=== PATIENT | male | born 1960 | race American Indian/Alaskan Native ===

== ENCOUNTER 2018-03-10 16:39 | Inpatient (IN) | payer OTHER ==
[2018-03-10] MEDS ORDERED: TYLENOL PR ONE ×2 (17:16→17:32)
[2018-03-10] MEDS ORDERED: NACL 0.9% 1000 ML 1,000 ML IV ONE ×3 (17:19→20:21)
--- NOTE | 2018-03-10 17:43 | Emergency Department Report ---
ED Altered Mental Status HPI - General Chief Complaint: Medical Clearance Stated Complaint: DEHYDRATION Time Seen by Provider: 03/10/18 17:15 Source: family, EMS, old records reviewed (no previous medical record for review ) Mode of arrival: Stretcher Limitations: No Limitations, Altered Mental Status - History of Present Illness Initial Comments: 57-year-old male with a past medical history schizophrenia, depression, and anxiety presents to the hospital with his family members for alteration in mental status. End of January patient was experiencing hallucinations and therefore received an IM Aristada injection as an outpatient on February 18. His hallucinations and threatening behavior worsened despite receiving a shot and therefore patient was taken to [place] on Feb 25 after medical clearance at [facility] (presented Feb 22). Family states they were informed by patient' s primary psychiatrist that patient should now only be taking Abilify since he did receive an Aristada shot. He was supposed to discontinue Zyprexa. Family states he continued to receive Zyprexa while under inpatient psychiatric care. They received reports that patient was combative and continued to hallucinated and therefore was receiving multiple medications for sedation. Patient was discharged back to the family care but presented in a catatonic state, wearing a diaper, unable to ambulate, unable to speak or care for himself on Mar 04. At his baseline patient has hallucinations due to psychosis but is typically alert and oriented 3 and able to perform daily living activities. Family recalled ambulance due to his state and he was taken back to [facility] for medical clearance. He was then transfered by back to [place] on Mar 05. Now pt has not ambulated, eaten or had any thing to drink in at least the past 4-5 days so he was brought to the ED for evaluation. Pt also fell out of a wheelchair during [place] stay. - Related Data Allergies Allergy/AdvReac Type Severity Reaction Status Date / Time No Known Allergies Allergy Unverified 03/10/18 17:07 ED Review of Systems ROS: Stated complaint: DEHYDRATION Other details as noted in HPI ED Past Medical Hx - Past Medical History Hx Psychiatric Treatment: Yes (schizophrenia, depression, anxiety) - Social History Smoking Status: Never Smoker Substance Use Type: None ED Physical Exam - General Limitations: No Limitations, Altered Mental Status - Other Other exam information: General: Altered, thin-appearing Head exam: Atraumatic, normocephalic Eyes exam: pupils equal reactive to light, extraocular movements intact ENT: Extremity dry oral mucous membranes Neck exam: Normal inspection, no meningismus Respiratory exam: Clear to auscultation bilateral, no wheezes, rales, crackles Cardiovascular: Normal rate and rhythm, normal heart sounds Abdomen: Soft, nondistended, and nontender, with normal bowel sounds, no rebound, or guarding Extremity: Grimace with passive movement of right hip. No deformity Back: Normal Inspection, full range of motion, no tenderness Neurologic: Altered, lethargic, incomprehensible sounds, does not follow commands, moves all extremities equally with sensation grossly intact Psychiatric: normal affect, normal mood Skin: Warm, dry, intact ED Course Vital Signs 03/10/18 03/10/18 03/10/18 16:42 16:45 16:53 Temperature Pulse Rate 95 H 94 H 92 H Respiratory 14 14 18 Rate Blood Pressure 110/71 110/71 Blood Pressure [Left] O2 Sat by Pulse 97 97 Oximetry 03/10/18 03/10/18 03/10/18 17:00 17:15 17:30 Temperature 100 F H Pulse Rate 95 H 91 H 88 Respiratory 15 14 14 Rate Blood Pressure 110/71 105/75 105/75 Blood Pressure [Left] O2 Sat by Pulse 99 97 Oximetry 03/10/18 03/10/18 18:22 19:15 Temperature 100.6 F H Pulse Rate 93 H Respiratory 18 14 Rate Blood Pressure Blood Pressure 113/77 [Left] O2 Sat by Pulse 97 99 Oximetry - Consultations Consultation #1: 03/10/18 20:49 case d/w Dr Pederson regarding right trochanter avulsion fracture and acetabular irregularity. 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 - Lab Data Result diagrams: 03/10/18 17:27 03/10/18 17:27 Lab Results 03/10/18 03/10/18 03/10/18 Range/Units 17:24 17:27 17:27 WBC 7.3 (4.5-11.0) K/mm3 RBC 5.19 H (3.65-5.03) M/mm3 Hgb 14.3 (11.8-15.2) gm/dl Hct 43.2 (35.5-45.6) % MCV 83 L (84-94) fl MCH 28 (28-32) pg MCHC 33 (32-34) % RDW 14.9 (13.2-15.2) % Plt Count 81 L (140-440) K/mm3 Lymph % (Auto) 7.4 L (13.4-35.0) % [place] % (Auto) 5.8 (0.0-7.3) % Eos % (Auto) 0.8 (0.0-4.3) % Baso % (Auto) 0.3 (0.0-1.8) % Lymph # 0.5 L (1.2-5.4) K/mm3 [place] # 0.4 (0.0-0.8) K/mm3 Eos # 0.1 (0.0-0.4) K/mm3 Baso # 0.0 (0.0-0.1) K/mm3 Seg Neutrophils % 85.7 H (40.0-70.0) % Seg Neutrophils # 6.2 (1.8-7.7) K/mm3 Sodium 141 (137-145) mmol/L Potassium 3.8 (3.6-5.0) mmol/L Chloride 99.9 (98-107) mmol/L Carbon Dioxide 28 (22-30) mmol/L Anion Gap 17 mmol/L BUN 13 (9-20) mg/dL Creatinine 0.8 (0.8-1.5) mg/dL Estimated GFR > 60 ml/min BUN/Creatinine Ratio 16 % Glucose 148 H (75-100) mg/dL POC Glucose (70-105) Calcium 9.1 (8.4-10.2) mg/dL Magnesium 2.20 (1.7-2.3) mg/dL Total Bilirubin 1.20 (0.1-1.2) mg/dL AST 50 H (5-40) units/L ALT 63 H (7-56) units/L Alkaline Phosphatase 67 (35-129) units/L Ammonia (25-60) umol/L Total Creatine Kinase (55-170) units/L CK-MB (CK-2) (0.0-4.0) ng/mL CK-MB (CK-2) Rel Index (0-4) Troponin T (0.00-0.029) ng/mL Total Protein 7.2 (6.3-8.2) g/dL Albumin 3.6 L (3.9-5) g/dL Albumin/Globulin Ratio 1.0 % TSH (0.270-4.200) mlU/mL Free T4 (0.76-1.46) ng/dL Urine Color (Yellow) Urine Turbidity (Clear) Urine pH (5.0-7.0) Ur Specific [place] (1.003-1.030) Urine Protein (Negative) mg/dL Urine Glucose (UA) (Negative) mg/dL Urine Ketones (Negative) mg/dL Urine Blood (Negative) Urine Nitrite (Negative) Urine Bilirubin (Negative) Urine Urobilinogen (<2.0) mg/dL Ur Leukocyte Esterase (Negative) Urine WBC (Auto) (0.0-6.0) /HPF Urine RBC (Auto) (0.0-6.0) /HPF U Epithel Cells (Auto) (0-13.0) /HPF Urine Bacteria (Auto) (Negative) /HPF Ur Transition Epith Cell /HPF Urine Mucus /HPF Salicylates (2.8-20.0) mg/dL Urine Opiates Screen Urine Methadone Screen Acetaminophen (10.0-30.0) ug/mL Ur Barbiturates Screen Ur Phencyclidine Scrn Ur Amphetamines Screen U Benzodiazepines Scrn Urine Cocaine Screen U Marijuana (THC) Screen Drugs of Abuse Note Plasma/Serum Alcohol (0-0.07) % 03/10/18 03/10/18 03/10/18 Range/Units 17:27 17:27 17:27 WBC (4.5-11.0) K/mm3 RBC (3.65-5.03) M/mm3 Hgb (11.8-15.2) gm/dl Hct (35.5-45.6) % MCV (84-94) fl MCH (28-32) pg MCHC (32-34) % RDW (13.2-15.2) % Plt Count (140-440) K/mm3 Lymph % (Auto) (13.4-35.0) % [place] % (Auto) (0.0-7.3) % Eos % (Auto) (0.0-4.3) % Baso % (Auto) (0.0-1.8) % Lymph # (1.2-5.4) K/mm3 [place] # (0.0-0.8) K/mm3 Eos # (0.0-0.4) K/mm3 Baso # (0.0-0.1) K/mm3 Seg Neutrophils % (40.0-70.0) % Seg Neutrophils # (1.8-7.7) K/mm3 Sodium (137-145) mmol/L Potassium (3.6-5.0) mmol/L Chloride (98-107) mmol/L Carbon Dioxide (22-30) mmol/L Anion Gap mmol/L BUN (9-20) mg/dL Creatinine (0.8-1.5) mg/dL Estimated GFR ml/min BUN/Creatinine Ratio % Glucose (75-100) mg/dL POC Glucose (70-105) Calcium (8.4-10.2) mg/dL Magnesium (1.7-2.3) mg/dL Total Bilirubin (0.1-1.2) mg/dL AST (5-40) units/L ALT (7-56) units/L Alkaline Phosphatase (35-129) units/L Ammonia (25-60) umol/L Total Creatine Kinase (55-170) units/L CK-MB (CK-2) (0.0-4.0) ng/mL CK-MB (CK-2) Rel Index (0-4) Troponin T (0.00-0.029) ng/mL Total Protein (6.3-8.2) g/dL Albumin (3.9-5) g/dL Albumin/Globulin Ratio % TSH (0.270-4.200) mlU/mL Free T4 (0.76-1.46) ng/dL Urine Color (Yellow) Urine Turbidity (Clear) Urine pH (5.0-7.0) Ur Specific [place] (1.003-1.030) Urine Protein (Negative) mg/dL Urine Glucose (UA) (Negative) mg/dL Urine Ketones (Negative) mg/dL Urine Blood (Negative) Urine Nitrite (Negative) Urine Bilirubin (Negative) Urine Urobilinogen (<2.0) mg/dL Ur Leukocyte Esterase (Negative) Urine WBC (Auto) (0.0-6.0) /HPF Urine RBC (Auto) (0.0-6.0) /HPF U Epithel Cells (Auto) (0-13.0) /HPF Urine Bacteria (Auto) (Negative) /HPF Ur Transition Epith Cell /HPF Urine Mucus /HPF Salicylates < 0.3 L (2.8-20.0) mg/dL Urine Opiates Screen Urine Methadone Screen Acetaminophen < 5.0 L (10.0-30.0) ug/mL Ur Barbiturates Screen Ur Phencyclidine Scrn Ur Amphetamines Screen U Benzodiazepines Scrn Urine Cocaine Screen U Marijuana (THC) Screen Drugs of Abuse Note Plasma/Serum Alcohol < 0.01 (0-0.07) % 03/10/18 03/10/18 03/10/18 Range/Units 17:27 17:27 17:27 WBC (4.5-11.0) K/mm3 RBC (3.65-5.03) M/mm3 Hgb (11.8-15.2) gm/dl Hct (35.5-45.6) % MCV (84-94) fl MCH (28-32) pg MCHC (32-34) % RDW (13.2-15.2) % Plt Count (140-440) K/mm3 Lymph % (Auto) (13.4-35.0) % [place] % (Auto) (0.0-7.3) % Eos % (Auto) (0.0-4.3) % Baso % (Auto) (0.0-1.8) % Lymph # (1.2-5.4) K/mm3 [place] # (0.0-0.8) K/mm3 Eos # (0.0-0.4) K/mm3 Baso # (0.0-0.1) K/mm3 Seg Neutrophils % (40.0-70.0) % Seg Neutrophils # (1.8-7.7) K/mm3 Sodium (137-145) mmol/L Potassium (3.6-5.0) mmol/L Chloride (98-107) mmol/L Carbon Dioxide (22-30) mmol/L Anion Gap mmol/L BUN (9-20) mg/dL Creatinine (0.8-1.5) mg/dL Estimated GFR ml/min BUN/Creatinine Ratio % Glucose (75-100) mg/dL POC Glucose (70-105) Calcium (8.4-10.2) mg/dL Magnesium (1.7-2.3) mg/dL Total Bilirubin (0.1-1.2) mg/dL AST (5-40) units/L ALT (7-56) units/L Alkaline Phosphatase (35-129) units/L Ammonia 17.0 L (25-60) umol/L Total Creatine Kinase 147 (55-170) units/L CK-MB (CK-2) (0.0-4.0) ng/mL CK-MB (CK-2) Rel Index (0-4) Troponin T (0.00-0.029) ng/mL Total Protein (6.3-8.2) g/dL Albumin (3.9-5) g/dL Albumin/Globulin Ratio % TSH 3.030 (0.270-4.200) mlU/mL Free T4 0.92 (0.76-1.46) ng/dL Urine Color (Yellow) Urine Turbidity (Clear) Urine pH (5.0-7.0) Ur Specific [place] (1.003-1.030) Urine Protein (Negative) mg/dL Urine Glucose (UA) (Negative) mg/dL Urine Ketones (Negative) mg/dL Urine Blood (Negative) Urine Nitrite (Negative) Urine Bilirubin (Negative) Urine Urobilinogen (<2.0) mg/dL Ur Leukocyte Esterase (Negative) Urine WBC (Auto) (0.0-6.0) /HPF Urine RBC (Auto) (0.0-6.0) /HPF U Epithel Cells (Auto) (0-13.0) /HPF Urine Bacteria (Auto) (Negative) /HPF Ur Transition Epith Cell /HPF Urine Mucus /HPF Salicylates (2.8-20.0) mg/dL Urine Opiates Screen Urine Methadone Screen Acetaminophen (10.0-30.0) ug/mL Ur Barbiturates Screen Ur Phencyclidine Scrn Ur Amphetamines Screen U Benzodiazepines Scrn Urine Cocaine Screen U Marijuana (THC) Screen Drugs of Abuse Note Plasma/Serum Alcohol (0-0.07) % 03/10/18 03/10/18 03/10/18 Range/Units 17:43 17:44 17:59 WBC (4.5-11.0) K/mm3 RBC (3.65-5.03) M/mm3 Hgb (11.8-15.2) gm/dl Hct (35.5-45.6) % MCV (84-94) fl MCH (28-32) pg MCHC (32-34) % RDW (13.2-15.2) % Plt Count (140-440) K/mm3 Lymph % (Auto) (13.4-35.0) % [place] % (Auto) (0.0-7.3) % Eos % (Auto) (0.0-4.3) % Baso % (Auto) (0.0-1.8) % Lymph # (1.2-5.4) K/mm3 [place] # (0.0-0.8) K/mm3 Eos # (0.0-0.4) K/mm3 Baso # (0.0-0.1) K/mm3 Seg Neutrophils % (40.0-70.0) % Seg Neutrophils # (1.8-7.7) K/mm3 Sodium (137-145) mmol/L Potassium (3.6-5.0) mmol/L Chloride (98-107) mmol/L Carbon Dioxide (22-30) mmol/L Anion Gap mmol/L BUN (9-20) mg/dL Creatinine (0.8-1.5) mg/dL Estimated GFR ml/min BUN/Creatinine Ratio % Glucose (75-100) mg/dL POC Glucose (70-105) Calcium (8.4-10.2) mg/dL Magnesium (1.7-2.3) mg/dL Total Bilirubin (0.1-1.2) mg/dL AST (5-40) units/L ALT (7-56) units/L Alkaline Phosphatase (35-129) units/L Ammonia (25-60) umol/L Total Creatine Kinase 147 (55-170) units/L CK-MB (CK-2) 1.6 (0.0-4.0) ng/mL CK-MB (CK-2) Rel Index 1.0 (0-4) Troponin T < 0.010 (0.00-0.029) ng/mL Total Protein (6.3-8.2) g/dL Albumin (3.9-5) g/dL Albumin/Globulin Ratio % TSH (0.270-4.200) mlU/mL Free T4 (0.76-1.46) ng/dL Urine Color [place] (Yellow) Urine Turbidity Cloudy (Clear) Urine pH 7.0 (5.0-7.0) Ur Specific [place] 1.021 (1.003-1.030) Urine Protein 30 mg/dl (Negative) mg/dL Urine Glucose (UA) Neg (Negative) mg/dL Urine Ketones Neg (Negative) mg/dL Urine Blood Neg (Negative) Urine Nitrite Neg (Negative) Urine Bilirubin Neg (Negative) Urine Urobilinogen 4.0 (<2.0) mg/dL Ur Leukocyte Esterase Lg (Negative) Urine WBC (Auto) 92.0 H (0.0-6.0) /HPF Urine RBC (Auto) 6.0 (0.0-6.0) /HPF U Epithel Cells (Auto) < 1.0 (0-13.0) /HPF Urine Bacteria (Auto) 3+ (Negative) /HPF Ur Transition Epith Cell 2 /HPF Urine Mucus 1+ /HPF Salicylates (2.8-20.0) mg/dL Urine Opiates Screen Urine Methadone Screen Acetaminophen (10.0-30.0) ug/mL Ur Barbiturates Screen Ur Phencyclidine Scrn Ur Amphetamines Screen U Benzodiazepines Scrn Urine Cocaine Screen U Marijuana (THC) Screen Drugs of Abuse Note Plasma/Serum Alcohol (0-0.07) % 03/10/18 03/10/18 Range/Units 17:59 18:07 WBC (4.5-11.0) K/mm3 RBC (3.65-5.03) M/mm3 Hgb (11.8-15.2) gm/dl Hct (35.5-45.6) % MCV (84-94) fl MCH (28-32) pg MCHC (32-34) % RDW (13.2-15.2) % Plt Count (140-440) K/mm3 Lymph % (Auto) (13.4-35.0) % [place] % (Auto) (0.0-7.3) % Eos % (Auto) (0.0-4.3) % Baso % (Auto) (0.0-1.8) % Lymph # (1.2-5.4) K/mm3 [place] # (0.0-0.8) K/mm3 Eos # (0.0-0.4) K/mm3 Baso # (0.0-0.1) K/mm3 Seg Neutrophils % (40.0-70.0) % Seg Neutrophils # (1.8-7.7) K/mm3 Sodium (137-145) mmol/L Potassium (3.6-5.0) mmol/L Chloride (98-107) mmol/L Carbon Dioxide (22-30) mmol/L Anion Gap mmol/L BUN (9-20) mg/dL Creatinine (0.8-1.5) mg/dL Estimated GFR ml/min BUN/Creatinine Ratio % Glucose (75-100) mg/dL POC Glucose 140 H (70-105) Calcium (8.4-10.2) mg/dL Magnesium (1.7-2.3) mg/dL Total Bilirubin (0.1-1.2) mg/dL AST (5-40) units/L ALT (7-56) units/L Alkaline Phosphatase (35-129) units/L Ammonia (25-60) umol/L Total Creatine Kinase (55-170) units/L CK-MB (CK-2) (0.0-4.0) ng/mL CK-MB (CK-2) Rel Index (0-4) Troponin T (0.00-0.029) ng/mL Total Protein (6.3-8.2) g/dL Albumin (3.9-5) g/dL Albumin/Globulin Ratio % TSH (0.270-4.200) mlU/mL Free T4 (0.76-1.46) ng/dL Urine Color (Yellow) Urine Turbidity (Clear) Urine pH (5.0-7.0) Ur Specific [place] (1.003-1.030) Urine Protein (Negative) mg/dL Urine Glucose (UA) (Negative) mg/dL Urine Ketones (Negative) mg/dL Urine Blood (Negative) Urine Nitrite (Negative) Urine Bilirubin (Negative) Urine Urobilinogen (<2.0) mg/dL Ur Leukocyte Esterase (Negative) Urine WBC (Auto) (0.0-6.0) /HPF Urine RBC (Auto) (0.0-6.0) /HPF U Epithel Cells (Auto) (0-13.0) /HPF Urine Bacteria (Auto) (Negative) /HPF Ur Transition Epith Cell /HPF Urine Mucus /HPF Salicylates (2.8-20.0) mg/dL Urine Opiates Screen Presumptive negative Urine Methadone Screen Presumptive negative Acetaminophen (10.0-30.0) ug/mL Ur Barbiturates Screen Presumptive negative Ur Phencyclidine Scrn Presumptive negative Ur Amphetamines Screen Presumptive negative U Benzodiazepines Scrn Presumptive negative Urine Cocaine Screen Presumptive negative U Marijuana (THC) Screen Presumptive negative Drugs of Abuse Note Disclamer Plasma/Serum Alcohol (0-0.07) % - EKG Data -: EKG Interpreted by Me EKG shows normal: sinus rhythm, axis (qrs 65), QRS complexes (qrsd 106), ST-T waves (no stemi/t inv) Rate: normal (65) When compared to previous EKG there are: previous EKG unavailable - Radiology Data Radiology results: report reviewed FINAL REPORT EXAM: CT HEAD/BRAIN WO CON HISTORY: AMS, schizophrenia TECHNIQUE: Standard unenhanced CT of the head at 5.0 millimeter axial increments. PRIORS: None. FINDINGS: The ventricular system is normal in size and configuration. There is no evidence for parenchymal volume loss. There is no evidence for mass lesion, mass effect, midline shift, acute intracranial hemorrhage, or acute ischemia/ infarction. No evidence for acute skull fracture is seen. No abnormality in the overlying scalp soft tissues is seen. Visualized paranasal sinuses are clear. IMPRESSION: Negative CT of the head. No acute intracranial process noted. FINAL REPORT EXAM: XR CHEST 1V AP HISTORY: ams, low grade fever TECHNIQUE: Frontal chest x-ray Comparison: None FINDINGS: Heart size is upper limits normal with mild left ventricular configuration. Lungs are clear and well expanded without focal infiltrate or consolidation. Tortuous descending aorta. Bones are osteopenic. Mild pulmonary vascular prominence without overt failure. IMPRESSION: Mild left ventricular configuration of the heart compatible with systemic hypertension. No discrete focal infiltrate. Mild pulmonary vascular prominence without failure. FINAL REPORT EXAM: XR HIP 2-3V RT HISTORY: right hip pain after fall TECHNIQUE: AP pelvis and lateral view right hip Comparison: None FINDINGS: There is global osteopenia. There is a lesser trochanter avulsion with approximately 6 millimeter displacement of 1.7 x 0.7 centimeter fracture fragment. Femoral head is normally located. There is mild degenerative change of the left hip joint with mild acetabular spurring. Lateral view of the right hip shows irregularity of the acetabulum which may be due to superimposition artifact. Posterior right acetabulum is incompletely assessed. There is SI joint lipping and possible superior ankylosis of the right SI joint. IMPRESSION: Right lesser trochanter avulsion fracture fragment. No femoral head or neck fracture. No dislocation. Irregularity of the posterior right acetabulum incompletely assessed. Recommend either additional hip x-rays or CT right hip. - Medical Decision Making ams ct head: possible over medication likely cause + uti, straight cath urine, culture pending, rocephin ordered no signs of sepsis or septic shock clinical dehydration with no po intake for several days, renal function, electrolytes normal. IVF NS 1 liter initiated pt will benefit from psych management inhouse. 1013 signed thrombocytopenia previous platelet count not available can be caused by Zyprexa Right lessor trochanter avulsion fracture Dr. Burton orthopedist consulted and will evaluate pt pt will be admitted to hospitalist service - Differential Diagnosis encephalopathy, CVA, electrolyte abnormality, dehydration, psychosis Critical Care Time: No Critical care attestation.: If time is entered above; I have spent that time in minutes in the direct care of this critically ill patient, excluding procedure time. ED Disposition Clinical Impression: Altered mental status, Schizophrenia, UTI (urinary tract infection), Thrombocytopenia, Dehydration, Poor fluid intake, Fracture of lesser trochanter of femur Disposition: 09 OP ADMIT IP TO THIS HOSP Is pt being admited?: Yes Condition: Stable Time of Disposition: 19:30 (Dr Lopez/hosp)
[2018-03-10 17:54] LABS: Basophils % (Auto) 0.3 % (0.0-1.8); Eosinophils # (Auto) 0.1 K/mm3 (0.0-0.4); Eosinophils % (Auto) 0.8 % (0.0-4.3); Hematocrit 43.2 % (35.5-45.6); Hemoglobin 14.3 gm/dl (11.8-15.2); Lymphocytes # (Auto) 0.5 K/mm3 (1.2-5.4); Lymphocytes % (Auto) 7.4 % (13.4-35.0); Mean Corpuscular HGB Conc 33 % (32-34); Mean Corpuscular Hemoglobin 28 pg (28-32); Mean Corpuscular Volume 83 fl (84-94); Monocytes # (Auto) 0.4 K/mm3 (0.0-0.8); Monocytes % (Auto) 5.8 % (0.0-7.3); Red Blood Count 5.19 M/mm3 (3.65-5.03); Red Cell Distribution Width 14.9 % (13.2-15.2)
[2018-03-10 18:02] LABS: Platelet Count 81 K/mm3 (140-440)
[2018-03-10 18:08] LABS: Creatine Kinase MB 1.6 ng/mL (0.0-4.0)
[2018-03-10 18:08] LABS: Alanine Aminotransferase 63 units/L (7-56); Albumin 3.6 g/dL (3.9-5); BUN/Creatinine Ratio 16; Blood Urea Nitrogen 13 mg/dL (9-20); Calcium 9.1 mg/dL (8.4-10.2); Hemolysis Index 1
[2018-03-10 18:21] LABS: Free T4 (Free Thyroxine) 0.92 ng/dL (0.76-1.46)
[2018-03-10 18:25] LABS: Amphetamine Screen,Urine PRESUMPTIVE NEGATIVE; Bacteria,Urine 3+ /HPF (Negative); Benzodiazepines Screen,Urine PRESUMPTIVE NEGATIVE; Bilirubin,Urine NEG (Negative); Blood,Urine NEG (Negative); Cannabinoid Screen,Urine PRESUMPTIVE NEGATIVE; Cocaine Screen,Urine PRESUMPTIVE NEGATIVE; Color,Urine Amber (Yellow); Methadone Screen,Urine PRESUMPTIVE NEGATIVE; Mucus,Urine 1+ /HPF; Opiate Screen,Urine PRESUMPTIVE NEGATIVE
--- NOTE | 2018-03-10 19:21 | Cat Scan Report ---
FINAL REPORT EXAM: CT HEAD/BRAIN WO CON HISTORY: AMS, schizophrenia TECHNIQUE: Standard unenhanced CT of the head at 5.0 millimeter axial increments. PRIORS: None. FINDINGS: The ventricular system is normal in size and configuration. There is no evidence for parenchymal volume loss. There is no evidence for mass lesion, mass effect, midline shift, acute intracranial hemorrhage, or acute ischemia/ infarction. No evidence for acute skull fracture is seen. No abnormality in the overlying scalp soft tissues is seen. Visualized paranasal sinuses are clear. IMPRESSION: Negative CT of the head. No acute intracranial process noted.
--- NOTE | 2018-03-10 19:21 | XRay Report ---
FINAL REPORT EXAM: XR CHEST 1V AP HISTORY: ams, low grade fever TECHNIQUE: Frontal chest x-ray Comparison: None FINDINGS: Heart size is upper limits normal with mild left ventricular configuration. Lungs are clear and well expanded without focal infiltrate or consolidation. Tortuous descending aorta. Bones are osteopenic. Mild pulmonary vascular prominence without overt failure. IMPRESSION: Mild left ventricular configuration of the heart compatible with systemic hypertension. No discrete focal infiltrate. Mild pulmonary vascular prominence without failure.
--- NOTE | 2018-03-10 19:32 | XRay Report ---
FINAL REPORT EXAM: XR HIP 2-3V RT HISTORY: right hip pain after fall TECHNIQUE: AP pelvis and lateral view right hip Comparison: None FINDINGS: There is global osteopenia. There is a lesser trochanter avulsion with approximately 6 millimeter displacement of 1.7 x 0.7 centimeter fracture fragment. Femoral head is normally located. There is mild degenerative change of the left hip joint with mild acetabular spurring. Lateral view of the right hip shows irregularity of the acetabulum which may be due to superimposition artifact. Posterior right acetabulum is incompletely assessed. There is SI joint lipping and possible superior ankylosis of the right SI joint. IMPRESSION: Right lesser trochanter avulsion fracture fragment. No femoral head or neck fracture. No dislocation. Irregularity of the posterior right acetabulum incompletely assessed. Recommend either additional hip x-rays or CT right hip.
[2018-03-10] MEDS ORDERED: ROCEPHIN/NS 1 GM/50 ML 1 GM/50 ML BAG IV ONE (19:36)
--- NOTE | 2018-03-10 20:22 | History and Physical Report ---
History of Present Illness Chief complaint: Catatonic State History of present illness: 57 YO Male [facility] Resident with Schizophrenia, Depression, Anxiety presents to ED foe evaluation. Pt is currently in a catatonic state and unable to provide detailed history. Pt family provides history. As per family, the patient received Aristada injection on February 18 with worsening symptoms. As a result the patient was admitted to [facility] and was treated with Zyprexa instead of Abilify. Pt subsequently discharged from [facility] back to family in a Catatonic state and unable to conduct activities of daily living. Pt was Alert and oriented x3 at his baseline prior to admission to [facility]. Pt readmitted to [facility] for catatonia. Pt has not ambulated for the past 4 days and subsequently discharged from inpatient psychiatry and sent to [facility] for evaluation for catatonic state. Pt seen and evaluated and found to have Catatonia. Pt also found to have evidence of UTI and treated with IV antibiotic therapy. Pt catatonic symptoms not related to UTI, but to use of psychotrophic medication. Past History Past Medical History: denies: other (Schizophrenia, Depression, Anxiety) Past Surgical History: No surgical history, Other (reviewed) Social history: single. denies: smoking, alcohol abuse, prescription drug abuse Family history: no significant family history (reviewed) Medications and Allergies Allergies Allergy/AdvReac Type Severity Reaction Status Date / Time No Known Allergies Allergy Unverified 03/10/18 17:07 Active Meds: Active Medications Sodium Chloride (Nacl 0.9% 1000 Ml) 1,000 mls @ 999 mls/hr IV BOLUS ONE Stop: 03/10/18 21:00 Last Admin: 03/10/18 20:00 Dose: 999 mls/hr Lorazepam (Ativan) 1 mg IM Q8HR ERIC Review of Systems ROS unobtainable: due to mental status Exam - Constitutional Vitals: Temp Pulse Resp BP Pulse Ox 100.6 F H 93 H 14 113/77 99 03/10/18 19:15 03/10/18 19:15 03/10/18 19:15 03/10/18 19:15 03/10/18 19:15 General appearance: Present: no acute distress - EENT Eyes: Present: PERRL ENT: hearing intact, clear oral mucosa - Neck Neck: Present: supple, normal ROM - Respiratory Respiratory effort: normal Respiratory: bilateral: CTA - Cardiovascular Heart Sounds: Present: S1 & S2. Absent: rub, click - Extremities Extremities: pulses symmetrical, No edema Peripheral Pulses: within normal limits - Abdominal General gastrointestinal: Present: soft, non-tender, non-distended, normal bowel sounds Male genitourinary: Present: normal - Integumentary Integumentary: Present: clear, dry - Psychiatric Psychiatric: no appropriate mood/affect, no intact judgment & insight - Neurologic Neurologic: CNII-XII intact Results - Labs CBC & Chem 7: 03/10/18 17:27 03/10/18 17:27 Labs: Abnormal lab results 03/10/18 03/10/18 03/10/18 Range/Units 17: 17: 17:27 RBC 5.19 H (3.65-5.03) M/mm3 MCV 83 L (84-94) fl Plt Count 81 L (140-440) K/mm3 Lymph % (Auto) 7.4 L (13.4-35.0) % Lymph # 0.5 L (1.2-5.4) K/mm3 Seg Neutrophils % 85.7 H (40.0-70.0) % Glucose 148 H (75-100) mg/dL POC Glucose (70-105) AST 50 H (5-40) units/L ALT 63 H (7-56) units/L Ammonia (25-60) umol/L Albumin 3.6 L (3.9-5) g/dL Urine WBC (Auto) (0.0-6.0) /HPF Salicylates < 0.3 L (2.8-20.0) mg/dL Acetaminophen (10.0-30.0) ug/mL 03/10/18 03/10/18 03/10/18 Range/Units 17:27 17:27 17:59 RBC (3.65-5.03) M/mm3 MCV (84-94) fl Plt Count (140-440) K/mm3 Lymph % (Auto) (13.4-35.0) % Lymph # (1.2-5.4) K/mm3 Seg Neutrophils % (40.0-70.0) % Glucose (75-100) mg/dL POC Glucose (70-105) AST (5-40) units/L ALT (7-56) units/L Ammonia 17.0 L (25-60) umol/L Albumin (3.9-5) g/dL Urine WBC (Auto) 92.0 H (0.0-6.0) /HPF Salicylates (2.8-20.0) mg/dL Acetaminophen < 5.0 L (10.0-30.0) ug/mL 03/10/18 Range/Units 18:07 RBC (3.65-5.03) M/mm3 MCV (84-94) fl Plt Count (140-440) K/mm3 Lymph % (Auto) (13.4-35.0) % Lymph # (1.2-5.4) K/mm3 Seg Neutrophils % (40.0-70.0) % Glucose (75-100) mg/dL POC Glucose 140 H (70-105) AST (5-40) units/L ALT (7-56) units/L Ammonia (25-60) umol/L Albumin (3.9-5) g/dL Urine WBC (Auto) (0.0-6.0) /HPF Salicylates (2.8-20.0) mg/dL Acetaminophen (10.0-30.0) ug/mL Assessment and Plan - Patient Problems (1) Catatonic state Current Visit: Yes Status: Acute Plan to address problem: Recommend Ativan TID, neuro checks, psychiatry evaluation. Pharmacy consulted and discussed side effects of previous medication regimen. (2) UTI (urinary tract infection) Current Visit: Yes Status: Acute Qualifiers: Encounter type: initial encounter Plan to address problem: Antibiotic therapy, (3) Fracture of lesser trochanter of femur Current Visit: Yes Status: Suspected Plan to address problem: Recommend repeat imaging, as per radiology report with repeat X ray, or CT to ensure that finding not due to artifact. Ortho consult to review x ray and determine if inpatient surgery recommended or outpatient f/u care.
[2018-03-10] MEDS: ATIVAN IM SCH (21:35)
[2018-03-11] MEDS: ATIVAN IM SCH ×3 (06:36→23:19)
[2018-03-11] MEDS: D5/0.45NS 1,000 ML IV SCH ×2 (12:00→23:09)
--- NOTE | 2018-03-11 16:19 | Consultation ---
History of Present Illness - [facility] Consult date: 03/11/18 Consult reason: other History of present illness: 57-year-old male with a past medical history schizophrenia, depression, and anxiety presents to the hospital with his family members for alteration in mental status. The patient reportedly fell from a wheelchair recently x-rays taken in the emergency room reveal a possible fracture involving the lesser trochanter on the right femur Past History Past Medical History: denies: other (Schizophrenia, Depression, Anxiety) Past Surgical History: No surgical history, Other (reviewed) Social history: single. denies: smoking, alcohol abuse, prescription drug abuse Family history: no significant family history (reviewed) Medications and Allergies Allergies Allergy/AdvReac Type Severity Reaction Status Date / Time No Known Allergies Allergy Unverified 03/10/18 17:07 Active Meds: Active Medications Dextrose/Sodium Chloride (D5/0.45ns) 1,000 mls @ 100 mls/hr IV DIRECT ERIC Lorazepam (Ativan) 1 mg IM Q8HR ERIC Last Admin: 03/11/18 06:36 Dose: Not Given Physical Examination - Physical exam Narrative exam: The patient is still in a catatonic state and unable to answer questions and participate in his physical examination Plain x-rays of the hip and pelvis were reviewed by me and show no obvious acute injury to the patient's pelvis or proximal femur that doesn't appear to be some old calcified fragment in the soft tissues
--- NOTE | 2018-03-11 16:29 | Progress Note ---
Assessment and Plan Assessment and plan: 57-year-old -[place] male came from mental health facility for altered mental status Catatonic schizophrenia - mental health consulted Metabolic encephalopathy - Supportive care UTI -Patient is on IV ceftriaxone Dehydration - Patient is on D5 half-normal saline, condition is not taking anything by mouth Suspected femoral fracture -Evaluated by orthopedics, reviewed his imaging and showed no fracture DVT prophylaxis Disposition - Continue inpatient care History Interval history: Patient was seen and evaluated this morning, patient did not talk to me, patient is in catatonic state. Hospitalist Physical - Physical exam Narrative exam: Not in cardiopulmonary distress. The patient appeared well nourished and normally developed. Vital signs as documented. Head exam is unremarkable. No scleral icterus . Neck is without jugular venous distension, thyromegaly, or carotid bruits. Lungs are clear to auscultation. Cardiac exam reveals regular rate and Rhythm. First and second heart sounds normal. No murmurs, rubs or gallops. Abdominal exam reveals normal bowel sounds, no masses, no organomegaly and no aortic enlargement. Extremities are nonedematous and both femoral and pedal pulses are normal. 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 Patient is very stiff. - Constitutional Vitals: Temp Pulse Resp BP Pulse Ox 98.5 F 91 H 18 113/67 96 03/11/18 11:51 03/11/18 11:51 03/11/18 11:51 03/11/18 11:51 03/11/18 11:51 General appearance: Present: no acute distress Results - Labs CBC & Chem 7: 03/10/18 17:27 03/10/18 17:27 Labs: Laboratory Last Values WBC 7.3 K/mm3 (4.5-11.0) 03/10/18 17:27 RBC 5.19 M/mm3 (3.65-5.03) H 03/10/18 17:27 Hgb 14.3 gm/dl (11.8-15.2) 03/10/18 17:27 Hct 43.2 % (35.5-45.6) 03/10/18 17:27 MCV 83 fl (84-94) L 03/10/18 17:27 MCH 28 pg (28-32) 03/10/18 17:27 MCHC 33 % (32-34) 03/10/18 17:27 RDW 14.9 % (13.2-15.2) 03/10/18 17:27 Plt Count 81 K/mm3 (140-440) L 03/10/18 17:27 Lymph % (Auto) 7.4 % (13.4-35.0) L 03/10/18 17:27 [place] % (Auto) 5.8 % (0.0-7.3) 03/10/18 17:27 Eos % (Auto) 0.8 % (0.0-4.3) 03/10/18 17:27 Baso % (Auto) 0.3 % (0.0-1.8) 03/10/18 17:27 Lymph # 0.5 K/mm3 (1.2-5.4) L 03/10/18 17:27 [place] # 0.4 K/mm3 (0.0-0.8) 03/10/18 17:27 Eos # 0.1 K/mm3 (0.0-0.4) 03/10/18 17:27 Baso # 0.0 K/mm3 (0.0-0.1) 03/10/18 17:27 Total Counted Cancelled 03/10/18 17:27 Seg Neutrophils % 85.7 % (40.0-70.0) H 03/10/18 17:27 Seg Neuts % (Manual) Cancelled 03/10/18 17:27 Band Neutrophils % Cancelled 03/10/18 17:27 Lymphocytes % (Manual) Cancelled 03/10/18 17:27 Reactive Lymphs % (Man) Cancelled 03/10/18 17:27 Monocytes % (Manual) Cancelled 03/10/18 17:27 Eosinophils % (Manual) Cancelled 03/10/18 17:27 Basophils % (Manual) Cancelled 03/10/18 17:27 Metamyelocytes % Cancelled 03/10/18 17:27 Myelocytes % Cancelled 03/10/18 17:27 Promyelocytes % Cancelled 03/10/18 17:27 Blast Cells % Cancelled 03/10/18 17:27 Nucleated RBC % Cancelled 03/10/18 17:27 Seg Neutrophils # 6.2 K/mm3 (1.8-7.7) 03/10/18 17:27 Seg Neutrophils # Man Cancelled 03/10/18 17:27 Band Neutrophils # Cancelled 03/10/18 17:27 Lymphocytes # (Manual) Cancelled 03/10/18 17:27 Abs React Lymphs (Man) Cancelled 03/10/18 17:27 Monocytes # (Manual) Cancelled 03/10/18 17:27 Eosinophils # (Manual) Cancelled 03/10/18 17:27 Basophils # (Manual) Cancelled 03/10/18 17:27 Metamyelocytes # Cancelled 03/10/18 17:27 Myelocytes # Cancelled 03/10/18 17:27 Promyelocytes # Cancelled 03/10/18 17:27 Blast Cells # Cancelled 03/10/18 17:27 WBC Morphology Cancelled 03/10/18 17:27 Hypersegmented Neuts Cancelled 03/10/18 17:27 Hyposegmented Neuts Cancelled 03/10/18 17:27 Hypogranular Neuts Cancelled 03/10/18 17:27 Hypersegmented Polys Cancelled 03/10/18 17:27 Smudge Cells Cancelled 03/10/18 17:27 Toxic Granulation Cancelled 03/10/18 17:27 Toxic Vacuolation Cancelled 03/10/18 17:27 Dohle Bodies Cancelled 03/10/18 17:27 Pelger-Huet Anomaly Cancelled 03/10/18 17:27 Alvin Rods Cancelled 03/10/18 17:27 Platelet Estimate Cancelled 03/10/18 17:27 Clumped Platelets Cancelled 03/10/18 17:27 Plt Clumps, EDTA Cancelled 03/10/18 17:27 Large Platelets Cancelled 03/10/18 17:27 Giant Platelets Cancelled 03/10/18 17:27 Platelet Satelliting Cancelled 03/10/18 17:27 Plt Morphology Comment Cancelled 03/10/18 17:27 RBC Morphology Cancelled 03/10/18 17:27 Dimorphic RBCs Cancelled 03/10/18 17:27 Polychromasia Cancelled 03/10/18 17:27 Hypochromasia Cancelled 03/10/18 17:27 Poikilocytosis Cancelled 03/10/18 17:27 Basophilic Stippling Cancelled 03/10/18 17:27 Anisocytosis Cancelled 03/10/18 17:27 Microcytosis Cancelled 03/10/18 17:27 Macrocytosis Cancelled 03/10/18 17:27 Spherocytes Cancelled 03/10/18 17:27 Pappenheimer Bodies Cancelled 03/10/18 17:27 Sickle Cells Cancelled 03/10/18 17:27 Target Cells Cancelled 03/10/18 17:27 Tear Drop Cells Cancelled 03/10/18 17:27 Ovalocytes Cancelled 03/10/18 17:27 Stomatocytes Cancelled 03/10/18 17:27 Helmet Cells Cancelled 03/10/18 17:27 Hernandez-Casey Bodies Cancelled 03/10/18 17:27 [place] Rings Cancelled 03/10/18 17:27 [place] Cells Cancelled 03/10/18 17:27 Bite Cells Cancelled 03/10/18 17:27 Crenated Cell Cancelled 03/10/18 17:27 Elliptocytes Cancelled 03/10/18 17:27 Acanthocytes (Spur) Cancelled 03/10/18 17:27 Rouleaux Cancelled 03/10/18 17:27 Hemoglobin C Crystals Cancelled 03/10/18 17:27 Schistocytes Cancelled 03/10/18 17:27 Malaria parasites Cancelled 03/10/18 17:27 Darrius Bodies Cancelled 03/10/18 17:27 Hem Pathologist Commnt Cancelled 03/10/18 17:27 Sodium 141 mmol/L (137-145) 03/10/18 17:27 Potassium 3.8 mmol/L (3.6-5.0) 03/10/18 17:27 Chloride 99.9 mmol/L (98-107) 03/10/18 17:27 Carbon Dioxide 28 mmol/L (22-30) 03/10/18 17:27 Anion Gap 17 mmol/L 03/10/18 17:27 BUN 13 mg/dL (9-20) 03/10/18 17:27 Creatinine 0.8 mg/dL (0.8-1.5) 03/10/18 17:27 Estimated GFR > 60 ml/min 03/10/18 17:27 BUN/Creatinine Ratio 16 % 03/10/18 17:27 Glucose 148 mg/dL (75-100) H 03/10/18 17:27 POC Glucose 140 (70-105) H 03/10/18 18:07 Calcium 9.1 mg/dL (8.4-10.2) 03/10/18 17:27 Magnesium 2.20 mg/dL (1.7-2.3) 03/10/18 17:24 Total Bilirubin 1.20 mg/dL (0.1-1.2) 03/10/18 17:27 AST 50 units/L (5-40) H 03/10/18 17:27 ALT 63 units/L (7-56) H 03/10/18 17:27 Alkaline Phosphatase 67 units/L (35-129) 03/10/18 17:27 Ammonia 17.0 umol/L (25-60) L 03/10/18 17:27 Total Creatine Kinase 148 units/L (55-170) 03/10/18 17:44 CK-MB (CK-2) 1.6 ng/mL (0.0-4.0) 03/10/18 17:44 CK-MB (CK-2) Rel Index 1.0 (0-4) 03/10/18 17:44 Troponin T < 0.010 ng/mL (0.00-0.029) 03/10/18 17:43 Total Protein 7.2 g/dL (6.3-8.2) 03/10/18 17:27 Albumin 3.6 g/dL (3.9-5) L 03/10/18 17:27 Albumin/Globulin Ratio 1.0 % 03/10/18 17:27 TSH 3.030 mlU/mL (0.270-4.200) 03/10/18 17:27 Free T4 0.92 ng/dL (0.76-1.46) 03/10/18 17:27 Urine Color Isela (Yellow) 03/10/18 17:59 Urine Turbidity Cloudy (Clear) 03/10/18 17:59 Urine pH 7.0 (5.0-7.0) 03/10/18 17:59 Ur Specific [place] 1.021 (1.003-1.030) 03/10/18 17:59 Urine Protein 30 mg/dl mg/dL (Negative) 03/10/18 17:59 Urine Glucose (UA) Neg mg/dL (Negative) 03/10/18 17:59 Urine Ketones Neg mg/dL (Negative) 03/10/18 17:59 Urine Blood Neg (Negative) 03/10/18 17:59 Urine Nitrite Neg (Negative) 03/10/18 17:59 Urine Bilirubin Neg (Negative) 03/10/18 17:59 Urine Urobilinogen 4.0 mg/dL (<2.0) 03/10/18 17:59 Ur Leukocyte Esterase Lg (Negative) 03/10/18 17:59 Urine WBC (Auto) 92.0 /HPF (0.0-6.0) H 03/10/18 17:59 Urine RBC (Auto) 6.0 /HPF (0.0-6.0) 03/10/18 17:59 U Epithel Cells (Auto) < 1.0 /HPF (0-13.0) 03/10/18 17:59 Urine Bacteria (Auto) 3+ /HPF (Negative) 03/10/18 17:59 Ur Transition Epith Cell 2 /HPF 03/10/18 17:59 Urine Mucus 1+ /HPF 03/10/18 17:59 Salicylates < 0.3 mg/dL (2.8-20.0) L 03/10/18 17:27 Urine Opiates Screen Presumptive negative 03/10/18 17:59 Urine Methadone Screen Presumptive negative 03/10/18 17:59 Acetaminophen < 5.0 ug/mL (10.0-30.0) L 03/10/18 17:27 Ur Barbiturates Screen Presumptive negative 03/10/18 17:59 Ur Phencyclidine Scrn Presumptive negative 03/10/18 17:59 Ur Amphetamines Screen Presumptive negative 03/10/18 17:59 U Benzodiazepines Scrn Presumptive negative 03/10/18 17:59 Urine Cocaine Screen Presumptive negative 03/10/18 17:59 U Marijuana (THC) Screen Presumptive negative 03/10/18 17:59 Drugs of Abuse Note Disclamer 03/10/18 17:59 Plasma/Serum Alcohol < 0.01 % (0-0.07) 03/10/18 17:27
[2018-03-11] MEDS ORDERED: VASELINE LIP THERAPY TP PRN (17:25)
[2018-03-11] MEDS: ROCEPHIN/NS 1 GM/50 ML 1 GM/50 ML BAG IV SCH (18:00)
[2018-03-11] MEDS: HEPARIN SUB-Q SCH (23:19)
[2018-03-12 06:25] LABS: BUN/Creatinine Ratio 13; Blood Urea Nitrogen 8 mg/dL (9-20); Calcium 8.4 mg/dL (8.4-10.2); Hemolysis Index 7
--- NOTE | 2018-03-12 07:52 | Progress Note ---
Assessment and Plan Assessment and plan: 57-year-old -[place] male came from mental health facility for altered mental status Catatonic schizophrenia - mental health consulted Metabolic encephalopathy - Supportive care UTI -Patient is on IV ceftriaxone Dehydration - Patient is on D5 half-normal saline, condition is not taking anything by mouth Suspected femoral fracture -Evaluated by orthopedics, reviewed his imaging and showed no fracture DVT prophylaxis Disposition - Continue inpatient care - Disposition per psychiatry History Interval history: Patient was seen and evaluated this morning, patient did not talk to me, patient is in catatonic state. Hospitalist Physical - Physical exam Narrative exam: Not in cardiopulmonary distress. The patient appeared well nourished and normally developed. Vital signs as documented. Head exam is unremarkable. No scleral icterus . Neck is without jugular venous distension, thyromegaly, or carotid bruits. Lungs are clear to auscultation. Cardiac exam reveals regular rate and Rhythm. First and second heart sounds normal. No murmurs, rubs or gallops. Abdominal exam reveals normal bowel sounds, no masses, no organomegaly and no aortic enlargement. Extremities are nonedematous and both femoral and pedal pulses are normal. 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 Patient is very stiff. - Constitutional Vitals: Temp Pulse Resp BP Pulse Ox 97.5 F L 89 20 107/68 98 03/12/18 04:21 03/12/18 04:21 03/12/18 04:21 03/12/18 04:21 03/12/18 04:21 General appearance: Present: no acute distress Results - Labs CBC & Chem 7: 03/10/18 17:27 03/12/18 05:17 Labs: Laboratory Last Values WBC 7.3 K/mm3 (4.5-11.0) 03/10/18 17:27 RBC 5.19 M/mm3 (3.65-5.03) H 03/10/18 17:27 Hgb 14.3 gm/dl (11.8-15.2) 03/10/18 17:27 Hct 43.2 % (35.5-45.6) 03/10/18 17:27 MCV 83 fl (84-94) L 03/10/18 17:27 MCH 28 pg (28-32) 03/10/18 17:27 MCHC 33 % (32-34) 03/10/18 17:27 RDW 14.9 % (13.2-15.2) 03/10/18 17:27 Plt Count 81 K/mm3 (140-440) L 03/10/18 17:27 Lymph % (Auto) 7.4 % (13.4-35.0) L 03/10/18 17:27 [place] % (Auto) 5.8 % (0.0-7.3) 03/10/18 17:27 Eos % (Auto) 0.8 % (0.0-4.3) 03/10/18 17:27 Baso % (Auto) 0.3 % (0.0-1.8) 03/10/18 17:27 Lymph # 0.5 K/mm3 (1.2-5.4) L 03/10/18 17:27 [place] # 0.4 K/mm3 (0.0-0.8) 03/10/18 17:27 Eos # 0.1 K/mm3 (0.0-0.4) 03/10/18 17:27 Baso # 0.0 K/mm3 (0.0-0.1) 03/10/18 17:27 Total Counted Cancelled 03/10/18 17:27 Seg Neutrophils % 85.7 % (40.0-70.0) H 03/10/18 17:27 Seg Neuts % (Manual) Cancelled 03/10/18 17:27 Band Neutrophils % Cancelled 03/10/18 17:27 Lymphocytes % (Manual) Cancelled 03/10/18 17:27 Reactive Lymphs % (Man) Cancelled 03/10/18 17:27 Monocytes % (Manual) Cancelled 03/10/18 17:27 Eosinophils % (Manual) Cancelled 03/10/18 17:27 Basophils % (Manual) Cancelled 03/10/18 17:27 Metamyelocytes % Cancelled 03/10/18 17:27 Myelocytes % Cancelled 03/10/18 17:27 Promyelocytes % Cancelled 03/10/18 17:27 Blast Cells % Cancelled 03/10/18 17:27 Nucleated RBC % Cancelled 03/10/18 17:27 Seg Neutrophils # 6.2 K/mm3 (1.8-7.7) 03/10/18 17:27 Seg Neutrophils # Man Cancelled 03/10/18 17:27 Band Neutrophils # Cancelled 03/10/18 17:27 Lymphocytes # (Manual) Cancelled 03/10/18 17:27 Abs React Lymphs (Man) Cancelled 03/10/18 17:27 Monocytes # (Manual) Cancelled 03/10/18 17:27 Eosinophils # (Manual) Cancelled 03/10/18 17:27 Basophils # (Manual) Cancelled 03/10/18 17:27 Metamyelocytes # Cancelled 03/10/18 17:27 Myelocytes # Cancelled 03/10/18 17:27 Promyelocytes # Cancelled 03/10/18 17:27 Blast Cells # Cancelled 03/10/18 17:27 WBC Morphology Cancelled 03/10/18 17:27 Hypersegmented Neuts Cancelled 03/10/18 17:27 Hyposegmented Neuts Cancelled 03/10/18 17:27 Hypogranular Neuts Cancelled 03/10/18 17:27 Hypersegmented Polys Cancelled 03/10/18 17:27 Smudge Cells Cancelled 03/10/18 17:27 Toxic Granulation Cancelled 03/10/18 17:27 Toxic Vacuolation Cancelled 03/10/18 17:27 Dohle Bodies Cancelled 03/10/18 17:27 Pelger-Huet Anomaly Cancelled 03/10/18 17:27 Alvin Rods Cancelled 03/10/18 17:27 Platelet Estimate Cancelled 03/10/18 17:27 Clumped Platelets Cancelled 03/10/18 17:27 Plt Clumps, EDTA Cancelled 03/10/18 17:27 Large Platelets Cancelled 03/10/18 17:27 Giant Platelets Cancelled 03/10/18 17:27 Platelet Satelliting Cancelled 03/10/18 17:27 Plt Morphology Comment Cancelled 03/10/18 17:27 RBC Morphology Cancelled 03/10/18 17:27 Dimorphic RBCs Cancelled 03/10/18 17:27 Polychromasia Cancelled 03/10/18 17:27 Hypochromasia Cancelled 03/10/18 17:27 Poikilocytosis Cancelled 03/10/18 17:27 Basophilic Stippling Cancelled 03/10/18 17:27 Anisocytosis Cancelled 03/10/18 17:27 Microcytosis Cancelled 03/10/18 17:27 Macrocytosis Cancelled 03/10/18 17:27 Spherocytes Cancelled 03/10/18 17:27 Pappenheimer Bodies Cancelled 03/10/18 17:27 Sickle Cells Cancelled 03/10/18 17:27 Target Cells Cancelled 03/10/18 17:27 Tear Drop Cells Cancelled 03/10/18 17:27 Ovalocytes Cancelled 03/10/18 17:27 Stomatocytes Cancelled 03/10/18 17:27 Helmet Cells Cancelled 03/10/18 17:27 Hernandez-Darwin Bodies Cancelled 03/10/18 17:27 [employer] Rings Cancelled 03/10/18 17:27 [place] Cells Cancelled 03/10/18 17:27 Bite Cells Cancelled 03/10/18 17:27 Crenated Cell Cancelled 03/10/18 17:27 Elliptocytes Cancelled 03/10/18 17:27 Acanthocytes (Spur) Cancelled 03/10/18 17:27 Rouleaux Cancelled 03/10/18 17:27 Hemoglobin C Crystals Cancelled 03/10/18 17:27 Schistocytes Cancelled 03/10/18 17:27 Malaria parasites Cancelled 03/10/18 17:27 Darrius Bodies Cancelled 03/10/18 17:27 Hem Pathologist Commnt Cancelled 03/10/18 17:27 Sodium 139 mmol/L (137-145) 03/12/18 05:17 Potassium 3.6 mmol/L (3.6-5.0) 03/12/18 05:17 Chloride 104.3 mmol/L (98-107) 03/12/18 05:17 Carbon Dioxide 21 mmol/L (22-30) L D 03/12/18 05:17 Anion Gap 17 mmol/L 03/12/18 05:17 BUN 8 mg/dL (9-20) L 03/12/18 05:17 Creatinine 0.6 mg/dL (0.8-1.5) L 03/12/18 05:17 Estimated GFR > 60 ml/min 03/12/18 05:17 BUN/Creatinine Ratio 13 % 03/12/18 05:17 Glucose 138 mg/dL (75-100) H 03/12/18 05:17 POC Glucose 140 (70-105) H 03/10/18 18:07 Calcium 8.4 mg/dL (8.4-10.2) 03/12/18 05:17 Magnesium 2.20 mg/dL (1.7-2.3) 03/10/18 17:24 Total Bilirubin 1.20 mg/dL (0.1-1.2) 03/10/18 17:27 AST 50 units/L (5-40) H 03/10/18 17:27 ALT 63 units/L (7-56) H 03/10/18 17:27 Alkaline Phosphatase 67 units/L (35-129) 03/10/18 17:27 Ammonia 17.0 umol/L (25-60) L 03/10/18 17:27 Total Creatine Kinase 148 units/L (55-170) 03/10/18 17:44 CK-MB (CK-2) 1.6 ng/mL (0.0-4.0) 03/10/18 17:44 CK-MB (CK-2) Rel Index 1.0 (0-4) 03/10/18 17:44 Troponin T < 0.010 ng/mL (0.00-0.029) 03/10/18 17:43 Total Protein 7.2 g/dL (6.3-8.2) 03/10/18 17:27 Albumin 3.6 g/dL (3.9-5) L 03/10/18 17:27 Albumin/Globulin Ratio 1.0 % 03/10/18 17:27 TSH 3.030 mlU/mL (0.270-4.200) 03/10/18 17:27 Free T4 0.92 ng/dL (0.76-1.46) 03/10/18 17:27 Urine Color [place]ela (Yellow) 03/10/18 17:59 Urine Turbidity Cloudy (Clear) 03/10/18 17:59 Urine pH 7.0 (5.0-7.0) 03/10/18 17:59 Ur Specific [place] 1.021 (1.003-1.030) 03/10/18 17:59 Urine Protein 30 mg/dl mg/dL (Negative) 03/10/18 17:59 Urine Glucose (UA) Neg mg/dL (Negative) 03/10/18 17:59 Urine Ketones Neg mg/dL (Negative) 03/10/18 17:59 Urine Blood Neg (Negative) 03/10/18 17:59 Urine Nitrite Neg (Negative) 03/10/18 17:59 Urine Bilirubin Neg (Negative) 03/10/18 17:59 Urine Urobilinogen 4.0 mg/dL (<2.0) 03/10/18 17:59 Ur Leukocyte Esterase Lg (Negative) 03/10/18 17:59 Urine WBC (Auto) 92.0 /HPF (0.0-6.0) H 03/10/18 17:59 Urine RBC (Auto) 6.0 /HPF (0.0-6.0) 03/10/18 17:59 U Epithel Cells (Auto) < 1.0 /HPF (0-13.0) 03/10/18 17:59 Urine Bacteria (Auto) 3+ /HPF (Negative) 03/10/18 17:59 Ur Transition Epith Cell 2 /HPF 03/10/18 17:59 Urine Mucus 1+ /HPF 03/10/18 17:59 Salicylates < 0.3 mg/dL (2.8-20.0) L 03/10/18 17:27 Urine Opiates Screen Presumptive negative 03/10/18 17:59 Urine Methadone Screen Presumptive negative 03/10/18 17:59 Acetaminophen < 5.0 ug/mL (10.0-30.0) L 03/10/18 17:27 Ur Barbiturates Screen Presumptive negative 03/10/18 17:59 Ur Phencyclidine Scrn Presumptive negative 03/10/18 17:59 Ur Amphetamines Screen Presumptive negative 03/10/18 17:59 U Benzodiazepines Scrn Presumptive negative 03/10/18 17:59 Urine Cocaine Screen Presumptive negative 03/10/18 17:59 U Marijuana (THC) Screen Presumptive negative 03/10/18 17:59 Drugs of Abuse Note Disclamer 03/10/18 17:59 Plasma/Serum Alcohol < 0.01 % (0-0.07) 03/10/18 17:27
[2018-03-12] MEDS: ROCEPHIN/NS 1 GM/50 ML 1 GM/50 ML BAG IV SCH (10:00)
[2018-03-12] MEDS: HEPARIN SUB-Q SCH ×2 (10:00→22:28)
[2018-03-12] MEDS: D5/0.45NS 1,000 ML IV SCH ×2 (13:19→22:30)
[2018-03-12] MEDS: ATIVAN IM SCH ×3 (13:21→22:27)
--- NOTE | 2018-03-12 14:25 | Consultation ---
History of Present Illness - Reason for Consult Consult date: 03/12/18 Reason for consult: Mental Sj Evaluation Requesting physician: PRICILLA SANCHEZ - Chief Complaint Chief complaint: "The patient is nonverbal" - History of Present Psychiatric Illness 57-year-old AA male presenting to the ER for AMS from [place]. The psychiatry team was consulted to see patient for catatonic like state. Today the patient is nonverbal during the assessment. He does not respond to commands , but grimace to the sternum rub. Per the record, the patient was given an Aristada IM injection at [facility]. As this time the date of this injection is unknown. During the exam, the patient jerked for 1 to 2 seconds (unsure if this was voluntary or involuntary). Also, the patient presents with mild clonus bilaterally (feet/ankles). CN1 - unable to assess CN2 - unable to assess CN3,4,6 - eye movement intact CN5 - unable to assess CN7 - the patient grimaces CN8 - he responds to some commands when asked CN9,10 - unable to assess CN11 - unable to assess CN12 - unable to assess Motor - generalized resistance in all extremities Reflexes - mild hyperreflexia upper extremities Sensory - unable to assess, lack cooperation from the patient Medications and Allergies Allergies Allergy/AdvReac Type Severity Reaction Status Date / Time No Known Allergies Allergy Unverified 03/10/18 17:07 Active Meds: Active Medications Heparin Sodium (Porcine) (Heparin) 5,000 unit SUB-Q Q12HR ERIC Last Admin: 03/12/18 10:00 Dose: 5,000 unit Hydrophilic Ointment (Vaseline Lip Therapy) 1 applic TP DIRECT PRN PRN Reason: Dry Lips Last Admin: 03/12/18 13:21 Dose: 1 applic Dextrose/Sodium Chloride (D5/0.45ns) 1,000 mls @ 100 mls/hr IV DIRECT ERIC Last Admin: 03/12/18 13:19 Dose: 100 mls/hr Ceftriaxone Sodium (Rocephin/Ns 1 Gm/50 Ml) 1 gm in 50 mls @ 100 mls/hr IV Q24HR ERIC; Protocol Last Admin: 03/12/18 10:00 Dose: 100 mls/hr Lorazepam (Ativan) 1 mg IM Q8HR ERIC Last Admin: 03/12/18 13:22 Dose: 1 mg Past psychiatric history - Past Medical History Past Medical History: other (Unable to obtain) Past Surgical History: Other (Unable to obtain) - past Psychiatric treatment and history psychiatric treatment history: Per the record, the patient was transferred from [place]. Unable to obtain an fam psy hx. - Social History Social history: other (Resides with family per the record) Mental Status Exam - Vital signs Last Vital Signs Temp 98.6 F 03/12/18 11:21 Pulse 89 03/12/18 11:21 Resp 14 03/12/18 11:21 BP 108/69 03/12/18 11:21 Pulse Ox 96 03/12/18 11:21 - Exam Narrative exam: Unable to complete the MSE because of the patient's condition. Results Result Diagrams: 03/10/18 17:27 03/12/18 05:17 Abnormal lab results 03/12/18 Range/Units 05:17 Carbon Dioxide 21 L D (22-30) mmol/L BUN 8 L (9-20) mg/dL Creatinine 0.6 L (0.8-1.5) mg/dL Glucose 138 H (75-100) mg/dL All other labs normal. Assessment and Plan Assessment and plan: Impression: R/O Catatonia. Today the patient is nonverbal during the assessment. Plt 81. WBC Urine 92. The patient's VS are stable. Recommendation/Plan: Continue 1013 and gather collateral information to help determine proper treatment and dispo. Continue Ativan 1 mg IM Q8hrs for catatonia. Recommend neuro consult, GI Prophylaxis, and continue hydration. Monitor patient's V/S and airway. Will follow up with patient daily to R/O NMS and Serotonin Syndrome.
--- NOTE | 2018-03-13 05:00 | Consultation ---
NEUROLOGICAL CONSULTATION REASON FOR CONSULTATION: Altered mental status. HISTORY OF PRESENT ILLNESS: Obtained from the records. No family member. No other important source. This is history from the Emergency Room physician, Dr. Beth Jiménez. The source of the Emergency Room physician is from the EMS and old records and also from the family. The patient apparently was brought in with the family members because of altered mental status. The patient started to have hallucinations at the end of 01/2018. He received an Aristada injection as an outpatient. Then, he developed hallucination and aggressive behavior. He did not improve despite the medication. Therefore, he was taken to [place] sometime in 02/25/2018. He apparently also went to [place] ____. The family said that they were told by the primary psychiatrist that the patient should now only be taking Abilify since he received Aristada shots. He was supposed to continue the Zyprexa. He continued the Zyprexa while he was inpatient. He was reported to be combative and hallucinating. He had received multiple sedations. Then, he was discharged to the family, but at that time, he was described to be in a catatonic state. He could not control his urine; therefore, he was wearing a diaper. He cannot walk, cannot talk or care for himself on 03/04/2018, I was not sure whether this is the start. Then, they describe the baseline, the patient has hallucinations due to psychosis, but mostly alert and oriented x 3 and able to perform daily living activities. He was apparently transferred back to [place] in March 05. Then, he has not ambulated, eaten or done anything in at least 4-5 days, so he was brought here to the Emergency Room. He apparently had a fall at the [facility] during his stay in the facility. In summary, this patient, therefore, has some vague psychiatric symptoms, which has gotten progressively worse with development of catatonia lately also with some loss of higher cortical function. PAST MEDICAL HISTORY: Just psychiatric history anxiety, depression, schizophrenia. PAST SURGICAL HISTORY: Unknown. HABITS: Apparently, the patient does not smoke. He lives at home, but has had admissions to [facility]. No substance abuse. PHYSICAL EXAMINATION: GENERAL: Revealed the patient who is chronically ill looking. He is restrained. He has mittens in both hands. VITAL SIGNS: He is afebrile, pulse rate was about 90, respirations 18, blood pressure 110/70. HEAD, EYES, EARS, NOSE, MOUTH, AND THROAT: Showed him to have a retarded look. He would not talk even with a lot of encouraging. He would just open his eyes to pain. No vocal production. No intracranial or intraorbital bruit. NECK: Rigid in all directions, increased tone. HEART: Regular in rhythm, somewhat tachycardic. LUNGS: Sounds clear. ABDOMEN: Voluntary muscular guarding. EXTREMITIES: Thin. NEUROLOGIC: The patient is not talking. ____ described to be mute. He just grimaced to painful stimulation. Cranial nerve limited, but with grimacing, he has symmetrical facial contraction. He would not protrude the tongue. Pupils, he would not keep his eyes open. Motor examination, he does not move much to command. He does some slight movement spontaneously. His tone is increased in the upper and especially in the lower extremities. This is also observed in his neck. Reflexes difficult to obtain because of his tone. He has no Babinski. He has positive cortical release sign. ASSESSMENT: Neurologically, this patient appeared to have some higher cortical dysfunction. I wonder whether he already had a previous cerebral injury of some sort. He did have hallucination sometime in January that precipitated the injection of Aristada and then after he had deteriorated. I do not know exactly his baseline prior to January, but I would not be surprised if he already had problem. I wonder whether this patient had already some mental retardation. The catatonia that was described I believe is more of hypertonicity, but I would not reject the diagnosis of a drug effect. RECOMMENDATION: I believe we should do at least just plain MRI of the brain and also an EEG. Will leave this to the primary care physician. We will proceed per physician and discuss with him. Sixty minutes involving the history and physical examination and gathering of information, more than 50% in the coordination of care. JOB# [id number] MARY/SANDI
[2018-03-13] MEDS: ATIVAN IM SCH ×3 (06:26→21:28)
[2018-03-13] MEDS: D5/0.45NS 1,000 ML IV SCH ×2 (07:53→19:33)
--- NOTE | 2018-03-13 08:46 | Progress Note ---
Assessment and Plan Assessment and plan: Catatonia - mental health following. Continue Ativan 1 mg every 8 hours. Metabolic encephalopathy - Supportive care UTI -Continue IV antibiotics and await sensitivities. Urine culture reveals gram- negative carolina. Follow-up blood cultures. Dehydration - Patient is on D5 half-normal saline, condition is not taking anything by mouth Suspected femoral fracture -Evaluated by orthopedics, reviewed his imaging and showed no fracture DVT prophylaxis History Interval history: No new issues overnight. Hospitalist Physical - Constitutional Vitals: Temp Pulse Resp BP Pulse Ox 97.9 F 77 18 115/75 98 03/13/18 05:22 03/12/18 17:44 03/13/18 05:22 03/13/18 05:22 03/12/18 17:44 General appearance: Present: no acute distress, other (catatonic) - EENT Eyes: Present: PERRL, EOM intact ENT: hearing intact, clear oral mucosa, dentition normal - Neck Neck: Present: supple, normal ROM - Respiratory Respiratory effort: normal Respiratory: bilateral: CTA - Cardiovascular Rhythm: regular Heart Sounds: Present: S1 & S2. Absent: gallop, rub - Extremities Extremities: no ischemia, No edema, Full ROM - Abdominal General gastrointestinal: soft, non-tender, non-distended, normal bowel sounds - Integumentary Integumentary: Present: clear, warm, dry - Neurologic Neurologic: CNII-XII intact, moves all extremities Results - Labs CBC & Chem 7: 03/10/18 17:27 03/12/18 05:17 Labs: Laboratory Last Values WBC 7.3 K/mm3 (4.5-11.0) 03/10/18 17:27 RBC 5.19 M/mm3 (3.65-5.03) H 03/10/18 17:27 Hgb 14.3 gm/dl (11.8-15.2) 03/10/18 17:27 Hct 43.2 % (35.5-45.6) 03/10/18 17:27 MCV 83 fl (84-94) L 03/10/18 17:27 MCH 28 pg (28-32) 03/10/18 17:27 MCHC 33 % (32-34) 03/10/18 17:27 RDW 14.9 % (13.2-15.2) 03/10/18 17:27 Plt Count 81 K/mm3 (140-440) L 03/10/18 17:27 Lymph % (Auto) 7.4 % (13.4-35.0) L 03/10/18 17:27 Price % (Auto) 5.8 % (0.0-7.3) 03/10/18 17:27 Eos % (Auto) 0.8 % (0.0-4.3) 03/10/18 17:27 Baso % (Auto) 0.3 % (0.0-1.8) 03/10/18 17:27 Lymph # 0.5 K/mm3 (1.2-5.4) L 03/10/18 17:27 Price # 0.4 K/mm3 (0.0-0.8) 03/10/18 17:27 Eos # 0.1 K/mm3 (0.0-0.4) 03/10/18 17:27 Baso # 0.0 K/mm3 (0.0-0.1) 03/10/18 17:27 Total Counted Cancelled 03/10/18 17:27 Seg Neutrophils % 85.7 % (40.0-70.0) H 03/10/18 17:27 Seg Neuts % (Manual) Cancelled 03/10/18 17:27 Band Neutrophils % Cancelled 03/10/18 17:27 Lymphocytes % (Manual) Cancelled 03/10/18 17:27 Reactive Lymphs % (Man) Cancelled 03/10/18 17:27 Monocytes % (Manual) Cancelled 03/10/18 17:27 Eosinophils % (Manual) Cancelled 03/10/18 17:27 Basophils % (Manual) Cancelled 03/10/18 17:27 Metamyelocytes % Cancelled 03/10/18 17:27 Myelocytes % Cancelled 03/10/18 17:27 Promyelocytes % Cancelled 03/10/18 17:27 Blast Cells % Cancelled 03/10/18 17:27 Nucleated RBC % Cancelled 03/10/18 17:27 Seg Neutrophils # 6.2 K/mm3 (1.8-7.7) 03/10/18 17:27 Seg Neutrophils # Man Cancelled 03/10/18 17:27 Band Neutrophils # Cancelled 03/10/18 17:27 Lymphocytes # (Manual) Cancelled 03/10/18 17:27 Abs React Lymphs (Man) Cancelled 03/10/18 17:27 Monocytes # (Manual) Cancelled 03/10/18 17:27 Eosinophils # (Manual) Cancelled 03/10/18 17:27 Basophils # (Manual) Cancelled 03/10/18 17:27 Metamyelocytes # Cancelled 03/10/18 17:27 Myelocytes # Cancelled 03/10/18 17:27 Promyelocytes # Cancelled 03/10/18 17:27 Blast Cells # Cancelled 03/10/18 17:27 WBC Morphology Cancelled 03/10/18 17:27 Hypersegmented Neuts Cancelled 03/10/18 17:27 Hyposegmented Neuts Cancelled 03/10/18 17:27 Hypogranular Neuts Cancelled 03/10/18 17:27 Hypersegmented Polys Cancelled 03/10/18 17:27 Smudge Cells Cancelled 03/10/18 17:27 Toxic Granulation Cancelled 03/10/18 17:27 Toxic Vacuolation Cancelled 03/10/18 17:27 Dohle Bodies Cancelled 03/10/18 17:27 Pelger-Huet Anomaly Cancelled 03/10/18 17:27 Alvin Rods Cancelled 03/10/18 17:27 Platelet Estimate Cancelled 03/10/18 17:27 Clumped Platelets Cancelled 03/10/18 17:27 Plt Clumps, EDTA Cancelled 03/10/18 17:27 Large Platelets Cancelled 03/10/18 17:27 Giant Platelets Cancelled 03/10/18 17:27 Platelet Satelliting Cancelled 03/10/18 17:27 Plt Morphology Comment Cancelled 03/10/18 17:27 RBC Morphology Cancelled 03/10/18 17:27 Dimorphic RBCs Cancelled 03/10/18 17:27 Polychromasia Cancelled 03/10/18 17:27 Hypochromasia Cancelled 03/10/18 17:27 Poikilocytosis Cancelled 03/10/18 17:27 Basophilic Stippling Cancelled 03/10/18 17:27 Anisocytosis Cancelled 03/10/18 17:27 Microcytosis Cancelled 03/10/18 17:27 Macrocytosis Cancelled 03/10/18 17:27 Spherocytes Cancelled 03/10/18 17:27 Pappenheimer Bodies Cancelled 03/10/18 17:27 Sickle Cells Cancelled 03/10/18 17:27 Target Cells Cancelled 03/10/18 17:27 Tear Drop Cells Cancelled 03/10/18 17:27 Ovalocytes Cancelled 03/10/18 17:27 Stomatocytes Cancelled 03/10/18 17:27 Helmet Cells Cancelled 03/10/18 17:27 Hernandez-Holly Bodies Cancelled 03/10/18 17:27 Momence Rings Cancelled 03/10/18 17:27 Winslow Cells Cancelled 03/10/18 17:27 Bite Cells Cancelled 03/10/18 17:27 Crenated Cell Cancelled 03/10/18 17:27 Elliptocytes Cancelled 03/10/18 17:27 Acanthocytes (Spur) Cancelled 03/10/18 17:27 Rouleaux Cancelled 03/10/18 17:27 Hemoglobin C Crystals Cancelled 03/10/18 17:27 Schistocytes Cancelled 03/10/18 17:27 Malaria parasites Cancelled 03/10/18 17:27 Darrius Bodies Cancelled 03/10/18 17:27 Hem Pathologist Commnt Cancelled 03/10/18 17:27 Sodium 139 mmol/L (137-145) 03/12/18 05:17 Potassium 3.6 mmol/L (3.6-5.0) 03/12/18 05:17 Chloride 104.3 mmol/L (98-107) 03/12/18 05:17 Carbon Dioxide 21 mmol/L (22-30) L D 03/12/18 05:17 Anion Gap 17 mmol/L 03/12/18 05:17 BUN 8 mg/dL (9-20) L 03/12/18 05:17 Creatinine 0.6 mg/dL (0.8-1.5) L 03/12/18 05:17 Estimated GFR > 60 ml/min 03/12/18 05:17 BUN/Creatinine Ratio 13 % 03/12/18 05:17 Glucose 138 mg/dL (75-100) H 03/12/18 05:17 POC Glucose 140 (70-105) H 03/10/18 18:07 Calcium 8.4 mg/dL (8.4-10.2) 03/12/18 05:17 Magnesium 2.20 mg/dL (1.7-2.3) 03/10/18 17:24 Total Bilirubin 1.20 mg/dL (0.1-1.2) 03/10/18 17:27 AST 50 units/L (5-40) H 03/10/18 17:27 ALT 63 units/L (7-56) H 03/10/18 17:27 Alkaline Phosphatase 67 units/L (35-129) 03/10/18 17:27 Ammonia 17.0 umol/L (25-60) L 03/10/18 17:27 Total Creatine Kinase 148 units/L (55-170) 03/10/18 17:44 CK-MB (CK-2) 1.6 ng/mL (0.0-4.0) 03/10/18 17:44 CK-MB (CK-2) Rel Index 1.0 (0-4) 03/10/18 17:44 Troponin T < 0.010 ng/mL (0.00-0.029) 03/10/18 17:43 Total Protein 7.2 g/dL (6.3-8.2) 03/10/18 17:27 Albumin 3.6 g/dL (3.9-5) L 03/10/18 17:27 Albumin/Globulin Ratio 1.0 % 03/10/18 17:27 TSH 3.030 mlU/mL (0.270-4.200) 03/10/18 17:27 Free T4 0.92 ng/dL (0.76-1.46) 03/10/18 17:27 Urine Color Isela (Yellow) 03/10/18 17:59 Urine Turbidity Cloudy (Clear) 03/10/18 17:59 Urine pH 7.0 (5.0-7.0) 03/10/18 17:59 Ur Specific Mccoll 1.021 (1.003-1.030) 03/10/18 17:59 Urine Protein 30 mg/dl mg/dL (Negative) 03/10/18 17:59 Urine Glucose (UA) Neg mg/dL (Negative) 03/10/18 17:59 Urine Ketones Neg mg/dL (Negative) 03/10/18 17:59 Urine Blood Neg (Negative) 03/10/18 17:59 Urine Nitrite Neg (Negative) 03/10/18 17:59 Urine Bilirubin Neg (Negative) 03/10/18 17:59 Urine Urobilinogen 4.0 mg/dL (<2.0) 03/10/18 17:59 Ur Leukocyte Esterase Lg (Negative) 03/10/18 17:59 Urine WBC (Auto) 92.0 /HPF (0.0-6.0) H 03/10/18 17:59 Urine RBC (Auto) 6.0 /HPF (0.0-6.0) 03/10/18 17:59 U Epithel Cells (Auto) < 1.0 /HPF (0-13.0) 03/10/18 17:59 Urine Bacteria (Auto) 3+ /HPF (Negative) 03/10/18 17:59 Ur Transition Epith Cell 2 /HPF 03/10/18 17:59 Urine Mucus 1+ /HPF 03/10/18 17:59 Salicylates < 0.3 mg/dL (2.8-20.0) L 03/10/18 17:27 Urine Opiates Screen Presumptive negative 03/10/18 17:59 Urine Methadone Screen Presumptive negative 03/10/18 17:59 Acetaminophen < 5.0 ug/mL (10.0-30.0) L 03/10/18 17:27 Ur Barbiturates Screen Presumptive negative 03/10/18 17:59 Ur Phencyclidine Scrn Presumptive negative 03/10/18 17:59 Ur Amphetamines Screen Presumptive negative 03/10/18 17:59 U Benzodiazepines Scrn Presumptive negative 03/10/18 17:59 Urine Cocaine Screen Presumptive negative 03/10/18 17:59 U Marijuana (THC) Screen Presumptive negative 03/10/18 17:59 Drugs of Abuse Note Disclamer 03/10/18 17:59 Plasma/Serum Alcohol < 0.01 % (0-0.07) 03/10/18 17:27
[2018-03-13] MEDS: ROCEPHIN/NS 1 GM/50 ML 1 GM/50 ML BAG IV SCH (09:53)
[2018-03-13] MEDS: HEPARIN SUB-Q SCH ×2 (09:53→21:29)
--- NOTE | 2018-03-13 16:00 | Progress Note ---
Subjective - Reason for Consult Consult date: 03/13/18 Reason for consult: Psychiatric Follow-up Evaluation - Chief Complaint Chief complaint: "The patient is nonverbal" Patient is a 57-year-old male who presents to the ER for AMS from [facility]. The psychiatry team was consulted to see patient for catatonic like state. Today the patient is nonverbal during the assessment. He does not respond to commands, but grimace to the sternum rub. Per staff patient has been asleep all day. Although patient is arousable, he continues to be nonverbal. No agitation/irritation noted. Mental Status Exam - Vital signs Last Vital Signs Temp 97.9 F 03/13/18 05:22 Pulse 77 03/12/18 17:44 Resp 18 03/13/18 05:22 BP 115/75 03/13/18 05:22 Pulse Ox 98 03/12/18 17:44 - Exam Narrative exam: Unable to complete the MSE because of the patient's condition. Assessment and Plan Impression: R/O Catatonia. Today the patient is nonverbal during the assessment. The patient's VS are stable. Recommendation/Plan: 1. Continue 1013 and gather collateral information to help determine proper treatment and dispo. Continue Ativan 1 mg IM Q8hrs for catatonia. 2. Recommend neuro consult, GI Prophylaxis, and continue hydration. Monitor patient's V/S and airway. Will follow up with patient daily to R/O NMS and Serotonin Syndrome. 3. Will continue to monitor mood, orientation, catatonia, sleep, appetite, sleep , compliance, and side effects.
--- NOTE | 2018-03-13 18:03 | Magnetic Resonance Report ---
FINAL REPORT EXAM: MR BRAIN WO CON HISTORY: AMS TECHNIQUE: T1 and T2 weighted sagittal, axial, coronal and diffusion-weighted images of the brain were obtained. Comparison: Head CT dated March 10, 2018 FINDINGS: Visualization detail on some the sequences is significantly limited by motion artifact. There are a few small scattered T2 signal abnormalities in the subcortical white matter of the frontal lobes that are nonspecific in appearance but may represent chronic post ischemic or postinflammatory change and are not unexpected at this patient's age. There is no diffusion abnormality to suggest the presence of acute infarct. There is no evidence of intracranial hemorrhage nor intracranial mass. The ventricles are normal size. Expected flow void is demonstrated within the major intracranial vessels. The extracranial structures are notable for mild to moderate right ethmoid sinus mucosal thickening. The craniocervical junction is unremarkable in appearance. IMPRESSION: 1. Study somewhat degraded by motion artifact but remains of diagnostic quality. 2. MRI brain within normal limits for the patient's age.
--- NOTE | 2018-03-14 01:05 | Physician Progress Note ---
NEUROLOGY PROGRESS REPORT SUBJECTIVE: The patient is being evaluated because of altered mental status. He appears to have a chronic problem with this, but from the history, it was given that he started to have hallucination at the end of 01/2018. The psychiatrist has been following him. He has always been described to be in a catatonic state. We still do not know the status of his brain at this time, especially so since we do not have any adequate history. OBJECTIVE: GENERAL: The patient is not talking. He is just quiet. VITAL SIGNS: Have been obtained. HEART AND LUNGS: Good. NEUROLOGIC: He appeared to be more mute. He grimaced to pain. His motor examination, he resists movement and has hypertonicity. I believe this is more of his problem rather than catatonia. ASSESSMENT: Disturbance of higher cortical function, etiology not very clear, but it is suspicious that he has had a previous cerebral injury. I am not sure whether he has retardation. He has a finding of hypertonicity. Rule out also drug effect. RECOMMENDATION: An MRI has been done and we will review this. We will also do an EEG. Prognosis overall looks poor. JOB# [id number] MRAY/SANDI
[2018-03-14] MEDS: ATIVAN IM SCH ×3 (05:16→22:13)
[2018-03-14] MEDS: D5/0.45NS 1,000 ML IV SCH ×2 (05:16→17:15)
[2018-03-14 06:09] LABS: Basophils % (Auto) 0.5 % (0.0-1.8); Eosinophils # (Auto) 0.1 K/mm3 (0.0-0.4); Eosinophils % (Auto) 2.3 % (0.0-4.3); Hematocrit 35.1 % (35.5-45.6); Hemoglobin 11.8 gm/dl (11.8-15.2); Lymphocytes # (Auto) 0.8 K/mm3 (1.2-5.4); Lymphocytes % (Auto) 15.5 % (13.4-35.0); Mean Corpuscular HGB Conc 34 % (32-34); Mean Corpuscular Hemoglobin 27 pg (28-32); Mean Corpuscular Volume 81 fl (84-94); Monocytes # (Auto) 0.5 K/mm3 (0.0-0.8); Monocytes % (Auto) 9.4 % (0.0-7.3); Platelet Count 121 K/mm3 (140-440); Red Blood Count 4.34 M/mm3 (3.65-5.03); Red Cell Distribution Width 14.2 % (13.2-15.2)
[2018-03-14 06:45] LABS: BUN/Creatinine Ratio 5; Blood Urea Nitrogen 3 mg/dL (9-20); Calcium 8.3 mg/dL (8.4-10.2); Hemolysis Index 2
[2018-03-14] MEDS: ROCEPHIN/NS 1 GM/50 ML 1 GM/50 ML BAG IV SCH (10:03)
[2018-03-14] MEDS: HEPARIN SUB-Q SCH ×2 (10:03→22:14)
--- NOTE | 2018-03-14 12:41 | Progress Note ---
Assessment and Plan Assessment and plan: Catatonia - mental health following. Continue Ativan 1 mg every 8 hours. Metabolic encephalopathy - Supportive care UTI -Continue IV antibiotics and await sensitivities. Urine culture reveals gram- negative [place]. Follow-up blood cultures. Dehydration - Patient is on D5 half-normal saline, condition is not taking anything by mouth Suspected femoral fracture -Evaluated by orthopedics, reviewed his imaging and showed no fracture DVT prophylaxis History Interval history: No new issues overnight. Hospitalist Physical - Constitutional Vitals: Temp Pulse Resp BP Pulse Ox 97.4 F L 84 18 116/74 97 03/14/18 04:18 03/14/18 04:18 03/14/18 04:18 03/14/18 04:18 03/14/18 04:18 General appearance: Present: no acute distress, other (catatonic) - EENT Eyes: Present: PERRL, EOM intact ENT: hearing intact, clear oral mucosa, dentition normal - Neck Neck: Present: supple, normal ROM - Respiratory Respiratory effort: normal Respiratory: bilateral: CTA - Cardiovascular Rhythm: regular Heart Sounds: Present: S1 & S2. Absent: gallop, rub - Extremities Extremities: no ischemia, No edema, Full ROM - Abdominal General gastrointestinal: soft, non-tender, non-distended, normal bowel sounds - Integumentary Integumentary: Present: clear, warm, dry - Neurologic Neurologic: other (unresponsive, catatonic) Results - Labs CBC & Chem 7: 03/14/18 05:19 03/14/18 05:19 Labs: Laboratory Last Values WBC 5.0 K/mm3 (4.5-11.0) 03/14/18 05:19 RBC 4.34 M/mm3 (3.65-5.03) 03/14/18 05:19 Hgb 11.8 gm/dl (11.8-15.2) 03/14/18 05:19 Hct 35.1 % (35.5-45.6) L 03/14/18 05:19 MCV 81 fl (84-94) L 03/14/18 05:19 MCH 27 pg (28-32) L 03/14/18 05:19 MCHC 34 % (32-34) 03/14/18 05:19 RDW 14.2 % (13.2-15.2) 03/14/18 05:19 Plt Count 121 K/mm3 (140-440) L 03/14/18 05:19 Lymph % (Auto) 15.5 % (13.4-35.0) 03/14/18 05:19 [place] % (Auto) 9.4 % (0.0-7.3) H 03/14/18 05:19 Eos % (Auto) 2.3 % (0.0-4.3) 03/14/18 05:19 Baso % (Auto) 0.5 % (0.0-1.8) 03/14/18 05:19 Lymph # 0.8 K/mm3 (1.2-5.4) L 03/14/18 05:19 [place] # 0.5 K/mm3 (0.0-0.8) 03/14/18 05:19 Eos # 0.1 K/mm3 (0.0-0.4) 03/14/18 05:19 Baso # 0.0 K/mm3 (0.0-0.1) 03/14/18 05:19 Total Counted Cancelled 03/10/18 17:27 Seg Neutrophils % 72.3 % (40.0-70.0) H 03/14/18 05:19 Seg Neuts % (Manual) Cancelled 03/10/18 17:27 Band Neutrophils % Cancelled 03/10/18 17:27 Lymphocytes % (Manual) Cancelled 03/10/18 17:27 Reactive Lymphs % (Man) Cancelled 03/10/18 17:27 Monocytes % (Manual) Cancelled 03/10/18 17:27 Eosinophils % (Manual) Cancelled 03/10/18 17:27 Basophils % (Manual) Cancelled 03/10/18 17:27 Metamyelocytes % Cancelled 03/10/18 17:27 Myelocytes % Cancelled 03/10/18 17:27 Promyelocytes % Cancelled 03/10/18 17:27 Blast Cells % Cancelled 03/10/18 17:27 Nucleated RBC % Cancelled 03/10/18 17:27 Seg Neutrophils # 3.6 K/mm3 (1.8-7.7) 03/14/18 05:19 Seg Neutrophils # Man Cancelled 03/10/18 17:27 Band Neutrophils # Cancelled 03/10/18 17:27 Lymphocytes # (Manual) Cancelled 03/10/18 17:27 Abs React Lymphs (Man) Cancelled 03/10/18 17:27 Monocytes # (Manual) Cancelled 03/10/18 17:27 Eosinophils # (Manual) Cancelled 03/10/18 17:27 Basophils # (Manual) Cancelled 03/10/18 17:27 Metamyelocytes # Cancelled 03/10/18 17:27 Myelocytes # Cancelled 03/10/18 17:27 Promyelocytes # Cancelled 03/10/18 17:27 Blast Cells # Cancelled 03/10/18 17:27 WBC Morphology Cancelled 03/10/18 17:27 Hypersegmented Neuts Cancelled 03/10/18 17:27 Hyposegmented Neuts Cancelled 03/10/18 17:27 Hypogranular Neuts Cancelled 03/10/18 17:27 Hypersegmented Polys Cancelled 03/10/18 17:27 Smudge Cells Cancelled 03/10/18 17:27 Toxic Granulation Cancelled 03/10/18 17:27 Toxic Vacuolation Cancelled 03/10/18 17:27 Dohle Bodies Cancelled 03/10/18 17:27 Pelger-Huet Anomaly Cancelled 03/10/18 17:27 Alvin Rods Cancelled 03/10/18 17:27 Platelet Estimate Cancelled 03/10/18 17:27 Clumped Platelets Cancelled 03/10/18 17:27 Plt Clumps, EDTA Cancelled 03/10/18 17:27 Large Platelets Cancelled 03/10/18 17:27 Giant Platelets Cancelled 03/10/18 17:27 Platelet Satelliting Cancelled 03/10/18 17:27 Plt Morphology Comment Cancelled 03/10/18 17:27 RBC Morphology Cancelled 03/10/18 17:27 Dimorphic RBCs Cancelled 03/10/18 17:27 Polychromasia Cancelled 03/10/18 17:27 Hypochromasia Cancelled 03/10/18 17:27 Poikilocytosis Cancelled 03/10/18 17:27 Basophilic Stippling Cancelled 03/10/18 17:27 Anisocytosis Cancelled 03/10/18 17:27 Microcytosis Cancelled 03/10/18 17:27 Macrocytosis Cancelled 03/10/18 17:27 Spherocytes Cancelled 03/10/18 17:27 Pappenheimer Bodies Cancelled 03/10/18 17:27 Sickle Cells Cancelled 03/10/18 17:27 Target Cells Cancelled 03/10/18 17:27 Tear Drop Cells Cancelled 03/10/18 17:27 Ovalocytes Cancelled 03/10/18 17:27 Stomatocytes Cancelled 03/10/18 17:27 Helmet Cells Cancelled 03/10/18 17:27 Hernandez-[place] Bodies Cancelled 03/10/18 17:27 [place] Rings Cancelled 03/10/18 17:27 [place] Cells Cancelled 03/10/18 17:27 Bite Cells Cancelled 03/10/18 17:27 Crenated Cell Cancelled 03/10/18 17:27 Elliptocytes Cancelled 03/10/18 17:27 Acanthocytes (Spur) Cancelled 03/10/18 17:27 Rouleaux Cancelled 03/10/18 17:27 Hemoglobin C Crystals Cancelled 03/10/18 17:27 Schistocytes Cancelled 03/10/18 17:27 Malaria parasites Cancelled 03/10/18 17:27 Darrius Bodies Cancelled 03/10/18 17:27 Hem Pathologist Commnt Cancelled 03/10/18 17:27 Sodium 135 mmol/L (137-145) L 03/14/18 05:19 Potassium 3.4 mmol/L (3.6-5.0) L 03/14/18 05:19 Chloride 100.6 mmol/L (98-107) 03/14/18 05:19 Carbon Dioxide 22 mmol/L (22-30) 03/14/18 05:19 Anion Gap 16 mmol/L 03/14/18 05:19 BUN 3 mg/dL (9-20) L 03/14/18 05:19 Creatinine 0.6 mg/dL (0.8-1.5) L 03/14/18 05:19 Estimated GFR > 60 ml/min 03/14/18 05:19 BUN/Creatinine Ratio 5 % 03/14/18 05:19 Glucose 113 mg/dL (75-100) H 03/14/18 05:19 POC Glucose 140 (70-105) H 03/10/18 18:07 Calcium 8.3 mg/dL (8.4-10.2) L 03/14/18 05:19 Magnesium 2.20 mg/dL (1.7-2.3) 03/10/18 17:24 Total Bilirubin 1.20 mg/dL (0.1-1.2) 03/10/18 17:27 AST 50 units/L (5-40) H 03/10/18 17:27 ALT 63 units/L (7-56) H 03/10/18 17:27 Alkaline Phosphatase 67 units/L (35-129) 03/10/18 17:27 Ammonia 17.0 umol/L (25-60) L 03/10/18 17:27 Total Creatine Kinase 148 units/L (55-170) 03/10/18 17:44 CK-MB (CK-2) 1.6 ng/mL (0.0-4.0) 03/10/18 17:44 CK-MB (CK-2) Rel Index 1.0 (0-4) 03/10/18 17:44 Troponin T < 0.010 ng/mL (0.00-0.029) 03/10/18 17:43 Total Protein 7.2 g/dL (6.3-8.2) 03/10/18 17:27 Albumin 3.6 g/dL (3.9-5) L 03/10/18 17:27 Albumin/Globulin Ratio 1.0 % 03/10/18 17:27 TSH 3.030 mlU/mL (0.270-4.200) 03/10/18 17:27 Free T4 0.92 ng/dL (0.76-1.46) 03/10/18 17:27 Urine Color Isela (Yellow) 03/10/18 17:59 Urine Turbidity Cloudy (Clear) 03/10/18 17:59 Urine pH 7.0 (5.0-7.0) 03/10/18 17:59 Ur Specific [place] 1.021 (1.003-1.030) 03/10/18 17:59 Urine Protein 30 mg/dl mg/dL (Negative) 03/10/18 17:59 Urine Glucose (UA) Neg mg/dL (Negative) 03/10/18 17:59 Urine Ketones Neg mg/dL (Negative) 03/10/18 17:59 Urine Blood Neg (Negative) 03/10/18 17:59 Urine Nitrite Neg (Negative) 03/10/18 17:59 Urine Bilirubin Neg (Negative) 03/10/18 17:59 Urine Urobilinogen 4.0 mg/dL (<2.0) 03/10/18 17:59 Ur Leukocyte Esterase Lg (Negative) 03/10/18 17:59 Urine WBC (Auto) 92.0 /HPF (0.0-6.0) H 03/10/18 17:59 Urine RBC (Auto) 6.0 /HPF (0.0-6.0) 03/10/18 17:59 U Epithel Cells (Auto) < 1.0 /HPF (0-13.0) 03/10/18 17:59 Urine Bacteria (Auto) 3+ /HPF (Negative) 03/10/18 17:59 Ur Transition Epith Cell 2 /HPF 03/10/18 17:59 Urine Mucus 1+ /HPF 03/10/18 17:59 Salicylates < 0.3 mg/dL (2.8-20.0) L 03/10/18 17:27 Urine Opiates Screen Presumptive negative 03/10/18 17:59 Urine Methadone Screen Presumptive negative 03/10/18 17:59 Acetaminophen < 5.0 ug/mL (10.0-30.0) L 03/10/18 17:27 Ur Barbiturates Screen Presumptive negative 03/10/18 17:59 Ur Phencyclidine Scrn Presumptive negative 03/10/18 17:59 Ur Amphetamines Screen Presumptive negative 03/10/18 17:59 U Benzodiazepines Scrn Presumptive negative 03/10/18 17:59 Urine Cocaine Screen Presumptive negative 03/10/18 17:59 U Marijuana (THC) Screen Presumptive negative 03/10/18 17:59 Drugs of Abuse Note Disclamer 03/10/18 17:59 Plasma/Serum Alcohol < 0.01 % (0-0.07) 03/10/18 17:27
--- NOTE | 2018-03-14 14:51 | Progress Note ---
Subjective - Reason for Consult Consult date: 03/14/18 Reason for consult: Psychiatry Follow-up - Chief Complaint Chief complaint: "The patient is nonverbal" Patient is a 57-year-old male who presents to the ER for AMS from [place]. The psychiatry team was consulted to see patient for catatonic like state. Today the patient is still nonverbal during the assessment. The patient attempted to open his eyes per the sternum rub. Per collateral information from Marlena his ex girlfriend at [phone], she stated that the patient had a "mental health break" two yrs ago. She denies a fam psy hx for this patient. Per the staff, the patient isn't eating. No agitation/irritation noted. Mental Status Exam - Vital signs Last Vital Signs Temp 97.4 F L 03/14/18 04:18 Pulse 84 03/14/18 04:18 Resp 18 03/14/18 04:18 BP 116/74 03/14/18 04:18 Pulse Ox 97 03/14/18 04:18 - Exam Narrative exam: Unable to complete the MSE because of the patient's condition. Assessment and Plan Impression: R/O Catatonia. Today the patient is still nonverbal during the assessment. Plt 81. WBC Urine 92. The patient's VS are stable. The patient is pending a EEG. Recommendation/Plan: Continue 1013. Continue Ativan 1 mg IM Q8hrs for catatonia. Recommend GI Prophylaxis and continue hydration. Monitor patient's V/ S and airway. Will follow up with patient daily to R/O NMS and Serotonin Syndrome.
--- NOTE | 2018-03-15 01:26 | Physician Progress Note ---
NEUROLOGY PROGRESS NOTE SUBJECTIVE: The patient is being seen because of altered mental status. Its appeared to be acute, but from the appearance of the patient and examination, the patient appeared to have a chronic problem. I do not feel that he has catatonic problem, this is mostly a static brain disease. OBJECTIVE EXAMINATION: VITAL SIGNS: Stable. EXTREMITIES: The patient has increased tone in both upper extremities. GENERAL: The patient is awake, but not cooperative. RADIOGRAPHIC STUDIES: MRI of the brain without contrast is otherwise unremarkable. ASSESSMENT: The patient has disturbance of higher cortical function. Etiology is not clear. I suspect a previous cortical injury, possible ____. PLAN: MRI has been done, this was reviewed. We are awaiting for EEG. Prognosis overall is very poor. JOB# [id number] MARY/SANDI
[2018-03-15] MEDS: D5/0.45NS 1,000 ML IV SCH ×2 (01:53→22:02)
[2018-03-15] MEDS: ATIVAN IM SCH ×3 (06:25→21:56)
[2018-03-15] MEDS: ROCEPHIN/NS 1 GM/50 ML 1 GM/50 ML BAG IV SCH (10:14)
[2018-03-15] MEDS: HEPARIN SUB-Q SCH ×2 (10:15→21:57)
--- NOTE | 2018-03-15 12:37 | Progress Note ---
Assessment and Plan Assessment and plan: Catatonia - mental health following. Continue 1013. Continue Ativan 1 mg IM Q8hrs for catatonia. Metabolic encephalopathy - Supportive care UTI -Continue IV antibiotics and await sensitivities. Urine culture reveals gram- negative [place]. Follow-up blood cultures. Dehydration - Patient is on D5 half-normal saline, condition is not taking anything by mouth Suspected femoral fracture -Evaluated by orthopedics, reviewed his imaging and showed no fracture DVT prophylaxis History Interval history: No new issues overnight. Hospitalist Physical - Constitutional Vitals: Temp Pulse Resp BP Pulse Ox 97.6 F 86 16 114/70 97 03/15/18 06:01 03/15/18 06:01 03/15/18 06:01 03/15/18 06:01 03/15/18 06:01 General appearance: Present: no acute distress, other (catatonic) - EENT Eyes: Present: PERRL, EOM intact ENT: hearing intact, clear oral mucosa, dentition normal - Neck Neck: Present: supple, normal ROM - Respiratory Respiratory effort: normal Respiratory: bilateral: CTA - Cardiovascular Rhythm: regular Heart Sounds: Present: S1 & S2. Absent: gallop, rub - Extremities Extremities: no ischemia, No edema, Full ROM - Abdominal General gastrointestinal: soft, non-tender, non-distended, normal bowel sounds - Integumentary Integumentary: Present: clear, warm, dry - Neurologic Neurologic: CNII-XII intact, moves all extremities Results - Labs CBC & Chem 7: 03/14/18 05:19 03/14/18 05:19 Labs: Laboratory Last Values WBC 5.0 K/mm3 (4.5-11.0) 03/14/18 05:19 RBC 4.34 M/mm3 (3.65-5.03) 03/14/18 05:19 Hgb 11.8 gm/dl (11.8-15.2) 03/14/18 05:19 Hct 35.1 % (35.5-45.6) L 03/14/18 05:19 MCV 81 fl (84-94) L 03/14/18 05:19 MCH 27 pg (28-32) L 03/14/18 05:19 MCHC 34 % (32-34) 03/14/18 05:19 RDW 14.2 % (13.2-15.2) 03/14/18 05:19 Plt Count 121 K/mm3 (140-440) L 03/14/18 05:19 Lymph % (Auto) 15.5 % (13.4-35.0) 03/14/18 05:19 [place] % (Auto) 9.4 % (0.0-7.3) H 03/14/18 05:19 Eos % (Auto) 2.3 % (0.0-4.3) 03/14/18 05:19 Baso % (Auto) 0.5 % (0.0-1.8) 03/14/18 05:19 Lymph # 0.8 K/mm3 (1.2-5.4) L 03/14/18 05:19 [place] # 0.5 K/mm3 (0.0-0.8) 03/14/18 05:19 Eos # 0.1 K/mm3 (0.0-0.4) 03/14/18 05:19 Baso # 0.0 K/mm3 (0.0-0.1) 03/14/18 05:19 Total Counted Cancelled 03/10/18 17:27 Seg Neutrophils % 72.3 % (40.0-70.0) H 03/14/18 05:19 Seg Neuts % (Manual) Cancelled 03/10/18 17:27 Band Neutrophils % Cancelled 03/10/18 17:27 Lymphocytes % (Manual) Cancelled 03/10/18 17:27 Reactive Lymphs % (Man) Cancelled 03/10/18 17:27 Monocytes % (Manual) Cancelled 03/10/18 17:27 Eosinophils % (Manual) Cancelled 03/10/18 17:27 Basophils % (Manual) Cancelled 03/10/18 17:27 Metamyelocytes % Cancelled 03/10/18 17:27 Myelocytes % Cancelled 03/10/18 17:27 Promyelocytes % Cancelled 03/10/18 17:27 Blast Cells % Cancelled 03/10/18 17:27 Nucleated RBC % Cancelled 03/10/18 17:27 Seg Neutrophils # 3.6 K/mm3 (1.8-7.7) 03/14/18 05:19 Seg Neutrophils # Man Cancelled 03/10/18 17:27 Band Neutrophils # Cancelled 03/10/18 17:27 Lymphocytes # (Manual) Cancelled 03/10/18 17:27 Abs React Lymphs (Man) Cancelled 03/10/18 17:27 Monocytes # (Manual) Cancelled 03/10/18 17:27 Eosinophils # (Manual) Cancelled 03/10/18 17:27 Basophils # (Manual) Cancelled 03/10/18 17:27 Metamyelocytes # Cancelled 03/10/18 17:27 Myelocytes # Cancelled 03/10/18 17:27 Promyelocytes # Cancelled 03/10/18 17:27 Blast Cells # Cancelled 03/10/18 17:27 WBC Morphology Cancelled 03/10/18 17:27 Hypersegmented Neuts Cancelled 03/10/18 17:27 Hyposegmented Neuts Cancelled 03/10/18 17:27 Hypogranular Neuts Cancelled 03/10/18 17:27 Hypersegmented Polys Cancelled 03/10/18 17:27 Smudge Cells Cancelled 03/10/18 17:27 Toxic Granulation Cancelled 03/10/18 17:27 Toxic Vacuolation Cancelled 03/10/18 17:27 Dohle Bodies Cancelled 03/10/18 17:27 Pelger-Huet Anomaly Cancelled 03/10/18 17:27 Alvin Rods Cancelled 03/10/18 17:27 Platelet Estimate Cancelled 03/10/18 17:27 Clumped Platelets Cancelled 03/10/18 17:27 Plt Clumps, EDTA Cancelled 03/10/18 17:27 Large Platelets Cancelled 03/10/18 17:27 Giant Platelets Cancelled 03/10/18 17:27 Platelet Satelliting Cancelled 03/10/18 17:27 Plt Morphology Comment Cancelled 03/10/18 17:27 RBC Morphology Cancelled 03/10/18 17:27 Dimorphic RBCs Cancelled 03/10/18 17:27 Polychromasia Cancelled 03/10/18 17:27 Hypochromasia Cancelled 03/10/18 17:27 Poikilocytosis Cancelled 03/10/18 17:27 Basophilic Stippling Cancelled 03/10/18 17:27 Anisocytosis Cancelled 03/10/18 17:27 Microcytosis Cancelled 03/10/18 17:27 Macrocytosis Cancelled 03/10/18 17:27 Spherocytes Cancelled 03/10/18 17:27 Pappenheimer Bodies Cancelled 03/10/18 17:27 Sickle Cells Cancelled 03/10/18 17:27 Target Cells Cancelled 03/10/18 17:27 Tear Drop Cells Cancelled 03/10/18 17:27 Ovalocytes Cancelled 03/10/18 17:27 Stomatocytes Cancelled 03/10/18 17:27 Helmet Cells Cancelled 03/10/18 17:27 [place] Bodies Cancelled 03/10/18 17:27 [place] Rings Cancelled 03/10/18 17:27 [place] Cells Cancelled 03/10/18 17:27 Bite Cells Cancelled 03/10/18 17:27 Crenated Cell Cancelled 03/10/18 17:27 Elliptocytes Cancelled 03/10/18 17:27 Acanthocytes (Spur) Cancelled 03/10/18 17:27 Rouleaux Cancelled 03/10/18 17:27 Hemoglobin C Crystals Cancelled 03/10/18 17:27 Schistocytes Cancelled 03/10/18 17:27 Malaria parasites Cancelled 03/10/18 17:27 Darrius Bodies Cancelled 03/10/18 17:27 Hem Pathologist Commnt Cancelled 03/10/18 17:27 Sodium 135 mmol/L (137-145) L 03/14/18 05:19 Potassium 3.4 mmol/L (3.6-5.0) L 03/14/18 05:19 Chloride 100.6 mmol/L (98-107) 03/14/18 05:19 Carbon Dioxide 22 mmol/L (22-30) 03/14/18 05:19 Anion Gap 16 mmol/L 03/14/18 05:19 BUN 3 mg/dL (9-20) L 03/14/18 05:19 Creatinine 0.6 mg/dL (0.8-1.5) L 03/14/18 05:19 Estimated GFR > 60 ml/min 03/14/18 05:19 BUN/Creatinine Ratio 5 % 03/14/18 05:19 Glucose 113 mg/dL (75-100) H 03/14/18 05:19 POC Glucose 140 (70-105) H 03/10/18 18:07 Calcium 8.3 mg/dL (8.4-10.2) L 03/14/18 05:19 Magnesium 2.20 mg/dL (1.7-2.3) 03/10/18 17:24 Total Bilirubin 1.20 mg/dL (0.1-1.2) 03/10/18 17:27 AST 50 units/L (5-40) H 03/10/18 17:27 ALT 63 units/L (7-56) H 03/10/18 17:27 Alkaline Phosphatase 67 units/L (35-129) 03/10/18 17:27 Ammonia 17.0 umol/L (25-60) L 03/10/18 17:27 Total Creatine Kinase 148 units/L (55-170) 03/10/18 17:44 CK-MB (CK-2) 1.6 ng/mL (0.0-4.0) 03/10/18 17:44 CK-MB (CK-2) Rel Index 1.0 (0-4) 03/10/18 17:44 Troponin T < 0.010 ng/mL (0.00-0.029) 03/10/18 17:43 Total Protein 7.2 g/dL (6.3-8.2) 03/10/18 17:27 Albumin 3.6 g/dL (3.9-5) L 03/10/18 17:27 Albumin/Globulin Ratio 1.0 % 03/10/18 17:27 TSH 3.030 mlU/mL (0.270-4.200) 03/10/18 17:27 Free T4 0.92 ng/dL (0.76-1.46) 03/10/18 17:27 Urine Color Isela (Yellow) 03/10/18 17:59 Urine Turbidity Cloudy (Clear) 03/10/18 17:59 Urine pH 7.0 (5.0-7.0) 03/10/18 17:59 Ur Specific [place] 1.021 (1.003-1.030) 03/10/18 17:59 Urine Protein 30 mg/dl mg/dL (Negative) 03/10/18 17:59 Urine Glucose (UA) Neg mg/dL (Negative) 03/10/18 17:59 Urine Ketones Neg mg/dL (Negative) 03/10/18 17:59 Urine Blood Neg (Negative) 03/10/18 17:59 Urine Nitrite Neg (Negative) 03/10/18 17:59 Urine Bilirubin Neg (Negative) 03/10/18 17:59 Urine Urobilinogen 4.0 mg/dL (<2.0) 03/10/18 17:59 Ur Leukocyte Esterase Lg (Negative) 03/10/18 17:59 Urine WBC (Auto) 92.0 /HPF (0.0-6.0) H 03/10/18 17:59 Urine RBC (Auto) 6.0 /HPF (0.0-6.0) 03/10/18 17:59 U Epithel Cells (Auto) < 1.0 /HPF (0-13.0) 03/10/18 17:59 Urine Bacteria (Auto) 3+ /HPF (Negative) 03/10/18 17:59 Ur Transition Epith Cell 2 /HPF 03/10/18 17:59 Urine Mucus 1+ /HPF 03/10/18 17:59 Salicylates < 0.3 mg/dL (2.8-20.0) L 03/10/18 17:27 Urine Opiates Screen Presumptive negative 03/10/18 17:59 Urine Methadone Screen Presumptive negative 03/10/18 17:59 Acetaminophen < 5.0 ug/mL (10.0-30.0) L 03/10/18 17:27 Ur Barbiturates Screen Presumptive negative 03/10/18 17:59 Ur Phencyclidine Scrn Presumptive negative 03/10/18 17:59 Ur Amphetamines Screen Presumptive negative 03/10/18 17:59 U Benzodiazepines Scrn Presumptive negative 03/10/18 17:59 Urine Cocaine Screen Presumptive negative 03/10/18 17:59 U Marijuana (THC) Screen Presumptive negative 03/10/18 17:59 Drugs of Abuse Note Disclamer 03/10/18 17:59 Plasma/Serum Alcohol < 0.01 % (0-0.07) 03/10/18 17:27
--- NOTE | 2018-03-15 16:15 | Progress Note ---
Subjective - Reason for Consult Consult date: 03/15/18 Reason for consult: Psychiatry Follow-up - Chief Complaint Chief complaint: "The patient is nonverbal" Patient is a 57-year-old male who presents to the ER for AMS from [place]. The psychiatry team was consulted to see patient for catatonic like state. Today the patient is still nonverbal during the assessment. He did open his eye skilled nursing when his name was called. Per the staff, the patient still isn't eating. No agitation/irritation noted. Mental Status Exam - Vital signs Last Vital Signs Temp 97.6 F 03/15/18 06:01 Pulse 86 03/15/18 06:01 Resp 16 03/15/18 06:01 BP 114/70 03/15/18 06:01 Pulse Ox 97 03/15/18 06:01 - Exam Narrative exam: Unable to complete the MSE because of the patient's condition. Assessment and Plan Impression: R/O Catatonia. Today the patient is still nonverbal during the assessment. Plt 81. WBC Urine 92. The patient's VS are stable. The patient is pending a EEG. Recommendation/Plan: Continue 1013. Continue Ativan 1 mg IM Q8hrs for catatonia. Recommend GI Prophylaxis and continue hydration. Monitor patient's V/ S and airway. Will follow up with patient daily to R/O NMS and Serotonin Syndrome.
--- NOTE | 2018-03-15 22:29 | Physician Progress Note ---
SUBJECTIVE: The patient is just basically the same. He appeared to be awake, eyes open, but no meaningful response. He has had workup already and his MRI did not show anything significant. There were just chronic changes. No acute infarct, no tumor. His EEG read by me showed a moderately diffuse slowing without any seizure. OBJECTIVE EXAMINATION: VITAL SIGNS: Stable. NEUROLOGIC: Mental status is poor. He looks awake, but he is nonverbal. He appeared to be in vegetative state. EXTREMITIES: Increased tone in the extremities. ASSESSMENT: Cortical degenerative changes. Possibility of a previous cortical injury, could be mental retardation. RADIOGRAPHIC STUDIES: His EEG showed cortical disturbance with moderately and diffusely severe encephalopathy. PLAN: Continue current management. In brief, this patient will end up in a chronic care. Prognosis overall looks very poor. I will be following this patient. Since my locums time is over, please contact the next neurologist if there is any problem. JOB# [id number] MARY/SANDI
[2018-03-16 06:20] LABS: Basophils % (Auto) 0.4 % (0.0-1.8); Eosinophils # (Auto) 0.1 K/mm3 (0.0-0.4); Eosinophils % (Auto) 2.2 % (0.0-4.3); Hematocrit 35.1 % (35.5-45.6); Hemoglobin 12.4 gm/dl (11.8-15.2); Lymphocytes # (Auto) 0.9 K/mm3 (1.2-5.4); Lymphocytes % (Auto) 15.1 % (13.4-35.0); Mean Corpuscular HGB Conc 35 % (32-34); Mean Corpuscular Hemoglobin 28 pg (28-32); Mean Corpuscular Volume 80 fl (84-94); Monocytes # (Auto) 0.5 K/mm3 (0.0-0.8); Monocytes % (Auto) 8.1 % (0.0-7.3); Platelet Count 197 K/mm3 (140-440); Red Cell Distribution Width 14.5 % (13.2-15.2)
[2018-03-16 06:40] LABS: BUN/Creatinine Ratio 3; Blood Urea Nitrogen 2 mg/dL (9-20); Hemolysis Index 5
[2018-03-16] MEDS: D5/0.45NS 1,000 ML IV SCH ×2 (06:42→14:40)
[2018-03-16] MEDS: ATIVAN IM SCH ×3 (06:42→21:30)
[2018-03-16] MEDS: ROCEPHIN/NS 1 GM/50 ML 1 GM/50 ML BAG IV SCH (10:37)
[2018-03-16] MEDS: HEPARIN SUB-Q SCH ×2 (10:38→21:32)
--- NOTE | 2018-03-16 14:53 | Progress Note ---
Assessment and Plan Assessment and plan: Catatonia - mental health following. Continue 1013. Continue Ativan 1 mg IM Q8hrs for catatonia. Metabolic encephalopathy - Supportive care. EEG reveals diffuse moderate encephalopathy. MRI negative UTI -Continue IV antibiotics and await sensitivities. Urine culture reveals Citrobacter. Follow-up blood cultures. Dehydration - Patient is on D5 half-normal saline, condition is not taking anything by mouth. Place Dobhoff for TF Suspected femoral fracture -Evaluated by orthopedics, reviewed his imaging and showed no fracture DVT prophylaxis History Interval history: No new issues overnight. Hospitalist Physical - Constitutional Vitals: Temp Pulse Resp BP Pulse Ox 98.5 F 93 H 18 119/79 94 03/16/18 11:48 03/16/18 11:48 03/16/18 11:48 03/16/18 11:48 03/16/18 11:48 General appearance: Present: no acute distress, other (catatonic) - EENT Eyes: Present: PERRL, EOM intact ENT: hearing intact, clear oral mucosa, dentition normal - Neck Neck: Present: supple, normal ROM - Respiratory Respiratory effort: normal Respiratory: bilateral: CTA - Cardiovascular Rhythm: regular Heart Sounds: Present: S1 & S2. Absent: gallop, rub - Extremities Extremities: no ischemia, No edema, Full ROM - Abdominal General gastrointestinal: soft, non-tender, non-distended, normal bowel sounds - Integumentary Integumentary: Present: clear, warm, dry - Neurologic Neurologic: CNII-XII intact, moves all extremities Results - Labs CBC & Chem 7: 03/16/18 05:43 03/16/18 05:43 Labs: Laboratory Last Values WBC 5.9 K/mm3 (4.5-11.0) 03/16/18 05:43 RBC 4.40 M/mm3 (3.65-5.03) 03/16/18 05:43 Hgb 12.4 gm/dl (11.8-15.2) 03/16/18 05:43 Hct 35.1 % (35.5-45.6) L 03/16/18 05:43 MCV 80 fl (84-94) L 03/16/18 05:43 MCH 28 pg (28-32) 03/16/18 05:43 MCHC 35 % (32-34) H 03/16/18 05:43 RDW 14.5 % (13.2-15.2) 03/16/18 05:43 Plt Count 197 K/mm3 (140-440) 03/16/18 05:43 Lymph % (Auto) 15.1 % (13.4-35.0) 03/16/18 05:43 [place] % (Auto) 8.1 % (0.0-7.3) H 03/16/18 05:43 Eos % (Auto) 2.2 % (0.0-4.3) 03/16/18 05:43 Baso % (Auto) 0.4 % (0.0-1.8) 03/16/18 05:43 Lymph # 0.9 K/mm3 (1.2-5.4) L 03/16/18 05:43 [place] # 0.5 K/mm3 (0.0-0.8) 03/16/18 05:43 Eos # 0.1 K/mm3 (0.0-0.4) 03/16/18 05:43 Baso # 0.0 K/mm3 (0.0-0.1) 03/16/18 05:43 Total Counted Cancelled 03/10/18 17:27 Seg Neutrophils % 74.2 % (40.0-70.0) H 03/16/18 05:43 Seg Neuts % (Manual) Cancelled 03/10/18 17:27 Band Neutrophils % Cancelled 03/10/18 17:27 Lymphocytes % (Manual) Cancelled 03/10/18 17:27 Reactive Lymphs % (Man) Cancelled 03/10/18 17:27 Monocytes % (Manual) Cancelled 03/10/18 17:27 Eosinophils % (Manual) Cancelled 03/10/18 17:27 Basophils % (Manual) Cancelled 03/10/18 17:27 Metamyelocytes % Cancelled 03/10/18 17:27 Myelocytes % Cancelled 03/10/18 17:27 Promyelocytes % Cancelled 03/10/18 17:27 Blast Cells % Cancelled 03/10/18 17:27 Nucleated RBC % Cancelled 03/10/18 17:27 Seg Neutrophils # 4.4 K/mm3 (1.8-7.7) 03/16/18 05:43 Seg Neutrophils # Man Cancelled 03/10/18 17:27 Band Neutrophils # Cancelled 03/10/18 17:27 Lymphocytes # (Manual) Cancelled 03/10/18 17:27 Abs React Lymphs (Man) Cancelled 03/10/18 17:27 Monocytes # (Manual) Cancelled 03/10/18 17:27 Eosinophils # (Manual) Cancelled 03/10/18 17:27 Basophils # (Manual) Cancelled 03/10/18 17:27 Metamyelocytes # Cancelled 03/10/18 17:27 Myelocytes # Cancelled 03/10/18 17:27 Promyelocytes # Cancelled 03/10/18 17:27 Blast Cells # Cancelled 03/10/18 17:27 WBC Morphology Cancelled 03/10/18 17:27 Hypersegmented Neuts Cancelled 03/10/18 17:27 Hyposegmented Neuts Cancelled 03/10/18 17:27 Hypogranular Neuts Cancelled 03/10/18 17:27 Hypersegmented Polys Cancelled 03/10/18 17:27 Smudge Cells Cancelled 03/10/18 17:27 Toxic Granulation Cancelled 03/10/18 17:27 Toxic Vacuolation Cancelled 03/10/18 17:27 Dohle Bodies Cancelled 03/10/18 17:27 Pelger-Huet Anomaly Cancelled 03/10/18 17:27 Alvin Rods Cancelled 03/10/18 17:27 Platelet Estimate Cancelled 03/10/18 17:27 Clumped Platelets Cancelled 03/10/18 17:27 Plt Clumps, EDTA Cancelled 03/10/18 17:27 Large Platelets Cancelled 03/10/18 17:27 Giant Platelets Cancelled 03/10/18 17:27 Platelet Satelliting Cancelled 03/10/18 17:27 Plt Morphology Comment Cancelled 03/10/18 17:27 RBC Morphology Cancelled 03/10/18 17:27 Dimorphic RBCs Cancelled 03/10/18 17:27 Polychromasia Cancelled 03/10/18 17:27 Hypochromasia Cancelled 03/10/18 17:27 Poikilocytosis Cancelled 03/10/18 17:27 Basophilic Stippling Cancelled 03/10/18 17:27 Anisocytosis Cancelled 03/10/18 17:27 Microcytosis Cancelled 03/10/18 17:27 Macrocytosis Cancelled 03/10/18 17:27 Spherocytes Cancelled 03/10/18 17:27 Pappenheimer Bodies Cancelled 03/10/18 17:27 Sickle Cells Cancelled 03/10/18 17:27 Target Cells Cancelled 03/10/18 17:27 Tear Drop Cells Cancelled 03/10/18 17:27 Ovalocytes Cancelled 03/10/18 17:27 Stomatocytes Cancelled 03/10/18 17:27 Helmet Cells Cancelled 03/10/18 17:27 Hernandez-[place] Bodies Cancelled 03/10/18 17:27 [place] Rings Cancelled 03/10/18 17:27 Alcon Cells Cancelled 03/10/18 17:27 Bite Cells Cancelled 03/10/18 17:27 Crenated Cell Cancelled 03/10/18 17:27 Elliptocytes Cancelled 03/10/18 17:27 Acanthocytes (Spur) Cancelled 03/10/18 17:27 Rouleaux Cancelled 03/10/18 17:27 Hemoglobin C Crystals Cancelled 03/10/18 17:27 Schistocytes Cancelled 03/10/18 17:27 Malaria parasites Cancelled 03/10/18 17:27 Darrius Bodies Cancelled 03/10/18 17:27 Hem Pathologist Commnt Cancelled 03/10/18 17:27 Sodium 135 mmol/L (137-145) L 03/16/18 05:43 Potassium 3.7 mmol/L (3.6-5.0) 03/16/18 05:43 Chloride 99.9 mmol/L (98-107) 03/16/18 05:43 Carbon Dioxide 24 mmol/L (22-30) 03/16/18 05:43 Anion Gap 15 mmol/L 03/16/18 05:43 BUN 2 mg/dL (9-20) L 03/16/18 05:43 Creatinine 0.6 mg/dL (0.8-1.5) L 03/16/18 05:43 Estimated GFR > 60 ml/min 03/16/18 05:43 BUN/Creatinine Ratio 3 % 03/16/18 05:43 Glucose 105 mg/dL (75-100) H 03/16/18 05:43 POC Glucose 140 (70-105) H 03/10/18 18:07 Calcium 9.0 mg/dL (8.4-10.2) 03/16/18 05:43 Magnesium 2.20 mg/dL (1.7-2.3) 03/10/18 17:24 Total Bilirubin 1.20 mg/dL (0.1-1.2) 03/10/18 17:27 AST 50 units/L (5-40) H 03/10/18 17:27 ALT 63 units/L (7-56) H 03/10/18 17:27 Alkaline Phosphatase 67 units/L (35-129) 03/10/18 17:27 Ammonia 17.0 umol/L (25-60) L 03/10/18 17:27 Total Creatine Kinase 148 units/L (55-170) 03/10/18 17:44 CK-MB (CK-2) 1.6 ng/mL (0.0-4.0) 03/10/18 17:44 CK-MB (CK-2) Rel Index 1.0 (0-4) 03/10/18 17:44 Troponin T < 0.010 ng/mL (0.00-0.029) 03/10/18 17:43 Total Protein 7.2 g/dL (6.3-8.2) 03/10/18 17:27 Albumin 3.6 g/dL (3.9-5) L 03/10/18 17:27 Albumin/Globulin Ratio 1.0 % 03/10/18 17:27 TSH 3.030 mlU/mL (0.270-4.200) 03/10/18 17:27 Free T4 0.92 ng/dL (0.76-1.46) 03/10/18 17:27 Urine Color Isela (Yellow) 03/10/18 17:59 Urine Turbidity Cloudy (Clear) 03/10/18 17:59 Urine pH 7.0 (5.0-7.0) 03/10/18 17:59 Ur Specific [place] 1.021 (1.003-1.030) 03/10/18 17:59 Urine Protein 30 mg/dl mg/dL (Negative) 03/10/18 17:59 Urine Glucose (UA) Neg mg/dL (Negative) 03/10/18 17:59 Urine Ketones Neg mg/dL (Negative) 03/10/18 17:59 Urine Blood Neg (Negative) 03/10/18 17:59 Urine Nitrite Neg (Negative) 03/10/18 17:59 Urine Bilirubin Neg (Negative) 03/10/18 17:59 Urine Urobilinogen 4.0 mg/dL (<2.0) 03/10/18 17:59 Ur Leukocyte Esterase Lg (Negative) 03/10/18 17:59 Urine WBC (Auto) 92.0 /HPF (0.0-6.0) H 03/10/18 17:59 Urine RBC (Auto) 6.0 /HPF (0.0-6.0) 03/10/18 17:59 U Epithel Cells (Auto) < 1.0 /HPF (0-13.0) 03/10/18 17:59 Urine Bacteria (Auto) 3+ /HPF (Negative) 03/10/18 17:59 Ur Transition Epith Cell 2 /HPF 03/10/18 17:59 Urine Mucus 1+ /HPF 03/10/18 17:59 Salicylates < 0.3 mg/dL (2.8-20.0) L 03/10/18 17:27 Urine Opiates Screen Presumptive negative 03/10/18 17:59 Urine Methadone Screen Presumptive negative 03/10/18 17:59 Acetaminophen < 5.0 ug/mL (10.0-30.0) L 03/10/18 17:27 Ur Barbiturates Screen Presumptive negative 03/10/18 17:59 Ur Phencyclidine Scrn Presumptive negative 03/10/18 17:59 Ur Amphetamines Screen Presumptive negative 03/10/18 17:59 U Benzodiazepines Scrn Presumptive negative 03/10/18 17:59 Urine Cocaine Screen Presumptive negative 03/10/18 17:59 U Marijuana (THC) Screen Presumptive negative 03/10/18 17:59 Drugs of Abuse Note Disclamer 03/10/18 17:59 Plasma/Serum Alcohol < 0.01 % (0-0.07) 03/10/18 17:27
--- NOTE | 2018-03-16 16:23 | Progress Note ---
Subjective - Reason for Consult Consult date: 03/16/18 Reason for consult: Psychiatric Follow-up Evaluation - Chief Complaint Chief complaint: "The patient is nonverbal" Patient is a 57-year-old male who presents to the ER for AMS from [place]. The psychiatry team was consulted to see patient for catatonic like state. Today the patient is nonverbal during the assessment. He does not respond to commands, but grimace to the sternum rub. Per staff patient has been asleep all day. Patient is known to provider. Although patient is arousable, he continues to be nonverbal. No agitation/irritation noted. Per RN, Ativan has not been given due to the fact that patient is unresponsive. Patient condition is unchanged. Mental Status Exam - Vital signs Last Vital Signs Temp 98.5 F 03/16/18 11:48 Pulse 93 H 03/16/18 11:48 Resp 18 03/16/18 11:48 BP 119/79 03/16/18 11:48 Pulse Ox 94 03/16/18 11:48 - Exam Narrative exam: Unable to complete the MSE because of the patient's condition. Assessment and Plan Impression: R/O Catatonia. Today the patient is still nonverbal during the assessment. Being that the provider knows patient hx, it appears that patient may be having a possible adverse reaction from the long acting injectable, Aristada. Per family patient begin to decompensate or have a change in mental status after receiving the injection. Immediately after receiving the injection patient other anti-psychotics ( Zyprexa) were discontinued. Recommendation/Plan: 1. Continue 1013 and reassess in 24 hours. 2. Will taper/decrease Ativan 1 mg IM BID for catatonia. Recommend GI Prophylaxis and continue hydration. Monitor patient's V/S and airway. Will follow up with patient daily to R/O NMS and Serotonin Syndrome. 3. Once Ativan is tapered off, psychiatry will sign off. 4. Will continue to monitor mood, catatonia, sleep, appetite, compliance, and side effects.
[2018-03-17] MEDS ORDERED: SODIUM BICARBONATE FEEDTUBE PRN (07:53)
[2018-03-17] MEDS ORDERED: SIMPLE SYRUP FEEDTUBE PRN ×2 (07:53)
[2018-03-17] MEDS ORDERED: PANCREAZE DR 10,500 UNIT FEEDTUBE PRN (07:53)
--- NOTE | 2018-03-17 09:24 | XRay Report ---
FINAL REPORT EXAM: XRAY ABDOMEN 1 VIEW HISTORY: dobbhoff placement TECHNIQUE: Single view of the abdomen. PRIORS: None currently available. FINDINGS: Enteric tube tip is within proximal stomach. Mild gas is distension of the large and small bowel loops. There is no pneumoperitoneum. There is no air fluid level. There is no obstructive pattern. Mild stool is present. There are no suspicious calcifications overlying the renal shadows. IMPRESSION: Nonspecific nonobstructive bowel gas pattern.
--- NOTE | 2018-03-17 13:21 | Progress Note ---
Assessment and Plan Assessment and plan: Catatonia - mental health following. Continue 1013. Continue Ativan 1 mg IM Q8hrs for catatonia. Metabolic encephalopathy - Supportive care. EEG reveals diffuse moderate encephalopathy. MRI negative UTI -Urine culture reveals Citrobacter that is essentially pansensitive. Follow-up blood cultures. Dehydration/prot millicent malnutrition secondary to #1 - Patient is on D5 half-normal saline, condition is not taking anything by mouth. Place Dobhoff for TF. Suspected femoral fracture -Evaluated by orthopedics, reviewed his imaging and showed no fracture DVT prophylaxis History Interval history: No new issues overnight. Hospitalist Physical - Constitutional Vitals: Temp Pulse Resp BP Pulse Ox 97.6 F 86 18 116/70 97 03/17/18 00:28 03/17/18 00:28 03/17/18 00:28 03/17/18 00:28 03/17/18 00:28 General appearance: Present: no acute distress, other (catatonic) - EENT Eyes: Present: PERRL, EOM intact ENT: hearing intact, clear oral mucosa, dentition normal - Neck Neck: Present: supple, normal ROM - Respiratory Respiratory effort: normal Respiratory: bilateral: CTA - Cardiovascular Rhythm: regular Heart Sounds: Present: S1 & S2. Absent: gallop, rub - Extremities Extremities: no ischemia, No edema, Full ROM - Abdominal General gastrointestinal: soft, non-tender, non-distended, normal bowel sounds - Integumentary Integumentary: Present: clear, warm, dry - Neurologic Neurologic: CNII-XII intact, moves all extremities Results - Labs CBC & Chem 7: 03/16/18 05:43 03/16/18 05:43 Labs: Laboratory Last Values WBC 5.9 K/mm3 (4.5-11.0) 03/16/18 05:43 RBC 4.40 M/mm3 (3.65-5.03) 03/16/18 05:43 Hgb 12.4 gm/dl (11.8-15.2) 03/16/18 05:43 Hct 35.1 % (35.5-45.6) L 03/16/18 05:43 MCV 80 fl (84-94) L 03/16/18 05:43 MCH 28 pg (28-32) 03/16/18 05:43 MCHC 35 % (32-34) H 03/16/18 05:43 RDW 14.5 % (13.2-15.2) 03/16/18 05:43 Plt Count 197 K/mm3 (140-440) 03/16/18 05:43 Lymph % (Auto) 15.1 % (13.4-35.0) 03/16/18 05:43 [place] % (Auto) 8.1 % (0.0-7.3) H 03/16/18 05:43 Eos % (Auto) 2.2 % (0.0-4.3) 03/16/18 05:43 Baso % (Auto) 0.4 % (0.0-1.8) 03/16/18 05:43 Lymph # 0.9 K/mm3 (1.2-5.4) L 03/16/18 05:43 [place] # 0.5 K/mm3 (0.0-0.8) 03/16/18 05:43 Eos # 0.1 K/mm3 (0.0-0.4) 03/16/18 05:43 Baso # 0.0 K/mm3 (0.0-0.1) 03/16/18 05:43 Total Counted Cancelled 03/10/18 17:27 Seg Neutrophils % 74.2 % (40.0-70.0) H 03/16/18 05:43 Seg Neuts % (Manual) Cancelled 03/10/18 17:27 Band Neutrophils % Cancelled 03/10/18 17:27 Lymphocytes % (Manual) Cancelled 03/10/18 17:27 Reactive Lymphs % (Man) Cancelled 03/10/18 17:27 Monocytes % (Manual) Cancelled 03/10/18 17:27 Eosinophils % (Manual) Cancelled 03/10/18 17:27 Basophils % (Manual) Cancelled 03/10/18 17:27 Metamyelocytes % Cancelled 03/10/18 17:27 Myelocytes % Cancelled 03/10/18 17:27 Promyelocytes % Cancelled 03/10/18 17:27 Blast Cells % Cancelled 03/10/18 17:27 Nucleated RBC % Cancelled 03/10/18 17:27 Seg Neutrophils # 4.4 K/mm3 (1.8-7.7) 03/16/18 05:43 Seg Neutrophils # Man Cancelled 03/10/18 17:27 Band Neutrophils # Cancelled 03/10/18 17:27 Lymphocytes # (Manual) Cancelled 03/10/18 17:27 Abs React Lymphs (Man) Cancelled 03/10/18 17:27 Monocytes # (Manual) Cancelled 03/10/18 17:27 Eosinophils # (Manual) Cancelled 03/10/18 17:27 Basophils # (Manual) Cancelled 03/10/18 17:27 Metamyelocytes # Cancelled 03/10/18 17:27 Myelocytes # Cancelled 03/10/18 17:27 Promyelocytes # Cancelled 03/10/18 17:27 Blast Cells # Cancelled 03/10/18 17:27 WBC Morphology Cancelled 03/10/18 17:27 Hypersegmented Neuts Cancelled 03/10/18 17:27 Hyposegmented Neuts Cancelled 03/10/18 17:27 Hypogranular Neuts Cancelled 03/10/18 17:27 Hypersegmented Polys Cancelled 03/10/18 17:27 Smudge Cells Cancelled 03/10/18 17:27 Toxic Granulation Cancelled 03/10/18 17:27 Toxic Vacuolation Cancelled 03/10/18 17:27 Dohle Bodies Cancelled 03/10/18 17:27 Pelger-Huet Anomaly Cancelled 03/10/18 17:27 Alvin Rods Cancelled 03/10/18 17:27 Platelet Estimate Cancelled 03/10/18 17:27 Clumped Platelets Cancelled 03/10/18 17:27 Plt Clumps, EDTA Cancelled 03/10/18 17:27 Large Platelets Cancelled 03/10/18 17:27 Giant Platelets Cancelled 03/10/18 17:27 Platelet Satelliting Cancelled 03/10/18 17:27 Plt Morphology Comment Cancelled 03/10/18 17:27 RBC Morphology Cancelled 03/10/18 17:27 Dimorphic RBCs Cancelled 03/10/18 17:27 Polychromasia Cancelled 03/10/18 17:27 Hypochromasia Cancelled 03/10/18 17:27 Poikilocytosis Cancelled 03/10/18 17:27 Basophilic Stippling Cancelled 03/10/18 17:27 Anisocytosis Cancelled 03/10/18 17:27 Microcytosis Cancelled 03/10/18 17:27 Macrocytosis Cancelled 03/10/18 17:27 Spherocytes Cancelled 03/10/18 17:27 Pappenheimer Bodies Cancelled 03/10/18 17:27 Sickle Cells Cancelled 03/10/18 17:27 Target Cells Cancelled 03/10/18 17:27 Tear Drop Cells Cancelled 03/10/18 17:27 Ovalocytes Cancelled 03/10/18 17:27 Stomatocytes Cancelled 03/10/18 17:27 Helmet Cells Cancelled 03/10/18 17:27 Hernandez-[place] Bodies Cancelled 03/10/18 17:27 [place] Rings Cancelled 03/10/18 17:27 Alcon Cells Cancelled 03/10/18 17:27 Bite Cells Cancelled 03/10/18 17:27 Crenated Cell Cancelled 03/10/18 17:27 Elliptocytes Cancelled 03/10/18 17:27 Acanthocytes (Spur) Cancelled 03/10/18 17:27 Rouleaux Cancelled 03/10/18 17:27 Hemoglobin C Crystals Cancelled 03/10/18 17:27 Schistocytes Cancelled 03/10/18 17:27 Malaria parasites Cancelled 03/10/18 17:27 Darrius Bodies Cancelled 03/10/18 17:27 Hem Pathologist Commnt Cancelled 03/10/18 17:27 Sodium 135 mmol/L (137-145) L 03/16/18 05:43 Potassium 3.7 mmol/L (3.6-5.0) 03/16/18 05:43 Chloride 99.9 mmol/L (98-107) 03/16/18 05:43 Carbon Dioxide 24 mmol/L (22-30) 03/16/18 05:43 Anion Gap 15 mmol/L 03/16/18 05:43 BUN 2 mg/dL (9-20) L 03/16/18 05:43 Creatinine 0.6 mg/dL (0.8-1.5) L 03/16/18 05:43 Estimated GFR > 60 ml/min 03/16/18 05:43 BUN/Creatinine Ratio 3 % 03/16/18 05:43 Glucose 105 mg/dL (75-100) H 03/16/18 05:43 POC Glucose 140 (70-105) H 03/10/18 18:07 Calcium 9.0 mg/dL (8.4-10.2) 03/16/18 05:43 Magnesium 2.20 mg/dL (1.7-2.3) 03/10/18 17:24 Total Bilirubin 1.20 mg/dL (0.1-1.2) 03/10/18 17:27 AST 50 units/L (5-40) H 03/10/18 17:27 ALT 63 units/L (7-56) H 03/10/18 17:27 Alkaline Phosphatase 67 units/L (35-129) 03/10/18 17:27 Ammonia 42.0 umol/L (25-60) 03/16/18 15:17 Total Creatine Kinase 148 units/L (55-170) 03/10/18 17:44 CK-MB (CK-2) 1.6 ng/mL (0.0-4.0) 03/10/18 17:44 CK-MB (CK-2) Rel Index 1.0 (0-4) 03/10/18 17:44 Troponin T < 0.010 ng/mL (0.00-0.029) 03/10/18 17:43 Total Protein 7.2 g/dL (6.3-8.2) 03/10/18 17:27 Albumin 3.6 g/dL (3.9-5) L 03/10/18 17:27 Albumin/Globulin Ratio 1.0 % 03/10/18 17:27 Vitamin B12 870.0 pg/mL (211-911) 03/16/18 15:13 Folate 6.55 ng/mL (7.3-26.0) L 03/16/18 15:15 TSH 2.910 mlU/mL (0.270-4.200) 03/16/18 15:16 Free T4 0.92 ng/dL (0.76-1.46) 03/10/18 17:27 Urine Color Isela (Yellow) 03/10/18 17:59 Urine Turbidity Cloudy (Clear) 03/10/18 17:59 Urine pH 7.0 (5.0-7.0) 03/10/18 17:59 Ur Specific [place] 1.021 (1.003-1.030) 03/10/18 17:59 Urine Protein 30 mg/dl mg/dL (Negative) 03/10/18 17:59 Urine Glucose (UA) Neg mg/dL (Negative) 03/10/18 17:59 Urine Ketones Neg mg/dL (Negative) 03/10/18 17:59 Urine Blood Neg (Negative) 03/10/18 17:59 Urine Nitrite Neg (Negative) 03/10/18 17:59 Urine Bilirubin Neg (Negative) 03/10/18 17:59 Urine Urobilinogen 4.0 mg/dL (<2.0) 03/10/18 17:59 Ur Leukocyte Esterase Lg (Negative) 03/10/18 17:59 Urine WBC (Auto) 92.0 /HPF (0.0-6.0) H 03/10/18 17:59 Urine RBC (Auto) 6.0 /HPF (0.0-6.0) 03/10/18 17:59 U Epithel Cells (Auto) < 1.0 /HPF (0-13.0) 03/10/18 17:59 Urine Bacteria (Auto) 3+ /HPF (Negative) 03/10/18 17:59 Ur Transition Epith Cell 2 /HPF 03/10/18 17:59 Urine Mucus 1+ /HPF 03/10/18 17:59 Salicylates < 0.3 mg/dL (2.8-20.0) L 03/10/18 17:27 Urine Opiates Screen Presumptive negative 03/10/18 17:59 Urine Methadone Screen Presumptive negative 03/10/18 17:59 Acetaminophen < 5.0 ug/mL (10.0-30.0) L 03/10/18 17:27 Ur Barbiturates Screen Presumptive negative 03/10/18 17:59 Ur Phencyclidine Scrn Presumptive negative 03/10/18 17:59 Ur Amphetamines Screen Presumptive negative 03/10/18 17:59 U Benzodiazepines Scrn Presumptive negative 03/10/18 17:59 Urine Cocaine Screen Presumptive negative 03/10/18 17:59 U Marijuana (THC) Screen Presumptive negative 03/10/18 17:59 Drugs of Abuse Note Disclamer 03/10/18 17:59 Plasma/Serum Alcohol < 0.01 % (0-0.07) 03/10/18 17:27
[2018-03-17] MEDS: D5/0.45NS 1,000 ML IV SCH (14:49)
[2018-03-17] MEDS: ROCEPHIN/NS 1 GM/50 ML 1 GM/50 ML BAG IV SCH (14:50)
[2018-03-17] MEDS: ATIVAN IM SCH (14:50)
[2018-03-17] MEDS: HEPARIN SUB-Q SCH (14:51)
--- NOTE | 2018-03-17 19:05 | XRay Report ---
FINAL REPORT EXAM: XR ABDOMEN 1V AP HISTORY: Nasogastric tube placement TECHNIQUE: Frontal portable view of the lower chest, abdomen and pelvis Comparison: X-ray abdomen performed earlier today at 13:15 FINDINGS: The esophagogastric tube has been advanced with the tip and side port now positioned more distally in the region of the stomach. There continues to be mildly distended air-filled loops of bowel in the abdomen and pelvis. There is no evidence of pneumoperitoneum nor organomegaly. The lung bases and bony structures are unremarkable. IMPRESSION: 1. Tip of the esophagogastric tube projected to be in satisfactory position after advancement.
--- NOTE | 2018-03-17 19:40 | Progress Note ---
Subjective - Reason for Consult Consult date: 03/17/18 Reason for consult: follow up - Chief Complaint Chief complaint: "The patient is nonverbal" Patient is a 57-year-old male who presents to the ER for AMS from [place]. The psychiatry team was consulted to see patient for catatonic like state. Today the patient is nonverbal during the assessment. Today the patient is still nonverbal during the assessment. His nurse stated Mr. Bronson was interacting with family/smiling this afternoon. She also reported he pulled out his dobhoff. The record indicates he received ativan 1mg IM around 2pm today. Mental Status Exam - Vital signs Last Vital Signs Temp 97.7 F 03/17/18 17:23 Pulse 84 03/17/18 17:23 Resp 20 03/17/18 17:23 BP 108/75 03/17/18 17:23 Pulse Ox 98 03/17/18 17:23 - Exam Narrative exam: Unable to complete the MSE because of the patient's condition. Assessment and Plan Impression: R/O Catatonia. Today the patient is still nonverbal during the assessment. His nurse stated Mr. Bronson was interacting with family/smiling this afternoon. She also reported he pulled out his dobhoff. The record indicates he received ativan 1mg IM around 2pm today. There was concern about a possible reaction to Aristada. If this was his first injection, an oral antipsychotic at the same dosing would have been indicated for the first 21 days. Some patients require adjustments in dosing during the 21 day period. Review of the record indicates he showed signs of decompensation/ psychotic symptoms shortly after these changes. He received multiple antipsychotic injections while he was hospitalized at the [facility] facility. He is at risk for adverse effects, such as NMS. It is unclear if his presentation is catatonic. Recommendation/Plan: Continue 1013 and reassess in 24 hours. Recommend GI Prophylaxis and continue hydration. Monitor patient's V/S and airway. Will follow up with patient daily to R/O NMS and Serotonin Syndrome. A higher dose/ativan challenge may be needed.
[2018-03-18] MEDS: ATIVAN IM SCH ×2 (00:13→10:24)
[2018-03-18] MEDS: HEPARIN SUB-Q SCH ×3 (00:14→21:44)
[2018-03-18] MEDS: ROCEPHIN/NS 1 GM/50 ML 1 GM/50 ML BAG IV SCH (11:08)
--- NOTE | 2018-03-18 11:32 | Progress Note ---
Assessment and Plan Assessment and plan: Catatonia - mental health following. Continue 1013. Continue Ativan 1 mg IM Q8hrs for catatonia. Metabolic encephalopathy - Supportive care. EEG reveals diffuse moderate encephalopathy. MRI negative. UTI -Urine culture reveals Citrobacter that is essentially pansensitive. Blood cultures are negative Dehydration/prot millicent malnutrition secondary to #1 - Given current condition, pt is not taking anything by mouth. Cont. Dobhoff TF. Suspected femoral fracture -Evaluated by orthopedics, reviewed his imaging and showed no fracture DVT prophylaxis History Interval history: No new issues overnight. Hospitalist Physical - Constitutional Vitals: Temp Pulse Resp BP Pulse Ox 99.0 F 89 20 104/53 100 03/18/18 06:52 03/17/18 23:15 03/18/18 06:52 03/18/18 06:52 03/17/18 23:15 General appearance: Present: no acute distress, other (catatonic) - EENT Eyes: Present: PERRL, EOM intact ENT: hearing intact, clear oral mucosa, dentition normal - Neck Neck: Present: supple, normal ROM - Respiratory Respiratory effort: normal Respiratory: bilateral: CTA - Cardiovascular Rhythm: regular Heart Sounds: Present: S1 & S2. Absent: gallop, rub - Extremities Extremities: no ischemia, No edema, Full ROM - Abdominal General gastrointestinal: soft, non-tender, non-distended, normal bowel sounds - Integumentary Integumentary: Present: clear, warm, dry - Neurologic Neurologic: CNII-XII intact, moves all extremities Results - Labs CBC & Chem 7: 03/16/18 05:43 03/16/18 05:43 Labs: Laboratory Last Values WBC 5.9 K/mm3 (4.5-11.0) 03/16/18 05:43 RBC 4.40 M/mm3 (3.65-5.03) 03/16/18 05:43 Hgb 12.4 gm/dl (11.8-15.2) 03/16/18 05:43 Hct 35.1 % (35.5-45.6) L 03/16/18 05:43 MCV 80 fl (84-94) L 03/16/18 05:43 MCH 28 pg (28-32) 03/16/18 05:43 MCHC 35 % (32-34) H 03/16/18 05:43 RDW 14.5 % (13.2-15.2) 03/16/18 05:43 Plt Count 197 K/mm3 (140-440) 03/16/18 05:43 Lymph % (Auto) 15.1 % (13.4-35.0) 03/16/18 05:43 [place] % (Auto) 8.1 % (0.0-7.3) H 03/16/18 05:43 Eos % (Auto) 2.2 % (0.0-4.3) 03/16/18 05:43 Baso % (Auto) 0.4 % (0.0-1.8) 03/16/18 05:43 Lymph # 0.9 K/mm3 (1.2-5.4) L 03/16/18 05:43 [place] # 0.5 K/mm3 (0.0-0.8) 03/16/18 05:43 Eos # 0.1 K/mm3 (0.0-0.4) 03/16/18 05:43 Baso # 0.0 K/mm3 (0.0-0.1) 03/16/18 05:43 Total Counted Cancelled 03/10/18 17:27 Seg Neutrophils % 74.2 % (40.0-70.0) H 03/16/18 05:43 Seg Neuts % (Manual) Cancelled 03/10/18 17:27 Band Neutrophils % Cancelled 03/10/18 17:27 Lymphocytes % (Manual) Cancelled 03/10/18 17:27 Reactive Lymphs % (Man) Cancelled 03/10/18 17:27 Monocytes % (Manual) Cancelled 03/10/18 17:27 Eosinophils % (Manual) Cancelled 03/10/18 17:27 Basophils % (Manual) Cancelled 03/10/18 17:27 Metamyelocytes % Cancelled 03/10/18 17:27 Myelocytes % Cancelled 03/10/18 17:27 Promyelocytes % Cancelled 03/10/18 17:27 Blast Cells % Cancelled 03/10/18 17:27 Nucleated RBC % Cancelled 03/10/18 17:27 Seg Neutrophils # 4.4 K/mm3 (1.8-7.7) 03/16/18 05:43 Seg Neutrophils # Man Cancelled 03/10/18 17:27 Band Neutrophils # Cancelled 03/10/18 17:27 Lymphocytes # (Manual) Cancelled 03/10/18 17:27 Abs React Lymphs (Man) Cancelled 03/10/18 17:27 Monocytes # (Manual) Cancelled 03/10/18 17:27 Eosinophils # (Manual) Cancelled 03/10/18 17:27 Basophils # (Manual) Cancelled 03/10/18 17:27 Metamyelocytes # Cancelled 03/10/18 17:27 Myelocytes # Cancelled 03/10/18 17:27 Promyelocytes # Cancelled 03/10/18 17:27 Blast Cells # Cancelled 03/10/18 17:27 WBC Morphology Cancelled 03/10/18 17:27 Hypersegmented Neuts Cancelled 03/10/18 17:27 Hyposegmented Neuts Cancelled 03/10/18 17:27 Hypogranular Neuts Cancelled 03/10/18 17:27 Hypersegmented Polys Cancelled 03/10/18 17:27 Smudge Cells Cancelled 03/10/18 17:27 Toxic Granulation Cancelled 03/10/18 17:27 Toxic Vacuolation Cancelled 03/10/18 17:27 Dohle Bodies Cancelled 03/10/18 17:27 Pelger-Huet Anomaly Cancelled 03/10/18 17:27 Alvin Rods Cancelled 03/10/18 17:27 Platelet Estimate Cancelled 03/10/18 17:27 Clumped Platelets Cancelled 03/10/18 17:27 Plt Clumps, EDTA Cancelled 03/10/18 17:27 Large Platelets Cancelled 03/10/18 17:27 Giant Platelets Cancelled 03/10/18 17:27 Platelet Satelliting Cancelled 03/10/18 17:27 Plt Morphology Comment Cancelled 03/10/18 17:27 RBC Morphology Cancelled 03/10/18 17:27 Dimorphic RBCs Cancelled 03/10/18 17:27 Polychromasia Cancelled 03/10/18 17:27 Hypochromasia Cancelled 03/10/18 17:27 Poikilocytosis Cancelled 03/10/18 17:27 Basophilic Stippling Cancelled 03/10/18 17:27 Anisocytosis Cancelled 03/10/18 17:27 Microcytosis Cancelled 03/10/18 17:27 Macrocytosis Cancelled 03/10/18 17:27 Spherocytes Cancelled 03/10/18 17:27 Pappenheimer Bodies Cancelled 03/10/18 17:27 Sickle Cells Cancelled 03/10/18 17:27 Target Cells Cancelled 03/10/18 17:27 Tear Drop Cells Cancelled 03/10/18 17:27 Ovalocytes Cancelled 03/10/18 17:27 Stomatocytes Cancelled 03/10/18 17:27 Helmet Cells Cancelled 03/10/18 17:27 Hernandez-[place] Bodies Cancelled 03/10/18 17:27 Pope Rings Cancelled 03/10/18 17:27 [place] Cells Cancelled 03/10/18 17:27 Bite Cells Cancelled 03/10/18 17:27 Crenated Cell Cancelled 03/10/18 17:27 Elliptocytes Cancelled 03/10/18 17:27 Acanthocytes (Spur) Cancelled 03/10/18 17:27 Rouleaux Cancelled 03/10/18 17:27 Hemoglobin C Crystals Cancelled 03/10/18 17:27 Schistocytes Cancelled 03/10/18 17:27 Malaria parasites Cancelled 03/10/18 17:27 Darrius Bodies Cancelled 03/10/18 17:27 Hem Pathologist Commnt Cancelled 03/10/18 17:27 Sodium 135 mmol/L (137-145) L 03/16/18 05:43 Potassium 3.7 mmol/L (3.6-5.0) 03/16/18 05:43 Chloride 99.9 mmol/L (98-107) 03/16/18 05:43 Carbon Dioxide 24 mmol/L (22-30) 03/16/18 05:43 Anion Gap 15 mmol/L 03/16/18 05:43 BUN 2 mg/dL (9-20) L 03/16/18 05:43 Creatinine 0.6 mg/dL (0.8-1.5) L 03/16/18 05:43 Estimated GFR > 60 ml/min 03/16/18 05:43 BUN/Creatinine Ratio 3 % 03/16/18 05:43 Glucose 105 mg/dL (75-100) H 03/16/18 05:43 POC Glucose 140 (70-105) H 03/10/18 18:07 Calcium 9.0 mg/dL (8.4-10.2) 03/16/18 05:43 Magnesium 2.20 mg/dL (1.7-2.3) 03/10/18 17:24 Total Bilirubin 1.20 mg/dL (0.1-1.2) 03/10/18 17:27 AST 50 units/L (5-40) H 03/10/18 17:27 ALT 63 units/L (7-56) H 03/10/18 17:27 Alkaline Phosphatase 67 units/L (35-129) 03/10/18 17:27 Ammonia 42.0 umol/L (25-60) 03/16/18 15:17 Total Creatine Kinase 148 units/L (55-170) 03/10/18 17:44 CK-MB (CK-2) 1.6 ng/mL (0.0-4.0) 03/10/18 17:44 CK-MB (CK-2) Rel Index 1.0 (0-4) 03/10/18 17:44 Troponin T < 0.010 ng/mL (0.00-0.029) 03/10/18 17:43 Total Protein 7.2 g/dL (6.3-8.2) 03/10/18 17:27 Albumin 3.6 g/dL (3.9-5) L 03/10/18 17:27 Albumin/Globulin Ratio 1.0 % 03/10/18 17:27 Vitamin B12 870.0 pg/mL (211-911) 03/16/18 15:13 Folate 6.55 ng/mL (7.3-26.0) L 03/16/18 15:15 TSH 2.910 mlU/mL (0.270-4.200) 03/16/18 15:16 Free T4 0.92 ng/dL (0.76-1.46) 03/10/18 17:27 Urine Color [place]ela (Yellow) 03/10/18 17:59 Urine Turbidity Cloudy (Clear) 03/10/18 17:59 Urine pH 7.0 (5.0-7.0) 03/10/18 17:59 Ur Specific [place] 1.021 (1.003-1.030) 03/10/18 17:59 Urine Protein 30 mg/dl mg/dL (Negative) 03/10/18 17:59 Urine Glucose (UA) Neg mg/dL (Negative) 03/10/18 17:59 Urine Ketones Neg mg/dL (Negative) 03/10/18 17:59 Urine Blood Neg (Negative) 03/10/18 17:59 Urine Nitrite Neg (Negative) 03/10/18 17:59 Urine Bilirubin Neg (Negative) 03/10/18 17:59 Urine Urobilinogen 4.0 mg/dL (<2.0) 03/10/18 17:59 Ur Leukocyte Esterase Lg (Negative) 03/10/18 17:59 Urine WBC (Auto) 92.0 /HPF (0.0-6.0) H 03/10/18 17:59 Urine RBC (Auto) 6.0 /HPF (0.0-6.0) 03/10/18 17:59 U Epithel Cells (Auto) < 1.0 /HPF (0-13.0) 03/10/18 17:59 Urine Bacteria (Auto) 3+ /HPF (Negative) 03/10/18 17:59 Ur Transition Epith Cell 2 /HPF 03/10/18 17:59 Urine Mucus 1+ /HPF 03/10/18 17:59 Salicylates < 0.3 mg/dL (2.8-20.0) L 03/10/18 17:27 Urine Opiates Screen Presumptive negative 03/10/18 17:59 Urine Methadone Screen Presumptive negative 03/10/18 17:59 Acetaminophen < 5.0 ug/mL (10.0-30.0) L 03/10/18 17:27 Ur Barbiturates Screen Presumptive negative 03/10/18 17:59 Ur Phencyclidine Scrn Presumptive negative 03/10/18 17:59 Ur Amphetamines Screen Presumptive negative 03/10/18 17:59 U Benzodiazepines Scrn Presumptive negative 03/10/18 17:59 Urine Cocaine Screen Presumptive negative 03/10/18 17:59 U Marijuana (THC) Screen Presumptive negative 03/10/18 17:59 Drugs of Abuse Note Disclamer 03/10/18 17:59 Plasma/Serum Alcohol < 0.01 % (0-0.07) 03/10/18 17:27
--- NOTE | 2018-03-18 15:14 | Progress Note ---
Subjective - Reason for Consult Consult date: 03/18/18 Reason for consult: Psychiatry Follow-up - Chief Complaint Chief complaint: "The patient is still nonverbal" Patient is a 57-year-old male who presents to the ER for AMS from [place]. The psychiatry team was consulted to see patient for catatonic like state. There's no change to the patient's presentation. The patient is now on tube feeding nutritional intake. Per the staff, no agitation by the patient at this time. Mental Status Exam - Vital signs Last Vital Signs Temp 97.0 F L 03/18/18 13:05 Pulse 92 H 03/18/18 13:05 Resp 20 03/18/18 13:05 BP 109/78 03/18/18 13:05 Pulse Ox 98 03/18/18 13:05 - Exam Narrative exam: Unable to complete the MSE because of the patient's condition. Assessment and Plan Impression: Catatonia has been ruled out. Today the patient is still nonverbal during the assessment. The patient had a possible adverse reaction from the long acting injectable, Aristada. There's no reversible agent for Aristada at this time. The patient is on tube feeding. Recommendation/Plan: The patient's 1013 will not be extended. Will start Ativan taper on the patient (Ativan 1 mg IM daily starting 03/20/2018). Psychiatry will continue to see patient until the Ativan taper is complete. Informed Case Mgmt, the patient may need placement.
[2018-03-19] MEDS: ATIVAN IM SCH ×3 (00:03→10:12)
[2018-03-19] MEDS: D5/0.45NS 1,000 ML IV SCH ×2 (00:04→10:04)
[2018-03-19] MEDS: ROCEPHIN/NS 1 GM/50 ML 1 GM/50 ML BAG IV SCH (10:02)
[2018-03-19] MEDS: HEPARIN SUB-Q SCH ×2 (10:13→22:13)
--- NOTE | 2018-03-19 14:20 | Progress Note ---
Subjective - Reason for Consult Consult date: 03/19/18 Reason for consult: Psychiatry Follow-up - Chief Complaint Chief complaint: "The patient is still nonverbal" Patient is a 57-year-old male who presents to the ER for AMS from [place]. The psychiatry team was consulted to see patient for catatonic like state. There's no change to the patient's presentation. Spoke with the patient's sister Catalina Roman [phone]. It was explained to her that the patient is possibly having an adverse reaction to the Aristada injection he received 18 February 2018. She was informed that we are (The Psychiatry Team) tapering the patient off Ativan because catatonia has been ruled out and will sign off once that is completed. Also, she was informed that Aristada is a long acting antipsychotic. She verbalized understanding. Mental Status Exam - Vital signs Last Vital Signs Temp 98.0 F 03/19/18 05:32 Pulse 84 03/19/18 05:32 Resp 18 03/19/18 10:00 BP 123/78 03/19/18 05:32 Pulse Ox 95 03/19/18 05:32 - Exam Narrative exam: Unable to complete the MSE because of the patient's condition. Assessment and Plan Impression: Catatonia has been ruled out. Today the patient is still nonverbal during the assessment. V/S stable. Recommendation/Plan: Continue Ativan 1 mg IM daily (taper). Will complete the Ativan taper NLT Feb. Psychiatry will continue to see patient until the Ativan taper is completed. Informed Case Mgmt, the patient may need placement.
--- NOTE | 2018-03-19 15:11 | Progress Note ---
Assessment and Plan Assessment and plan: Catatonia - mental health following. 1013 rescinded. Pt responsive to painful stimuli but still nonverbal and not following commands. Continue Ativan 1 mg IM Q8hrs for catatonia. Metabolic encephalopathy - Supportive care. EEG reveals diffuse moderate encephalopathy. MRI negative. UTI -Urine culture reveals Citrobacter that is essentially pansensitive. Blood cultures are negative Dehydration/prot millicent malnutrition secondary to #1 - Given current condition, pt is not taking anything by mouth. Cont. Dobhoff TF. Suspected femoral fracture but Evaluated by orthopedics, reviewed his imaging and showed no fracture DVT prophylaxis History Interval history: No new issues overnight. Hospitalist Physical - Constitutional Vitals: Temp Pulse Resp BP Pulse Ox 98.0 F 84 18 123/78 95 03/19/18 05:32 03/19/18 05:32 03/19/18 10:00 03/19/18 05:32 03/19/18 05:32 General appearance: Present: no acute distress, other (catatonic) - EENT Eyes: Present: PERRL, EOM intact ENT: hearing intact, clear oral mucosa, dentition normal - Neck Neck: Present: supple, normal ROM - Respiratory Respiratory effort: normal Respiratory: bilateral: CTA - Cardiovascular Rhythm: regular Heart Sounds: Present: S1 & S2. Absent: gallop, rub - Extremities Extremities: no ischemia, No edema, Full ROM - Abdominal General gastrointestinal: soft, non-tender, non-distended, normal bowel sounds - Integumentary Integumentary: Present: clear, warm, dry - Neurologic Neurologic: CNII-XII intact, moves all extremities Results - Labs CBC & Chem 7: 03/16/18 05:43 03/16/18 05:43 Labs: Laboratory Last Values WBC 5.9 K/mm3 (4.5-11.0) 03/16/18 05:43 RBC 4.40 M/mm3 (3.65-5.03) 03/16/18 05:43 Hgb 12.4 gm/dl (11.8-15.2) 03/16/18 05:43 Hct 35.1 % (35.5-45.6) L 03/16/18 05:43 MCV 80 fl (84-94) L 03/16/18 05:43 MCH 28 pg (28-32) 03/16/18 05:43 MCHC 35 % (32-34) H 03/16/18 05:43 RDW 14.5 % (13.2-15.2) 03/16/18 05:43 Plt Count 197 K/mm3 (140-440) 03/16/18 05:43 Lymph % (Auto) 15.1 % (13.4-35.0) 03/16/18 05:43 [place] % (Auto) 8.1 % (0.0-7.3) H 03/16/18 05:43 Eos % (Auto) 2.2 % (0.0-4.3) 03/16/18 05:43 Baso % (Auto) 0.4 % (0.0-1.8) 03/16/18 05:43 Lymph # 0.9 K/mm3 (1.2-5.4) L 03/16/18 05:43 [place] # 0.5 K/mm3 (0.0-0.8) 03/16/18 05:43 Eos # 0.1 K/mm3 (0.0-0.4) 03/16/18 05:43 Baso # 0.0 K/mm3 (0.0-0.1) 03/16/18 05:43 Total Counted Cancelled 03/10/18 17:27 Seg Neutrophils % 74.2 % (40.0-70.0) H 03/16/18 05:43 Seg Neuts % (Manual) Cancelled 03/10/18 17:27 Band Neutrophils % Cancelled 03/10/18 17:27 Lymphocytes % (Manual) Cancelled 03/10/18 17:27 Reactive Lymphs % (Man) Cancelled 03/10/18 17:27 Monocytes % (Manual) Cancelled 03/10/18 17:27 Eosinophils % (Manual) Cancelled 03/10/18 17:27 Basophils % (Manual) Cancelled 03/10/18 17:27 Metamyelocytes % Cancelled 03/10/18 17:27 Myelocytes % Cancelled 03/10/18 17:27 Promyelocytes % Cancelled 03/10/18 17:27 Blast Cells % Cancelled 03/10/18 17:27 Nucleated RBC % Cancelled 03/10/18 17:27 Seg Neutrophils # 4.4 K/mm3 (1.8-7.7) 03/16/18 05:43 Seg Neutrophils # Man Cancelled 03/10/18 17:27 Band Neutrophils # Cancelled 03/10/18 17:27 Lymphocytes # (Manual) Cancelled 03/10/18 17:27 Abs React Lymphs (Man) Cancelled 03/10/18 17:27 Monocytes # (Manual) Cancelled 03/10/18 17:27 Eosinophils # (Manual) Cancelled 03/10/18 17:27 Basophils # (Manual) Cancelled 03/10/18 17:27 Metamyelocytes # Cancelled 03/10/18 17:27 Myelocytes # Cancelled 03/10/18 17:27 Promyelocytes # Cancelled 03/10/18 17:27 Blast Cells # Cancelled 03/10/18 17:27 WBC Morphology Cancelled 03/10/18 17:27 Hypersegmented Neuts Cancelled 03/10/18 17:27 Hyposegmented Neuts Cancelled 03/10/18 17:27 Hypogranular Neuts Cancelled 03/10/18 17:27 Hypersegmented Polys Cancelled 03/10/18 17:27 Smudge Cells Cancelled 03/10/18 17:27 Toxic Granulation Cancelled 03/10/18 17:27 Toxic Vacuolation Cancelled 03/10/18 17:27 Dohle Bodies Cancelled 03/10/18 17:27 Pelger-Huet Anomaly Cancelled 03/10/18 17:27 Alvin Rods Cancelled 03/10/18 17:27 Platelet Estimate Cancelled 03/10/18 17:27 Clumped Platelets Cancelled 03/10/18 17:27 Plt Clumps, EDTA Cancelled 03/10/18 17:27 Large Platelets Cancelled 03/10/18 17:27 Giant Platelets Cancelled 03/10/18 17:27 Platelet Satelliting Cancelled 03/10/18 17:27 Plt Morphology Comment Cancelled 03/10/18 17:27 RBC Morphology Cancelled 03/10/18 17:27 Dimorphic RBCs Cancelled 03/10/18 17:27 Polychromasia Cancelled 03/10/18 17:27 Hypochromasia Cancelled 03/10/18 17:27 Poikilocytosis Cancelled 03/10/18 17:27 Basophilic Stippling Cancelled 03/10/18 17:27 Anisocytosis Cancelled 03/10/18 17:27 Microcytosis Cancelled 03/10/18 17:27 Macrocytosis Cancelled 03/10/18 17:27 Spherocytes Cancelled 03/10/18 17:27 Pappenheimer Bodies Cancelled 03/10/18 17:27 Sickle Cells Cancelled 03/10/18 17:27 Target Cells Cancelled 03/10/18 17:27 Tear Drop Cells Cancelled 03/10/18 17:27 Ovalocytes Cancelled 03/10/18 17:27 Stomatocytes Cancelled 03/10/18 17:27 Helmet Cells Cancelled 03/10/18 17:27 Hernandez-[place] Bodies Cancelled 03/10/18 17:27 Accident Rings Cancelled 03/10/18 17:27 [place] Cells Cancelled 03/10/18 17:27 Bite Cells Cancelled 03/10/18 17:27 Crenated Cell Cancelled 03/10/18 17:27 Elliptocytes Cancelled 03/10/18 17:27 Acanthocytes (Spur) Cancelled 03/10/18 17:27 Rouleaux Cancelled 03/10/18 17:27 Hemoglobin C Crystals Cancelled 03/10/18 17:27 Schistocytes Cancelled 03/10/18 17:27 Malaria parasites Cancelled 03/10/18 17:27 Adrrius Bodies Cancelled 03/10/18 17:27 Hem Pathologist Commnt Cancelled 03/10/18 17:27 Sodium 135 mmol/L (137-145) L 03/16/18 05:43 Potassium 3.7 mmol/L (3.6-5.0) 03/16/18 05:43 Chloride 99.9 mmol/L (98-107) 03/16/18 05:43 Carbon Dioxide 24 mmol/L (22-30) 03/16/18 05:43 Anion Gap 15 mmol/L 03/16/18 05:43 BUN 2 mg/dL (9-20) L 03/16/18 05:43 Creatinine 0.6 mg/dL (0.8-1.5) L 03/16/18 05:43 Estimated GFR > 60 ml/min 03/16/18 05:43 BUN/Creatinine Ratio 3 % 03/16/18 05:43 Glucose 105 mg/dL (75-100) H 03/16/18 05:43 POC Glucose 140 (70-105) H 03/10/18 18:07 Calcium 9.0 mg/dL (8.4-10.2) 03/16/18 05:43 Magnesium 2.20 mg/dL (1.7-2.3) 03/10/18 17:24 Total Bilirubin 1.20 mg/dL (0.1-1.2) 03/10/18 17:27 AST 50 units/L (5-40) H 03/10/18 17:27 ALT 63 units/L (7-56) H 03/10/18 17:27 Alkaline Phosphatase 67 units/L (35-129) 03/10/18 17:27 Ammonia 42.0 umol/L (25-60) 03/16/18 15:17 Total Creatine Kinase 148 units/L (55-170) 03/10/18 17:44 CK-MB (CK-2) 1.6 ng/mL (0.0-4.0) 03/10/18 17:44 CK-MB (CK-2) Rel Index 1.0 (0-4) 03/10/18 17:44 Troponin T < 0.010 ng/mL (0.00-0.029) 03/10/18 17:43 Total Protein 7.2 g/dL (6.3-8.2) 03/10/18 17:27 Albumin 3.6 g/dL (3.9-5) L 03/10/18 17:27 Albumin/Globulin Ratio 1.0 % 03/10/18 17:27 Vitamin B12 870.0 pg/mL (211-911) 03/16/18 15:13 Folate 6.55 ng/mL (7.3-26.0) L 03/16/18 15:15 TSH 2.910 mlU/mL (0.270-4.200) 03/16/18 15:16 Free T4 0.92 ng/dL (0.76-1.46) 03/10/18 17:27 Urine Color [place] (Yellow) 03/10/18 17:59 Urine Turbidity Cloudy (Clear) 03/10/18 17:59 Urine pH 7.0 (5.0-7.0) 03/10/18 17:59 Ur Specific [place] 1.021 (1.003-1.030) 03/10/18 17:59 Urine Protein 30 mg/dl mg/dL (Negative) 03/10/18 17:59 Urine Glucose (UA) Neg mg/dL (Negative) 03/10/18 17:59 Urine Ketones Neg mg/dL (Negative) 03/10/18 17:59 Urine Blood Neg (Negative) 03/10/18 17:59 Urine Nitrite Neg (Negative) 03/10/18 17:59 Urine Bilirubin Neg (Negative) 03/10/18 17:59 Urine Urobilinogen 4.0 mg/dL (<2.0) 03/10/18 17:59 Ur Leukocyte Esterase Lg (Negative) 03/10/18 17:59 Urine WBC (Auto) 92.0 /HPF (0.0-6.0) H 03/10/18 17:59 Urine RBC (Auto) 6.0 /HPF (0.0-6.0) 03/10/18 17:59 U Epithel Cells (Auto) < 1.0 /HPF (0-13.0) 03/10/18 17:59 Urine Bacteria (Auto) 3+ /HPF (Negative) 03/10/18 17:59 Ur Transition Epith Cell 2 /HPF 03/10/18 17:59 Urine Mucus 1+ /HPF 03/10/18 17:59 Salicylates < 0.3 mg/dL (2.8-20.0) L 03/10/18 17:27 Urine Opiates Screen Presumptive negative 03/10/18 17:59 Urine Methadone Screen Presumptive negative 03/10/18 17:59 Acetaminophen < 5.0 ug/mL (10.0-30.0) L 03/10/18 17:27 Ur Barbiturates Screen Presumptive negative 03/10/18 17:59 Ur Phencyclidine Scrn Presumptive negative 03/10/18 17:59 Ur Amphetamines Screen Presumptive negative 03/10/18 17:59 U Benzodiazepines Scrn Presumptive negative 03/10/18 17:59 Urine Cocaine Screen Presumptive negative 03/10/18 17:59 U Marijuana (THC) Screen Presumptive negative 03/10/18 17:59 Drugs of Abuse Note Disclamer 03/10/18 17:59 Plasma/Serum Alcohol < 0.01 % (0-0.07) 03/10/18 17:27
[2018-03-20] MEDS: D5/0.45NS 1,000 ML IV SCH (01:53)
--- NOTE | 2018-03-20 08:01 | Progress Note ---
Assessment and Plan Assessment and plan: 57-year-old -[place] male came from mental health facility for altered mental status Catatonia, Psychiatry stated it is r/o - mental health consulted, on Ativan 1 mg IM daily Metabolic encephalopathy - Supportive care - EEG showed moderate diffuse encephalopathy UTI - Patient is recultured. Citrobacter which is pansensitive - Patient was treated with IV antibiotics Failure to eat - Continue Dobbhoff tube feeding Suspected femoral fracture -Evaluated by orthopedics, reviewed his imaging and showed no fracture DVT prophylaxis Disposition -Patient will be off benzo and need placement History Interval history: Patient was seen and evaluated this morning, patient is nonverbal, sleepy. Hospitalist Physical - Physical exam Narrative exam: Not in cardiopulmonary distress. The patient appeared well nourished and normally developed. Vital signs as documented. Head exam is unremarkable. No scleral icterus . Neck is without jugular venous distension, thyromegaly, or carotid bruits. Lungs are clear to auscultation. Cardiac exam reveals regular rate and Rhythm. First and second heart sounds normal. No murmurs, rubs or gallops. Abdominal exam reveals normal bowel sounds, no masses, no organomegaly and no aortic enlargement. Extremities are nonedematous and both femoral and pedal pulses are normal. 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 Patient is very stiff. - Constitutional Vitals: Temp Pulse Resp BP Pulse Ox 98.0 F 85 16 96/62 96 03/19/18 23:10 03/19/18 23:10 03/19/18 23:10 03/19/18 23:10 03/19/18 23:10 General appearance: Present: no acute distress, other (catatonic) Results - Labs CBC & Chem 7: 03/16/18 05:43 03/16/18 05:43 Labs: Laboratory Last Values WBC 5.9 K/mm3 (4.5-11.0) 03/16/18 05:43 RBC 4.40 M/mm3 (3.65-5.03) 03/16/18 05:43 Hgb 12.4 gm/dl (11.8-15.2) 03/16/18 05:43 Hct 35.1 % (35.5-45.6) L 03/16/18 05:43 MCV 80 fl (84-94) L 03/16/18 05:43 MCH 28 pg (28-32) 03/16/18 05:43 MCHC 35 % (32-34) H 03/16/18 05:43 RDW 14.5 % (13.2-15.2) 03/16/18 05:43 Plt Count 197 K/mm3 (140-440) 03/16/18 05:43 Lymph % (Auto) 15.1 % (13.4-35.0) 03/16/18 05:43 [place] % (Auto) 8.1 % (0.0-7.3) H 03/16/18 05:43 Eos % (Auto) 2.2 % (0.0-4.3) 03/16/18 05:43 Baso % (Auto) 0.4 % (0.0-1.8) 03/16/18 05:43 Lymph # 0.9 K/mm3 (1.2-5.4) L 03/16/18 05:43 [place] # 0.5 K/mm3 (0.0-0.8) 03/16/18 05:43 Eos # 0.1 K/mm3 (0.0-0.4) 03/16/18 05:43 Baso # 0.0 K/mm3 (0.0-0.1) 03/16/18 05:43 Total Counted Cancelled 03/10/18 17:27 Seg Neutrophils % 74.2 % (40.0-70.0) H 03/16/18 05:43 Seg Neuts % (Manual) Cancelled 03/10/18 17:27 Band Neutrophils % Cancelled 03/10/18 17:27 Lymphocytes % (Manual) Cancelled 03/10/18 17:27 Reactive Lymphs % (Man) Cancelled 03/10/18 17:27 Monocytes % (Manual) Cancelled 03/10/18 17:27 Eosinophils % (Manual) Cancelled 03/10/18 17:27 Basophils % (Manual) Cancelled 03/10/18 17:27 Metamyelocytes % Cancelled 03/10/18 17:27 Myelocytes % Cancelled 03/10/18 17:27 Promyelocytes % Cancelled 03/10/18 17:27 Blast Cells % Cancelled 03/10/18 17:27 Nucleated RBC % Cancelled 03/10/18 17:27 Seg Neutrophils # 4.4 K/mm3 (1.8-7.7) 03/16/18 05:43 Seg Neutrophils # Man Cancelled 03/10/18 17:27 Band Neutrophils # Cancelled 03/10/18 17:27 Lymphocytes # (Manual) Cancelled 03/10/18 17:27 Abs React Lymphs (Man) Cancelled 03/10/18 17:27 Monocytes # (Manual) Cancelled 03/10/18 17:27 Eosinophils # (Manual) Cancelled 03/10/18 17:27 Basophils # (Manual) Cancelled 03/10/18 17:27 Metamyelocytes # Cancelled 03/10/18 17:27 Myelocytes # Cancelled 03/10/18 17:27 Promyelocytes # Cancelled 03/10/18 17:27 Blast Cells # Cancelled 03/10/18 17:27 WBC Morphology Cancelled 03/10/18 17:27 Hypersegmented Neuts Cancelled 03/10/18 17:27 Hyposegmented Neuts Cancelled 03/10/18 17:27 Hypogranular Neuts Cancelled 03/10/18 17:27 Hypersegmented Polys Cancelled 03/10/18 17:27 Smudge Cells Cancelled 03/10/18 17:27 Toxic Granulation Cancelled 03/10/18 17:27 Toxic Vacuolation Cancelled 03/10/18 17:27 Dohle Bodies Cancelled 03/10/18 17:27 Pelger-Huet Anomaly Cancelled 03/10/18 17:27 Alvin Rods Cancelled 03/10/18 17:27 Platelet Estimate Cancelled 03/10/18 17:27 Clumped Platelets Cancelled 03/10/18 17:27 Plt Clumps, EDTA Cancelled 03/10/18 17:27 Large Platelets Cancelled 03/10/18 17:27 Giant Platelets Cancelled 03/10/18 17:27 Platelet Satelliting Cancelled 03/10/18 17:27 Plt Morphology Comment Cancelled 03/10/18 17:27 RBC Morphology Cancelled 03/10/18 17:27 Dimorphic RBCs Cancelled 03/10/18 17:27 Polychromasia Cancelled 03/10/18 17:27 Hypochromasia Cancelled 03/10/18 17:27 Poikilocytosis Cancelled 03/10/18 17:27 Basophilic Stippling Cancelled 03/10/18 17:27 Anisocytosis Cancelled 03/10/18 17:27 Microcytosis Cancelled 03/10/18 17:27 Macrocytosis Cancelled 03/10/18 17:27 Spherocytes Cancelled 03/10/18 17:27 Pappenheimer Bodies Cancelled 03/10/18 17:27 Sickle Cells Cancelled 03/10/18 17:27 Target Cells Cancelled 03/10/18 17:27 Tear Drop Cells Cancelled 03/10/18 17:27 Ovalocytes Cancelled 03/10/18 17:27 Stomatocytes Cancelled 03/10/18 17:27 Helmet Cells Cancelled 03/10/18 17:27 Hernandez-[place]wey Bodies Cancelled 03/10/18 17:27 [place] Rings Cancelled 03/10/18 17:27 Atkins Cells Cancelled 03/10/18 17:27 Bite Cells Cancelled 03/10/18 17:27 Crenated Cell Cancelled 03/10/18 17:27 Elliptocytes Cancelled 03/10/18 17:27 Acanthocytes (Spur) Cancelled 03/10/18 17:27 Rouleaux Cancelled 03/10/18 17:27 Hemoglobin C Crystals Cancelled 03/10/18 17:27 Schistocytes Cancelled 03/10/18 17:27 Malaria parasites Cancelled 03/10/18 17:27 Darrius Bodies Cancelled 03/10/18 17:27 Hem Pathologist Commnt Cancelled 03/10/18 17:27 Sodium 135 mmol/L (137-145) L 03/16/18 05:43 Potassium 3.7 mmol/L (3.6-5.0) 03/16/18 05:43 Chloride 99.9 mmol/L (98-107) 03/16/18 05:43 Carbon Dioxide 24 mmol/L (22-30) 03/16/18 05:43 Anion Gap 15 mmol/L 03/16/18 05:43 BUN 2 mg/dL (9-20) L 03/16/18 05:43 Creatinine 0.6 mg/dL (0.8-1.5) L 03/16/18 05:43 Estimated GFR > 60 ml/min 03/16/18 05:43 BUN/Creatinine Ratio 3 % 03/16/18 05:43 Glucose 105 mg/dL (75-100) H 03/16/18 05:43 POC Glucose 140 (70-105) H 03/10/18 18:07 Calcium 9.0 mg/dL (8.4-10.2) 03/16/18 05:43 Magnesium 2.20 mg/dL (1.7-2.3) 03/10/18 17:24 Total Bilirubin 1.20 mg/dL (0.1-1.2) 03/10/18 17:27 AST 50 units/L (5-40) H 03/10/18 17:27 ALT 63 units/L (7-56) H 03/10/18 17:27 Alkaline Phosphatase 67 units/L (35-129) 03/10/18 17:27 Ammonia 42.0 umol/L (25-60) 03/16/18 15:17 Total Creatine Kinase 148 units/L (55-170) 03/10/18 17:44 CK-MB (CK-2) 1.6 ng/mL (0.0-4.0) 03/10/18 17:44 CK-MB (CK-2) Rel Index 1.0 (0-4) 03/10/18 17:44 Troponin T < 0.010 ng/mL (0.00-0.029) 03/10/18 17:43 Total Protein 7.2 g/dL (6.3-8.2) 03/10/18 17:27 Albumin 3.6 g/dL (3.9-5) L 03/10/18 17:27 Albumin/Globulin Ratio 1.0 % 03/10/18 17:27 Vitamin B12 870.0 pg/mL (211-911) 03/16/18 15:13 Folate 6.55 ng/mL (7.3-26.0) L 03/16/18 15:15 TSH 2.910 mlU/mL (0.270-4.200) 03/16/18 15:16 Free T4 0.92 ng/dL (0.76-1.46) 03/10/18 17:27 Urine Color [place] (Yellow) 03/10/18 17:59 Urine Turbidity Cloudy (Clear) 03/10/18 17:59 Urine pH 7.0 (5.0-7.0) 03/10/18 17:59 Ur Specific [place] 1.021 (1.003-1.030) 03/10/18 17:59 Urine Protein 30 mg/dl mg/dL (Negative) 03/10/18 17:59 Urine Glucose (UA) Neg mg/dL (Negative) 03/10/18 17:59 Urine Ketones Neg mg/dL (Negative) 03/10/18 17:59 Urine Blood Neg (Negative) 03/10/18 17:59 Urine Nitrite Neg (Negative) 03/10/18 17:59 Urine Bilirubin Neg (Negative) 03/10/18 17:59 Urine Urobilinogen 4.0 mg/dL (<2.0) 03/10/18 17:59 Ur Leukocyte Esterase Lg (Negative) 03/10/18 17:59 Urine WBC (Auto) 92.0 /HPF (0.0-6.0) H 03/10/18 17:59 Urine RBC (Auto) 6.0 /HPF (0.0-6.0) 03/10/18 17:59 U Epithel Cells (Auto) < 1.0 /HPF (0-13.0) 03/10/18 17:59 Urine Bacteria (Auto) 3+ /HPF (Negative) 03/10/18 17:59 Ur Transition Epith Cell 2 /HPF 03/10/18 17:59 Urine Mucus 1+ /HPF 03/10/18 17:59 Salicylates < 0.3 mg/dL (2.8-20.0) L 03/10/18 17:27 Urine Opiates Screen Presumptive negative 03/10/18 17:59 Urine Methadone Screen Presumptive negative 03/10/18 17:59 Acetaminophen < 5.0 ug/mL (10.0-30.0) L 03/10/18 17:27 Ur Barbiturates Screen Presumptive negative 03/10/18 17:59 Ur Phencyclidine Scrn Presumptive negative 03/10/18 17:59 Ur Amphetamines Screen Presumptive negative 03/10/18 17:59 U Benzodiazepines Scrn Presumptive negative 03/10/18 17:59 Urine Cocaine Screen Presumptive negative 03/10/18 17:59 U Marijuana (THC) Screen Presumptive negative 03/10/18 17:59 Drugs of Abuse Note Disclamer 03/10/18 17:59 Plasma/Serum Alcohol < 0.01 % (0-0.07) 03/10/18 17:27
--- NOTE | 2018-03-20 09:04 | XRay Report ---
AP ABDOMEN: HISTORY: Dobbhoff tube placement.. The distal tip of the feeding tube terminates in the fundus of the stomach. There is moderate stool throughout the colon and rectum. The abdominal gas pattern is unremarkable. No masses or organomegaly is identified and there is no gross evidence of free air or fluid. No significant soft tissue calcifications are noted. IMPRESSION: Fecal retention. The feeding tube terminates in the fundus of the stomach.
--- NOTE | 2018-03-20 14:02 | Progress Note ---
Subjective - Reason for Consult Consult date: 03/20/18 Reason for consult: Psychiatric Follow-up Evaluation - Chief Complaint Chief complaint: The patient is still nonverbal Patient is a 57-year-old male who presents to the ER for AMS from [place]. The psychiatry team was consulted to see patient for catatonic like state. There's no change to the patient's presentation. Patient is nonverbal. He appears more alert/responsive today compared to previous days. Per staff patient has been without any behavioral disturbances. No agitation/ irritation noted. Mental Status Exam - Vital signs Last Vital Signs Temp 98.9 F 03/20/18 12:01 Pulse 85 03/20/18 12:01 Resp 20 03/20/18 12:01 BP 123/78 03/20/18 12:01 Pulse Ox 100 03/20/18 12:01 - Exam Narrative exam: Unable to complete MSE due to patient's medical condition. Assessment and Plan Impression: Catatonia has been ruled out. Today the patient is still nonverbal during the assessment. V/S stable. Recommendation/Plan: 1. Decrease Ativan 0.5 mg IM daily (taper). Will complete the Ativan taper NLT Feb. 2. Psychiatry will continue to see patient until the Ativan taper is completed. Informed Case Mgmt, the patient may need placement.
[2018-03-20] MEDS: ATIVAN IM SCH (14:40)
[2018-03-20] MEDS: HEPARIN SUB-Q SCH ×2 (14:41→22:25)
--- NOTE | 2018-03-20 15:06 | XRay Report ---
AP ABDOMEN: HISTORY: Verify feeding tube placement. The feeding tube is coiled in the cardia of the stomach with its tip beneath the left hemidiaphragm. The abdominal gas pattern is unremarkable. No masses or organomegaly is identified and there is no gross evidence of free air or fluid. No significant soft tissue calcifications are noted. IMPRESSION: Unremarkable abdomen. Feeding tube as described.
--- NOTE | 2018-03-20 18:26 | XRay Report ---
FINAL REPORT EXAM: XR ABDOMEN 1V AP HISTORY: verify feeding tube placement TECHNIQUE: KUB(s) view of abdomen. PRIORS: 17 March 2018. FINDINGS: Enteric tube projected immediately cephalad to EG junction and should be advanced somewhat. Nonspecific bowel gas pattern. No apparent pneumoperitoneum. Osseous structures grossly unremarkable. IMPRESSION: 1. Enteric tube position as reported. 2. Nonspecific bowel gas pattern, which may represent adynamic ileus. Followup may be warranted.
--- NOTE | 2018-03-20 18:30 | XRay Report ---
FINAL REPORT EXAM: XR ABDOMEN 1V AP HISTORY: verify feeding tube placement. TECHNIQUE: KUB(s) view of abdomen. PRIORS: Earlier on same date. FINDINGS: Enteric tube extends below the diaphragm, with tip coiled and projected over left upper quadrant. Nonspecific bowel gas pattern. No apparent pneumoperitoneum. Osseous structures grossly unremarkable. IMPRESSION: 1. Enteric tube position as reported. 2. Nonspecific bowel gas pattern, which may represent adynamic ileus. Followup may be warranted.
[2018-03-20] MEDS ORDERED: ATIVAN IM SCH (20:41)
[2018-03-21] MEDS: D5/0.45NS 1,000 ML IV SCH (00:31)
--- NOTE | 2018-03-21 07:37 | Progress Note ---
Assessment and Plan Assessment and plan: 57-year-old -[place] male came from mental health facility for altered mental status Catatonia, Psychiatry stated it is r/o - mental health consulted, on Ativan 0.5 mg IM daily - Will finish ativan today Metabolic encephalopathy - Supportive care - EEG showed moderate diffuse encephalopathy UTI - Patient is recultured. Citrobacter which is pansensitive - Patient was treated with IV antibiotics Failure to eat - Continue Dobbhoff tube feeding Suspected femoral fracture -Evaluated by orthopedics, reviewed his imaging and showed no fracture DVT prophylaxis Disposition -Patient will be off benzo and need placement History Interval history: Patient was seen and evaluated this morning, patient is nonverbal, sleepy. Per nursing staff patient was agitated yesterday and pull out the IV line and required to put the restraints. Hospitalist Physical - Physical exam Narrative exam: Not in cardiopulmonary distress. The patient appeared well nourished and normally developed. Vital signs as documented. Head exam is unremarkable. No scleral icterus . Neck is without jugular venous distension, thyromegaly, or carotid bruits. Lungs are clear to auscultation. Cardiac exam reveals regular rate and Rhythm. First and second heart sounds normal. No murmurs, rubs or gallops. Abdominal exam reveals normal bowel sounds, no masses, no organomegaly and no aortic enlargement. Extremities are nonedematous and both femoral and pedal pulses are normal. 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 Patient is very stiff. - Constitutional Vitals: Temp Pulse Resp BP Pulse Ox 98.4 F 98 H 18 132/89 95 03/21/18 05:41 03/21/18 05:41 03/21/18 05:41 03/21/18 05:41 03/21/18 05:41 General appearance: Present: no acute distress, other (catatonic) Results - Labs CBC & Chem 7: 03/16/18 05:43 03/16/18 05:43 Labs: Laboratory Last Values WBC 5.9 K/mm3 (4.5-11.0) 03/16/18 05:43 RBC 4.40 M/mm3 (3.65-5.03) 03/16/18 05:43 Hgb 12.4 gm/dl (11.8-15.2) 03/16/18 05:43 Hct 35.1 % (35.5-45.6) L 03/16/18 05:43 MCV 80 fl (84-94) L 03/16/18 05:43 MCH 28 pg (28-32) 03/16/18 05:43 MCHC 35 % (32-34) H 03/16/18 05:43 RDW 14.5 % (13.2-15.2) 03/16/18 05:43 Plt Count 197 K/mm3 (140-440) 03/16/18 05:43 Lymph % (Auto) 15.1 % (13.4-35.0) 03/16/18 05:43 [place] % (Auto) 8.1 % (0.0-7.3) H 03/16/18 05:43 Eos % (Auto) 2.2 % (0.0-4.3) 03/16/18 05:43 Baso % (Auto) 0.4 % (0.0-1.8) 03/16/18 05:43 Lymph # 0.9 K/mm3 (1.2-5.4) L 03/16/18 05:43 [place] # 0.5 K/mm3 (0.0-0.8) 03/16/18 05:43 Eos # 0.1 K/mm3 (0.0-0.4) 03/16/18 05:43 Baso # 0.0 K/mm3 (0.0-0.1) 03/16/18 05:43 Total Counted Cancelled 03/10/18 17:27 Seg Neutrophils % 74.2 % (40.0-70.0) H 03/16/18 05:43 Seg Neuts % (Manual) Cancelled 03/10/18 17:27 Band Neutrophils % Cancelled 03/10/18 17:27 Lymphocytes % (Manual) Cancelled 03/10/18 17:27 Reactive Lymphs % (Man) Cancelled 03/10/18 17:27 Monocytes % (Manual) Cancelled 03/10/18 17:27 Eosinophils % (Manual) Cancelled 03/10/18 17:27 Basophils % (Manual) Cancelled 03/10/18 17:27 Metamyelocytes % Cancelled 03/10/18 17:27 Myelocytes % Cancelled 03/10/18 17:27 Promyelocytes % Cancelled 03/10/18 17:27 Blast Cells % Cancelled 03/10/18 17:27 Nucleated RBC % Cancelled 03/10/18 17:27 Seg Neutrophils # 4.4 K/mm3 (1.8-7.7) 03/16/18 05:43 Seg Neutrophils # Man Cancelled 03/10/18 17:27 Band Neutrophils # Cancelled 03/10/18 17:27 Lymphocytes # (Manual) Cancelled 03/10/18 17:27 Abs React Lymphs (Man) Cancelled 03/10/18 17:27 Monocytes # (Manual) Cancelled 03/10/18 17:27 Eosinophils # (Manual) Cancelled 03/10/18 17:27 Basophils # (Manual) Cancelled 03/10/18 17:27 Metamyelocytes # Cancelled 03/10/18 17:27 Myelocytes # Cancelled 03/10/18 17:27 Promyelocytes # Cancelled 03/10/18 17:27 Blast Cells # Cancelled 03/10/18 17:27 WBC Morphology Cancelled 03/10/18 17:27 Hypersegmented Neuts Cancelled 03/10/18 17:27 Hyposegmented Neuts Cancelled 03/10/18 17:27 Hypogranular Neuts Cancelled 03/10/18 17:27 Hypersegmented Polys Cancelled 03/10/18 17:27 Smudge Cells Cancelled 03/10/18 17:27 Toxic Granulation Cancelled 03/10/18 17:27 Toxic Vacuolation Cancelled 03/10/18 17:27 Dohle Bodies Cancelled 03/10/18 17:27 Pelger-Huet Anomaly Cancelled 03/10/18 17:27 Alvin Rods Cancelled 03/10/18 17:27 Platelet Estimate Cancelled 03/10/18 17:27 Clumped Platelets Cancelled 03/10/18 17:27 Plt Clumps, EDTA Cancelled 03/10/18 17:27 Large Platelets Cancelled 03/10/18 17:27 Giant Platelets Cancelled 03/10/18 17:27 Platelet Satelliting Cancelled 03/10/18 17:27 Plt Morphology Comment Cancelled 03/10/18 17:27 RBC Morphology Cancelled 03/10/18 17:27 Dimorphic RBCs Cancelled 03/10/18 17:27 Polychromasia Cancelled 03/10/18 17:27 Hypochromasia Cancelled 03/10/18 17:27 Poikilocytosis Cancelled 03/10/18 17:27 Basophilic Stippling Cancelled 03/10/18 17:27 Anisocytosis Cancelled 03/10/18 17:27 Microcytosis Cancelled 03/10/18 17:27 Macrocytosis Cancelled 03/10/18 17:27 Spherocytes Cancelled 03/10/18 17:27 Pappenheimer Bodies Cancelled 03/10/18 17:27 Sickle Cells Cancelled 03/10/18 17:27 Target Cells Cancelled 03/10/18 17:27 Tear Drop Cells Cancelled 03/10/18 17:27 Ovalocytes Cancelled 03/10/18 17:27 Stomatocytes Cancelled 03/10/18 17:27 Helmet Cells Cancelled 03/10/18 17:27 Hernandez-Bromley Bodies Cancelled 03/10/18 17:27 [place] Rings Cancelled 03/10/18 17:27 [place] Cells Cancelled 03/10/18 17:27 Bite Cells Cancelled 03/10/18 17:27 Crenated Cell Cancelled 03/10/18 17:27 Elliptocytes Cancelled 03/10/18 17:27 Acanthocytes (Spur) Cancelled 03/10/18 17:27 Rouleaux Cancelled 03/10/18 17:27 Hemoglobin C Crystals Cancelled 03/10/18 17:27 Schistocytes Cancelled 03/10/18 17:27 Malaria parasites Cancelled 03/10/18 17:27 Darrius Bodies Cancelled 03/10/18 17:27 Hem Pathologist Commnt Cancelled 03/10/18 17:27 Sodium 135 mmol/L (137-145) L 03/16/18 05:43 Potassium 3.7 mmol/L (3.6-5.0) 03/16/18 05:43 Chloride 99.9 mmol/L (98-107) 03/16/18 05:43 Carbon Dioxide 24 mmol/L (22-30) 03/16/18 05:43 Anion Gap 15 mmol/L 03/16/18 05:43 BUN 2 mg/dL (9-20) L 03/16/18 05:43 Creatinine 0.6 mg/dL (0.8-1.5) L 03/16/18 05:43 Estimated GFR > 60 ml/min 03/16/18 05:43 BUN/Creatinine Ratio 3 % 03/16/18 05:43 Glucose 105 mg/dL (75-100) H 03/16/18 05:43 POC Glucose 106 (70-105) H 03/20/18 11:06 Calcium 9.0 mg/dL (8.4-10.2) 03/16/18 05:43 Magnesium 2.20 mg/dL (1.7-2.3) 03/10/18 17:24 Total Bilirubin 1.20 mg/dL (0.1-1.2) 03/10/18 17:27 AST 50 units/L (5-40) H 03/10/18 17:27 ALT 63 units/L (7-56) H 03/10/18 17:27 Alkaline Phosphatase 67 units/L (35-129) 03/10/18 17:27 Ammonia 42.0 umol/L (25-60) 03/16/18 15:17 Total Creatine Kinase 148 units/L (55-170) 03/10/18 17:44 CK-MB (CK-2) 1.6 ng/mL (0.0-4.0) 03/10/18 17:44 CK-MB (CK-2) Rel Index 1.0 (0-4) 03/10/18 17:44 Troponin T < 0.010 ng/mL (0.00-0.029) 03/10/18 17:43 Total Protein 7.2 g/dL (6.3-8.2) 03/10/18 17:27 Albumin 3.6 g/dL (3.9-5) L 03/10/18 17:27 Albumin/Globulin Ratio 1.0 % 03/10/18 17:27 Vitamin B12 870.0 pg/mL (211-911) 03/16/18 15:13 Folate 6.55 ng/mL (7.3-26.0) L 03/16/18 15:15 TSH 2.910 mlU/mL (0.270-4.200) 03/16/18 15:16 Free T4 0.92 ng/dL (0.76-1.46) 03/10/18 17:27 Urine Color [place] (Yellow) 03/10/18 17:59 Urine Turbidity Cloudy (Clear) 03/10/18 17:59 Urine pH 7.0 (5.0-7.0) 03/10/18 17:59 Ur Specific [place] 1.021 (1.003-1.030) 03/10/18 17:59 Urine Protein 30 mg/dl mg/dL (Negative) 03/10/18 17:59 Urine Glucose (UA) Neg mg/dL (Negative) 03/10/18 17:59 Urine Ketones Neg mg/dL (Negative) 03/10/18 17:59 Urine Blood Neg (Negative) 03/10/18 17:59 Urine Nitrite Neg (Negative) 03/10/18 17:59 Urine Bilirubin Neg (Negative) 03/10/18 17:59 Urine Urobilinogen 4.0 mg/dL (<2.0) 03/10/18 17:59 Ur Leukocyte Esterase Lg (Negative) 03/10/18 17:59 Urine WBC (Auto) 92.0 /HPF (0.0-6.0) H 03/10/18 17:59 Urine RBC (Auto) 6.0 /HPF (0.0-6.0) 03/10/18 17:59 U Epithel Cells (Auto) < 1.0 /HPF (0-13.0) 03/10/18 17:59 Urine Bacteria (Auto) 3+ /HPF (Negative) 03/10/18 17:59 Ur Transition Epith Cell 2 /HPF 03/10/18 17:59 Urine Mucus 1+ /HPF 03/10/18 17:59 Salicylates < 0.3 mg/dL (2.8-20.0) L 03/10/18 17:27 Urine Opiates Screen Presumptive negative 03/10/18 17:59 Urine Methadone Screen Presumptive negative 03/10/18 17:59 Acetaminophen < 5.0 ug/mL (10.0-30.0) L 03/10/18 17:27 Ur Barbiturates Screen Presumptive negative 03/10/18 17:59 Ur Phencyclidine Scrn Presumptive negative 03/10/18 17:59 Ur Amphetamines Screen Presumptive negative 03/10/18 17:59 U Benzodiazepines Scrn Presumptive negative 03/10/18 17:59 Urine Cocaine Screen Presumptive negative 03/10/18 17:59 U Marijuana (THC) Screen Presumptive negative 03/10/18 17:59 Drugs of Abuse Note Disclamer 03/10/18 17:59 Plasma/Serum Alcohol < 0.01 % (0-0.07) 03/10/18 17:27
--- NOTE | 2018-03-21 07:49 | XRay Report ---
AP ABDOMEN: HISTORY: Feeding tube placement. The feeding tube is essentially unchanged in position since yesterday's exam at 1735 hrs terminating in the cardia of the stomach. There is moderate stool throughout the colon and rectum. The abdominal gas pattern is unremarkable. No masses or organomegaly is identified and there is no gross evidence of free air or fluid. No significant soft tissue calcifications are noted. IMPRESSION: Fecal retention. Feeding tube as described.
--- NOTE | 2018-03-21 10:25 | Progress Note ---
Subjective - Reason for Consult Consult date: 03/21/18 Reason for consult: Psychiatry Follow-up - Chief Complaint Chief complaint: "The patient is still nonverbal" Patient is a 57-year-old male who presents to the ER for AMS from [place]. The psychiatry team was consulted to see patient for catatonic like state. Today the patient is still nonverbal, but responds to his name when called. Also, he opened his eyes. This is a different presentation than previous days. No agitation/irritation noted. Mental Status Exam - Vital signs Last Vital Signs Temp 98.4 F 03/21/18 05:41 Pulse 98 H 03/21/18 05:41 Resp 18 03/21/18 05:41 BP 132/89 03/21/18 05:41 Pulse Ox 95 03/21/18 05:41 - Exam Narrative exam: Unable to complete the MSE because of the patient's condition. Assessment and Plan Impression: Catatonia has been ruled out. Today the patient is still nonverbal, but responds to his name when called. V/S stable. Recommendation/Plan: Ativan taper completed. Psychiatry sign off. Case Mgmt involvement, the patient may need placement.
[2018-03-21] MEDS: HEPARIN SUB-Q SCH (10:45)
[2018-03-22] MEDS: HEPARIN SUB-Q SCH ×3 (00:34→22:00)
--- NOTE | 2018-03-22 05:27 | XRay Report ---
FINAL REPORT EXAM: XR ABDOMEN 1V AP HISTORY: verify placement of NG tube TECHNIQUE: A portable upright view of the upper abdomen was obtained for evaluation of NG tube placement. Comparison is made to the study of 03/20/2018. FINDINGS: The tip of the NG tube is coiled in the fundus of the stomach. It is unchanged in position since previous study. The bowel gas pattern is unremarkable. The lung bases are clear. IMPRESSION: Stable position of the tip of the NG tube coiled in the fundus of the stomach.
--- NOTE | 2018-03-22 08:45 | Progress Note ---
Assessment and Plan Assessment and plan: 57-year-old -[place]og[place] male came from mental health facility for altered mental status Catatonia, Psychiatry stated it is r/o - mental health consulted - patient is off Ativan Metabolic encephalopathy - Supportive care - EEG showed moderate diffuse encephalopathy - Showed some improvement UTI - Patient is recultured. Citrobacter which is pansensitive - Patient was treated with IV antibiotics Failure to eat - Continue Dobbhoff tube feeding - We will do swallow evaluation Sunday Suspected femoral fracture -Evaluated by orthopedics, reviewed his imaging and showed no fracture DVT prophylaxis Disposition -patient is off benzo - Patient need placement, swallow evaluation, if not tolerated may need PEG tube History Interval history: Patient was seen and evaluated this morning, patient open his eyes and respond when i called his name. Patient is on resistance because he is trying to take also OG tube. Hospitalist Physical - Physical exam Narrative exam: Not in cardiopulmonary distress. The patient appeared well nourished and normally developed. Vital signs as documented. Head exam is unremarkable. No scleral icterus . Neck is without jugular venous distension, thyromegaly, or carotid bruits. Lungs are clear to auscultation. Cardiac exam reveals regular rate and Rhythm. First and second heart sounds normal. No murmurs, rubs or gallops. Abdominal exam reveals normal bowel sounds, no masses, no organomegaly and no aortic enlargement. Extremities are nonedematous and both femoral and pedal pulses are normal. 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 Patient is very stiff. - Constitutional Vitals: Temp Pulse Resp BP Pulse Ox 97.8 F 84 18 114/76 98 03/22/18 06:02 03/21/18 23:26 03/22/18 06:02 03/22/18 06:02 03/22/18 06:00 General appearance: Present: no acute distress, other (catatonic) Results - Labs CBC & Chem 7: 03/16/18 05:43 03/16/18 05:43 Labs: Laboratory Last Values WBC 5.9 K/mm3 (4.5-11.0) 03/16/18 05:43 RBC 4.40 M/mm3 (3.65-5.03) 03/16/18 05:43 Hgb 12.4 gm/dl (11.8-15.2) 03/16/18 05:43 Hct 35.1 % (35.5-45.6) L 03/16/18 05:43 MCV 80 fl (84-94) L 03/16/18 05:43 MCH 28 pg (28-32) 03/16/18 05:43 MCHC 35 % (32-34) H 03/16/18 05:43 RDW 14.5 % (13.2-15.2) 03/16/18 05:43 Plt Count 197 K/mm3 (140-440) 03/16/18 05:43 Lymph % (Auto) 15.1 % (13.4-35.0) 03/16/18 05:43 [place] % (Auto) 8.1 % (0.0-7.3) H 03/16/18 05:43 Eos % (Auto) 2.2 % (0.0-4.3) 03/16/18 05:43 Baso % (Auto) 0.4 % (0.0-1.8) 03/16/18 05:43 Lymph # 0.9 K/mm3 (1.2-5.4) L 03/16/18 05:43 [place] # 0.5 K/mm3 (0.0-0.8) 03/16/18 05:43 Eos # 0.1 K/mm3 (0.0-0.4) 03/16/18 05:43 Baso # 0.0 K/mm3 (0.0-0.1) 03/16/18 05:43 Total Counted Cancelled 03/10/18 17:27 Seg Neutrophils % 74.2 % (40.0-70.0) H 03/16/18 05:43 Seg Neuts % (Manual) Cancelled 03/10/18 17:27 Band Neutrophils % Cancelled 03/10/18 17:27 Lymphocytes % (Manual) Cancelled 03/10/18 17:27 Reactive Lymphs % (Man) Cancelled 03/10/18 17:27 Monocytes % (Manual) Cancelled 03/10/18 17:27 Eosinophils % (Manual) Cancelled 03/10/18 17:27 Basophils % (Manual) Cancelled 03/10/18 17:27 Metamyelocytes % Cancelled 03/10/18 17:27 Myelocytes % Cancelled 03/10/18 17:27 Promyelocytes % Cancelled 03/10/18 17:27 Blast Cells % Cancelled 03/10/18 17:27 Nucleated RBC % Cancelled 03/10/18 17:27 Seg Neutrophils # 4.4 K/mm3 (1.8-7.7) 03/16/18 05:43 Seg Neutrophils # Man Cancelled 03/10/18 17:27 Band Neutrophils # Cancelled 03/10/18 17:27 Lymphocytes # (Manual) Cancelled 03/10/18 17:27 Abs React Lymphs (Man) Cancelled 03/10/18 17:27 Monocytes # (Manual) Cancelled 03/10/18 17:27 Eosinophils # (Manual) Cancelled 03/10/18 17:27 Basophils # (Manual) Cancelled 03/10/18 17:27 Metamyelocytes # Cancelled 03/10/18 17:27 Myelocytes # Cancelled 03/10/18 17:27 Promyelocytes # Cancelled 03/10/18 17:27 Blast Cells # Cancelled 03/10/18 17:27 WBC Morphology Cancelled 03/10/18 17:27 Hypersegmented Neuts Cancelled 03/10/18 17:27 Hyposegmented Neuts Cancelled 03/10/18 17:27 Hypogranular Neuts Cancelled 03/10/18 17:27 Hypersegmented Polys Cancelled 03/10/18 17:27 Smudge Cells Cancelled 03/10/18 17:27 Toxic Granulation Cancelled 03/10/18 17:27 Toxic Vacuolation Cancelled 03/10/18 17:27 Dohle Bodies Cancelled 03/10/18 17:27 Pelger-Huet Anomaly Cancelled 03/10/18 17:27 Alvin Rods Cancelled 03/10/18 17:27 Platelet Estimate Cancelled 03/10/18 17:27 Clumped Platelets Cancelled 03/10/18 17:27 Plt Clumps, EDTA Cancelled 03/10/18 17:27 Large Platelets Cancelled 03/10/18 17:27 Giant Platelets Cancelled 03/10/18 17:27 Platelet Satelliting Cancelled 03/10/18 17:27 Plt Morphology Comment Cancelled 03/10/18 17:27 RBC Morphology Cancelled 03/10/18 17:27 Dimorphic RBCs Cancelled 03/10/18 17:27 Polychromasia Cancelled 03/10/18 17:27 Hypochromasia Cancelled 03/10/18 17:27 Poikilocytosis Cancelled 03/10/18 17:27 Basophilic Stippling Cancelled 03/10/18 17:27 Anisocytosis Cancelled 03/10/18 17:27 Microcytosis Cancelled 03/10/18 17:27 Macrocytosis Cancelled 03/10/18 17:27 Spherocytes Cancelled 03/10/18 17:27 Pappenheimer Bodies Cancelled 03/10/18 17:27 Sickle Cells Cancelled 03/10/18 17:27 Target Cells Cancelled 03/10/18 17:27 Tear Drop Cells Cancelled 03/10/18 17:27 Ovalocytes Cancelled 03/10/18 17:27 Stomatocytes Cancelled 03/10/18 17:27 Helmet Cells Cancelled 03/10/18 17:27 [place] Bodies Cancelled 03/10/18 17:27 [place] Rings Cancelled 03/10/18 17:27 [place] Cells Cancelled 03/10/18 17:27 Bite Cells Cancelled 03/10/18 17:27 Crenated Cell Cancelled 03/10/18 17:27 Elliptocytes Cancelled 03/10/18 17:27 Acanthocytes (Spur) Cancelled 03/10/18 17:27 Rouleaux Cancelled 03/10/18 17:27 Hemoglobin C Crystals Cancelled 03/10/18 17:27 Schistocytes Cancelled 03/10/18 17:27 Malaria parasites Cancelled 03/10/18 17:27 Darrius Bodies Cancelled 03/10/18 17:27 Hem Pathologist Commnt Cancelled 03/10/18 17:27 Sodium 135 mmol/L (137-145) L 03/16/18 05:43 Potassium 3.7 mmol/L (3.6-5.0) 03/16/18 05:43 Chloride 99.9 mmol/L (98-107) 03/16/18 05:43 Carbon Dioxide 24 mmol/L (22-30) 03/16/18 05:43 Anion Gap 15 mmol/L 03/16/18 05:43 BUN 2 mg/dL (9-20) L 03/16/18 05:43 Creatinine 0.6 mg/dL (0.8-1.5) L 03/16/18 05:43 Estimated GFR > 60 ml/min 03/16/18 05:43 BUN/Creatinine Ratio 3 % 03/16/18 05:43 Glucose 105 mg/dL (75-100) H 03/16/18 05:43 POC Glucose 106 (70-105) H 03/20/18 11:06 Calcium 9.0 mg/dL (8.4-10.2) 03/16/18 05:43 Magnesium 2.20 mg/dL (1.7-2.3) 03/10/18 17:24 Total Bilirubin 1.20 mg/dL (0.1-1.2) 03/10/18 17:27 AST 50 units/L (5-40) H 03/10/18 17:27 ALT 63 units/L (7-56) H 03/10/18 17:27 Alkaline Phosphatase 67 units/L (35-129) 03/10/18 17:27 Ammonia 42.0 umol/L (25-60) 03/16/18 15:17 Total Creatine Kinase 148 units/L (55-170) 03/10/18 17:44 CK-MB (CK-2) 1.6 ng/mL (0.0-4.0) 03/10/18 17:44 CK-MB (CK-2) Rel Index 1.0 (0-4) 03/10/18 17:44 Troponin T < 0.010 ng/mL (0.00-0.029) 03/10/18 17:43 Total Protein 7.2 g/dL (6.3-8.2) 03/10/18 17:27 Albumin 3.6 g/dL (3.9-5) L 03/10/18 17:27 Albumin/Globulin Ratio 1.0 % 03/10/18 17:27 Vitamin B12 870.0 pg/mL (211-911) 03/16/18 15:13 Folate 6.55 ng/mL (7.3-26.0) L 03/16/18 15:15 TSH 2.910 mlU/mL (0.270-4.200) 03/16/18 15:16 Free T4 0.92 ng/dL (0.76-1.46) 03/10/18 17:27 Urine Color [place] (Yellow) 03/10/18 17:59 Urine Turbidity Cloudy (Clear) 03/10/18 17:59 Urine pH 7.0 (5.0-7.0) 03/10/18 17:59 Ur Specific [place] 1.021 (1.003-1.030) 03/10/18 17:59 Urine Protein 30 mg/dl mg/dL (Negative) 03/10/18 17:59 Urine Glucose (UA) Neg mg/dL (Negative) 03/10/18 17:59 Urine Ketones Neg mg/dL (Negative) 03/10/18 17:59 Urine Blood Neg (Negative) 03/10/18 17:59 Urine Nitrite Neg (Negative) 03/10/18 17:59 Urine Bilirubin Neg (Negative) 03/10/18 17:59 Urine Urobilinogen 4.0 mg/dL (<2.0) 03/10/18 17:59 Ur Leukocyte Esterase Lg (Negative) 03/10/18 17:59 Urine WBC (Auto) 92.0 /HPF (0.0-6.0) H 03/10/18 17:59 Urine RBC (Auto) 6.0 /HPF (0.0-6.0) 03/10/18 17:59 U Epithel Cells (Auto) < 1.0 /HPF (0-13.0) 03/10/18 17:59 Urine Bacteria (Auto) 3+ /HPF (Negative) 03/10/18 17:59 Ur Transition Epith Cell 2 /HPF 03/10/18 17:59 Urine Mucus 1+ /HPF 03/10/18 17:59 Salicylates < 0.3 mg/dL (2.8-20.0) L 03/10/18 17:27 Urine Opiates Screen Presumptive negative 03/10/18 17:59 Urine Methadone Screen Presumptive negative 03/10/18 17:59 Acetaminophen < 5.0 ug/mL (10.0-30.0) L 03/10/18 17:27 Ur Barbiturates Screen Presumptive negative 03/10/18 17:59 Ur Phencyclidine Scrn Presumptive negative 03/10/18 17:59 Ur Amphetamines Screen Presumptive negative 03/10/18 17:59 U Benzodiazepines Scrn Presumptive negative 03/10/18 17:59 Urine Cocaine Screen Presumptive negative 03/10/18 17:59 U Marijuana (THC) Screen Presumptive negative 03/10/18 17:59 Drugs of Abuse Note Disclamer 03/10/18 17:59 Plasma/Serum Alcohol < 0.01 % (0-0.07) 03/10/18 17:27
--- NOTE | 2018-03-22 08:49 | XRay Report ---
Single view abdomen: Compared to 03/22/18 cope dated 5:15 AM. Findings: Moderate amount of air in small and large bowel. No bowels distention. Tip of Dobbhoff feeding tube in the fundus of the stomach pointing at the GE junction. The tube should be withdrawn approximately 7 cm. Impression: Findings as detailed above.
--- NOTE | 2018-03-22 10:51 | XRay Report ---
Single view abdomen: History: Dobbhoff placement. Findings: Tip of Dobbhoff feeding tube is in the fundus of the way from the GE junction. Impression: Tip of Dobbhoff feeding tube in fundus of the stomach.
--- NOTE | 2018-03-23 11:30 | XRay Report ---
FINAL REPORT EXAM: XR FEMUR 1V LT HISTORY: not able to move the left foot TECHNIQUE: Left femur, AP PRIORS: None. FINDINGS: The femur is intact. No fracture seen. There is no dislocation at the hip. There is soft tissue calcification lateral to the mid to distal femoral shaft of uncertain etiology. There also a calcification projecting above the patella. Small exostosis noted at the proximal fibula. IMPRESSION: No femur fracture or focal femur lesion. Soft tissue calcifications lateral to mid to distal femoral shaft. Nonspecific calcification above the patella. Small proximal fibular exostosis.
[2018-03-23] MEDS: HEPARIN SUB-Q SCH ×2 (11:37→22:05)
--- NOTE | 2018-03-23 11:41 | XRay Report ---
FINAL REPORT EXAM: XR PELVIS 1-2V HISTORY: not able to move TECHNIQUE: AP pelvis PRIORS: 03/10/2018 FINDINGS: The pelvis is intact. There is no fracture or focal osseous lesion. Hip joint spaces are maintained. There is a bony protrude rinse from the left anterior superior iliac spine region which may represent an osteochondroma. Note that a small exostosis was also seen involving the proximal fibula. There also one involving the right posterior femur from 03/10/2018. IMPRESSION: No acute abnormality seen. Bony protruberance involving anterior superior iliac spine region may represent an osteochondroma. A note that there also exostoses involving the left proximal fibula and posterior right femur seen. 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
--- NOTE | 2018-03-23 12:45 | Progress Note ---
Assessment and Plan Assessment and plan: 57-year-old -[place]itan[place] male came from mental health facility for altered mental status Catatonia, Psychiatry stated it is r/o - mental health consulted - patient is off Ativan Metabolic encephalopathy - Supportive care - EEG showed moderate diffuse encephalopathy - Showed some improvement - CT normal finding UTI - Patient is recultured. Citrobacter which is pansensitive - Patient was treated with IV antibiotics Failure to eat - Continue Dobbhoff tube feeding - We will do swallow evaluation Sunday Suspected femoral fracture -Evaluated by orthopedics, reviewed his imaging and showed no fracture DVT prophylaxis Disposition -patient is off benzo - Patient need placement, swallow evaluation, if not tolerated may need PEG tube Have discussed the management plan in detail with his families and declined to get PEG tube History Interval history: Patient was seen and evaluated this morning, patient open his eyes and respond when i called his name. Family members were in the room, and his daughter in law was asking to have x-ray of the leg which i didn't recommend. I have told her about his evaluation by Dr Burton and even gave her a copy which says the patient didn't have fracture but she keep says Dr Carlson told me he has fracture. I agreed to repeat the xray of the hip and the femur. She was upset. explained in detail the management plan including psych and neurology recommendation. Hospitalist Physical - Physical exam Narrative exam: Not in cardiopulmonary distress. On NG tube feeding. The patient appeared well nourished and normally developed. Vital signs as documented. Head exam is unremarkable. No scleral icterus . Neck is without jugular venous distension, thyromegaly, or carotid bruits. Lungs are clear to auscultation. Cardiac exam reveals regular rate and Rhythm. First and second heart sounds normal. No murmurs, rubs or gallops. Abdominal exam reveals normal bowel sounds, no masses, no organomegaly and no aortic enlargement. Extremities are nonedematous and both femoral and pedal pulses are normal. Left leg is still stiff. 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 - Constitutional Vitals: Temp Pulse Resp BP Pulse Ox 95.0 F L 81 18 120/67 98 03/23/18 05:44 03/23/18 05:44 03/23/18 05:44 03/23/18 05:44 03/23/18 05:44 General appearance: Present: no acute distress, other (catatonic) Results - Labs CBC & Chem 7: 03/16/18 05:43 03/16/18 05:43 Labs: Laboratory Last Values WBC 5.9 K/mm3 (4.5-11.0) 03/16/18 05:43 RBC 4.40 M/mm3 (3.65-5.03) 03/16/18 05:43 Hgb 12.4 gm/dl (11.8-15.2) 03/16/18 05:43 Hct 35.1 % (35.5-45.6) L 03/16/18 05:43 MCV 80 fl (84-94) L 03/16/18 05:43 MCH 28 pg (28-32) 03/16/18 05:43 MCHC 35 % (32-34) H 03/16/18 05:43 RDW 14.5 % (13.2-15.2) 03/16/18 05:43 Plt Count 197 K/mm3 (140-440) 03/16/18 05:43 Lymph % (Auto) 15.1 % (13.4-35.0) 03/16/18 05:43 [place] % (Auto) 8.1 % (0.0-7.3) H 03/16/18 05:43 Eos % (Auto) 2.2 % (0.0-4.3) 03/16/18 05:43 Baso % (Auto) 0.4 % (0.0-1.8) 03/16/18 05:43 Lymph # 0.9 K/mm3 (1.2-5.4) L 03/16/18 05:43 [place] # 0.5 K/mm3 (0.0-0.8) 03/16/18 05:43 Eos # 0.1 K/mm3 (0.0-0.4) 03/16/18 05:43 Baso # 0.0 K/mm3 (0.0-0.1) 03/16/18 05:43 Total Counted Cancelled 03/10/18 17:27 Seg Neutrophils % 74.2 % (40.0-70.0) H 03/16/18 05:43 Seg Neuts % (Manual) Cancelled 03/10/18 17:27 Band Neutrophils % Cancelled 03/10/18 17:27 Lymphocytes % (Manual) Cancelled 03/10/18 17:27 Reactive Lymphs % (Man) Cancelled 03/10/18 17:27 Monocytes % (Manual) Cancelled 03/10/18 17:27 Eosinophils % (Manual) Cancelled 03/10/18 17:27 Basophils % (Manual) Cancelled 03/10/18 17:27 Metamyelocytes % Cancelled 03/10/18 17:27 Myelocytes % Cancelled 03/10/18 17:27 Promyelocytes % Cancelled 03/10/18 17:27 Blast Cells % Cancelled 03/10/18 17:27 Nucleated RBC % Cancelled 03/10/18 17:27 Seg Neutrophils # 4.4 K/mm3 (1.8-7.7) 03/16/18 05:43 Seg Neutrophils # Man Cancelled 03/10/18 17:27 Band Neutrophils # Cancelled 03/10/18 17:27 Lymphocytes # (Manual) Cancelled 03/10/18 17:27 Abs React Lymphs (Man) Cancelled 03/10/18 17:27 Monocytes # (Manual) Cancelled 03/10/18 17:27 Eosinophils # (Manual) Cancelled 03/10/18 17:27 Basophils # (Manual) Cancelled 03/10/18 17:27 Metamyelocytes # Cancelled 03/10/18 17:27 Myelocytes # Cancelled 03/10/18 17:27 Promyelocytes # Cancelled 03/10/18 17:27 Blast Cells # Cancelled 03/10/18 17:27 WBC Morphology Cancelled 03/10/18 17:27 Hypersegmented Neuts Cancelled 03/10/18 17:27 Hyposegmented Neuts Cancelled 03/10/18 17:27 Hypogranular Neuts Cancelled 03/10/18 17:27 Hypersegmented Polys Cancelled 03/10/18 17:27 Smudge Cells Cancelled 03/10/18 17:27 Toxic Granulation Cancelled 03/10/18 17:27 Toxic Vacuolation Cancelled 03/10/18 17:27 Dohle Bodies Cancelled 03/10/18 17:27 Pelger-Huet Anomaly Cancelled 03/10/18 17:27 Alvin Rods Cancelled 03/10/18 17:27 Platelet Estimate Cancelled 03/10/18 17:27 Clumped Platelets Cancelled 03/10/18 17:27 Plt Clumps, EDTA Cancelled 03/10/18 17:27 Large Platelets Cancelled 03/10/18 17:27 Giant Platelets Cancelled 03/10/18 17:27 Platelet Satelliting Cancelled 03/10/18 17:27 Plt Morphology Comment Cancelled 03/10/18 17:27 RBC Morphology Cancelled 03/10/18 17:27 Dimorphic RBCs Cancelled 03/10/18 17:27 Polychromasia Cancelled 03/10/18 17:27 Hypochromasia Cancelled 03/10/18 17:27 Poikilocytosis Cancelled 03/10/18 17:27 Basophilic Stippling Cancelled 03/10/18 17:27 Anisocytosis Cancelled 03/10/18 17:27 Microcytosis Cancelled 03/10/18 17:27 Macrocytosis Cancelled 03/10/18 17:27 Spherocytes Cancelled 03/10/18 17:27 Pappenheimer Bodies Cancelled 03/10/18 17:27 Sickle Cells Cancelled 03/10/18 17:27 Target Cells Cancelled 03/10/18 17:27 Tear Drop Cells Cancelled 03/10/18 17:27 Ovalocytes Cancelled 03/10/18 17:27 Stomatocytes Cancelled 03/10/18 17:27 Helmet Cells Cancelled 03/10/18 17:27 [place] Bodies Cancelled 03/10/18 17:27 [place] Rings Cancelled 03/10/18 17:27 [place] Cells Cancelled 03/10/18 17:27 Bite Cells Cancelled 03/10/18 17:27 Crenated Cell Cancelled 03/10/18 17:27 Elliptocytes Cancelled 03/10/18 17:27 Acanthocytes (Spur) Cancelled 03/10/18 17:27 Rouleaux Cancelled 03/10/18 17:27 Hemoglobin C Crystals Cancelled 03/10/18 17:27 Schistocytes Cancelled 03/10/18 17:27 Malaria parasites Cancelled 03/10/18 17:27 Darrius Bodies Cancelled 03/10/18 17:27 Hem Pathologist Commnt Cancelled 03/10/18 17:27 Sodium 135 mmol/L (137-145) L 03/16/18 05:43 Potassium 3.7 mmol/L (3.6-5.0) 03/16/18 05:43 Chloride 99.9 mmol/L (98-107) 03/16/18 05:43 Carbon Dioxide 24 mmol/L (22-30) 03/16/18 05:43 Anion Gap 15 mmol/L 03/16/18 05:43 BUN 2 mg/dL (9-20) L 03/16/18 05:43 Creatinine 0.6 mg/dL (0.8-1.5) L 03/16/18 05:43 Estimated GFR > 60 ml/min 03/16/18 05:43 BUN/Creatinine Ratio 3 % 03/16/18 05:43 Glucose 105 mg/dL (75-100) H 03/16/18 05:43 POC Glucose 106 (70-105) H 03/20/18 11:06 Calcium 9.0 mg/dL (8.4-10.2) 03/16/18 05:43 Magnesium 2.20 mg/dL (1.7-2.3) 03/10/18 17:24 Total Bilirubin 1.20 mg/dL (0.1-1.2) 03/10/18 17:27 AST 50 units/L (5-40) H 03/10/18 17:27 ALT 63 units/L (7-56) H 03/10/18 17:27 Alkaline Phosphatase 67 units/L (35-129) 03/10/18 17:27 Ammonia 42.0 umol/L (25-60) 03/16/18 15:17 Total Creatine Kinase 148 units/L (55-170) 03/10/18 17:44 CK-MB (CK-2) 1.6 ng/mL (0.0-4.0) 03/10/18 17:44 CK-MB (CK-2) Rel Index 1.0 (0-4) 03/10/18 17:44 Troponin T < 0.010 ng/mL (0.00-0.029) 03/10/18 17:43 Total Protein 7.2 g/dL (6.3-8.2) 03/10/18 17:27 Albumin 3.6 g/dL (3.9-5) L 03/10/18 17:27 Albumin/Globulin Ratio 1.0 % 03/10/18 17:27 Vitamin B12 870.0 pg/mL (211-911) 03/16/18 15:13 Folate 6.55 ng/mL (7.3-26.0) L 03/16/18 15:15 TSH 2.910 mlU/mL (0.270-4.200) 03/16/18 15:16 Free T4 0.92 ng/dL (0.76-1.46) 03/10/18 17:27 Urine Color [place] (Yellow) 03/10/18 17:59 Urine Turbidity Cloudy (Clear) 03/10/18 17:59 Urine pH 7.0 (5.0-7.0) 03/10/18 17:59 Ur Specific [place] 1.021 (1.003-1.030) 03/10/18 17:59 Urine Protein 30 mg/dl mg/dL (Negative) 03/10/18 17:59 Urine Glucose (UA) Neg mg/dL (Negative) 03/10/18 17:59 Urine Ketones Neg mg/dL (Negative) 03/10/18 17:59 Urine Blood Neg (Negative) 03/10/18 17:59 Urine Nitrite Neg (Negative) 03/10/18 17:59 Urine Bilirubin Neg (Negative) 03/10/18 17:59 Urine Urobilinogen 4.0 mg/dL (<2.0) 03/10/18 17:59 Ur Leukocyte Esterase Lg (Negative) 03/10/18 17:59 Urine WBC (Auto) 92.0 /HPF (0.0-6.0) H 03/10/18 17:59 Urine RBC (Auto) 6.0 /HPF (0.0-6.0) 03/10/18 17:59 U Epithel Cells (Auto) < 1.0 /HPF (0-13.0) 03/10/18 17:59 Urine Bacteria (Auto) 3+ /HPF (Negative) 03/10/18 17:59 Ur Transition Epith Cell 2 /HPF 03/10/18 17:59 Urine Mucus 1+ /HPF 03/10/18 17:59 Salicylates < 0.3 mg/dL (2.8-20.0) L 03/10/18 17:27 Urine Opiates Screen Presumptive negative 03/10/18 17:59 Urine Methadone Screen Presumptive negative 03/10/18 17:59 Acetaminophen < 5.0 ug/mL (10.0-30.0) L 03/10/18 17:27 Ur Barbiturates Screen Presumptive negative 03/10/18 17:59 Ur Phencyclidine Scrn Presumptive negative 03/10/18 17:59 Ur Amphetamines Screen Presumptive negative 03/10/18 17:59 U Benzodiazepines Scrn Presumptive negative 03/10/18 17:59 Urine Cocaine Screen Presumptive negative 03/10/18 17:59 U Marijuana (THC) Screen Presumptive negative 03/10/18 17:59 Drugs of Abuse Note Disclamer 03/10/18 17:59 Plasma/Serum Alcohol < 0.01 % (0-0.07) 03/10/18 17:27
[2018-03-23] MEDS ORDERED: ATIVAN IV ONE (17:00)
--- NOTE | 2018-03-23 19:14 | XRay Report ---
FINAL REPORT EXAM: XR ABDOMEN 1V AP HISTORY: dobhoff tube placement COMPARISON: March 22, 2018. FINDINGS: AP view of the abdomen obtained. Distal tip of feeding tube projects over the proximal stomach and is partially coiled on itself. Moderate stool in the colon. Gas is scattered within nondilated bowel. IMPRESSION: Distal tip of feeding tube projects over the proximal stomach is partially coiled on itself. Distal tip is approximately 13 centimeters from the proximal duodenum.
[2018-03-23] MEDS: D5/0.45NS 1,000 ML IV SCH (22:05)
--- NOTE | 2018-03-23 23:34 | XRay Report ---
FINAL REPORT EXAM: XR ABDOMEN 1V AP HISTORY: verification of NG tube placement COMPARISON: None available. FINDINGS: AP view of the abdomen obtained. Stable positioning of feeding tube. Distal tip is coiled within the proximal stomach with the distal tip projecting course the superior margin of the stomach. Stable mild nonspecific gas-filled prominence of large and small bowel loops. IMPRESSION: Stable positioning of feeding tube. Distal tip is coiled on itself and projects over the proximal stomach.
[2018-03-24] MEDS: D5/0.45NS 1,000 ML IV SCH ×2 (08:10→21:19)
[2018-03-24] MEDS: HEPARIN SUB-Q SCH ×2 (09:49→21:21)
--- NOTE | 2018-03-24 12:41 | Progress Note ---
Assessment and Plan Assessment and plan: 57-year-old -[place] male came from mental health facility for altered mental status Catatonia, Psychiatry stated it is r/o - mental health consulted, and signed off - patient is off Ativan Metabolic encephalopathy - Supportive care - EEG showed moderate diffuse encephalopathy - Showed some improvement - CT normal finding, MRI showed encephalopathy UTI - Treated with IV antibiotics and resolved Failure to eat - Continue Dobbhoff tube feeding - We will do swallow evaluation Sunday Suspected femoral fracture -Evaluated by orthopedics, reviewed his imaging and showed no fracture -Per families request x-ray of the hip and femur was done and showed no fracture DVT prophylaxis Disposition - patient is off benzo - Patient need placement, swallow evaluation, if not tolerated may need PEG tube Have discussed the management plan in detail with his families and declined to get PEG tube. Discharge Planning issues; families declined PEG tube, uninsured, Families expectation (they want him to stand up and walk again), I doubt he may able to do that , though it showed some improvement. History Interval history: Patient was seen and evaluated this morning, patient open his eyes and respond when I called his name. Per families request x-ray of the hip and left femur was done negative for fracture. Hospitalist Physical - Physical exam Narrative exam: Not in cardiopulmonary distress. On NG tube feeding. The patient appeared well nourished and normally developed. Vital signs as documented. Head exam is unremarkable. No scleral icterus . Neck is without jugular venous distension, thyromegaly, or carotid bruits. Lungs are clear to auscultation. Cardiac exam reveals regular rate and Rhythm. First and second heart sounds normal. No murmurs, rubs or gallops. Abdominal exam reveals normal bowel sounds, no masses, no organomegaly and no aortic enlargement. Extremities are nonedematous and both femoral and pedal pulses are normal. Left leg and arm is still stiff. 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 - Constitutional Vitals: Temp Pulse Resp BP Pulse Ox 98.4 F 92 H 18 125/83 98 03/24/18 05:21 03/24/18 05:21 03/24/18 05:21 03/24/18 05:21 03/24/18 05:21 General appearance: Present: no acute distress, other (catatonic) Results - Labs CBC & Chem 7: 03/16/18 05:43 03/16/18 05:43 Labs: Laboratory Last Values WBC 5.9 K/mm3 (4.5-11.0) 03/16/18 05:43 RBC 4.40 M/mm3 (3.65-5.03) 03/16/18 05:43 Hgb 12.4 gm/dl (11.8-15.2) 03/16/18 05:43 Hct 35.1 % (35.5-45.6) L 03/16/18 05:43 MCV 80 fl (84-94) L 03/16/18 05:43 MCH 28 pg (28-32) 03/16/18 05:43 MCHC 35 % (32-34) H 03/16/18 05:43 RDW 14.5 % (13.2-15.2) 03/16/18 05:43 Plt Count 197 K/mm3 (140-440) 03/16/18 05:43 Lymph % (Auto) 15.1 % (13.4-35.0) 03/16/18 05:43 Holmes % (Auto) 8.1 % (0.0-7.3) H 03/16/18 05:43 Eos % (Auto) 2.2 % (0.0-4.3) 03/16/18 05:43 Baso % (Auto) 0.4 % (0.0-1.8) 03/16/18 05:43 Lymph # 0.9 K/mm3 (1.2-5.4) L 03/16/18 05:43 Holmes # 0.5 K/mm3 (0.0-0.8) 03/16/18 05:43 Eos # 0.1 K/mm3 (0.0-0.4) 03/16/18 05:43 Baso # 0.0 K/mm3 (0.0-0.1) 03/16/18 05:43 Total Counted Cancelled 03/10/18 17:27 Seg Neutrophils % 74.2 % (40.0-70.0) H 03/16/18 05:43 Seg Neuts % (Manual) Cancelled 03/10/18 17:27 Band Neutrophils % Cancelled 03/10/18 17:27 Lymphocytes % (Manual) Cancelled 03/10/18 17:27 Reactive Lymphs % (Man) Cancelled 03/10/18 17:27 Monocytes % (Manual) Cancelled 03/10/18 17:27 Eosinophils % (Manual) Cancelled 03/10/18 17:27 Basophils % (Manual) Cancelled 03/10/18 17:27 Metamyelocytes % Cancelled 03/10/18 17:27 Myelocytes % Cancelled 03/10/18 17:27 Promyelocytes % Cancelled 03/10/18 17:27 Blast Cells % Cancelled 03/10/18 17:27 Nucleated RBC % Cancelled 03/10/18 17:27 Seg Neutrophils # 4.4 K/mm3 (1.8-7.7) 03/16/18 05:43 Seg Neutrophils # Man Cancelled 03/10/18 17:27 Band Neutrophils # Cancelled 03/10/18 17:27 Lymphocytes # (Manual) Cancelled 03/10/18 17:27 Abs React Lymphs (Man) Cancelled 03/10/18 17:27 Monocytes # (Manual) Cancelled 03/10/18 17:27 Eosinophils # (Manual) Cancelled 03/10/18 17:27 Basophils # (Manual) Cancelled 03/10/18 17:27 Metamyelocytes # Cancelled 03/10/18 17:27 Myelocytes # Cancelled 03/10/18 17:27 Promyelocytes # Cancelled 03/10/18 17:27 Blast Cells # Cancelled 03/10/18 17:27 WBC Morphology Cancelled 03/10/18 17:27 Hypersegmented Neuts Cancelled 03/10/18 17:27 Hyposegmented Neuts Cancelled 03/10/18 17:27 Hypogranular Neuts Cancelled 03/10/18 17:27 Hypersegmented Polys Cancelled 03/10/18 17:27 Smudge Cells Cancelled 03/10/18 17:27 Toxic Granulation Cancelled 03/10/18 17:27 Toxic Vacuolation Cancelled 03/10/18 17:27 Dohle Bodies Cancelled 03/10/18 17:27 Pelger-Huet Anomaly Cancelled 03/10/18 17:27 Alvin Rods Cancelled 03/10/18 17:27 Platelet Estimate Cancelled 03/10/18 17:27 Clumped Platelets Cancelled 03/10/18 17:27 Plt Clumps, EDTA Cancelled 03/10/18 17:27 Large Platelets Cancelled 03/10/18 17:27 Giant Platelets Cancelled 03/10/18 17:27 Platelet Satelliting Cancelled 03/10/18 17:27 Plt Morphology Comment Cancelled 03/10/18 17:27 RBC Morphology Cancelled 03/10/18 17:27 Dimorphic RBCs Cancelled 03/10/18 17:27 Polychromasia Cancelled 03/10/18 17:27 Hypochromasia Cancelled 03/10/18 17:27 Poikilocytosis Cancelled 03/10/18 17:27 Basophilic Stippling Cancelled 03/10/18 17:27 Anisocytosis Cancelled 03/10/18 17:27 Microcytosis Cancelled 03/10/18 17:27 Macrocytosis Cancelled 03/10/18 17:27 Spherocytes Cancelled 03/10/18 17:27 Pappenheimer Bodies Cancelled 03/10/18 17:27 Sickle Cells Cancelled 03/10/18 17:27 Target Cells Cancelled 03/10/18 17:27 Tear Drop Cells Cancelled 03/10/18 17:27 Ovalocytes Cancelled 03/10/18 17:27 Stomatocytes Cancelled 03/10/18 17:27 Helmet Cells Cancelled 03/10/18 17:27 Hernandez-Rev[place] Bodies Cancelled 03/10/18 17:27 [place] Rings Cancelled 03/10/18 17:27 [place] Cells Cancelled 03/10/18 17:27 Bite Cells Cancelled 03/10/18 17:27 Crenated Cell Cancelled 03/10/18 17:27 Elliptocytes Cancelled 03/10/18 17:27 Acanthocytes (Spur) Cancelled 03/10/18 17:27 Rouleaux Cancelled 03/10/18 17:27 Hemoglobin C Crystals Cancelled 03/10/18 17:27 Schistocytes Cancelled 03/10/18 17:27 Malaria parasites Cancelled 03/10/18 17:27 Darrius Bodies Cancelled 03/10/18 17:27 Hem Pathologist Commnt Cancelled 03/10/18 17:27 Sodium 135 mmol/L (137-145) L 03/16/18 05:43 Potassium 3.7 mmol/L (3.6-5.0) 03/16/18 05:43 Chloride 99.9 mmol/L (98-107) 03/16/18 05:43 Carbon Dioxide 24 mmol/L (22-30) 03/16/18 05:43 Anion Gap 15 mmol/L 03/16/18 05:43 BUN 2 mg/dL (9-20) L 03/16/18 05:43 Creatinine 0.6 mg/dL (0.8-1.5) L 03/16/18 05:43 Estimated GFR > 60 ml/min 03/16/18 05:43 BUN/Creatinine Ratio 3 % 03/16/18 05:43 Glucose 105 mg/dL (75-100) H 03/16/18 05:43 POC Glucose 106 (70-105) H 03/20/18 11:06 Calcium 9.0 mg/dL (8.4-10.2) 03/16/18 05:43 Magnesium 2.20 mg/dL (1.7-2.3) 03/10/18 17:24 Total Bilirubin 1.20 mg/dL (0.1-1.2) 03/10/18 17:27 AST 50 units/L (5-40) H 03/10/18 17:27 ALT 63 units/L (7-56) H 03/10/18 17:27 Alkaline Phosphatase 67 units/L (35-129) 03/10/18 17:27 Ammonia 42.0 umol/L (25-60) 03/16/18 15:17 Total Creatine Kinase 148 units/L (55-170) 03/10/18 17:44 CK-MB (CK-2) 1.6 ng/mL (0.0-4.0) 03/10/18 17:44 CK-MB (CK-2) Rel Index 1.0 (0-4) 03/10/18 17:44 Troponin T < 0.010 ng/mL (0.00-0.029) 03/10/18 17:43 Total Protein 7.2 g/dL (6.3-8.2) 03/10/18 17:27 Albumin 3.6 g/dL (3.9-5) L 03/10/18 17:27 Albumin/Globulin Ratio 1.0 % 03/10/18 17:27 Vitamin B12 870.0 pg/mL (211-911) 03/16/18 15:13 Folate 6.55 ng/mL (7.3-26.0) L 03/16/18 15:15 TSH 2.910 mlU/mL (0.270-4.200) 03/16/18 15:16 Free T4 0.92 ng/dL (0.76-1.46) 03/10/18 17:27 Urine Color Isela (Yellow) 03/10/18 17:59 Urine Turbidity Cloudy (Clear) 03/10/18 17:59 Urine pH 7.0 (5.0-7.0) 03/10/18 17:59 Ur Specific [place] 1.021 (1.003-1.030) 03/10/18 17:59 Urine Protein 30 mg/dl mg/dL (Negative) 03/10/18 17:59 Urine Glucose (UA) Neg mg/dL (Negative) 03/10/18 17:59 Urine Ketones Neg mg/dL (Negative) 03/10/18 17:59 Urine Blood Neg (Negative) 03/10/18 17:59 Urine Nitrite Neg (Negative) 03/10/18 17:59 Urine Bilirubin Neg (Negative) 03/10/18 17:59 Urine Urobilinogen 4.0 mg/dL (<2.0) 03/10/18 17:59 Ur Leukocyte Esterase Lg (Negative) 03/10/18 17:59 Urine WBC (Auto) 92.0 /HPF (0.0-6.0) H 03/10/18 17:59 Urine RBC (Auto) 6.0 /HPF (0.0-6.0) 03/10/18 17:59 U Epithel Cells (Auto) < 1.0 /HPF (0-13.0) 03/10/18 17:59 Urine Bacteria (Auto) 3+ /HPF (Negative) 03/10/18 17:59 Ur Transition Epith Cell 2 /HPF 03/10/18 17:59 Urine Mucus 1+ /HPF 03/10/18 17:59 Salicylates < 0.3 mg/dL (2.8-20.0) L 03/10/18 17:27 Urine Opiates Screen Presumptive negative 03/10/18 17:59 Urine Methadone Screen Presumptive negative 03/10/18 17:59 Acetaminophen < 5.0 ug/mL (10.0-30.0) L 03/10/18 17:27 Ur Barbiturates Screen Presumptive negative 03/10/18 17:59 Ur Phencyclidine Scrn Presumptive negative 03/10/18 17:59 Ur Amphetamines Screen Presumptive negative 03/10/18 17:59 U Benzodiazepines Scrn Presumptive negative 03/10/18 17:59 Urine Cocaine Screen Presumptive negative 03/10/18 17:59 U Marijuana (THC) Screen Presumptive negative 03/10/18 17:59 Drugs of Abuse Note Disclamer 03/10/18 17:59 Plasma/Serum Alcohol < 0.01 % (0-0.07) 03/10/18 17:27
--- NOTE | 2018-03-24 18:56 | XRay Report ---
FINAL REPORT EXAM: XR ABDOMEN 1V AP HISTORY: for dobhoff tube placement TECHNIQUE: KUB(s) view of abdomen. PRIORS: 23 March 2018. FINDINGS: Enteric tube extends below the diaphragm, with tip projected over right epigastric region. Bowel gas pattern grossly unremarkable. No apparent pneumoperitoneum. Osseous structures grossly unremarkable. IMPRESSION: 1. Enteric tube position as reported. 2. Nonobstructive bowel gas pattern.
--- NOTE | 2018-03-25 01:59 | XRay Report ---
FINAL REPORT PROCEDURE: XR ABDOMEN 1V AP TECHNIQUE: Abdominal radiograph, single supine AP view. HISTORY: Dobhoff confirmation . COMPARISON: No prior studies are available for comparison. FINDINGS: Bowel gas pattern:Nonobstructive. Masses or calcifications:None. Bony structures:No significant abnormality. Other:The feeding tube ends in the distal stomach. IMPRESSION: The feeding tube ends in the distal stomach
[2018-03-25] MEDS: D5/0.45NS 1,000 ML IV SCH ×2 (07:33→18:15)
--- NOTE | 2018-03-25 08:30 | Progress Note ---
Assessment and Plan Assessment and plan: 57-year-old -[place] male came from mental health facility for altered mental status Catatonia, Psychiatry stated it is r/o - mental health consulted, and signed off - patient is off Ativan Metabolic encephalopathy - Supportive care - EEG showed moderate diffuse encephalopathy - Showed some improvement - CT normal finding, MRI showed encephalopathy UTI - Treated with IV antibiotics and resolved Failure to eat - Continue Dobbhoff tube feeding - We will do swallow evaluation Sunday Suspected femoral fracture -Evaluated by orthopedics, reviewed his imaging and showed no fracture -Per families request x-ray of the hip and femur was done and showed no fracture DVT prophylaxis Disposition - patient is off benzo - Patient need placement, swallow evaluation, if not tolerated may need PEG tube Have discussed the management plan in detail with his families and declined to get PEG tube. Discharge Planning issues; families declined PEG tube, uninsured, Families expectation (they want him to stand up and walk again), I doubt he may able to do that , though it showed some improvement. History Interval history: Patient was seen and evaluated this morning, patient open his eyes and respond when I called his name. Per families request x-ray of the hip and left femur was done negative for fracture. Hospitalist Physical - Physical exam Narrative exam: Not in cardiopulmonary distress. On NG tube feeding. The patient appeared well nourished and normally developed. Vital signs as documented. Head exam is unremarkable. No scleral icterus . Neck is without jugular venous distension, thyromegaly, or carotid bruits. Lungs are clear to auscultation. Cardiac exam reveals regular rate and Rhythm. First and second heart sounds normal. No murmurs, rubs or gallops. Abdominal exam reveals normal bowel sounds, no masses, no organomegaly and no aortic enlargement. Extremities are nonedematous and both femoral and pedal pulses are normal. Left leg and arm is still stiff. 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 - Constitutional Vitals: Temp Pulse Resp BP Pulse Ox 98.0 F 82 16 123/81 99 03/25/18 04:46 03/25/18 04:46 03/25/18 04:46 03/25/18 04:46 03/25/18 04:46 General appearance: Present: no acute distress, other (catatonic) Results - Labs CBC & Chem 7: 03/16/18 05:43 03/16/18 05:43 Labs: Laboratory Last Values WBC 5.9 K/mm3 (4.5-11.0) 03/16/18 05:43 RBC 4.40 M/mm3 (3.65-5.03) 03/16/18 05:43 Hgb 12.4 gm/dl (11.8-15.2) 03/16/18 05:43 Hct 35.1 % (35.5-45.6) L 03/16/18 05:43 MCV 80 fl (84-94) L 03/16/18 05:43 MCH 28 pg (28-32) 03/16/18 05:43 MCHC 35 % (32-34) H 03/16/18 05:43 RDW 14.5 % (13.2-15.2) 03/16/18 05:43 Plt Count 197 K/mm3 (140-440) 03/16/18 05:43 Lymph % (Auto) 15.1 % (13.4-35.0) 03/16/18 05:43 Weber % (Auto) 8.1 % (0.0-7.3) H 03/16/18 05:43 Eos % (Auto) 2.2 % (0.0-4.3) 03/16/18 05:43 Baso % (Auto) 0.4 % (0.0-1.8) 03/16/18 05:43 Lymph # 0.9 K/mm3 (1.2-5.4) L 03/16/18 05:43 Weber # 0.5 K/mm3 (0.0-0.8) 03/16/18 05:43 Eos # 0.1 K/mm3 (0.0-0.4) 03/16/18 05:43 Baso # 0.0 K/mm3 (0.0-0.1) 03/16/18 05:43 Total Counted Cancelled 03/10/18 17:27 Seg Neutrophils % 74.2 % (40.0-70.0) H 03/16/18 05:43 Seg Neuts % (Manual) Cancelled 03/10/18 17:27 Band Neutrophils % Cancelled 03/10/18 17:27 Lymphocytes % (Manual) Cancelled 03/10/18 17:27 Reactive Lymphs % (Man) Cancelled 03/10/18 17:27 Monocytes % (Manual) Cancelled 03/10/18 17:27 Eosinophils % (Manual) Cancelled 03/10/18 17:27 Basophils % (Manual) Cancelled 03/10/18 17:27 Metamyelocytes % Cancelled 03/10/18 17:27 Myelocytes % Cancelled 03/10/18 17:27 Promyelocytes % Cancelled 03/10/18 17:27 Blast Cells % Cancelled 03/10/18 17:27 Nucleated RBC % Cancelled 03/10/18 17:27 Seg Neutrophils # 4.4 K/mm3 (1.8-7.7) 03/16/18 05:43 Seg Neutrophils # Man Cancelled 03/10/18 17:27 Band Neutrophils # Cancelled 03/10/18 17:27 Lymphocytes # (Manual) Cancelled 03/10/18 17:27 Abs React Lymphs (Man) Cancelled 03/10/18 17:27 Monocytes # (Manual) Cancelled 03/10/18 17:27 Eosinophils # (Manual) Cancelled 03/10/18 17:27 Basophils # (Manual) Cancelled 03/10/18 17:27 Metamyelocytes # Cancelled 03/10/18 17:27 Myelocytes # Cancelled 03/10/18 17:27 Promyelocytes # Cancelled 03/10/18 17:27 Blast Cells # Cancelled 03/10/18 17:27 WBC Morphology Cancelled 03/10/18 17:27 Hypersegmented Neuts Cancelled 03/10/18 17:27 Hyposegmented Neuts Cancelled 03/10/18 17:27 Hypogranular Neuts Cancelled 03/10/18 17:27 Hypersegmented Polys Cancelled 03/10/18 17:27 Smudge Cells Cancelled 03/10/18 17:27 Toxic Granulation Cancelled 03/10/18 17:27 Toxic Vacuolation Cancelled 03/10/18 17:27 Dohle Bodies Cancelled 03/10/18 17:27 Pelger-Huet Anomaly Cancelled 03/10/18 17:27 Alvin Rods Cancelled 03/10/18 17:27 Platelet Estimate Cancelled 03/10/18 17:27 Clumped Platelets Cancelled 03/10/18 17:27 Plt Clumps, EDTA Cancelled 03/10/18 17:27 Large Platelets Cancelled 03/10/18 17:27 Giant Platelets Cancelled 03/10/18 17:27 Platelet Satelliting Cancelled 03/10/18 17:27 Plt Morphology Comment Cancelled 03/10/18 17:27 RBC Morphology Cancelled 03/10/18 17:27 Dimorphic RBCs Cancelled 03/10/18 17:27 Polychromasia Cancelled 03/10/18 17:27 Hypochromasia Cancelled 03/10/18 17:27 Poikilocytosis Cancelled 03/10/18 17:27 Basophilic Stippling Cancelled 03/10/18 17:27 Anisocytosis Cancelled 03/10/18 17:27 Microcytosis Cancelled 03/10/18 17:27 Macrocytosis Cancelled 03/10/18 17:27 Spherocytes Cancelled 03/10/18 17:27 Pappenheimer Bodies Cancelled 03/10/18 17:27 Sickle Cells Cancelled 03/10/18 17:27 Target Cells Cancelled 03/10/18 17:27 Tear Drop Cells Cancelled 03/10/18 17:27 Ovalocytes Cancelled 03/10/18 17:27 Stomatocytes Cancelled 03/10/18 17:27 Helmet Cells Cancelled 03/10/18 17:27 Hernandez-Kelly Bodies Cancelled 03/10/18 17:27 [place] Rings Cancelled 03/10/18 17:27 [place] Cells Cancelled 03/10/18 17:27 Bite Cells Cancelled 03/10/18 17:27 Crenated Cell Cancelled 03/10/18 17:27 Elliptocytes Cancelled 03/10/18 17:27 Acanthocytes (Spur) Cancelled 03/10/18 17:27 Rouleaux Cancelled 03/10/18 17:27 Hemoglobin C Crystals Cancelled 03/10/18 17:27 Schistocytes Cancelled 03/10/18 17:27 Malaria parasites Cancelled 03/10/18 17:27 Darrius Bodies Cancelled 03/10/18 17:27 Hem Pathologist Commnt Cancelled 03/10/18 17:27 Sodium 135 mmol/L (137-145) L 03/16/18 05:43 Potassium 3.7 mmol/L (3.6-5.0) 03/16/18 05:43 Chloride 99.9 mmol/L (98-107) 03/16/18 05:43 Carbon Dioxide 24 mmol/L (22-30) 03/16/18 05:43 Anion Gap 15 mmol/L 03/16/18 05:43 BUN 2 mg/dL (9-20) L 03/16/18 05:43 Creatinine 0.6 mg/dL (0.8-1.5) L 03/16/18 05:43 Estimated GFR > 60 ml/min 03/16/18 05:43 BUN/Creatinine Ratio 3 % 03/16/18 05:43 Glucose 105 mg/dL (75-100) H 03/16/18 05:43 POC Glucose 117 (70-105) H 03/25/18 06:02 Calcium 9.0 mg/dL (8.4-10.2) 03/16/18 05:43 Magnesium 2.20 mg/dL (1.7-2.3) 03/10/18 17:24 Total Bilirubin 1.20 mg/dL (0.1-1.2) 03/10/18 17:27 AST 50 units/L (5-40) H 03/10/18 17:27 ALT 63 units/L (7-56) H 03/10/18 17:27 Alkaline Phosphatase 67 units/L (35-129) 03/10/18 17:27 Ammonia 42.0 umol/L (25-60) 03/16/18 15:17 Total Creatine Kinase 148 units/L (55-170) 03/10/18 17:44 CK-MB (CK-2) 1.6 ng/mL (0.0-4.0) 03/10/18 17:44 CK-MB (CK-2) Rel Index 1.0 (0-4) 03/10/18 17:44 Troponin T < 0.010 ng/mL (0.00-0.029) 03/10/18 17:43 Total Protein 7.2 g/dL (6.3-8.2) 03/10/18 17:27 Albumin 3.6 g/dL (3.9-5) L 03/10/18 17:27 Albumin/Globulin Ratio 1.0 % 03/10/18 17:27 Vitamin B12 870.0 pg/mL (211-911) 03/16/18 15:13 Folate 6.55 ng/mL (7.3-26.0) L 03/16/18 15:15 TSH 2.910 mlU/mL (0.270-4.200) 03/16/18 15:16 Free T4 0.92 ng/dL (0.76-1.46) 03/10/18 17:27 Urine Color Isela (Yellow) 03/10/18 17:59 Urine Turbidity Cloudy (Clear) 03/10/18 17:59 Urine pH 7.0 (5.0-7.0) 03/10/18 17:59 Ur Specific [place] 1.021 (1.003-1.030) 03/10/18 17:59 Urine Protein 30 mg/dl mg/dL (Negative) 03/10/18 17:59 Urine Glucose (UA) Neg mg/dL (Negative) 03/10/18 17:59 Urine Ketones Neg mg/dL (Negative) 03/10/18 17:59 Urine Blood Neg (Negative) 03/10/18 17:59 Urine Nitrite Neg (Negative) 03/10/18 17:59 Urine Bilirubin Neg (Negative) 03/10/18 17:59 Urine Urobilinogen 4.0 mg/dL (<2.0) 03/10/18 17:59 Ur Leukocyte Esterase Lg (Negative) 03/10/18 17:59 Urine WBC (Auto) 92.0 /HPF (0.0-6.0) H 03/10/18 17:59 Urine RBC (Auto) 6.0 /HPF (0.0-6.0) 03/10/18 17:59 U Epithel Cells (Auto) < 1.0 /HPF (0-13.0) 03/10/18 17:59 Urine Bacteria (Auto) 3+ /HPF (Negative) 03/10/18 17:59 Ur Transition Epith Cell 2 /HPF 03/10/18 17:59 Urine Mucus 1+ /HPF 03/10/18 17:59 Salicylates < 0.3 mg/dL (2.8-20.0) L 03/10/18 17:27 Urine Opiates Screen Presumptive negative 03/10/18 17:59 Urine Methadone Screen Presumptive negative 03/10/18 17:59 Acetaminophen < 5.0 ug/mL (10.0-30.0) L 03/10/18 17:27 Ur Barbiturates Screen Presumptive negative 03/10/18 17:59 Ur Phencyclidine Scrn Presumptive negative 03/10/18 17:59 Ur Amphetamines Screen Presumptive negative 03/10/18 17:59 U Benzodiazepines Scrn Presumptive negative 03/10/18 17:59 Urine Cocaine Screen Presumptive negative 03/10/18 17:59 U Marijuana (THC) Screen Presumptive negative 03/10/18 17:59 Drugs of Abuse Note Disclamer 03/10/18 17:59 Plasma/Serum Alcohol < 0.01 % (0-0.07) 03/10/18 17:27
[2018-03-25] MEDS: HEPARIN SUB-Q SCH ×2 (10:58→21:29)
--- NOTE | 2018-03-25 13:11 | Progress Note ---
Assessment and Plan Assessment and plan: 57-year-old -[place] male came from mental health facility for altered mental status Catatonia, Psychiatry r/o catatonia, said the side effect of his pysch medications - mental health consulted, and signed off Metabolic encephalopathy - Supportive care - EEG showed moderate diffuse encephalopathy - Showed some improvement - CT normal finding, MRI showed encephalopathy UTI - Treated with IV antibiotics and resolved Failure to eat - Continue Dobbhoff tube feeding - We will do swallow evaluation Sunday Suspected femoral fracture -Evaluated by orthopedics, reviewed his imaging and showed no fracture -Per families request x-ray of the hip and femur was done and showed no fracture Nutrition - patient is on dubhoff - Patient showed improvement in his mentation - Patient needs repeat swallow evaluation tomorrow DVT prophylaxis Disposition - Patient need placement, repeat swallow evaluation Have discussed the management plan in detail with his families and declined to get PEG tube. Discharge Planning issues: families declined PEG tube, uninsured. History Interval history: Patient was seen and evaluated this morning, patient said he is feeling better. starts to communicate. Asked for pain patient said no. Hospitalist Physical - Physical exam Narrative exam: Not in cardiopulmonary distress. On NG tube feeding. The patient appeared well nourished and normally developed. Vital signs as documented. Head exam is unremarkable. No scleral icterus . Neck is without jugular venous distension, thyromegaly, or carotid bruits. Lungs are clear to auscultation. Cardiac exam reveals regular rate and Rhythm. First and second heart sounds normal. No murmurs, rubs or gallops. Abdominal exam reveals normal bowel sounds, no masses, no organomegaly and no aortic enlargement. Extremities are left leg is slightly stiff, getting progressively better. [employer]: Patient say lino when i called him fadi. - Constitutional Vitals: Temp Pulse Resp BP Pulse Ox 98.1 F 82 19 113/75 99 03/25/18 11:27 03/25/18 04:46 03/25/18 11:27 03/25/18 11:27 03/25/18 04:46 General appearance: Present: no acute distress, other (catatonic) Results - Labs CBC & Chem 7: 03/16/18 05:43 03/16/18 05:43 Labs: Laboratory Last Values WBC 5.9 K/mm3 (4.5-11.0) 03/16/18 05:43 RBC 4.40 M/mm3 (3.65-5.03) 03/16/18 05:43 Hgb 12.4 gm/dl (11.8-15.2) 03/16/18 05:43 Hct 35.1 % (35.5-45.6) L 03/16/18 05:43 MCV 80 fl (84-94) L 03/16/18 05:43 MCH 28 pg (28-32) 03/16/18 05:43 MCHC 35 % (32-34) H 03/16/18 05:43 RDW 14.5 % (13.2-15.2) 03/16/18 05:43 Plt Count 197 K/mm3 (140-440) 03/16/18 05:43 Lymph % (Auto) 15.1 % (13.4-35.0) 03/16/18 05:43 [place] % (Auto) 8.1 % (0.0-7.3) H 03/16/18 05:43 Eos % (Auto) 2.2 % (0.0-4.3) 03/16/18 05:43 Baso % (Auto) 0.4 % (0.0-1.8) 03/16/18 05:43 Lymph # 0.9 K/mm3 (1.2-5.4) L 03/16/18 05:43 [place] # 0.5 K/mm3 (0.0-0.8) 03/16/18 05:43 Eos # 0.1 K/mm3 (0.0-0.4) 03/16/18 05:43 Baso # 0.0 K/mm3 (0.0-0.1) 03/16/18 05:43 Total Counted Cancelled 03/10/18 17:27 Seg Neutrophils % 74.2 % (40.0-70.0) H 03/16/18 05:43 Seg Neuts % (Manual) Cancelled 03/10/18 17:27 Band Neutrophils % Cancelled 03/10/18 17:27 Lymphocytes % (Manual) Cancelled 03/10/18 17:27 Reactive Lymphs % (Man) Cancelled 03/10/18 17:27 Monocytes % (Manual) Cancelled 03/10/18 17:27 Eosinophils % (Manual) Cancelled 03/10/18 17:27 Basophils % (Manual) Cancelled 03/10/18 17:27 Metamyelocytes % Cancelled 03/10/18 17:27 Myelocytes % Cancelled 03/10/18 17:27 Promyelocytes % Cancelled 03/10/18 17:27 Blast Cells % Cancelled 03/10/18 17:27 Nucleated RBC % Cancelled 03/10/18 17:27 Seg Neutrophils # 4.4 K/mm3 (1.8-7.7) 03/16/18 05:43 Seg Neutrophils # Man Cancelled 03/10/18 17:27 Band Neutrophils # Cancelled 03/10/18 17:27 Lymphocytes # (Manual) Cancelled 03/10/18 17:27 Abs React Lymphs (Man) Cancelled 03/10/18 17:27 Monocytes # (Manual) Cancelled 03/10/18 17:27 Eosinophils # (Manual) Cancelled 03/10/18 17:27 Basophils # (Manual) Cancelled 03/10/18 17:27 Metamyelocytes # Cancelled 03/10/18 17:27 Myelocytes # Cancelled 03/10/18 17:27 Promyelocytes # Cancelled 03/10/18 17:27 Blast Cells # Cancelled 03/10/18 17:27 WBC Morphology Cancelled 03/10/18 17:27 Hypersegmented Neuts Cancelled 03/10/18 17:27 Hyposegmented Neuts Cancelled 03/10/18 17:27 Hypogranular Neuts Cancelled 03/10/18 17:27 Hypersegmented Polys Cancelled 03/10/18 17:27 Smudge Cells Cancelled 03/10/18 17:27 Toxic Granulation Cancelled 03/10/18 17:27 Toxic Vacuolation Cancelled 03/10/18 17:27 Dohle Bodies Cancelled 03/10/18 17:27 Pelger-Huet Anomaly Cancelled 03/10/18 17:27 Alvin Rods Cancelled 03/10/18 17:27 Platelet Estimate Cancelled 03/10/18 17:27 Clumped Platelets Cancelled 03/10/18 17:27 Plt Clumps, EDTA Cancelled 03/10/18 17:27 Large Platelets Cancelled 03/10/18 17:27 Giant Platelets Cancelled 03/10/18 17:27 Platelet Satelliting Cancelled 03/10/18 17:27 Plt Morphology Comment Cancelled 03/10/18 17:27 RBC Morphology Cancelled 03/10/18 17:27 Dimorphic RBCs Cancelled 03/10/18 17:27 Polychromasia Cancelled 03/10/18 17:27 Hypochromasia Cancelled 03/10/18 17:27 Poikilocytosis Cancelled 03/10/18 17:27 Basophilic Stippling Cancelled 03/10/18 17:27 Anisocytosis Cancelled 03/10/18 17:27 Microcytosis Cancelled 03/10/18 17:27 Macrocytosis Cancelled 03/10/18 17:27 Spherocytes Cancelled 03/10/18 17:27 Pappenheimer Bodies Cancelled 03/10/18 17:27 Sickle Cells Cancelled 03/10/18 17:27 Target Cells Cancelled 03/10/18 17:27 Tear Drop Cells Cancelled 03/10/18 17:27 Ovalocytes Cancelled 03/10/18 17:27 Stomatocytes Cancelled 03/10/18 17:27 Helmet Cells Cancelled 03/10/18 17:27 Hernandez-[employer] Bodies Cancelled 03/10/18 17:27 [place] Rings Cancelled 03/10/18 17:27 [place] Cells Cancelled 03/10/18 17:27 Bite Cells Cancelled 03/10/18 17:27 Crenated Cell Cancelled 03/10/18 17:27 Elliptocytes Cancelled 03/10/18 17:27 Acanthocytes (Spur) Cancelled 03/10/18 17:27 Rouleaux Cancelled 03/10/18 17:27 Hemoglobin C Crystals Cancelled 03/10/18 17:27 Schistocytes Cancelled 03/10/18 17:27 Malaria parasites Cancelled 03/10/18 17:27 Darrius Bodies Cancelled 03/10/18 17:27 Hem Pathologist Commnt Cancelled 03/10/18 17:27 Sodium 135 mmol/L (137-145) L 03/16/18 05:43 Potassium 3.7 mmol/L (3.6-5.0) 03/16/18 05:43 Chloride 99.9 mmol/L (98-107) 03/16/18 05:43 Carbon Dioxide 24 mmol/L (22-30) 03/16/18 05:43 Anion Gap 15 mmol/L 03/16/18 05:43 BUN 2 mg/dL (9-20) L 03/16/18 05:43 Creatinine 0.6 mg/dL (0.8-1.5) L 03/16/18 05:43 Estimated GFR > 60 ml/min 03/16/18 05:43 BUN/Creatinine Ratio 3 % 03/16/18 05:43 Glucose 105 mg/dL (75-100) H 03/16/18 05:43 POC Glucose 102 (70-105) 03/25/18 11:26 Calcium 9.0 mg/dL (8.4-10.2) 03/16/18 05:43 Magnesium 2.20 mg/dL (1.7-2.3) 03/10/18 17:24 Total Bilirubin 1.20 mg/dL (0.1-1.2) 03/10/18 17:27 AST 50 units/L (5-40) H 03/10/18 17:27 ALT 63 units/L (7-56) H 03/10/18 17:27 Alkaline Phosphatase 67 units/L (35-129) 03/10/18 17:27 Ammonia 42.0 umol/L (25-60) 03/16/18 15:17 Total Creatine Kinase 148 units/L (55-170) 03/10/18 17:44 CK-MB (CK-2) 1.6 ng/mL (0.0-4.0) 03/10/18 17:44 CK-MB (CK-2) Rel Index 1.0 (0-4) 03/10/18 17:44 Troponin T < 0.010 ng/mL (0.00-0.029) 03/10/18 17:43 Total Protein 7.2 g/dL (6.3-8.2) 03/10/18 17:27 Albumin 3.6 g/dL (3.9-5) L 03/10/18 17:27 Albumin/Globulin Ratio 1.0 % 03/10/18 17:27 Vitamin B12 870.0 pg/mL (211-911) 03/16/18 15:13 Folate 6.55 ng/mL (7.3-26.0) L 03/16/18 15:15 TSH 2.910 mlU/mL (0.270-4.200) 03/16/18 15:16 Free T4 0.92 ng/dL (0.76-1.46) 03/10/18 17:27 Urine Color [place] (Yellow) 03/10/18 17:59 Urine Turbidity Cloudy (Clear) 03/10/18 17:59 Urine pH 7.0 (5.0-7.0) 03/10/18 17:59 Ur Specific [place] 1.021 (1.003-1.030) 03/10/18 17:59 Urine Protein 30 mg/dl mg/dL (Negative) 03/10/18 17:59 Urine Glucose (UA) Neg mg/dL (Negative) 03/10/18 17:59 Urine Ketones Neg mg/dL (Negative) 03/10/18 17:59 Urine Blood Neg (Negative) 03/10/18 17:59 Urine Nitrite Neg (Negative) 03/10/18 17:59 Urine Bilirubin Neg (Negative) 03/10/18 17:59 Urine Urobilinogen 4.0 mg/dL (<2.0) 03/10/18 17:59 Ur Leukocyte Esterase Lg (Negative) 03/10/18 17:59 Urine WBC (Auto) 92.0 /HPF (0.0-6.0) H 03/10/18 17:59 Urine RBC (Auto) 6.0 /HPF (0.0-6.0) 03/10/18 17:59 U Epithel Cells (Auto) < 1.0 /HPF (0-13.0) 03/10/18 17:59 Urine Bacteria (Auto) 3+ /HPF (Negative) 03/10/18 17:59 Ur Transition Epith Cell 2 /HPF 03/10/18 17:59 Urine Mucus 1+ /HPF 03/10/18 17:59 Salicylates < 0.3 mg/dL (2.8-20.0) L 03/10/18 17:27 Urine Opiates Screen Presumptive negative 03/10/18 17:59 Urine Methadone Screen Presumptive negative 03/10/18 17:59 Acetaminophen < 5.0 ug/mL (10.0-30.0) L 03/10/18 17:27 Ur Barbiturates Screen Presumptive negative 03/10/18 17:59 Ur Phencyclidine Scrn Presumptive negative 03/10/18 17:59 Ur Amphetamines Screen Presumptive negative 03/10/18 17:59 U Benzodiazepines Scrn Presumptive negative 03/10/18 17:59 Urine Cocaine Screen Presumptive negative 03/10/18 17:59 U Marijuana (THC) Screen Presumptive negative 03/10/18 17:59 Drugs of Abuse Note Disclamer 03/10/18 17:59 Plasma/Serum Alcohol < 0.01 % (0-0.07) 03/10/18 17:27
--- NOTE | 2018-03-25 19:16 | Vascular Lab Report ---
LEFT UPPER EXTREMITY VENOUS DUPLEX: REASON FOR EXAM: Pain and swelling of the left upper extremity COMMENTS ON THE LEFT: All arm veins visualized are freely compressible without evidence of internal echogenicity. The subclavian and internal jugular veins are free of thrombus. Flow is spontaneous and phasic throughout. COMMENTS ON THE RIGHT: A limited study of the jugular and subclavian veins shows no evidence of thrombus. IMPRESSION: No evidence of acute or chronic deep venous thrombosis in the left upper extremity.
--- NOTE | 2018-03-26 10:51 | Progress Note ---
Assessment and Plan Assessment and plan: Catatonia - mental health consulted, and signed off Metabolic encephalopathy - Supportive care - EEG showed moderate diffuse encephalopathy - Showed some improvement - CT normal finding, MRI showed encephalopathy UTI - Treated with IV antibiotics and resolved Failure to eat - Continue Dobbhoff tube feeding Speech reassessed swallowing function to determine the patient's candidacy for po intake. Patient was resistant to take the po; however he took a minimal amount and demonstrated adequate laryngeal elevation. No evidence of aspiration was noted. Nevertheless, in lieu of the patient's ability to swallow pureed, patient should maintain an alternative method of nutrition as he will not sustain enough to maintain adequate nutritional support. Suspected femoral fracture -Evaluated by orthopedics, reviewed his imaging and showed no fracture -Per families request x-ray of the hip and femur was done and showed no fracture Nutrition - patient is on dubhoff - Patient showed improvement in his mentation - Speak Therapy recommends placement. We will attempt to discuss with family. Consult GI for further evaluation. DVT prophylaxis Disposition - Patient need placement, Dr. Christine discussed the management plan in detail with his families and declined to get PEG tube. Discharge Planning issues: families declined PEG tube, uninsured. History Interval history: 57-year-old -[place] male came from mental health facility for altered mental status Catatonia, Psychiatry r/o catatonia, said the side effect of his pysch medications No new issues overnight. Hospitalist Physical - Constitutional Vitals: Temp Pulse Resp BP Pulse Ox 98.9 F 85 18 105/79 99 03/26/18 04:48 03/26/18 04:48 03/26/18 04:48 03/26/18 04:48 03/26/18 04:48 General appearance: Present: no acute distress, other (catatonic) - EENT Eyes: Present: PERRL, EOM intact ENT: hearing intact, clear oral mucosa, dentition normal - Neck Neck: Present: supple, normal ROM - Respiratory Respiratory effort: normal Respiratory: bilateral: CTA - Cardiovascular Rhythm: regular Heart Sounds: Present: S1 & S2. Absent: gallop, rub - Extremities Extremities: no ischemia, No edema, Full ROM - Abdominal General gastrointestinal: soft, non-tender, non-distended, normal bowel sounds - Integumentary Integumentary: Present: clear, warm, dry - Neurologic Neurologic: CNII-XII intact, moves all extremities Results - Labs CBC & Chem 7: 03/16/18 05:43 03/16/18 05:43 Labs: Laboratory Last Values WBC 5.9 K/mm3 (4.5-11.0) 03/16/18 05:43 RBC 4.40 M/mm3 (3.65-5.03) 03/16/18 05:43 Hgb 12.4 gm/dl (11.8-15.2) 03/16/18 05:43 Hct 35.1 % (35.5-45.6) L 03/16/18 05:43 MCV 80 fl (84-94) L 03/16/18 05:43 MCH 28 pg (28-32) 03/16/18 05:43 MCHC 35 % (32-34) H 03/16/18 05:43 RDW 14.5 % (13.2-15.2) 03/16/18 05:43 Plt Count 197 K/mm3 (140-440) 03/16/18 05:43 Lymph % (Auto) 15.1 % (13.4-35.0) 03/16/18 05:43 [place] % (Auto) 8.1 % (0.0-7.3) H 03/16/18 05:43 Eos % (Auto) 2.2 % (0.0-4.3) 03/16/18 05:43 Baso % (Auto) 0.4 % (0.0-1.8) 03/16/18 05:43 Lymph # 0.9 K/mm3 (1.2-5.4) L 03/16/18 05:43 [place] # 0.5 K/mm3 (0.0-0.8) 03/16/18 05:43 Eos # 0.1 K/mm3 (0.0-0.4) 03/16/18 05:43 Baso # 0.0 K/mm3 (0.0-0.1) 03/16/18 05:43 Total Counted Cancelled 03/10/18 17:27 Seg Neutrophils % 74.2 % (40.0-70.0) H 03/16/18 05:43 Seg Neuts % (Manual) Cancelled 03/10/18 17:27 Band Neutrophils % Cancelled 03/10/18 17:27 Lymphocytes % (Manual) Cancelled 03/10/18 17:27 Reactive Lymphs % (Man) Cancelled 03/10/18 17:27 Monocytes % (Manual) Cancelled 03/10/18 17:27 Eosinophils % (Manual) Cancelled 03/10/18 17:27 Basophils % (Manual) Cancelled 03/10/18 17:27 Metamyelocytes % Cancelled 03/10/18 17:27 Myelocytes % Cancelled 03/10/18 17:27 Promyelocytes % Cancelled 03/10/18 17:27 Blast Cells % Cancelled 03/10/18 17:27 Nucleated RBC % Cancelled 03/10/18 17:27 Seg Neutrophils # 4.4 K/mm3 (1.8-7.7) 03/16/18 05:43 Seg Neutrophils # Man Cancelled 03/10/18 17:27 Band Neutrophils # Cancelled 03/10/18 17:27 Lymphocytes # (Manual) Cancelled 03/10/18 17:27 Abs React Lymphs (Man) Cancelled 03/10/18 17:27 Monocytes # (Manual) Cancelled 03/10/18 17:27 Eosinophils # (Manual) Cancelled 03/10/18 17:27 Basophils # (Manual) Cancelled 03/10/18 17:27 Metamyelocytes # Cancelled 03/10/18 17:27 Myelocytes # Cancelled 03/10/18 17:27 Promyelocytes # Cancelled 03/10/18 17:27 Blast Cells # Cancelled 03/10/18 17:27 WBC Morphology Cancelled 03/10/18 17:27 Hypersegmented Neuts Cancelled 03/10/18 17:27 Hyposegmented Neuts Cancelled 03/10/18 17:27 Hypogranular Neuts Cancelled 03/10/18 17:27 Hypersegmented Polys Cancelled 03/10/18 17:27 Smudge Cells Cancelled 03/10/18 17:27 Toxic Granulation Cancelled 03/10/18 17:27 Toxic Vacuolation Cancelled 03/10/18 17:27 Dohle Bodies Cancelled 03/10/18 17:27 Pelger-Huet Anomaly Cancelled 03/10/18 17:27 Alvin Rods Cancelled 03/10/18 17:27 Platelet Estimate Cancelled 03/10/18 17:27 Clumped Platelets Cancelled 03/10/18 17:27 Plt Clumps, EDTA Cancelled 03/10/18 17:27 Large Platelets Cancelled 03/10/18 17:27 Giant Platelets Cancelled 03/10/18 17:27 Platelet Satelliting Cancelled 03/10/18 17:27 Plt Morphology Comment Cancelled 03/10/18 17:27 RBC Morphology Cancelled 03/10/18 17:27 Dimorphic RBCs Cancelled 03/10/18 17:27 Polychromasia Cancelled 03/10/18 17:27 Hypochromasia Cancelled 03/10/18 17:27 Poikilocytosis Cancelled 03/10/18 17:27 Basophilic Stippling Cancelled 03/10/18 17:27 Anisocytosis Cancelled 03/10/18 17:27 Microcytosis Cancelled 03/10/18 17:27 Macrocytosis Cancelled 03/10/18 17:27 Spherocytes Cancelled 03/10/18 17:27 Pappenheimer Bodies Cancelled 03/10/18 17:27 Sickle Cells Cancelled 03/10/18 17:27 Target Cells Cancelled 03/10/18 17:27 Tear Drop Cells Cancelled 03/10/18 17:27 Ovalocytes Cancelled 03/10/18 17:27 Stomatocytes Cancelled 03/10/18 17:27 Helmet Cells Cancelled 03/10/18 17:27 Hernandez[place] Bodies Cancelled 03/10/18 17:27 [place] Rings Cancelled 03/10/18 17:27 [place] Cells Cancelled 03/10/18 17:27 Bite Cells Cancelled 03/10/18 17:27 Crenated Cell Cancelled 03/10/18 17:27 Elliptocytes Cancelled 03/10/18 17:27 Acanthocytes (Spur) Cancelled 03/10/18 17:27 Rouleaux Cancelled 03/10/18 17:27 Hemoglobin C Crystals Cancelled 03/10/18 17:27 Schistocytes Cancelled 03/10/18 17:27 Malaria parasites Cancelled 03/10/18 17:27 Darrius Bodies Cancelled 03/10/18 17:27 Hem Pathologist Commnt Cancelled 03/10/18 17:27 Sodium 135 mmol/L (137-145) L 03/16/18 05:43 Potassium 3.7 mmol/L (3.6-5.0) 03/16/18 05:43 Chloride 99.9 mmol/L (98-107) 03/16/18 05:43 Carbon Dioxide 24 mmol/L (22-30) 03/16/18 05:43 Anion Gap 15 mmol/L 03/16/18 05:43 BUN 2 mg/dL (9-20) L 03/16/18 05:43 Creatinine 0.6 mg/dL (0.8-1.5) L 03/16/18 05:43 Estimated GFR > 60 ml/min 03/16/18 05:43 BUN/Creatinine Ratio 3 % 03/16/18 05:43 Glucose 105 mg/dL (75-100) H 03/16/18 05:43 POC Glucose 102 (70-105) 03/25/18 11:26 Calcium 9.0 mg/dL (8.4-10.2) 03/16/18 05:43 Magnesium 2.20 mg/dL (1.7-2.3) 03/10/18 17:24 Total Bilirubin 1.20 mg/dL (0.1-1.2) 03/10/18 17:27 AST 50 units/L (5-40) H 03/10/18 17:27 ALT 63 units/L (7-56) H 03/10/18 17:27 Alkaline Phosphatase 67 units/L (35-129) 03/10/18 17:27 Ammonia 42.0 umol/L (25-60) 03/16/18 15:17 Total Creatine Kinase 148 units/L (55-170) 03/10/18 17:44 CK-MB (CK-2) 1.6 ng/mL (0.0-4.0) 03/10/18 17:44 CK-MB (CK-2) Rel Index 1.0 (0-4) 03/10/18 17:44 Troponin T < 0.010 ng/mL (0.00-0.029) 03/10/18 17:43 Total Protein 7.2 g/dL (6.3-8.2) 03/10/18 17:27 Albumin 3.6 g/dL (3.9-5) L 03/10/18 17:27 Albumin/Globulin Ratio 1.0 % 03/10/18 17:27 Vitamin B12 870.0 pg/mL (211-911) 03/16/18 15:13 Folate 6.55 ng/mL (7.3-26.0) L 03/16/18 15:15 TSH 2.910 mlU/mL (0.270-4.200) 03/16/18 15:16 Free T4 0.92 ng/dL (0.76-1.46) 03/10/18 17:27 Urine Color [place] (Yellow) 03/10/18 17:59 Urine Turbidity Cloudy (Clear) 03/10/18 17:59 Urine pH 7.0 (5.0-7.0) 03/10/18 17:59 Ur Specific [place] 1.021 (1.003-1.030) 03/10/18 17:59 Urine Protein 30 mg/dl mg/dL (Negative) 03/10/18 17:59 Urine Glucose (UA) Neg mg/dL (Negative) 03/10/18 17:59 Urine Ketones Neg mg/dL (Negative) 03/10/18 17:59 Urine Blood Neg (Negative) 03/10/18 17:59 Urine Nitrite Neg (Negative) 03/10/18 17:59 Urine Bilirubin Neg (Negative) 03/10/18 17:59 Urine Urobilinogen 4.0 mg/dL (<2.0) 03/10/18 17:59 Ur Leukocyte Esterase Lg (Negative) 03/10/18 17:59 Urine WBC (Auto) 92.0 /HPF (0.0-6.0) H 03/10/18 17:59 Urine RBC (Auto) 6.0 /HPF (0.0-6.0) 03/10/18 17:59 U Epithel Cells (Auto) < 1.0 /HPF (0-13.0) 03/10/18 17:59 Urine Bacteria (Auto) 3+ /HPF (Negative) 03/10/18 17:59 Ur Transition Epith Cell 2 /HPF 03/10/18 17:59 Urine Mucus 1+ /HPF 03/10/18 17:59 Salicylates < 0.3 mg/dL (2.8-20.0) L 03/10/18 17:27 Urine Opiates Screen Presumptive negative 03/10/18 17:59 Urine Methadone Screen Presumptive negative 03/10/18 17:59 Acetaminophen < 5.0 ug/mL (10.0-30.0) L 03/10/18 17:27 Ur Barbiturates Screen Presumptive negative 03/10/18 17:59 Ur Phencyclidine Scrn Presumptive negative 03/10/18 17:59 Ur Amphetamines Screen Presumptive negative 03/10/18 17:59 U Benzodiazepines Scrn Presumptive negative 03/10/18 17:59 Urine Cocaine Screen Presumptive negative 03/10/18 17:59 U Marijuana (THC) Screen Presumptive negative 03/10/18 17:59 Drugs of Abuse Note Disclamer 03/10/18 17:59 Plasma/Serum Alcohol < 0.01 % (0-0.07) 03/10/18 17:27
[2018-03-26] MEDS: HEPARIN SUB-Q SCH ×2 (11:22→21:56)
[2018-03-26] MEDS: D5/0.45NS 1,000 ML IV SCH ×2 (21:53→21:54)
[2018-03-27] MEDS: D5/0.45NS 1,000 ML IV SCH ×2 (10:20→21:29)
[2018-03-27] MEDS: HEPARIN SUB-Q SCH ×2 (10:20→21:29)
--- NOTE | 2018-03-27 10:54 | Progress Note ---
Assessment and Plan Assessment and plan: Catatonia - mental health consulted, and signed off Metabolic encephalopathy - Supportive care - EEG showed moderate diffuse encephalopathy - Showed some improvement - CT normal finding, MRI showed encephalopathy UTI - Treated with IV antibiotics and resolved Failure to eat - Continue Dobbhoff tube feeding Speech reassessed swallowing function to determine the patient's candidacy for po intake. Patient was resistant to take the po; however he took a minimal amount and demonstrated adequate laryngeal elevation. No evidence of aspiration was noted. Nevertheless, in lieu of the patient's ability to swallow pureed, patient should maintain an alternative method of nutrition as he will not sustain enough to maintain adequate nutritional support. Suspected femoral fracture -Evaluated by orthopedics, reviewed his imaging and showed no fracture -Per families request x-ray of the hip and femur was done and showed no fracture Nutrition - patient is on dobhoff - Patient showing improvement in his mentation - Speech Therapy recommends placement. We will attempt to discuss with family. Consult GI for further evaluation. DVT prophylaxis Disposition - Patient needs placement, Dr. Christine discussed the management plan in detail with his families and declined to get PEG tube. Discharge Planning issues: families declined PEG tube, uninsured. History Interval history: 57-year-old -[place] male came from mental health facility for altered mental status Catatonia, Psychiatry r/o catatonia, said the side effect of his pysch medications No new issues overnight. Hospitalist Physical - Constitutional Vitals: Temp Pulse Resp BP Pulse Ox 98.6 F 76 16 132/86 98 03/27/18 06:14 03/27/18 06:14 03/27/18 06:14 03/27/18 06:14 03/27/18 06:14 General appearance: Present: no acute distress, other (catatonic) - EENT Eyes: Present: PERRL, EOM intact ENT: hearing intact, clear oral mucosa, dentition normal - Neck Neck: Present: supple, normal ROM - Respiratory Respiratory effort: normal Respiratory: bilateral: CTA - Cardiovascular Rhythm: regular Heart Sounds: Present: S1 & S2. Absent: gallop, rub - Extremities Extremities: no ischemia, No edema, Full ROM - Abdominal General gastrointestinal: soft, non-tender, non-distended, normal bowel sounds - Integumentary Integumentary: Present: clear, warm, dry - Neurologic Neurologic: CNII-XII intact, moves all extremities Results - Labs CBC & Chem 7: 03/16/18 05:43 03/16/18 05:43 Labs: Laboratory Last Values WBC 5.9 K/mm3 (4.5-11.0) 03/16/18 05:43 RBC 4.40 M/mm3 (3.65-5.03) 03/16/18 05:43 Hgb 12.4 gm/dl (11.8-15.2) 03/16/18 05:43 Hct 35.1 % (35.5-45.6) L 03/16/18 05:43 MCV 80 fl (84-94) L 03/16/18 05:43 MCH 28 pg (28-32) 03/16/18 05:43 MCHC 35 % (32-34) H 03/16/18 05:43 RDW 14.5 % (13.2-15.2) 03/16/18 05:43 Plt Count 197 K/mm3 (140-440) 03/16/18 05:43 Lymph % (Auto) 15.1 % (13.4-35.0) 03/16/18 05:43 [place] % (Auto) 8.1 % (0.0-7.3) H 03/16/18 05:43 Eos % (Auto) 2.2 % (0.0-4.3) 03/16/18 05:43 Baso % (Auto) 0.4 % (0.0-1.8) 03/16/18 05:43 Lymph # 0.9 K/mm3 (1.2-5.4) L 03/16/18 05:43 [place] # 0.5 K/mm3 (0.0-0.8) 03/16/18 05:43 Eos # 0.1 K/mm3 (0.0-0.4) 03/16/18 05:43 Baso # 0.0 K/mm3 (0.0-0.1) 03/16/18 05:43 Total Counted Cancelled 03/10/18 17:27 Seg Neutrophils % 74.2 % (40.0-70.0) H 03/16/18 05:43 Seg Neuts % (Manual) Cancelled 03/10/18 17:27 Band Neutrophils % Cancelled 03/10/18 17:27 Lymphocytes % (Manual) Cancelled 03/10/18 17:27 Reactive Lymphs % (Man) Cancelled 03/10/18 17:27 Monocytes % (Manual) Cancelled 03/10/18 17:27 Eosinophils % (Manual) Cancelled 03/10/18 17:27 Basophils % (Manual) Cancelled 03/10/18 17:27 Metamyelocytes % Cancelled 03/10/18 17:27 Myelocytes % Cancelled 03/10/18 17:27 Promyelocytes % Cancelled 03/10/18 17:27 Blast Cells % Cancelled 03/10/18 17:27 Nucleated RBC % Cancelled 03/10/18 17:27 Seg Neutrophils # 4.4 K/mm3 (1.8-7.7) 03/16/18 05:43 Seg Neutrophils # Man Cancelled 03/10/18 17:27 Band Neutrophils # Cancelled 03/10/18 17:27 Lymphocytes # (Manual) Cancelled 03/10/18 17:27 Abs React Lymphs (Man) Cancelled 03/10/18 17:27 Monocytes # (Manual) Cancelled 03/10/18 17:27 Eosinophils # (Manual) Cancelled 03/10/18 17:27 Basophils # (Manual) Cancelled 03/10/18 17:27 Metamyelocytes # Cancelled 03/10/18 17:27 Myelocytes # Cancelled 03/10/18 17:27 Promyelocytes # Cancelled 03/10/18 17:27 Blast Cells # Cancelled 03/10/18 17:27 WBC Morphology Cancelled 03/10/18 17:27 Hypersegmented Neuts Cancelled 03/10/18 17:27 Hyposegmented Neuts Cancelled 03/10/18 17:27 Hypogranular Neuts Cancelled 03/10/18 17:27 Hypersegmented Polys Cancelled 03/10/18 17:27 Smudge Cells Cancelled 03/10/18 17:27 Toxic Granulation Cancelled 03/10/18 17:27 Toxic Vacuolation Cancelled 03/10/18 17:27 Dohle Bodies Cancelled 03/10/18 17:27 Pelger-Huet Anomaly Cancelled 03/10/18 17:27 Alvin Rods Cancelled 03/10/18 17:27 Platelet Estimate Cancelled 03/10/18 17:27 Clumped Platelets Cancelled 03/10/18 17:27 Plt Clumps, EDTA Cancelled 03/10/18 17:27 Large Platelets Cancelled 03/10/18 17:27 Giant Platelets Cancelled 03/10/18 17:27 Platelet Satelliting Cancelled 03/10/18 17:27 Plt Morphology Comment Cancelled 03/10/18 17:27 RBC Morphology Cancelled 03/10/18 17:27 Dimorphic RBCs Cancelled 03/10/18 17:27 Polychromasia Cancelled 03/10/18 17:27 Hypochromasia Cancelled 03/10/18 17:27 Poikilocytosis Cancelled 03/10/18 17:27 Basophilic Stippling Cancelled 03/10/18 17:27 Anisocytosis Cancelled 03/10/18 17:27 Microcytosis Cancelled 03/10/18 17:27 Macrocytosis Cancelled 03/10/18 17:27 Spherocytes Cancelled 03/10/18 17:27 Pappenheimer Bodies Cancelled 03/10/18 17:27 Sickle Cells Cancelled 03/10/18 17:27 Target Cells Cancelled 03/10/18 17:27 Tear Drop Cells Cancelled 03/10/18 17:27 Ovalocytes Cancelled 03/10/18 17:27 Stomatocytes Cancelled 03/10/18 17:27 Helmet Cells Cancelled 03/10/18 17:27 Hernandez-Cassoday Bodies Cancelled 03/10/18 17:27 [place] Rings Cancelled 03/10/18 17:27 [place] Cells Cancelled 03/10/18 17:27 Bite Cells Cancelled 03/10/18 17:27 Crenated Cell Cancelled 03/10/18 17:27 Elliptocytes Cancelled 03/10/18 17:27 Acanthocytes (Spur) Cancelled 03/10/18 17:27 Rouleaux Cancelled 03/10/18 17:27 Hemoglobin C Crystals Cancelled 03/10/18 17:27 Schistocytes Cancelled 03/10/18 17:27 Malaria parasites Cancelled 03/10/18 17:27 Darrius Bodies Cancelled 03/10/18 17:27 Hem Pathologist Commnt Cancelled 03/10/18 17:27 Sodium 135 mmol/L (137-145) L 03/16/18 05:43 Potassium 3.7 mmol/L (3.6-5.0) 03/16/18 05:43 Chloride 99.9 mmol/L (98-107) 03/16/18 05:43 Carbon Dioxide 24 mmol/L (22-30) 03/16/18 05:43 Anion Gap 15 mmol/L 03/16/18 05:43 BUN 2 mg/dL (9-20) L 03/16/18 05:43 Creatinine 0.6 mg/dL (0.8-1.5) L 03/16/18 05:43 Estimated GFR > 60 ml/min 03/16/18 05:43 BUN/Creatinine Ratio 3 % 03/16/18 05:43 Glucose 105 mg/dL (75-100) H 03/16/18 05:43 POC Glucose 115 (70-105) H 03/26/18 23:08 Calcium 9.0 mg/dL (8.4-10.2) 03/16/18 05:43 Magnesium 2.20 mg/dL (1.7-2.3) 03/10/18 17:24 Total Bilirubin 1.20 mg/dL (0.1-1.2) 03/10/18 17:27 AST 50 units/L (5-40) H 03/10/18 17:27 ALT 63 units/L (7-56) H 03/10/18 17:27 Alkaline Phosphatase 67 units/L (35-129) 03/10/18 17:27 Ammonia 42.0 umol/L (25-60) 03/16/18 15:17 Total Creatine Kinase 148 units/L (55-170) 03/10/18 17:44 CK-MB (CK-2) 1.6 ng/mL (0.0-4.0) 03/10/18 17:44 CK-MB (CK-2) Rel Index 1.0 (0-4) 03/10/18 17:44 Troponin T < 0.010 ng/mL (0.00-0.029) 03/10/18 17:43 Total Protein 7.2 g/dL (6.3-8.2) 03/10/18 17:27 Albumin 3.6 g/dL (3.9-5) L 03/10/18 17:27 Albumin/Globulin Ratio 1.0 % 03/10/18 17:27 Vitamin B12 870.0 pg/mL (211-911) 03/16/18 15:13 Folate 6.55 ng/mL (7.3-26.0) L 03/16/18 15:15 TSH 2.910 mlU/mL (0.270-4.200) 03/16/18 15:16 Free T4 0.92 ng/dL (0.76-1.46) 03/10/18 17:27 Urine Color [place] (Yellow) 03/10/18 17:59 Urine Turbidity Cloudy (Clear) 03/10/18 17:59 Urine pH 7.0 (5.0-7.0) 03/10/18 17:59 Ur Specific [place] 1.021 (1.003-1.030) 03/10/18 17:59 Urine Protein 30 mg/dl mg/dL (Negative) 03/10/18 17:59 Urine Glucose (UA) Neg mg/dL (Negative) 03/10/18 17:59 Urine Ketones Neg mg/dL (Negative) 03/10/18 17:59 Urine Blood Neg (Negative) 03/10/18 17:59 Urine Nitrite Neg (Negative) 03/10/18 17:59 Urine Bilirubin Neg (Negative) 03/10/18 17:59 Urine Urobilinogen 4.0 mg/dL (<2.0) 03/10/18 17:59 Ur Leukocyte Esterase Lg (Negative) 03/10/18 17:59 Urine WBC (Auto) 92.0 /HPF (0.0-6.0) H 03/10/18 17:59 Urine RBC (Auto) 6.0 /HPF (0.0-6.0) 03/10/18 17:59 U Epithel Cells (Auto) < 1.0 /HPF (0-13.0) 03/10/18 17:59 Urine Bacteria (Auto) 3+ /HPF (Negative) 03/10/18 17:59 Ur Transition Epith Cell 2 /HPF 03/10/18 17:59 Urine Mucus 1+ /HPF 03/10/18 17:59 Salicylates < 0.3 mg/dL (2.8-20.0) L 03/10/18 17:27 Urine Opiates Screen Presumptive negative 03/10/18 17:59 Urine Methadone Screen Presumptive negative 03/10/18 17:59 Acetaminophen < 5.0 ug/mL (10.0-30.0) L 03/10/18 17:27 Ur Barbiturates Screen Presumptive negative 03/10/18 17:59 Ur Phencyclidine Scrn Presumptive negative 03/10/18 17:59 Ur Amphetamines Screen Presumptive negative 03/10/18 17:59 U Benzodiazepines Scrn Presumptive negative 03/10/18 17:59 Urine Cocaine Screen Presumptive negative 03/10/18 17:59 U Marijuana (THC) Screen Presumptive negative 03/10/18 17:59 Drugs of Abuse Note Disclamer 03/10/18 17:59 Plasma/Serum Alcohol < 0.01 % (0-0.07) 03/10/18 17:27
[2018-03-28] MEDS: D5/0.45NS 1,000 ML IV SCH ×2 (07:35→19:59)
--- NOTE | 2018-03-28 09:45 | Progress Note ---
Assessment and Plan Assessment and plan: Catatonia - mental health consulted, and signed off Metabolic encephalopathy - Supportive care - EEG showed moderate diffuse encephalopathy - Showed some improvement - CT normal finding, MRI showed encephalopathy UTI - Treated with IV antibiotics and resolved Failure to eat - Continue Dobbhoff tube feeding Speech reassessed swallowing function to determine the patient's candidacy for po intake. Patient was recently resistant to take the po; however he took a minimal amount and demonstrated adequate laryngeal elevation. No evidence of aspiration was noted. Nevertheless, in lieu of the patient's ability to swallow pureed, it was previously thought that he should maintain an alternative method of nutrition as he will not sustain enough to maintain adequate nutritional support. Unfortunately, patient put out Dobbhoff tube yesterday. Also, nurse reports that he was taking by mouth fairly well afterwards. Therefore, we will leave Dobbhoff tube out for now and have nutrition reassess. Suspected femoral fracture -Evaluated by orthopedics, reviewed his imaging and showed no fracture -Per families request x-ray of the hip and femur was done and showed no fracture Nutrition - patient is on dobhoff - Patient showing improvement in his mentation - Speech Therapy recommends placement. We will attempt to discuss with family. Consult GI for further evaluation. DVT prophylaxis Disposition - Patient needs placement, Dr. Merchant discussed the management plan in detail with his families and declined to get PEG tube. Discharge Planning issues: families declined PEG tube, uninsured. History Interval history: 57-year-old -I[place] male came from mental health facility for altered mental status Catatonia, Psychiatry r/o catatonia, said the side effect of his pysch medications. Patient pulled out Dobbhoff tube yesterday No new issues overnight. Hospitalist Physical - Constitutional Vitals: Temp Pulse Resp BP Pulse Ox 98.3 F 75 18 102/64 97 03/28/18 05:58 03/28/18 05:58 03/28/18 05:58 03/28/18 05:58 03/28/18 05:58 General appearance: Present: no acute distress, other (catatonic) - EENT Eyes: Present: PERRL, EOM intact ENT: hearing intact, clear oral mucosa, dentition normal - Neck Neck: Present: supple, normal ROM - Respiratory Respiratory effort: normal Respiratory: bilateral: CTA - Cardiovascular Rhythm: regular Heart Sounds: Present: S1 & S2. Absent: gallop, rub - Extremities Extremities: no ischemia, No edema, Full ROM - Abdominal General gastrointestinal: soft, non-tender, non-distended, normal bowel sounds - Integumentary Integumentary: Present: clear, warm, dry - Neurologic Neurologic: CNII-XII intact, moves all extremities Results - Labs CBC & Chem 7: 03/16/18 05:43 03/16/18 05:43 Labs: Laboratory Last Values WBC 5.9 K/mm3 (4.5-11.0) 03/16/18 05:43 RBC 4.40 M/mm3 (3.65-5.03) 03/16/18 05:43 Hgb 12.4 gm/dl (11.8-15.2) 03/16/18 05:43 Hct 35.1 % (35.5-45.6) L 03/16/18 05:43 MCV 80 fl (84-94) L 03/16/18 05:43 MCH 28 pg (28-32) 03/16/18 05:43 MCHC 35 % (32-34) H 03/16/18 05:43 RDW 14.5 % (13.2-15.2) 03/16/18 05:43 Plt Count 197 K/mm3 (140-440) 03/16/18 05:43 Lymph % (Auto) 15.1 % (13.4-35.0) 03/16/18 05:43 [place] % (Auto) 8.1 % (0.0-7.3) H 03/16/18 05:43 Eos % (Auto) 2.2 % (0.0-4.3) 03/16/18 05:43 Baso % (Auto) 0.4 % (0.0-1.8) 03/16/18 05:43 Lymph # 0.9 K/mm3 (1.2-5.4) L 03/16/18 05:43 [place] # 0.5 K/mm3 (0.0-0.8) 03/16/18 05:43 Eos # 0.1 K/mm3 (0.0-0.4) 03/16/18 05:43 Baso # 0.0 K/mm3 (0.0-0.1) 03/16/18 05:43 Total Counted Cancelled 03/10/18 17:27 Seg Neutrophils % 74.2 % (40.0-70.0) H 03/16/18 05:43 Seg Neuts % (Manual) Cancelled 03/10/18 17:27 Band Neutrophils % Cancelled 03/10/18 17:27 Lymphocytes % (Manual) Cancelled 03/10/18 17:27 Reactive Lymphs % (Man) Cancelled 03/10/18 17:27 Monocytes % (Manual) Cancelled 03/10/18 17:27 Eosinophils % (Manual) Cancelled 03/10/18 17:27 Basophils % (Manual) Cancelled 03/10/18 17:27 Metamyelocytes % Cancelled 03/10/18 17:27 Myelocytes % Cancelled 03/10/18 17:27 Promyelocytes % Cancelled 03/10/18 17:27 Blast Cells % Cancelled 03/10/18 17:27 Nucleated RBC % Cancelled 03/10/18 17:27 Seg Neutrophils # 4.4 K/mm3 (1.8-7.7) 03/16/18 05:43 Seg Neutrophils # Man Cancelled 03/10/18 17:27 Band Neutrophils # Cancelled 03/10/18 17:27 Lymphocytes # (Manual) Cancelled 03/10/18 17:27 Abs React Lymphs (Man) Cancelled 03/10/18 17:27 Monocytes # (Manual) Cancelled 03/10/18 17:27 Eosinophils # (Manual) Cancelled 03/10/18 17:27 Basophils # (Manual) Cancelled 03/10/18 17:27 Metamyelocytes # Cancelled 03/10/18 17:27 Myelocytes # Cancelled 03/10/18 17:27 Promyelocytes # Cancelled 03/10/18 17:27 Blast Cells # Cancelled 03/10/18 17:27 WBC Morphology Cancelled 03/10/18 17:27 Hypersegmented Neuts Cancelled 03/10/18 17:27 Hyposegmented Neuts Cancelled 03/10/18 17:27 Hypogranular Neuts Cancelled 03/10/18 17:27 Hypersegmented Polys Cancelled 03/10/18 17:27 Smudge Cells Cancelled 03/10/18 17:27 Toxic Granulation Cancelled 03/10/18 17:27 Toxic Vacuolation Cancelled 03/10/18 17:27 Dohle Bodies Cancelled 03/10/18 17:27 Pelger-Huet Anomaly Cancelled 03/10/18 17:27 Alvin Rods Cancelled 03/10/18 17:27 Platelet Estimate Cancelled 03/10/18 17:27 Clumped Platelets Cancelled 03/10/18 17:27 Plt Clumps, EDTA Cancelled 03/10/18 17:27 Large Platelets Cancelled 03/10/18 17:27 Giant Platelets Cancelled 03/10/18 17:27 Platelet Satelliting Cancelled 03/10/18 17:27 Plt Morphology Comment Cancelled 03/10/18 17:27 RBC Morphology Cancelled 03/10/18 17:27 Dimorphic RBCs Cancelled 03/10/18 17:27 Polychromasia Cancelled 03/10/18 17:27 Hypochromasia Cancelled 03/10/18 17:27 Poikilocytosis Cancelled 03/10/18 17:27 Basophilic Stippling Cancelled 03/10/18 17:27 Anisocytosis Cancelled 03/10/18 17:27 Microcytosis Cancelled 03/10/18 17:27 Macrocytosis Cancelled 03/10/18 17:27 Spherocytes Cancelled 03/10/18 17:27 Pappenheimer Bodies Cancelled 03/10/18 17:27 Sickle Cells Cancelled 03/10/18 17:27 Target Cells Cancelled 03/10/18 17:27 Tear Drop Cells Cancelled 03/10/18 17:27 Ovalocytes Cancelled 03/10/18 17:27 Stomatocytes Cancelled 03/10/18 17:27 Helmet Cells Cancelled 03/10/18 17:27 Hernandez-[place] Bodies Cancelled 03/10/18 17:27 [place] Rings Cancelled 03/10/18 17:27 [place] Cells Cancelled 03/10/18 17:27 Bite Cells Cancelled 03/10/18 17:27 Crenated Cell Cancelled 03/10/18 17:27 Elliptocytes Cancelled 03/10/18 17:27 Acanthocytes (Spur) Cancelled 03/10/18 17:27 Rouleaux Cancelled 03/10/18 17:27 Hemoglobin C Crystals Cancelled 03/10/18 17:27 Schistocytes Cancelled 03/10/18 17:27 Malaria parasites Cancelled 03/10/18 17:27 Darrius Bodies Cancelled 03/10/18 17:27 Hem Pathologist Commnt Cancelled 03/10/18 17:27 Sodium 135 mmol/L (137-145) L 03/16/18 05:43 Potassium 3.7 mmol/L (3.6-5.0) 03/16/18 05:43 Chloride 99.9 mmol/L (98-107) 03/16/18 05:43 Carbon Dioxide 24 mmol/L (22-30) 03/16/18 05:43 Anion Gap 15 mmol/L 03/16/18 05:43 BUN 2 mg/dL (9-20) L 03/16/18 05:43 Creatinine 0.6 mg/dL (0.8-1.5) L 03/16/18 05:43 Estimated GFR > 60 ml/min 03/16/18 05:43 BUN/Creatinine Ratio 3 % 03/16/18 05:43 Glucose 105 mg/dL (75-100) H 03/16/18 05:43 POC Glucose 115 (70-105) H 03/26/18 23:08 Calcium 9.0 mg/dL (8.4-10.2) 03/16/18 05:43 Magnesium 2.20 mg/dL (1.7-2.3) 03/10/18 17:24 Total Bilirubin 1.20 mg/dL (0.1-1.2) 03/10/18 17:27 AST 50 units/L (5-40) H 03/10/18 17:27 ALT 63 units/L (7-56) H 03/10/18 17:27 Alkaline Phosphatase 67 units/L (35-129) 03/10/18 17:27 Ammonia 42.0 umol/L (25-60) 03/16/18 15:17 Total Creatine Kinase 148 units/L (55-170) 03/10/18 17:44 CK-MB (CK-2) 1.6 ng/mL (0.0-4.0) 03/10/18 17:44 CK-MB (CK-2) Rel Index 1.0 (0-4) 03/10/18 17:44 Troponin T < 0.010 ng/mL (0.00-0.029) 03/10/18 17:43 Total Protein 7.2 g/dL (6.3-8.2) 03/10/18 17:27 Albumin 3.6 g/dL (3.9-5) L 03/10/18 17:27 Albumin/Globulin Ratio 1.0 % 03/10/18 17:27 Vitamin B12 870.0 pg/mL (211-911) 03/16/18 15:13 Folate 6.55 ng/mL (7.3-26.0) L 03/16/18 15:15 TSH 2.910 mlU/mL (0.270-4.200) 03/16/18 15:16 Free T4 0.92 ng/dL (0.76-1.46) 03/10/18 17:27 Urine Color [place] (Yellow) 03/10/18 17:59 Urine Turbidity Cloudy (Clear) 03/10/18 17:59 Urine pH 7.0 (5.0-7.0) 03/10/18 17:59 Ur Specific [place] 1.021 (1.003-1.030) 03/10/18 17:59 Urine Protein 30 mg/dl mg/dL (Negative) 03/10/18 17:59 Urine Glucose (UA) Neg mg/dL (Negative) 03/10/18 17:59 Urine Ketones Neg mg/dL (Negative) 03/10/18 17:59 Urine Blood Neg (Negative) 03/10/18 17:59 Urine Nitrite Neg (Negative) 03/10/18 17:59 Urine Bilirubin Neg (Negative) 03/10/18 17:59 Urine Urobilinogen 4.0 mg/dL (<2.0) 03/10/18 17:59 Ur Leukocyte Esterase Lg (Negative) 03/10/18 17:59 Urine WBC (Auto) 92.0 /HPF (0.0-6.0) H 03/10/18 17:59 Urine RBC (Auto) 6.0 /HPF (0.0-6.0) 03/10/18 17:59 U Epithel Cells (Auto) < 1.0 /HPF (0-13.0) 03/10/18 17:59 Urine Bacteria (Auto) 3+ /HPF (Negative) 03/10/18 17:59 Ur Transition Epith Cell 2 /HPF 03/10/18 17:59 Urine Mucus 1+ /HPF 03/10/18 17:59 Salicylates < 0.3 mg/dL (2.8-20.0) L 03/10/18 17:27 Urine Opiates Screen Presumptive negative 03/10/18 17:59 Urine Methadone Screen Presumptive negative 03/10/18 17:59 Acetaminophen < 5.0 ug/mL (10.0-30.0) L 03/10/18 17:27 Ur Barbiturates Screen Presumptive negative 03/10/18 17:59 Ur Phencyclidine Scrn Presumptive negative 03/10/18 17:59 Ur Amphetamines Screen Presumptive negative 03/10/18 17:59 U Benzodiazepines Scrn Presumptive negative 03/10/18 17:59 Urine Cocaine Screen Presumptive negative 03/10/18 17:59 U Marijuana (THC) Screen Presumptive negative 03/10/18 17:59 Drugs of Abuse Note Disclamer 03/10/18 17:59 Plasma/Serum Alcohol < 0.01 % (0-0.07) 03/10/18 17:27
[2018-03-28] MEDS: HEPARIN SUB-Q SCH ×2 (10:17→21:54)
[2018-03-28] MEDS ORDERED: NACL 0.9% 500 ML ONE (19:44)
--- NOTE | 2018-03-29 10:51 | Progress Note ---
Assessment and Plan Assessment and plan: Catatonia - Improved. Mental health consulted, and signed off Metabolic encephalopathy - Supportive care - EEG showed moderate diffuse encephalopathy - Showed some improvement - CT normal finding, MRI showed encephalopathy UTI - Treated with IV antibiotics and resolved Protein calorie malnutrition - We will need to resume Dobbhoff tube feeding Speech reassessed swallowing and No evidence of aspiration was noted. Patient will need an alternative method of nutrition as he will not sustain enough to maintain adequate nutritional support. Suspected femoral fracture -Evaluated by orthopedics, reviewed his imaging and showed no fracture -Per families request x-ray of the hip and femur was done and showed no fracture DVT prophylaxis Disposition - Patient needs placement, Dr. Merchant discussed the management plan in detail with his families and declined to get PEG tube. Discharge Planning issues: families declined PEG tube, uninsured. History Interval history: 57-year-old -[place] male came from mental health facility for altered mental status Catatonia, Psychiatry r/o catatonia, said the side effect of his pysch medications. Patient pulled out Dobbhoff tube yesterday No new issues overnight. Hospitalist Physical - Constitutional Vitals: Temp Pulse Resp BP Pulse Ox 97.8 F 86 20 115/76 99 03/29/18 06:26 03/29/18 06:26 03/29/18 06:26 03/29/18 06:26 03/29/18 06:26 General appearance: Present: no acute distress, other (catatonic) - EENT Eyes: Present: PERRL, EOM intact ENT: hearing intact, clear oral mucosa, dentition normal - Neck Neck: Present: supple, normal ROM - Respiratory Respiratory effort: normal Respiratory: bilateral: CTA - Cardiovascular Rhythm: regular Heart Sounds: Present: S1 & S2. Absent: gallop, rub - Extremities Extremities: no ischemia, No edema, Full ROM - Abdominal General gastrointestinal: soft, non-tender, non-distended, normal bowel sounds - Integumentary Integumentary: Present: clear, warm, dry - Neurologic Neurologic: CNII-XII intact, moves all extremities Results - Labs CBC & Chem 7: 03/16/18 05:43 03/16/18 05:43 Labs: Laboratory Last Values WBC 5.9 K/mm3 (4.5-11.0) 03/16/18 05:43 RBC 4.40 M/mm3 (3.65-5.03) 03/16/18 05:43 Hgb 12.4 gm/dl (11.8-15.2) 03/16/18 05:43 Hct 35.1 % (35.5-45.6) L 03/16/18 05:43 MCV 80 fl (84-94) L 03/16/18 05:43 MCH 28 pg (28-32) 03/16/18 05:43 MCHC 35 % (32-34) H 03/16/18 05:43 RDW 14.5 % (13.2-15.2) 03/16/18 05:43 Plt Count 197 K/mm3 (140-440) 03/16/18 05:43 Lymph % (Auto) 15.1 % (13.4-35.0) 03/16/18 05:43 [place] % (Auto) 8.1 % (0.0-7.3) H 03/16/18 05:43 Eos % (Auto) 2.2 % (0.0-4.3) 03/16/18 05:43 Baso % (Auto) 0.4 % (0.0-1.8) 03/16/18 05:43 Lymph # 0.9 K/mm3 (1.2-5.4) L 03/16/18 05:43 [place] # 0.5 K/mm3 (0.0-0.8) 03/16/18 05:43 Eos # 0.1 K/mm3 (0.0-0.4) 03/16/18 05:43 Baso # 0.0 K/mm3 (0.0-0.1) 03/16/18 05:43 Total Counted Cancelled 03/10/18 17:27 Seg Neutrophils % 74.2 % (40.0-70.0) H 03/16/18 05:43 Seg Neuts % (Manual) Cancelled 03/10/18 17:27 Band Neutrophils % Cancelled 03/10/18 17:27 Lymphocytes % (Manual) Cancelled 03/10/18 17:27 Reactive Lymphs % (Man) Cancelled 03/10/18 17:27 Monocytes % (Manual) Cancelled 03/10/18 17:27 Eosinophils % (Manual) Cancelled 03/10/18 17:27 Basophils % (Manual) Cancelled 03/10/18 17:27 Metamyelocytes % Cancelled 03/10/18 17:27 Myelocytes % Cancelled 03/10/18 17:27 Promyelocytes % Cancelled 03/10/18 17:27 Blast Cells % Cancelled 03/10/18 17:27 Nucleated RBC % Cancelled 03/10/18 17:27 Seg Neutrophils # 4.4 K/mm3 (1.8-7.7) 03/16/18 05:43 Seg Neutrophils # Man Cancelled 03/10/18 17:27 Band Neutrophils # Cancelled 03/10/18 17:27 Lymphocytes # (Manual) Cancelled 03/10/18 17:27 Abs React Lymphs (Man) Cancelled 03/10/18 17:27 Monocytes # (Manual) Cancelled 03/10/18 17:27 Eosinophils # (Manual) Cancelled 03/10/18 17:27 Basophils # (Manual) Cancelled 03/10/18 17:27 Metamyelocytes # Cancelled 03/10/18 17:27 Myelocytes # Cancelled 03/10/18 17:27 Promyelocytes # Cancelled 03/10/18 17:27 Blast Cells # Cancelled 03/10/18 17:27 WBC Morphology Cancelled 03/10/18 17:27 Hypersegmented Neuts Cancelled 03/10/18 17:27 Hyposegmented Neuts Cancelled 03/10/18 17:27 Hypogranular Neuts Cancelled 03/10/18 17:27 Hypersegmented Polys Cancelled 03/10/18 17:27 Smudge Cells Cancelled 03/10/18 17:27 Toxic Granulation Cancelled 03/10/18 17:27 Toxic Vacuolation Cancelled 03/10/18 17:27 Dohle Bodies Cancelled 03/10/18 17:27 Pelger-Huet Anomaly Cancelled 03/10/18 17:27 Alvin Rods Cancelled 03/10/18 17:27 Platelet Estimate Cancelled 03/10/18 17:27 Clumped Platelets Cancelled 03/10/18 17:27 Plt Clumps, EDTA Cancelled 03/10/18 17:27 Large Platelets Cancelled 03/10/18 17:27 Giant Platelets Cancelled 03/10/18 17:27 Platelet Satelliting Cancelled 03/10/18 17:27 Plt Morphology Comment Cancelled 03/10/18 17:27 RBC Morphology Cancelled 03/10/18 17:27 Dimorphic RBCs Cancelled 03/10/18 17:27 Polychromasia Cancelled 03/10/18 17:27 Hypochromasia Cancelled 03/10/18 17:27 Poikilocytosis Cancelled 03/10/18 17:27 Basophilic Stippling Cancelled 03/10/18 17:27 Anisocytosis Cancelled 03/10/18 17:27 Microcytosis Cancelled 03/10/18 17:27 Macrocytosis Cancelled 03/10/18 17:27 Spherocytes Cancelled 03/10/18 17:27 Pappenheimer Bodies Cancelled 03/10/18 17:27 Sickle Cells Cancelled 03/10/18 17:27 Target Cells Cancelled 03/10/18 17:27 Tear Drop Cells Cancelled 03/10/18 17:27 Ovalocytes Cancelled 03/10/18 17:27 Stomatocytes Cancelled 03/10/18 17:27 Helmet Cells Cancelled 03/10/18 17:27 [place] Bodies Cancelled 03/10/18 17:27 [place] Rings Cancelled 03/10/18 17:27 [place] Cells Cancelled 03/10/18 17:27 Bite Cells Cancelled 03/10/18 17:27 Crenated Cell Cancelled 03/10/18 17:27 Elliptocytes Cancelled 03/10/18 17:27 Acanthocytes (Spur) Cancelled 03/10/18 17:27 Rouleaux Cancelled 03/10/18 17:27 Hemoglobin C Crystals Cancelled 03/10/18 17:27 Schistocytes Cancelled 03/10/18 17:27 Malaria parasites Cancelled 03/10/18 17:27 Darrius Bodies Cancelled 03/10/18 17:27 Hem Pathologist Commnt Cancelled 03/10/18 17:27 Sodium 135 mmol/L (137-145) L 03/16/18 05:43 Potassium 3.7 mmol/L (3.6-5.0) 03/16/18 05:43 Chloride 99.9 mmol/L (98-107) 03/16/18 05:43 Carbon Dioxide 24 mmol/L (22-30) 03/16/18 05:43 Anion Gap 15 mmol/L 03/16/18 05:43 BUN 2 mg/dL (9-20) L 03/16/18 05:43 Creatinine 0.6 mg/dL (0.8-1.5) L 03/16/18 05:43 Estimated GFR > 60 ml/min 03/16/18 05:43 BUN/Creatinine Ratio 3 % 03/16/18 05:43 Glucose 105 mg/dL (75-100) H 03/16/18 05:43 POC Glucose 115 (70-105) H 03/26/18 23:08 Calcium 9.0 mg/dL (8.4-10.2) 03/16/18 05:43 Magnesium 2.20 mg/dL (1.7-2.3) 03/10/18 17:24 Total Bilirubin 1.20 mg/dL (0.1-1.2) 03/10/18 17:27 AST 50 units/L (5-40) H 03/10/18 17:27 ALT 63 units/L (7-56) H 03/10/18 17:27 Alkaline Phosphatase 67 units/L (35-129) 03/10/18 17:27 Ammonia 42.0 umol/L (25-60) 03/16/18 15:17 Total Creatine Kinase 148 units/L (55-170) 03/10/18 17:44 CK-MB (CK-2) 1.6 ng/mL (0.0-4.0) 03/10/18 17:44 CK-MB (CK-2) Rel Index 1.0 (0-4) 03/10/18 17:44 Troponin T < 0.010 ng/mL (0.00-0.029) 03/10/18 17:43 Total Protein 7.2 g/dL (6.3-8.2) 03/10/18 17:27 Albumin 3.6 g/dL (3.9-5) L 03/10/18 17:27 Albumin/Globulin Ratio 1.0 % 03/10/18 17:27 Vitamin B12 870.0 pg/mL (211-911) 03/16/18 15:13 Folate 6.55 ng/mL (7.3-26.0) L 03/16/18 15:15 TSH 2.910 mlU/mL (0.270-4.200) 08/25/18 15:16 Free T4 0.92 ng/dL (0.76-1.46) 03/10/18 17:27 Urine Color [place] (Yellow) 03/10/18 17:59 Urine Turbidity Cloudy (Clear) 03/10/18 17:59 Urine pH 7.0 (5.0-7.0) 03/10/18 17:59 Ur Specific [place] 1.021 (1.003-1.030) 03/10/18 17:59 Urine Protein 30 mg/dl mg/dL (Negative) 03/10/18 17:59 Urine Glucose (UA) Neg mg/dL (Negative) 03/10/18 17:59 Urine Ketones Neg mg/dL (Negative) 03/10/18 17:59 Urine Blood Neg (Negative) 03/10/18 17:59 Urine Nitrite Neg (Negative) 03/10/18 17:59 Urine Bilirubin Neg (Negative) 03/10/18 17:59 Urine Urobilinogen 4.0 mg/dL (<2.0) 03/10/18 17:59 Ur Leukocyte Esterase Lg (Negative) 03/10/18 17:59 Urine WBC (Auto) 92.0 /HPF (0.0-6.0) H 03/10/18 17:59 Urine RBC (Auto) 6.0 /HPF (0.0-6.0) 03/10/18 17:59 U Epithel Cells (Auto) < 1.0 /HPF (0-13.0) 03/10/18 17:59 Urine Bacteria (Auto) 3+ /HPF (Negative) 03/10/18 17:59 Ur Transition Epith Cell 2 /HPF 03/10/18 17:59 Urine Mucus 1+ /HPF 03/10/18 17:59 Salicylates < 0.3 mg/dL (2.8-20.0) L 03/10/18 17:27 Urine Opiates Screen Presumptive negative 03/10/18 17:59 Urine Methadone Screen Presumptive negative 03/10/18 17:59 Acetaminophen < 5.0 ug/mL (10.0-30.0) L 03/10/18 17:27 Ur Barbiturates Screen Presumptive negative 03/10/18 17:59 Ur Phencyclidine Scrn Presumptive negative 03/10/18 17:59 Ur Amphetamines Screen Presumptive negative 03/10/18 17:59 U Benzodiazepines Scrn Presumptive negative 03/10/18 17:59 Urine Cocaine Screen Presumptive negative 03/10/18 17:59 U Marijuana (THC) Screen Presumptive negative 03/10/18 17:59 Drugs of Abuse Note Disclamer 03/10/18 17:59 Plasma/Serum Alcohol < 0.01 % (0-0.07) 03/10/18 17:27
[2018-03-29] MEDS: HEPARIN SUB-Q SCH ×2 (14:36→21:51)
[2018-03-29] MEDS ORDERED: SODIUM BICARBONATE FEEDTUBE PRN (17:00)
[2018-03-29] MEDS ORDERED: PANCREAZE DR 10,500 UNIT FEEDTUBE PRN (17:00)
[2018-03-29] MEDS ORDERED: SIMPLE SYRUP FEEDTUBE PRN ×2 (17:00)
--- NOTE | 2018-03-29 18:48 | XRay Report ---
FINAL REPORT EXAM: XR ABDOMEN 1V AP HISTORY: check dubhoff placement TECHNIQUE: Supine abdomen for tube placement PRIORS: Comparison is dated March 25, 2018 FINDINGS: There is Dobhoff tube present. The distal tip now overlies the fundus of the stomach suggest advancement. Air is seen in scattered nondistended small bowel loops. There is a moderate amount of stool and gas within the colon. No signs for free air. IMPRESSION: Dobhoff tube with tip at the fundus of the stomach. Suggest advancement Nonobstructive nonspecific bowel gas pattern
--- NOTE | 2018-03-29 23:27 | XRay Report ---
FINAL REPORT EXAM: XR ABDOMEN 1V AP HISTORY: VERIFY PLACEMENT TO START TUBE FEEDING TECHNIQUE: AP limited for tube placement PRIORS: None. FINDINGS: There is feeding tube present. The distal end is looped within the fundus of the stomach tip approximately mid body of the stomach. There is moderate amount of stool throughout colon. No dilated small bowel loops are identified. No signs free air. IMPRESSION: Tip of the feeding tube at the fundus/proximal body of the stomach. Consider advancement
[2018-03-30] MEDS: D5/0.45NS 1,000 ML IV SCH ×3 (01:08→22:38)
--- NOTE | 2018-03-30 09:38 | XRay Report ---
FINAL REPORT EXAM: XR ABDOMEN 1V AP HISTORY: VERIFY PLACEMENT TO START TUBE FEEDING. TECHNIQUE: Single view of the abdomen. PRIORS: Abdomen x-ray March 29, 2018. FINDINGS: Bowel gas appearance is nonspecific and non-distended. There is no pneumoperitoneum. There is no air fluid level. There is no obstructive pattern. Mild stool is present. There are no suspicious calcifications overlying the renal shadows. Enteric tube is redundant within the stomach. Tip is near the fundus. IMPRESSION: Nonspecific nonobstructive bowel gas pattern. Enteric tube tip is near the fundus of the stomach. Repositioning recommended.
[2018-03-30] MEDS: HEPARIN SUB-Q SCH ×2 (11:01→22:40)
[2018-03-31] MEDS: D5/0.45NS 1,000 ML IV SCH ×2 (09:43→19:27)
[2018-03-31] MEDS: HEPARIN SUB-Q SCH ×2 (09:44→22:52)
[2018-03-31] MEDS: ATIVAN IV PRN (14:43)
--- NOTE | 2018-03-31 16:16 | Progress Note ---
Assessment and Plan - Patient Problems (1) Metabolic encephalopathy Current Visit: Yes Status: Acute Plan to address problem: Resolving. She is much more alert and talkative. (2) Catatonic state Current Visit: Yes Status: Acute Plan to address problem: Was likely secondary to schizophrenia it is improving. Patient would neck bent to the right but has questions appropriately. Hospital course unremarkable today. Currently awaiting placement. (3) Dehydration Current Visit: Yes Status: Acute Plan to address problem: Resolving. (4) Fracture of lesser trochanter of femur Current Visit: Yes Status: Acute Plan to address problem: At present awaiting placement. (5) Schizophrenia Current Visit: Yes Status: Acute (6) UTI (urinary tract infection) Current Visit: Yes Status: Acute Qualifiers: Encounter type: initial encounter Plan to address problem: Resolved with antibiotics. (7) Malnutrition Current Visit: Yes Status: Acute Plan to address problem: Patient now appears to be eating better no Dobbhoff tube required. May not need PEG placement after all. Subjective Date of service: 03/31/18 Principal diagnosis: encephalopathy Interval history: Patient increased conversation today. Improving catatonia. Patient with neck bit to the right but answers questions appropriately. Awaiting placement. Objective - Constitutional Vitals: Vital Signs - 12hr 03/31/18 03/31/18 05:51 12:07 Temperature 97.8 F 98.1 F Pulse Rate 78 Respiratory 18 16 Rate Blood Pressure 115/70 102/68 O2 Sat by Pulse 98 Oximetry General appearance: Present: no acute distress, well-nourished, other - EENT Eyes: PERRL, EOM intact ENT: hearing intact, clear oral mucosa, other (patient holds his neck to the right unknown reason. Pain.) Ears: bilateral: normal - Neck Neck: supple, normal ROM - Respiratory Respiratory effort: normal Respiratory: bilateral: CTA - Breasts Breasts: normal - Cardiovascular Rhythm: regular Heart Sounds: Present: S1 & S2. Absent: gallop, rub Extremities: pulses intact, No edema, normal color, Full ROM - Gastrointestinal General gastrointestinal: Present: soft, non-tender, non-distended, normal bowel sounds - Genitourinary Male genitourinary: normal - Integumentary Integumentary: clear, warm, dry - Musculoskeletal Musculoskeletal: 1, strength equal bilaterally - Neurologic Neurologic: moves all extremities - Psychiatric Psychiatric: memory intact, appropriate mood/affect, intact judgment & insight - Labs CBC & Chem 7: 03/16/18 05:43 03/16/18 05:43
[2018-04-01] MEDS: D5/0.45NS 1,000 ML IV SCH ×2 (04:39→16:28)
[2018-04-01] MEDS: HEPARIN SUB-Q SCH ×2 (09:52→22:30)
--- NOTE | 2018-04-01 12:51 | Progress Note ---
Assessment and Plan - Patient Problems (1) Metabolic encephalopathy Current Visit: Yes Status: Acute Plan to address problem: Resolving. She is much more alert and talkative. (2) Catatonic state Current Visit: Yes Status: Acute Plan to address problem: Was likely secondary to schizophrenia it is improving. Patient would neck bent to the right but has questions appropriately. Hospital course unremarkable today. Currently awaiting placement. No longer in a catatonic state. (3) Dehydration Current Visit: Yes Status: Acute Plan to address problem: Resolving. (4) Fracture of lesser trochanter of femur Current Visit: Yes Status: Acute Plan to address problem: At present awaiting placement. (5) Schizophrenia Current Visit: Yes Status: Acute (6) UTI (urinary tract infection) Current Visit: Yes Status: Acute Qualifiers: Encounter type: initial encounter Plan to address problem: Resolved with antibiotics. (7) Malnutrition Current Visit: Yes Status: Acute Plan to address problem: Patient now appears to be eating better no Dobbhoff tube required. May not need PEG placement after all. History Interval history: Patient increased conversation today. Awaiting placement. Hospitalist Physical - Constitutional Vitals: Temp Pulse Resp BP Pulse Ox 98.7 F 76 20 102/65 97 04/01/18 11:59 04/01/18 11:59 04/01/18 11:59 04/01/18 11:59 04/01/18 11:59 General appearance: Present: no acute distress, well-nourished, other - EENT Eyes: Present: PERRL, EOM intact ENT: hearing intact, clear oral mucosa, dentition normal - Neck Neck: Present: supple, normal ROM. Absent: enlarged thyroid, masses or JVD, cervical LAD - Cardiovascular Heart Sounds: Present: S1 & S2, gallop. Absent: systolic murmur, diastolic murmur - Extremities Extremities: no ischemia, pulses intact, pulses symmetrical, No edema, normal temperature, normal color Peripheral Pulses: within normal limits - Abdominal General gastrointestinal: soft, non-tender, non-distended - Integumentary Integumentary: Present: clear, warm, dry. Absent: rash - Neurologic Neurologic: CNII-XII intact, moves all extremities, other (poor cognition.) Results - Labs CBC & Chem 7: 03/16/18 05:43 03/16/18 05:43 Labs: Laboratory Last Values WBC 5.9 K/mm3 (4.5-11.0) 03/16/18 05:43 RBC 4.40 M/mm3 (3.65-5.03) 03/16/18 05:43 Hgb 12.4 gm/dl (11.8-15.2) 03/16/18 05:43 Hct 35.1 % (35.5-45.6) L 03/16/18 05:43 MCV 80 fl (84-94) L 03/16/18 05:43 MCH 28 pg (28-32) 03/16/18 05:43 MCHC 35 % (32-34) H 03/16/18 05:43 RDW 14.5 % (13.2-15.2) 03/16/18 05:43 Plt Count 197 K/mm3 (140-440) 03/16/18 05:43 Lymph % (Auto) 15.1 % (13.4-35.0) 03/16/18 05:43 [place] % (Auto) 8.1 % (0.0-7.3) H 03/16/18 05:43 Eos % (Auto) 2.2 % (0.0-4.3) 03/16/18 05:43 Baso % (Auto) 0.4 % (0.0-1.8) 03/16/18 05:43 Lymph # 0.9 K/mm3 (1.2-5.4) L 03/16/18 05:43 [place] # 0.5 K/mm3 (0.0-0.8) 03/16/18 05:43 Eos # 0.1 K/mm3 (0.0-0.4) 03/16/18 05:43 Baso # 0.0 K/mm3 (0.0-0.1) 03/16/18 05:43 Total Counted Cancelled 03/10/18 17:27 Seg Neutrophils % 74.2 % (40.0-70.0) H 03/16/18 05:43 Seg Neuts % (Manual) Cancelled 03/10/18 17:27 Band Neutrophils % Cancelled 03/10/18 17:27 Lymphocytes % (Manual) Cancelled 03/10/18 17:27 Reactive Lymphs % (Man) Cancelled 03/10/18 17:27 Monocytes % (Manual) Cancelled 03/10/18 17:27 Eosinophils % (Manual) Cancelled 03/10/18 17:27 Basophils % (Manual) Cancelled 03/10/18 17:27 Metamyelocytes % Cancelled 03/10/18 17:27 Myelocytes % Cancelled 03/10/18 17:27 Promyelocytes % Cancelled 03/10/18 17:27 Blast Cells % Cancelled 03/10/18 17:27 Nucleated RBC % Cancelled 03/10/18 17:27 Seg Neutrophils # 4.4 K/mm3 (1.8-7.7) 03/16/18 05:43 Seg Neutrophils # Man Cancelled 03/10/18 17:27 Band Neutrophils # Cancelled 03/10/18 17:27 Lymphocytes # (Manual) Cancelled 03/10/18 17:27 Abs React Lymphs (Man) Cancelled 03/10/18 17:27 Monocytes # (Manual) Cancelled 03/10/18 17:27 Eosinophils # (Manual) Cancelled 03/10/18 17:27 Basophils # (Manual) Cancelled 03/10/18 17:27 Metamyelocytes # Cancelled 03/10/18 17:27 Myelocytes # Cancelled 03/10/18 17:27 Promyelocytes # Cancelled 03/10/18 17:27 Blast Cells # Cancelled 03/10/18 17:27 WBC Morphology Cancelled 03/10/18 17:27 Hypersegmented Neuts Cancelled 03/10/18 17:27 Hyposegmented Neuts Cancelled 03/10/18 17:27 Hypogranular Neuts Cancelled 03/10/18 17:27 Hypersegmented Polys Cancelled 03/10/18 17:27 Smudge Cells Cancelled 03/10/18 17:27 Toxic Granulation Cancelled 03/10/18 17:27 Toxic Vacuolation Cancelled 03/10/18 17:27 Dohle Bodies Cancelled 03/10/18 17:27 Pelger-Huet Anomaly Cancelled 03/10/18 17:27 Alvin Rods Cancelled 03/10/18 17:27 Platelet Estimate Cancelled 03/10/18 17:27 Clumped Platelets Cancelled 03/10/18 17:27 Plt Clumps, EDTA Cancelled 03/10/18 17:27 Large Platelets Cancelled 03/10/18 17:27 Giant Platelets Cancelled 03/10/18 17:27 Platelet Satelliting Cancelled 03/10/18 17:27 Plt Morphology Comment Cancelled 03/10/18 17:27 RBC Morphology Cancelled 03/10/18 17:27 Dimorphic RBCs Cancelled 03/10/18 17:27 Polychromasia Cancelled 03/10/18 17:27 Hypochromasia Cancelled 03/10/18 17:27 Poikilocytosis Cancelled 03/10/18 17:27 Basophilic Stippling Cancelled 03/10/18 17:27 Anisocytosis Cancelled 03/10/18 17:27 Microcytosis Cancelled 03/10/18 17:27 Macrocytosis Cancelled 03/10/18 17:27 Spherocytes Cancelled 03/10/18 17:27 Pappenheimer Bodies Cancelled 03/10/18 17:27 Sickle Cells Cancelled 03/10/18 17:27 Target Cells Cancelled 03/10/18 17:27 Tear Drop Cells Cancelled 03/10/18 17:27 Ovalocytes Cancelled 03/10/18 17:27 Stomatocytes Cancelled 03/10/18 17:27 Helmet Cells Cancelled 03/10/18 17:27 [place]-[employer] Bodies Cancelled 03/10/18 17:27 [place] Rings Cancelled 03/10/18 17:27 [place] Cells Cancelled 03/10/18 17:27 Bite Cells Cancelled 03/10/18 17:27 Crenated Cell Cancelled 03/10/18 17:27 Elliptocytes Cancelled 03/10/18 17:27 Acanthocytes (Spur) Cancelled 03/10/18 17:27 Rouleaux Cancelled 03/10/18 17:27 Hemoglobin C Crystals Cancelled 03/10/18 17:27 Schistocytes Cancelled 03/10/18 17:27 Malaria parasites Cancelled 03/10/18 17:27 Darrius Bodies Cancelled 03/10/18 17:27 Hem Pathologist Commnt Cancelled 03/10/18 17:27 Sodium 135 mmol/L (137-145) L 03/16/18 05:43 Potassium 3.7 mmol/L (3.6-5.0) 03/16/18 05:43 Chloride 99.9 mmol/L (98-107) 03/16/18 05:43 Carbon Dioxide 24 mmol/L (22-30) 03/16/18 05:43 Anion Gap 15 mmol/L 03/16/18 05:43 BUN 2 mg/dL (9-20) L 03/16/18 05:43 Creatinine 0.6 mg/dL (0.8-1.5) L 03/16/18 05:43 Estimated GFR > 60 ml/min 03/16/18 05:43 BUN/Creatinine Ratio 3 % 03/16/18 05:43 Glucose 105 mg/dL (75-100) H 03/16/18 05:43 POC Glucose 115 (70-105) H 03/26/18 23:08 Calcium 9.0 mg/dL (8.4-10.2) 03/16/18 05:43 Magnesium 2.20 mg/dL (1.7-2.3) 03/10/18 17:24 Total Bilirubin 1.20 mg/dL (0.1-1.2) 03/10/18 17:27 AST 50 units/L (5-40) H 03/10/18 17:27 ALT 63 units/L (7-56) H 03/10/18 17:27 Alkaline Phosphatase 67 units/L (35-129) 03/10/18 17:27 Ammonia 42.0 umol/L (25-60) 03/16/18 15:17 Total Creatine Kinase 148 units/L (55-170) 03/10/18 17:44 CK-MB (CK-2) 1.6 ng/mL (0.0-4.0) 03/10/18 17:44 CK-MB (CK-2) Rel Index 1.0 (0-4) 03/10/18 17:44 Troponin T < 0.010 ng/mL (0.00-0.029) 03/10/18 17:43 Total Protein 7.2 g/dL (6.3-8.2) 03/10/18 17:27 Albumin 3.6 g/dL (3.9-5) L 03/10/18 17:27 Albumin/Globulin Ratio 1.0 % 03/10/18 17:27 Vitamin B12 870.0 pg/mL (211-911) 03/16/18 15:13 Folate 6.55 ng/mL (7.3-26.0) L 03/16/18 15:15 TSH 2.910 mlU/mL (0.270-4.200) 03/16/18 15:16 Free T4 0.92 ng/dL (0.76-1.46) 03/10/18 17:27 Urine Color [place] (Yellow) 03/10/18 17:59 Urine Turbidity Cloudy (Clear) 03/10/18 17:59 Urine pH 7.0 (5.0-7.0) 03/10/18 17:59 Ur Specific [place] 1.021 (1.003-1.030) 03/10/18 17:59 Urine Protein 30 mg/dl mg/dL (Negative) 03/10/18 17:59 Urine Glucose (UA) Neg mg/dL (Negative) 03/10/18 17:59 Urine Ketones Neg mg/dL (Negative) 03/10/18 17:59 Urine Blood Neg (Negative) 03/10/18 17:59 Urine Nitrite Neg (Negative) 03/10/18 17:59 Urine Bilirubin Neg (Negative) 03/10/18 17:59 Urine Urobilinogen 4.0 mg/dL (<2.0) 03/10/18 17:59 Ur Leukocyte Esterase Lg (Negative) 03/10/18 17:59 Urine WBC (Auto) 92.0 /HPF (0.0-6.0) H 03/10/18 17:59 Urine RBC (Auto) 6.0 /HPF (0.0-6.0) 03/10/18 17:59 U Epithel Cells (Auto) < 1.0 /HPF (0-13.0) 03/10/18 17:59 Urine Bacteria (Auto) 3+ /HPF (Negative) 03/10/18 17:59 Ur Transition Epith Cell 2 /HPF 03/10/18 17:59 Urine Mucus 1+ /HPF 03/10/18 17:59 Salicylates < 0.3 mg/dL (2.8-20.0) L 03/10/18 17:27 Urine Opiates Screen Presumptive negative 03/10/18 17:59 Urine Methadone Screen Presumptive negative 03/10/18 17:59 Acetaminophen < 5.0 ug/mL (10.0-30.0) L 03/10/18 17:27 Ur Barbiturates Screen Presumptive negative 08/19/18 17:59 Ur Phencyclidine Scrn Presumptive negative 03/10/18 17:59 Ur Amphetamines Screen Presumptive negative 03/10/18 17:59 U Benzodiazepines Scrn Presumptive negative 03/10/18 17:59 Urine Cocaine Screen Presumptive negative 03/10/18 17:59 U Marijuana (THC) Screen Presumptive negative 03/10/18 17:59 Drugs of Abuse Note Disclamer 03/10/18 17:59 Plasma/Serum Alcohol < 0.01 % (0-0.07) 03/10/18 17:27
[2018-04-02] MEDS: D5/0.45NS 1,000 ML IV SCH ×3 (01:10→21:27)
--- NOTE | 2018-04-02 08:25 | Progress Note ---
Assessment and Plan Assessment and plan: 57-year-old -Portuguese male came from mental health facility for altered mental status Catatonia, Psychiatry r/o catatonia, said the side effect of his pysch medications - mental health consulted, and signed off - Patient is catatonic Metabolic encephalopathy - Supportive care - EEG showed moderate diffuse encephalopathy - Showed some improvement - CT normal finding, MRI showed encephalopathy UTI - Treated with IV antibiotics and resolved Failure to eat - Speech evaluation done and not at risk of aspiration - Family refused PEG tube placement, patient may not achieve good nutrition with oral intake Suspected femoral fracture -Evaluated by orthopedics, reviewed his imaging and showed no fracture -Per families request x-ray of the hip and femur was done and showed no fracture Nutrition - Patient is to DVT prophylaxis Disposition - Patient is unfunded, but patient need SNF and will discuss case management History Interval history: Patient was seen and evaluated this morning, no nursing issues overnight Hospitalist Physical - Physical exam Narrative exam: Not in cardiopulmonary distress. The patient appeared well nourished and normally developed. Vital signs as documented. Head exam is unremarkable. No scleral icterus . Neck is without jugular venous distension, thyromegaly, or carotid bruits. Lungs are clear to auscultation. Cardiac exam reveals regular rate and Rhythm. First and second heart sounds normal. No murmurs, rubs or gallops. Abdominal exam reveals normal bowel sounds, no masses, no organomegaly and no aortic enlargement. Extremities are nonedematous and both femoral and pedal pulses are normal. 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: - Constitutional Vitals: Temp Pulse Resp BP Pulse Ox 98.3 F 69 18 114/72 99 04/02/18 05:49 04/02/18 05:49 04/02/18 05:49 04/02/18 05:49 04/02/18 05:49 General appearance: Present: no acute distress, well-nourished, other Results - Labs CBC & Chem 7: 03/16/18 05:43 03/16/18 05:43 Labs: Laboratory Last Values WBC 5.9 K/mm3 (4.5-11.0) 03/16/18 05:43 RBC 4.40 M/mm3 (3.65-5.03) 03/16/18 05:43 Hgb 12.4 gm/dl (11.8-15.2) 03/16/18 05:43 Hct 35.1 % (35.5-45.6) L 03/16/18 05:43 MCV 80 fl (84-94) L 03/16/18 05:43 MCH 28 pg (28-32) 03/16/18 05:43 MCHC 35 % (32-34) H 03/16/18 05:43 RDW 14.5 % (13.2-15.2) 03/16/18 05:43 Plt Count 197 K/mm3 (140-440) 03/16/18 05:43 Lymph % (Auto) 15.1 % (13.4-35.0) 03/16/18 05:43 [place] % (Auto) 8.1 % (0.0-7.3) H 03/16/18 05:43 Eos % (Auto) 2.2 % (0.0-4.3) 03/16/18 05:43 Baso % (Auto) 0.4 % (0.0-1.8) 03/16/18 05:43 Lymph # 0.9 K/mm3 (1.2-5.4) L 03/16/18 05:43 [place] # 0.5 K/mm3 (0.0-0.8) 03/16/18 05:43 Eos # 0.1 K/mm3 (0.0-0.4) 03/16/18 05:43 Baso # 0.0 K/mm3 (0.0-0.1) 03/16/18 05:43 Total Counted Cancelled 03/10/18 17:27 Seg Neutrophils % 74.2 % (40.0-70.0) H 03/16/18 05:43 Seg Neuts % (Manual) Cancelled 03/10/18 17:27 Band Neutrophils % Cancelled 03/10/18 17:27 Lymphocytes % (Manual) Cancelled 03/10/18 17:27 Reactive Lymphs % (Man) Cancelled 03/10/18 17:27 Monocytes % (Manual) Cancelled 03/10/18 17:27 Eosinophils % (Manual) Cancelled 03/10/18 17:27 Basophils % (Manual) Cancelled 03/10/18 17:27 Metamyelocytes % Cancelled 03/10/18 17:27 Myelocytes % Cancelled 03/10/18 17:27 Promyelocytes % Cancelled 03/10/18 17:27 Blast Cells % Cancelled 03/10/18 17:27 Nucleated RBC % Cancelled 03/10/18 17:27 Seg Neutrophils # 4.4 K/mm3 (1.8-7.7) 03/16/18 05:43 Seg Neutrophils # Man Cancelled 03/10/18 17:27 Band Neutrophils # Cancelled 03/10/18 17:27 Lymphocytes # (Manual) Cancelled 03/10/18 17:27 Abs React Lymphs (Man) Cancelled 03/10/18 17:27 Monocytes # (Manual) Cancelled 03/10/18 17:27 Eosinophils # (Manual) Cancelled 03/10/18 17:27 Basophils # (Manual) Cancelled 03/10/18 17:27 Metamyelocytes # Cancelled 03/10/18 17:27 Myelocytes # Cancelled 03/10/18 17:27 Promyelocytes # Cancelled 03/10/18 17:27 Blast Cells # Cancelled 03/10/18 17:27 WBC Morphology Cancelled 03/10/18 17:27 Hypersegmented Neuts Cancelled 03/10/18 17:27 Hyposegmented Neuts Cancelled 03/10/18 17:27 Hypogranular Neuts Cancelled 03/10/18 17:27 Hypersegmented Polys Cancelled 03/10/18 17:27 Smudge Cells Cancelled 03/10/18 17:27 Toxic Granulation Cancelled 03/10/18 17:27 Toxic Vacuolation Cancelled 03/10/18 17:27 Dohle Bodies Cancelled 03/10/18 17:27 Pelger-Huet Anomaly Cancelled 03/10/18 17:27 Alvin Rods Cancelled 03/10/18 17:27 Platelet Estimate Cancelled 03/10/18 17:27 Clumped Platelets Cancelled 03/10/18 17:27 Plt Clumps, EDTA Cancelled 03/10/18 17:27 Large Platelets Cancelled 03/10/18 17:27 Giant Platelets Cancelled 03/10/18 17:27 Platelet Satelliting Cancelled 03/10/18 17:27 Plt Morphology Comment Cancelled 03/10/18 17:27 RBC Morphology Cancelled 03/10/18 17:27 Dimorphic RBCs Cancelled 03/10/18 17:27 Polychromasia Cancelled 03/10/18 17:27 Hypochromasia Cancelled 03/10/18 17:27 Poikilocytosis Cancelled 03/10/18 17:27 Basophilic Stippling Cancelled 03/10/18 17:27 Anisocytosis Cancelled 03/10/18 17:27 Microcytosis Cancelled 03/10/18 17:27 Macrocytosis Cancelled 03/10/18 17:27 Spherocytes Cancelled 03/10/18 17:27 Pappenheimer Bodies Cancelled 03/10/18 17:27 Sickle Cells Cancelled 03/10/18 17:27 Target Cells Cancelled 03/10/18 17:27 Tear Drop Cells Cancelled 03/10/18 17:27 Ovalocytes Cancelled 03/10/18 17:27 Stomatocytes Cancelled 03/10/18 17:27 Helmet Cells Cancelled 03/10/18 17:27 [place] Bodies Cancelled 03/10/18 17:27 [place] Rings Cancelled 03/10/18 17:27 [place] Cells Cancelled 03/10/18 17:27 Bite Cells Cancelled 03/10/18 17:27 Crenated Cell Cancelled 03/10/18 17:27 Elliptocytes Cancelled 03/10/18 17:27 Acanthocytes (Spur) Cancelled 03/10/18 17:27 Rouleaux Cancelled 03/10/18 17:27 Hemoglobin C Crystals Cancelled 03/10/18 17:27 Schistocytes Cancelled 03/10/18 17:27 Malaria parasites Cancelled 03/10/18 17:27 Darrius Bodies Cancelled 03/10/18 17:27 Hem Pathologist Commnt Cancelled 03/10/18 17:27 Sodium 135 mmol/L (137-145) L 03/16/18 05:43 Potassium 3.7 mmol/L (3.6-5.0) 03/16/18 05:43 Chloride 99.9 mmol/L (98-107) 03/16/18 05:43 Carbon Dioxide 24 mmol/L (22-30) 03/16/18 05:43 Anion Gap 15 mmol/L 03/16/18 05:43 BUN 2 mg/dL (9-20) L 03/16/18 05:43 Creatinine 0.6 mg/dL (0.8-1.5) L 03/16/18 05:43 Estimated GFR > 60 ml/min 03/16/18 05:43 BUN/Creatinine Ratio 3 % 03/16/18 05:43 Glucose 105 mg/dL (75-100) H 03/16/18 05:43 POC Glucose 115 (70-105) H 03/26/18 23:08 Calcium 9.0 mg/dL (8.4-10.2) 03/16/18 05:43 Magnesium 2.20 mg/dL (1.7-2.3) 03/10/18 17:24 Total Bilirubin 1.20 mg/dL (0.1-1.2) 03/10/18 17:27 AST 50 units/L (5-40) H 03/10/18 17:27 ALT 63 units/L (7-56) H 03/10/18 17:27 Alkaline Phosphatase 67 units/L (35-129) 03/10/18 17:27 Ammonia 42.0 umol/L (25-60) 03/16/18 15:17 Total Creatine Kinase 148 units/L (55-170) 03/10/18 17:44 CK-MB (CK-2) 1.6 ng/mL (0.0-4.0) 03/10/18 17:44 CK-MB (CK-2) Rel Index 1.0 (0-4) 03/10/18 17:44 Troponin T < 0.010 ng/mL (0.00-0.029) 03/10/18 17:43 Total Protein 7.2 g/dL (6.3-8.2) 03/10/18 17:27 Albumin 3.6 g/dL (3.9-5) L 03/10/18 17:27 Albumin/Globulin Ratio 1.0 % 03/10/18 17:27 Vitamin B12 870.0 pg/mL (211-911) 03/16/18 15:13 Folate 6.55 ng/mL (7.3-26.0) L 03/16/18 15:15 TSH 2.910 mlU/mL (0.270-4.200) 03/16/18 15:16 Free T4 0.92 ng/dL (0.76-1.46) 03/10/18 17:27 Urine Color [place] (Yellow) 03/10/18 17:59 Urine Turbidity Cloudy (Clear) 03/10/18 17:59 Urine pH 7.0 (5.0-7.0) 03/10/18 17:59 Ur Specific [place] 1.021 (1.003-1.030) 03/10/18 17:59 Urine Protein 30 mg/dl mg/dL (Negative) 03/10/18 17:59 Urine Glucose (UA) Neg mg/dL (Negative) 03/10/18 17:59 Urine Ketones Neg mg/dL (Negative) 03/10/18 17:59 Urine Blood Neg (Negative) 03/10/18 17:59 Urine Nitrite Neg (Negative) 03/10/18 17:59 Urine Bilirubin Neg (Negative) 03/10/18 17:59 Urine Urobilinogen 4.0 mg/dL (<2.0) 03/10/18 17:59 Ur Leukocyte Esterase Lg (Negative) 03/10/18 17:59 Urine WBC (Auto) 92.0 /HPF (0.0-6.0) H 03/10/18 17:59 Urine RBC (Auto) 6.0 /HPF (0.0-6.0) 03/10/18 17:59 U Epithel Cells (Auto) < 1.0 /HPF (0-13.0) 03/10/18 17:59 Urine Bacteria (Auto) 3+ /HPF (Negative) 03/10/18 17:59 Ur Transition Epith Cell 2 /HPF 03/10/18 17:59 Urine Mucus 1+ /HPF 03/10/18 17:59 Salicylates < 0.3 mg/dL (2.8-20.0) L 03/10/18 17:27 Urine Opiates Screen Presumptive negative 03/10/18 17:59 Urine Methadone Screen Presumptive negative 03/10/18 17:59 Acetaminophen < 5.0 ug/mL (10.0-30.0) L 03/10/18 17:27 Ur Barbiturates Screen Presumptive negative 03/10/18 17:59 Ur Phencyclidine Scrn Presumptive negative 03/10/18 17:59 Ur Amphetamines Screen Presumptive negative 03/10/18 17:59 U Benzodiazepines Scrn Presumptive negative 03/10/18 17:59 Urine Cocaine Screen Presumptive negative 03/10/18 17:59 U Marijuana (THC) Screen Presumptive negative 03/10/18 17:59 Drugs of Abuse Note Disclamer 03/10/18 17:59 Plasma/Serum Alcohol < 0.01 % (0-0.07) 03/10/18 17:27
[2018-04-02] MEDS: HEPARIN SUB-Q SCH ×2 (09:14→21:28)
[2018-04-02] MEDS: ATIVAN IV PRN (10:33)
--- NOTE | 2018-04-03 08:21 | Progress Note ---
Assessment and Plan Assessment and plan: 57-year-old -[place]ian male came from mental health facility for altered mental status Catatonia, Psychiatry r/o catatonia, said the side effect of his pysch medications - mental health consulted, and signed off - Patient is catatonic Metabolic encephalopathy - Supportive care - EEG showed moderate diffuse encephalopathy - Showed some improvement - CT normal finding, MRI showed encephalopathy UTI - Treated with IV antibiotics and resolved Failure to eat - Speech evaluation done and not at risk of aspiration - Family refused PEG tube placement, patient may not achieve good nutrition with oral intake Suspected femoral fracture -Evaluated by orthopedics, reviewed his imaging and showed no fracture -Per families request x-ray of the hip and femur was done and showed no fracture Nutrition - Patient is to DVT prophylaxis Disposition - Patient is unfunded, but patient need SNF and will discuss case management - Patient is stable enough to discharge to SNF. History Interval history: Patient was seen and evaluated this morning, no nursing issues overnight Hospitalist Physical - Physical exam Narrative exam: Not in cardiopulmonary distress. The patient appeared well nourished and normally developed. Vital signs as documented. Head exam is unremarkable. No scleral icterus . Neck is without jugular venous distension, thyromegaly, or carotid bruits. Lungs are clear to auscultation. Cardiac exam reveals regular rate and Rhythm. First and second heart sounds normal. No murmurs, rubs or gallops. Abdominal exam reveals normal bowel sounds, no masses, no organomegaly and no aortic enlargement. Extremities are nonedematous and both femoral and pedal pulses are normal. 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 - Constitutional Vitals: Temp Pulse Resp BP Pulse Ox 97.9 F 68 20 164/88 95 04/02/18 17:39 04/02/18 17:39 04/02/18 17:39 04/02/18 17:39 04/02/18 17:39 General appearance: Present: no acute distress, well-nourished, other Results - Labs CBC & Chem 7: 03/16/18 05:43 03/16/18 05:43 Labs: Laboratory Last Values WBC 5.9 K/mm3 (4.5-11.0) 03/16/18 05:43 RBC 4.40 M/mm3 (3.65-5.03) 03/16/18 05:43 Hgb 12.4 gm/dl (11.8-15.2) 03/16/18 05:43 Hct 35.1 % (35.5-45.6) L 03/16/18 05:43 MCV 80 fl (84-94) L 03/16/18 05:43 MCH 28 pg (28-32) 03/16/18 05:43 MCHC 35 % (32-34) H 03/16/18 05:43 RDW 14.5 % (13.2-15.2) 03/16/18 05:43 Plt Count 197 K/mm3 (140-440) 03/16/18 05:43 Lymph % (Auto) 15.1 % (13.4-35.0) 03/16/18 05:43 [place] % (Auto) 8.1 % (0.0-7.3) H 03/16/18 05:43 Eos % (Auto) 2.2 % (0.0-4.3) 03/16/18 05:43 Baso % (Auto) 0.4 % (0.0-1.8) 03/16/18 05:43 Lymph # 0.9 K/mm3 (1.2-5.4) L 03/16/18 05:43 [place] # 0.5 K/mm3 (0.0-0.8) 03/16/18 05:43 Eos # 0.1 K/mm3 (0.0-0.4) 03/16/18 05:43 Baso # 0.0 K/mm3 (0.0-0.1) 03/16/18 05:43 Total Counted Cancelled 03/10/18 17:27 Seg Neutrophils % 74.2 % (40.0-70.0) H 03/16/18 05:43 Seg Neuts % (Manual) Cancelled 03/10/18 17:27 Band Neutrophils % Cancelled 03/10/18 17:27 Lymphocytes % (Manual) Cancelled 03/10/18 17:27 Reactive Lymphs % (Man) Cancelled 03/10/18 17:27 Monocytes % (Manual) Cancelled 03/10/18 17:27 Eosinophils % (Manual) Cancelled 03/10/18 17:27 Basophils % (Manual) Cancelled 03/10/18 17:27 Metamyelocytes % Cancelled 03/10/18 17:27 Myelocytes % Cancelled 03/10/18 17:27 Promyelocytes % Cancelled 03/10/18 17:27 Blast Cells % Cancelled 03/10/18 17:27 Nucleated RBC % Cancelled 03/10/18 17:27 Seg Neutrophils # 4.4 K/mm3 (1.8-7.7) 03/16/18 05:43 Seg Neutrophils # Man Cancelled 03/10/18 17:27 Band Neutrophils # Cancelled 03/10/18 17:27 Lymphocytes # (Manual) Cancelled 03/10/18 17:27 Abs React Lymphs (Man) Cancelled 03/10/18 17:27 Monocytes # (Manual) Cancelled 03/10/18 17:27 Eosinophils # (Manual) Cancelled 03/10/18 17:27 Basophils # (Manual) Cancelled 03/10/18 17:27 Metamyelocytes # Cancelled 03/10/18 17:27 Myelocytes # Cancelled 03/10/18 17:27 Promyelocytes # Cancelled 03/10/18 17:27 Blast Cells # Cancelled 03/10/18 17:27 WBC Morphology Cancelled 03/10/18 17:27 Hypersegmented Neuts Cancelled 03/10/18 17:27 Hyposegmented Neuts Cancelled 03/10/18 17:27 Hypogranular Neuts Cancelled 03/10/18 17:27 Hypersegmented Polys Cancelled 03/10/18 17:27 Smudge Cells Cancelled 03/10/18 17:27 Toxic Granulation Cancelled 03/10/18 17:27 Toxic Vacuolation Cancelled 03/10/18 17:27 Dohle Bodies Cancelled 03/10/18 17:27 Pelger-Huet Anomaly Cancelled 03/10/18 17:27 Alvin Rods Cancelled 03/10/18 17:27 Platelet Estimate Cancelled 03/10/18 17:27 Clumped Platelets Cancelled 03/10/18 17:27 Plt Clumps, EDTA Cancelled 03/10/18 17:27 Large Platelets Cancelled 03/10/18 17:27 Giant Platelets Cancelled 03/10/18 17:27 Platelet Satelliting Cancelled 03/10/18 17:27 Plt Morphology Comment Cancelled 03/10/18 17:27 RBC Morphology Cancelled 03/10/18 17:27 Dimorphic RBCs Cancelled 03/10/18 17:27 Polychromasia Cancelled 03/10/18 17:27 Hypochromasia Cancelled 03/10/18 17:27 Poikilocytosis Cancelled 03/10/18 17:27 Basophilic Stippling Cancelled 03/10/18 17:27 Anisocytosis Cancelled 03/10/18 17:27 Microcytosis Cancelled 03/10/18 17:27 Macrocytosis Cancelled 03/10/18 17:27 Spherocytes Cancelled 03/10/18 17:27 Pappenheimer Bodies Cancelled 03/10/18 17:27 Sickle Cells Cancelled 03/10/18 17:27 Target Cells Cancelled 03/10/18 17:27 Tear Drop Cells Cancelled 03/10/18 17:27 Ovalocytes Cancelled 03/10/18 17:27 Stomatocytes Cancelled 03/10/18 17:27 Helmet Cells Cancelled 03/10/18 17:27 Hernandez-[place] Bodies Cancelled 03/10/18 17:27 [place] Rings Cancelled 03/10/18 17:27 [place] Cells Cancelled 03/10/18 17:27 Bite Cells Cancelled 03/10/18 17:27 Crenated Cell Cancelled 03/10/18 17:27 Elliptocytes Cancelled 03/10/18 17:27 Acanthocytes (Spur) Cancelled 03/10/18 17:27 Rouleaux Cancelled 03/10/18 17:27 Hemoglobin C Crystals Cancelled 03/10/18 17:27 Schistocytes Cancelled 03/10/18 17:27 Malaria parasites Cancelled 03/10/18 17:27 Darrius Bodies Cancelled 03/10/18 17:27 Hem Pathologist Commnt Cancelled 03/10/18 17:27 Sodium 135 mmol/L (137-145) L 03/16/18 05:43 Potassium 3.7 mmol/L (3.6-5.0) 03/16/18 05:43 Chloride 99.9 mmol/L (98-107) 03/16/18 05:43 Carbon Dioxide 24 mmol/L (22-30) 03/16/18 05:43 Anion Gap 15 mmol/L 03/16/18 05:43 BUN 2 mg/dL (9-20) L 03/16/18 05:43 Creatinine 0.6 mg/dL (0.8-1.5) L 03/16/18 05:43 Estimated GFR > 60 ml/min 03/16/18 05:43 BUN/Creatinine Ratio 3 % 03/16/18 05:43 Glucose 105 mg/dL (75-100) H 03/16/18 05:43 POC Glucose 115 (70-105) H 03/26/18 23:08 Calcium 9.0 mg/dL (8.4-10.2) 03/16/18 05:43 Magnesium 2.20 mg/dL (1.7-2.3) 03/10/18 17:24 Total Bilirubin 1.20 mg/dL (0.1-1.2) 03/10/18 17:27 AST 50 units/L (5-40) H 03/10/18 17:27 ALT 63 units/L (7-56) H 03/10/18 17:27 Alkaline Phosphatase 67 units/L (35-129) 03/10/18 17:27 Ammonia 42.0 umol/L (25-60) 03/16/18 15:17 Total Creatine Kinase 148 units/L (55-170) 03/10/18 17:44 CK-MB (CK-2) 1.6 ng/mL (0.0-4.0) 03/10/18 17:44 CK-MB (CK-2) Rel Index 1.0 (0-4) 03/10/18 17:44 Troponin T < 0.010 ng/mL (0.00-0.029) 03/10/18 17:43 Total Protein 7.2 g/dL (6.3-8.2) 03/10/18 17:27 Albumin 3.6 g/dL (3.9-5) L 03/10/18 17:27 Albumin/Globulin Ratio 1.0 % 03/10/18 17:27 Vitamin B12 870.0 pg/mL (211-911) 03/16/18 15:13 Folate 6.55 ng/mL (7.3-26.0) L 03/16/18 15:15 TSH 2.910 mlU/mL (0.270-4.200) 03/16/18 15:16 Free T4 0.92 ng/dL (0.76-1.46) 03/10/18 17:27 Urine Color [place] (Yellow) 03/10/18 17:59 Urine Turbidity Cloudy (Clear) 03/10/18 17:59 Urine pH 7.0 (5.0-7.0) 03/10/18 17:59 Ur Specific [place] 1.021 (1.003-1.030) 03/10/18 17:59 Urine Protein 30 mg/dl mg/dL (Negative) 03/10/18 17:59 Urine Glucose (UA) Neg mg/dL (Negative) 03/10/18 17:59 Urine Ketones Neg mg/dL (Negative) 03/10/18 17:59 Urine Blood Neg (Negative) 03/10/18 17:59 Urine Nitrite Neg (Negative) 03/10/18 17:59 Urine Bilirubin Neg (Negative) 03/10/18 17:59 Urine Urobilinogen 4.0 mg/dL (<2.0) 03/10/18 17:59 Ur Leukocyte Esterase Lg (Negative) 03/10/18 17:59 Urine WBC (Auto) 92.0 /HPF (0.0-6.0) H 03/10/18 17:59 Urine RBC (Auto) 6.0 /HPF (0.0-6.0) 03/10/18 17:59 U Epithel Cells (Auto) < 1.0 /HPF (0-13.0) 03/10/18 17:59 Urine Bacteria (Auto) 3+ /HPF (Negative) 03/10/18 17:59 Ur Transition Epith Cell 2 /HPF 03/10/18 17:59 Urine Mucus 1+ /HPF 03/10/18 17:59 Salicylates < 0.3 mg/dL (2.8-20.0) L 03/10/18 17:27 Urine Opiates Screen Presumptive negative 03/10/18 17:59 Urine Methadone Screen Presumptive negative 03/10/18 17:59 Acetaminophen < 5.0 ug/mL (10.0-30.0) L 03/10/18 17:27 Ur Barbiturates Screen Presumptive negative 03/10/18 17:59 Ur Phencyclidine Scrn Presumptive negative 03/10/18 17:59 Ur Amphetamines Screen Presumptive negative 03/10/18 17:59 U Benzodiazepines Scrn Presumptive negative 03/10/18 17:59 Urine Cocaine Screen Presumptive negative 03/10/18 17:59 U Marijuana (THC) Screen Presumptive negative 03/10/18 17:59 Drugs of Abuse Note Disclamer 03/10/18 17:59 Plasma/Serum Alcohol < 0.01 % (0-0.07) 03/10/18 17:27
[2018-04-03] MEDS: ATIVAN IV PRN (11:34)
[2018-04-03] MEDS: HEPARIN SUB-Q SCH ×2 (11:34→21:27)
[2018-04-04] MEDS: D5/0.45NS 1,000 ML IV SCH ×2 (02:54→22:53)
[2018-04-04] MEDS: HEPARIN SUB-Q SCH ×2 (10:38→22:49)
--- NOTE | 2018-04-04 12:15 | Progress Note ---
Assessment and Plan Assessment and plan: 57-year-old -[place] male came from mental health facility for altered mental status Catatonia, Psychiatry r/o catatonia, said the side effect of his pysch medications - mental health consulted, and signed off - Patient is not catatonic Metabolic encephalopathy - Supportive care - EEG showed moderate diffuse encephalopathy - CT normal finding, MRI showed encephalopathy - Patient improved UTI - Treated with IV antibiotics and resolved Failure to eat/malnutrition - patient is on pured diet Suspected femoral fracture -Evaluated by orthopedics, reviewed his imaging and showed no fracture -Per families request x-ray of the hip and femur was done and showed no fracture DVT prophylaxis Disposition - Patient is unfunded, but patient need SNF and will discuss case management - Patient is stable enough to discharge to SNF. History Interval history: Patient was seen and evaluated this morning, no nursing issues overnight. Patient said he is feeling cheri. Hospitalist Physical - Physical exam Narrative exam: Not in cardiopulmonary distress. The patient appeared well nourished and normally developed. Vital signs as documented. Head exam is unremarkable. No scleral icterus . Neck is without jugular venous distension, thyromegaly, or carotid bruits. Lungs are clear to auscultation. Cardiac exam reveals regular rate and Rhythm. First and second heart sounds normal. No murmurs, rubs or gallops. Abdominal exam reveals normal bowel sounds, no masses, no organomegaly and no aortic enlargement. Extremities are nonedematous and both femoral and pedal pulses are normal. 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 - Constitutional Vitals: Temp Pulse Resp BP Pulse Ox 98.2 F 75 20 131/93 98 04/04/18 06:16 04/03/18 17:37 04/04/18 06:16 04/04/18 06:16 04/03/18 17:37 General appearance: Present: no acute distress, well-nourished, other Results - Labs CBC & Chem 7: 03/16/18 05:43 03/16/18 05:43 Labs: Laboratory Last Values WBC 5.9 K/mm3 (4.5-11.0) 03/16/18 05:43 RBC 4.40 M/mm3 (3.65-5.03) 03/16/18 05:43 Hgb 12.4 gm/dl (11.8-15.2) 03/16/18 05:43 Hct 35.1 % (35.5-45.6) L 03/16/18 05:43 MCV 80 fl (84-94) L 03/16/18 05:43 MCH 28 pg (28-32) 03/16/18 05:43 MCHC 35 % (32-34) H 03/16/18 05:43 RDW 14.5 % (13.2-15.2) 03/16/18 05:43 Plt Count 197 K/mm3 (140-440) 03/16/18 05:43 Lymph % (Auto) 15.1 % (13.4-35.0) 03/16/18 05:43 [place] % (Auto) 8.1 % (0.0-7.3) H 03/16/18 05:43 Eos % (Auto) 2.2 % (0.0-4.3) 03/16/18 05:43 Baso % (Auto) 0.4 % (0.0-1.8) 03/16/18 05:43 Lymph # 0.9 K/mm3 (1.2-5.4) L 03/16/18 05:43 [place] # 0.5 K/mm3 (0.0-0.8) 03/16/18 05:43 Eos # 0.1 K/mm3 (0.0-0.4) 03/16/18 05:43 Baso # 0.0 K/mm3 (0.0-0.1) 03/16/18 05:43 Total Counted Cancelled 03/10/18 17:27 Seg Neutrophils % 74.2 % (40.0-70.0) H 03/16/18 05:43 Seg Neuts % (Manual) Cancelled 03/10/18 17:27 Band Neutrophils % Cancelled 03/10/18 17:27 Lymphocytes % (Manual) Cancelled 03/10/18 17:27 Reactive Lymphs % (Man) Cancelled 03/10/18 17:27 Monocytes % (Manual) Cancelled 03/10/18 17:27 Eosinophils % (Manual) Cancelled 03/10/18 17:27 Basophils % (Manual) Cancelled 03/10/18 17:27 Metamyelocytes % Cancelled 03/10/18 17:27 Myelocytes % Cancelled 03/10/18 17:27 Promyelocytes % Cancelled 03/10/18 17:27 Blast Cells % Cancelled 03/10/18 17:27 Nucleated RBC % Cancelled 03/10/18 17:27 Seg Neutrophils # 4.4 K/mm3 (1.8-7.7) 03/16/18 05:43 Seg Neutrophils # Man Cancelled 03/10/18 17:27 Band Neutrophils # Cancelled 03/10/18 17:27 Lymphocytes # (Manual) Cancelled 03/10/18 17:27 Abs React Lymphs (Man) Cancelled 03/10/18 17:27 Monocytes # (Manual) Cancelled 03/10/18 17:27 Eosinophils # (Manual) Cancelled 03/10/18 17:27 Basophils # (Manual) Cancelled 03/10/18 17:27 Metamyelocytes # Cancelled 03/10/18 17:27 Myelocytes # Cancelled 03/10/18 17:27 Promyelocytes # Cancelled 03/10/18 17:27 Blast Cells # Cancelled 03/10/18 17:27 WBC Morphology Cancelled 03/10/18 17:27 Hypersegmented Neuts Cancelled 03/10/18 17:27 Hyposegmented Neuts Cancelled 03/10/18 17:27 Hypogranular Neuts Cancelled 03/10/18 17:27 Hypersegmented Polys Cancelled 03/10/18 17:27 Smudge Cells Cancelled 03/10/18 17:27 Toxic Granulation Cancelled 03/10/18 17:27 Toxic Vacuolation Cancelled 03/10/18 17:27 Dohle Bodies Cancelled 03/10/18 17:27 Pelger-Huet Anomaly Cancelled 03/10/18 17:27 Alvin Rods Cancelled 03/10/18 17:27 Platelet Estimate Cancelled 03/10/18 17:27 Clumped Platelets Cancelled 03/10/18 17:27 Plt Clumps, EDTA Cancelled 03/10/18 17:27 Large Platelets Cancelled 03/10/18 17:27 Giant Platelets Cancelled 03/10/18 17:27 Platelet Satelliting Cancelled 03/10/18 17:27 Plt Morphology Comment Cancelled 03/10/18 17:27 RBC Morphology Cancelled 03/10/18 17:27 Dimorphic RBCs Cancelled 03/10/18 17:27 Polychromasia Cancelled 03/10/18 17:27 Hypochromasia Cancelled 03/10/18 17:27 Poikilocytosis Cancelled 03/10/18 17:27 Basophilic Stippling Cancelled 03/10/18 17:27 Anisocytosis Cancelled 03/10/18 17:27 Microcytosis Cancelled 03/10/18 17:27 Macrocytosis Cancelled 03/10/18 17:27 Spherocytes Cancelled 03/10/18 17:27 Pappenheimer Bodies Cancelled 03/10/18 17:27 Sickle Cells Cancelled 03/10/18 17:27 Target Cells Cancelled 03/10/18 17:27 Tear Drop Cells Cancelled 03/10/18 17:27 Ovalocytes Cancelled 03/10/18 17:27 Stomatocytes Cancelled 03/10/18 17:27 Helmet Cells Cancelled 03/10/18 17:27 [place] Bodies Cancelled 03/10/18 17:27 [place] Rings Cancelled 03/10/18 17:27 [place] Cells Cancelled 03/10/18 17:27 Bite Cells Cancelled 03/10/18 17:27 Crenated Cell Cancelled 03/10/18 17:27 Elliptocytes Cancelled 03/10/18 17:27 Acanthocytes (Spur) Cancelled 03/10/18 17:27 Rouleaux Cancelled 03/10/18 17:27 Hemoglobin C Crystals Cancelled 03/10/18 17:27 Schistocytes Cancelled 03/10/18 17:27 Malaria parasites Cancelled 03/10/18 17:27 Darrius Bodies Cancelled 03/10/18 17:27 Hem Pathologist Commnt Cancelled 03/10/18 17:27 Sodium 135 mmol/L (137-145) L 03/16/18 05:43 Potassium 3.7 mmol/L (3.6-5.0) 03/16/18 05:43 Chloride 99.9 mmol/L (98-107) 03/16/18 05:43 Carbon Dioxide 24 mmol/L (22-30) 03/16/18 05:43 Anion Gap 15 mmol/L 03/16/18 05:43 BUN 2 mg/dL (9-20) L 03/16/18 05:43 Creatinine 0.6 mg/dL (0.8-1.5) L 03/16/18 05:43 Estimated GFR > 60 ml/min 03/16/18 05:43 BUN/Creatinine Ratio 3 % 03/16/18 05:43 Glucose 105 mg/dL (75-100) H 03/16/18 05:43 POC Glucose 115 (70-105) H 03/26/18 23:08 Calcium 9.0 mg/dL (8.4-10.2) 03/16/18 05:43 Magnesium 2.20 mg/dL (1.7-2.3) 03/10/18 17:24 Total Bilirubin 1.20 mg/dL (0.1-1.2) 03/10/18 17:27 AST 50 units/L (5-40) H 03/10/18 17:27 ALT 63 units/L (7-56) H 03/10/18 17:27 Alkaline Phosphatase 67 units/L (35-129) 03/10/18 17:27 Ammonia 42.0 umol/L (25-60) 03/16/18 15:17 Total Creatine Kinase 148 units/L (55-170) 03/10/18 17:44 CK-MB (CK-2) 1.6 ng/mL (0.0-4.0) 03/10/18 17:44 CK-MB (CK-2) Rel Index 1.0 (0-4) 03/10/18 17:44 Troponin T < 0.010 ng/mL (0.00-0.029) 03/10/18 17:43 Total Protein 7.2 g/dL (6.3-8.2) 03/10/18 17:27 Albumin 3.6 g/dL (3.9-5) L 03/10/18 17:27 Albumin/Globulin Ratio 1.0 % 03/10/18 17:27 Vitamin B12 870.0 pg/mL (211-911) 03/16/18 15:13 Folate 6.55 ng/mL (7.3-26.0) L 03/16/18 15:15 TSH 2.910 mlU/mL (0.270-4.200) 03/16/18 15:16 Free T4 0.92 ng/dL (0.76-1.46) 03/10/18 17:27 Urine Color [place] (Yellow) 03/10/18 17:59 Urine Turbidity Cloudy (Clear) 03/10/18 17:59 Urine pH 7.0 (5.0-7.0) 03/10/18 17:59 Ur Specific [place] 1.021 (1.003-1.030) 03/10/18 17:59 Urine Protein 30 mg/dl mg/dL (Negative) 03/10/18 17:59 Urine Glucose (UA) Neg mg/dL (Negative) 03/10/18 17:59 Urine Ketones Neg mg/dL (Negative) 03/10/18 17:59 Urine Blood Neg (Negative) 03/10/18 17:59 Urine Nitrite Neg (Negative) 03/10/18 17:59 Urine Bilirubin Neg (Negative) 03/10/18 17:59 Urine Urobilinogen 4.0 mg/dL (<2.0) 03/10/18 17:59 Ur Leukocyte Esterase Lg (Negative) 03/10/18 17:59 Urine WBC (Auto) 92.0 /HPF (0.0-6.0) H 03/10/18 17:59 Urine RBC (Auto) 6.0 /HPF (0.0-6.0) 03/10/18 17:59 U Epithel Cells (Auto) < 1.0 /HPF (0-13.0) 03/10/18 17:59 Urine Bacteria (Auto) 3+ /HPF (Negative) 03/10/18 17:59 Ur Transition Epith Cell 2 /HPF 03/10/18 17:59 Urine Mucus 1+ /HPF 03/10/18 17:59 Salicylates < 0.3 mg/dL (2.8-20.0) L 03/10/18 17:27 Urine Opiates Screen Presumptive negative 03/10/18 17:59 Urine Methadone Screen Presumptive negative 03/10/18 17:59 Acetaminophen < 5.0 ug/mL (10.0-30.0) L 03/10/18 17:27 Ur Barbiturates Screen Presumptive negative 03/10/18 17:59 Ur Phencyclidine Scrn Presumptive negative 03/10/18 17:59 Ur Amphetamines Screen Presumptive negative 03/10/18 17:59 U Benzodiazepines Scrn Presumptive negative 03/10/18 17:59 Urine Cocaine Screen Presumptive negative 03/10/18 17:59 U Marijuana (THC) Screen Presumptive negative 03/10/18 17:59 Drugs of Abuse Note Disclamer 03/10/18 17:59 Plasma/Serum Alcohol < 0.01 % (0-0.07) 03/10/18 17:27
--- NOTE | 2018-04-05 11:49 | Progress Note ---
Assessment and Plan Assessment and plan: 57-year-old -[place] male came from mental health facility for altered mental status Catatonia, Psychiatry r/o catatonia, said the side effect of his pysch medications - mental health consulted, and signed off - Patient is not catatonic Metabolic encephalopathy - Supportive care - EEG showed moderate diffuse encephalopathy - CT normal finding, MRI showed encephalopathy - Patient improved UTI - Treated with IV antibiotics and resolved Failure to eat/malnutrition - patient is on pured diet Suspected femoral fracture -Evaluated by orthopedics, reviewed his imaging and showed no fracture DVT prophylaxis Disposition - Patient is unfunded, but patient need SNF - Patient is stable enough to discharge to SNF. History Interval history: Patient was seen and evaluated this morning, no nursing issues overnight. Patient said he is feeling cheri. Patient had physical therapy this morning and he walk with assistance by PT. Hospitalist Physical - Physical exam Narrative exam: Not in cardiopulmonary distress. The patient appeared well nourished and normally developed. Vital signs as documented. Head exam is unremarkable. No scleral icterus . Neck is without jugular venous distension, thyromegaly, or carotid bruits. Lungs are clear to auscultation. Cardiac exam reveals regular rate and Rhythm. First and second heart sounds normal. No murmurs, rubs or gallops. Abdominal exam reveals normal bowel sounds, no masses, no organomegaly and no aortic enlargement. Extremities are nonedematous and both femoral and pedal pulses are normal. 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 - Constitutional Vitals: Temp Pulse Resp BP Pulse Ox 98.2 F 72 20 113/77 98 04/05/18 06:19 04/04/18 23:57 04/05/18 06:19 04/05/18 06:19 04/04/18 23:57 General appearance: Present: no acute distress, well-nourished, other Results - Labs CBC & Chem 7: 03/16/18 05:43 03/16/18 05:43 Labs: Laboratory Last Values WBC 5.9 K/mm3 (4.5-11.0) 03/16/18 05:43 RBC 4.40 M/mm3 (3.65-5.03) 03/16/18 05:43 Hgb 12.4 gm/dl (11.8-15.2) 03/16/18 05:43 Hct 35.1 % (35.5-45.6) L 03/16/18 05:43 MCV 80 fl (84-94) L 03/16/18 05:43 MCH 28 pg (28-32) 03/16/18 05:43 MCHC 35 % (32-34) H 03/16/18 05:43 RDW 14.5 % (13.2-15.2) 03/16/18 05:43 Plt Count 197 K/mm3 (140-440) 03/16/18 05:43 Lymph % (Auto) 15.1 % (13.4-35.0) 03/16/18 05:43 [place] % (Auto) 8.1 % (0.0-7.3) H 03/16/18 05:43 Eos % (Auto) 2.2 % (0.0-4.3) 03/16/18 05:43 Baso % (Auto) 0.4 % (0.0-1.8) 03/16/18 05:43 Lymph # 0.9 K/mm3 (1.2-5.4) L 03/16/18 05:43 [place] # 0.5 K/mm3 (0.0-0.8) 03/16/18 05:43 Eos # 0.1 K/mm3 (0.0-0.4) 03/16/18 05:43 Baso # 0.0 K/mm3 (0.0-0.1) 03/16/18 05:43 Total Counted Cancelled 03/10/18 17:27 Seg Neutrophils % 74.2 % (40.0-70.0) H 03/16/18 05:43 Seg Neuts % (Manual) Cancelled 03/10/18 17:27 Band Neutrophils % Cancelled 03/10/18 17:27 Lymphocytes % (Manual) Cancelled 03/10/18 17:27 Reactive Lymphs % (Man) Cancelled 03/10/18 17:27 Monocytes % (Manual) Cancelled 03/10/18 17:27 Eosinophils % (Manual) Cancelled 03/10/18 17:27 Basophils % (Manual) Cancelled 03/10/18 17:27 Metamyelocytes % Cancelled 03/10/18 17:27 Myelocytes % Cancelled 03/10/18 17:27 Promyelocytes % Cancelled 03/10/18 17:27 Blast Cells % Cancelled 03/10/18 17:27 Nucleated RBC % Cancelled 03/10/18 17:27 Seg Neutrophils # 4.4 K/mm3 (1.8-7.7) 03/16/18 05:43 Seg Neutrophils # Man Cancelled 03/10/18 17:27 Band Neutrophils # Cancelled 03/10/18 17:27 Lymphocytes # (Manual) Cancelled 03/10/18 17:27 Abs React Lymphs (Man) Cancelled 03/10/18 17:27 Monocytes # (Manual) Cancelled 03/10/18 17:27 Eosinophils # (Manual) Cancelled 03/10/18 17:27 Basophils # (Manual) Cancelled 03/10/18 17:27 Metamyelocytes # Cancelled 03/10/18 17:27 Myelocytes # Cancelled 03/10/18 17:27 Promyelocytes # Cancelled 03/10/18 17:27 Blast Cells # Cancelled 03/10/18 17:27 WBC Morphology Cancelled 03/10/18 17:27 Hypersegmented Neuts Cancelled 03/10/18 17:27 Hyposegmented Neuts Cancelled 03/10/18 17:27 Hypogranular Neuts Cancelled 03/10/18 17:27 Hypersegmented Polys Cancelled 03/10/18 17:27 Smudge Cells Cancelled 03/10/18 17:27 Toxic Granulation Cancelled 03/10/18 17:27 Toxic Vacuolation Cancelled 03/10/18 17:27 Dohle Bodies Cancelled 03/10/18 17:27 Pelger-Huet Anomaly Cancelled 03/10/18 17:27 Alvin Rods Cancelled 03/10/18 17:27 Platelet Estimate Cancelled 03/10/18 17:27 Clumped Platelets Cancelled 03/10/18 17:27 Plt Clumps, EDTA Cancelled 03/10/18 17:27 Large Platelets Cancelled 03/10/18 17:27 Giant Platelets Cancelled 03/10/18 17:27 Platelet Satelliting Cancelled 03/10/18 17:27 Plt Morphology Comment Cancelled 03/10/18 17:27 RBC Morphology Cancelled 03/10/18 17:27 Dimorphic RBCs Cancelled 03/10/18 17:27 Polychromasia Cancelled 03/10/18 17:27 Hypochromasia Cancelled 03/10/18 17:27 Poikilocytosis Cancelled 03/10/18 17:27 Basophilic Stippling Cancelled 03/10/18 17:27 Anisocytosis Cancelled 03/10/18 17:27 Microcytosis Cancelled 03/10/18 17:27 Macrocytosis Cancelled 03/10/18 17:27 Spherocytes Cancelled 03/10/18 17:27 Pappenheimer Bodies Cancelled 03/10/18 17:27 Sickle Cells Cancelled 03/10/18 17:27 Target Cells Cancelled 03/10/18 17:27 Tear Drop Cells Cancelled 03/10/18 17:27 Ovalocytes Cancelled 03/10/18 17:27 Stomatocytes Cancelled 03/10/18 17:27 Helmet Cells Cancelled 03/10/18 17:27 [place] Bodies Cancelled 03/10/18 17:27 [place] Rings Cancelled 03/10/18 17:27 [place] Cells Cancelled 03/10/18 17:27 Bite Cells Cancelled 03/10/18 17:27 Crenated Cell Cancelled 03/10/18 17:27 Elliptocytes Cancelled 03/10/18 17:27 Acanthocytes (Spur) Cancelled 03/10/18 17:27 Rouleaux Cancelled 03/10/18 17:27 Hemoglobin C Crystals Cancelled 03/10/18 17:27 Schistocytes Cancelled 03/10/18 17:27 Malaria parasites Cancelled 03/10/18 17:27 Darrius Bodies Cancelled 03/10/18 17:27 Hem Pathologist Commnt Cancelled 03/10/18 17:27 Sodium 135 mmol/L (137-145) L 03/16/18 05:43 Potassium 3.7 mmol/L (3.6-5.0) 03/16/18 05:43 Chloride 99.9 mmol/L (98-107) 03/16/18 05:43 Carbon Dioxide 24 mmol/L (22-30) 03/16/18 05:43 Anion Gap 15 mmol/L 03/16/18 05:43 BUN 2 mg/dL (9-20) L 03/16/18 05:43 Creatinine 0.6 mg/dL (0.8-1.5) L 03/16/18 05:43 Estimated GFR > 60 ml/min 03/16/18 05:43 BUN/Creatinine Ratio 3 % 03/16/18 05:43 Glucose 105 mg/dL (75-100) H 03/16/18 05:43 POC Glucose 115 (70-105) H 03/26/18 23:08 Calcium 9.0 mg/dL (8.4-10.2) 03/16/18 05:43 Magnesium 2.20 mg/dL (1.7-2.3) 03/10/18 17:24 Total Bilirubin 1.20 mg/dL (0.1-1.2) 03/10/18 17:27 AST 50 units/L (5-40) H 03/10/18 17:27 ALT 63 units/L (7-56) H 03/10/18 17:27 Alkaline Phosphatase 67 units/L (35-129) 03/10/18 17:27 Ammonia 42.0 umol/L (25-60) 03/16/18 15:17 Total Creatine Kinase 148 units/L (55-170) 03/10/18 17:44 CK-MB (CK-2) 1.6 ng/mL (0.0-4.0) 03/10/18 17:44 CK-MB (CK-2) Rel Index 1.0 (0-4) 03/10/18 17:44 Troponin T < 0.010 ng/mL (0.00-0.029) 03/10/18 17:43 Total Protein 7.2 g/dL (6.3-8.2) 03/10/18 17:27 Albumin 3.6 g/dL (3.9-5) L 03/10/18 17:27 Albumin/Globulin Ratio 1.0 % 03/10/18 17:27 Vitamin B12 870.0 pg/mL (211-911) 03/16/18 15:13 Folate 6.55 ng/mL (7.3-26.0) L 03/16/18 15:15 TSH 2.910 mlU/mL (0.270-4.200) 03/16/18 15:16 Free T4 0.92 ng/dL (0.76-1.46) 03/10/18 17:27 Urine Color [place] (Yellow) 03/10/18 17:59 Urine Turbidity Cloudy (Clear) 03/10/18 17:59 Urine pH 7.0 (5.0-7.0) 03/10/18 17:59 Ur Specific [place] 1.021 (1.003-1.030) 03/10/18 17:59 Urine Protein 30 mg/dl mg/dL (Negative) 03/10/18 17:59 Urine Glucose (UA) Neg mg/dL (Negative) 03/10/18 17:59 Urine Ketones Neg mg/dL (Negative) 03/10/18 17:59 Urine Blood Neg (Negative) 03/10/18 17:59 Urine Nitrite Neg (Negative) 03/10/18 17:59 Urine Bilirubin Neg (Negative) 03/10/18 17:59 Urine Urobilinogen 4.0 mg/dL (<2.0) 03/10/18 17:59 Ur Leukocyte Esterase Lg (Negative) 03/10/18 17:59 Urine WBC (Auto) 92.0 /HPF (0.0-6.0) H 03/10/18 17:59 Urine RBC (Auto) 6.0 /HPF (0.0-6.0) 03/10/18 17:59 U Epithel Cells (Auto) < 1.0 /HPF (0-13.0) 03/10/18 17:59 Urine Bacteria (Auto) 3+ /HPF (Negative) 03/10/18 17:59 Ur Transition Epith Cell 2 /HPF 03/10/18 17:59 Urine Mucus 1+ /HPF 03/10/18 17:59 Salicylates < 0.3 mg/dL (2.8-20.0) L 03/10/18 17:27 Urine Opiates Screen Presumptive negative 03/10/18 17:59 Urine Methadone Screen Presumptive negative 03/10/18 17:59 Acetaminophen < 5.0 ug/mL (10.0-30.0) L 03/10/18 17:27 Ur Barbiturates Screen Presumptive negative 03/10/18 17:59 Ur Phencyclidine Scrn Presumptive negative 03/10/18 17:59 Ur Amphetamines Screen Presumptive negative 03/10/18 17:59 U Benzodiazepines Scrn Presumptive negative 03/10/18 17:59 Urine Cocaine Screen Presumptive negative 03/10/18 17:59 U Marijuana (THC) Screen Presumptive negative 03/10/18 17:59 Drugs of Abuse Note Disclamer 03/10/18 17:59 Plasma/Serum Alcohol < 0.01 % (0-0.07) 03/10/18 17:27
[2018-04-05] MEDS: HEPARIN SUB-Q SCH ×2 (11:50→22:01)
[2018-04-05] MEDS: D5/0.45NS 1,000 ML IV SCH (18:11)
--- NOTE | 2018-04-06 07:55 | Progress Note ---
Assessment and Plan Assessment and plan: 57-year-old -[place]in[place] male came from mental health facility for altered mental status Catatonia, Psychiatry r/o catatonia, said the side effect of his pysch medications - mental health consulted, and signed off - Patient is not catatonic Metabolic encephalopathy - Supportive care - EEG showed moderate diffuse encephalopathy - CT normal finding, MRI showed encephalopathy - Patient markedly improved UTI - Treated with IV antibiotics and resolved Failure to eat/malnutrition - patient is on pured diet Suspected femoral fracture -Evaluated by orthopedics, reviewed his imaging and showed no fracture DVT prophylaxis Disposition - Patient is unfunded, but patient need SNF - Patient is stable enough to discharge to SNF. History Interval history: Patient was seen and evaluated this morning, no nursing issues overnight. Patient said he is feeling cheri. Patient had physical therapy yesterday and he walked with assistance by PT. His mentation markedly improved. Hospitalist Physical - Physical exam Narrative exam: Not in cardiopulmonary distress. The patient appeared well nourished and normally developed. Vital signs as documented. Head exam is unremarkable. No scleral icterus . Neck is without jugular venous distension, thyromegaly, or carotid bruits. Lungs are clear to auscultation. Cardiac exam reveals regular rate and Rhythm. First and second heart sounds normal. No murmurs, rubs or gallops. Abdominal exam reveals normal bowel sounds, no masses, no organomegaly and no aortic enlargement. Extremities are nonedematous and both femoral and pedal pulses are normal. 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 - Constitutional Vitals: Temp Pulse Resp BP Pulse Ox 97.9 F 68 16 105/58 98 04/06/18 05:25 04/06/18 05:25 04/06/18 05:25 04/06/18 05:25 04/06/18 05:25 General appearance: Present: no acute distress, well-nourished, other Results - Labs CBC & Chem 7: 03/16/18 05:43 03/16/18 05:43 Labs: Laboratory Last Values WBC 5.9 K/mm3 (4.5-11.0) 03/16/18 05:43 RBC 4.40 M/mm3 (3.65-5.03) 03/16/18 05:43 Hgb 12.4 gm/dl (11.8-15.2) 03/16/18 05:43 Hct 35.1 % (35.5-45.6) L 03/16/18 05:43 MCV 80 fl (84-94) L 03/16/18 05:43 MCH 28 pg (28-32) 03/16/18 05:43 MCHC 35 % (32-34) H 03/16/18 05:43 RDW 14.5 % (13.2-15.2) 03/16/18 05:43 Plt Count 197 K/mm3 (140-440) 03/16/18 05:43 Lymph % (Auto) 15.1 % (13.4-35.0) 03/16/18 05:43 [place] % (Auto) 8.1 % (0.0-7.3) H 03/16/18 05:43 Eos % (Auto) 2.2 % (0.0-4.3) 03/16/18 05:43 Baso % (Auto) 0.4 % (0.0-1.8) 03/16/18 05:43 Lymph # 0.9 K/mm3 (1.2-5.4) L 03/16/18 05:43 [place] # 0.5 K/mm3 (0.0-0.8) 03/16/18 05:43 Eos # 0.1 K/mm3 (0.0-0.4) 03/16/18 05:43 Baso # 0.0 K/mm3 (0.0-0.1) 03/16/18 05:43 Total Counted Cancelled 03/10/18 17:27 Seg Neutrophils % 74.2 % (40.0-70.0) H 03/16/18 05:43 Seg Neuts % (Manual) Cancelled 03/10/18 17:27 Band Neutrophils % Cancelled 03/10/18 17:27 Lymphocytes % (Manual) Cancelled 03/10/18 17:27 Reactive Lymphs % (Man) Cancelled 03/10/18 17:27 Monocytes % (Manual) Cancelled 03/10/18 17:27 Eosinophils % (Manual) Cancelled 03/10/18 17:27 Basophils % (Manual) Cancelled 03/10/18 17:27 Metamyelocytes % Cancelled 03/10/18 17:27 Myelocytes % Cancelled 03/10/18 17:27 Promyelocytes % Cancelled 03/10/18 17:27 Blast Cells % Cancelled 03/10/18 17:27 Nucleated RBC % Cancelled 03/10/18 17:27 Seg Neutrophils # 4.4 K/mm3 (1.8-7.7) 03/16/18 05:43 Seg Neutrophils # Man Cancelled 03/10/18 17:27 Band Neutrophils # Cancelled 03/10/18 17:27 Lymphocytes # (Manual) Cancelled 03/10/18 17:27 Abs React Lymphs (Man) Cancelled 03/10/18 17:27 Monocytes # (Manual) Cancelled 03/10/18 17:27 Eosinophils # (Manual) Cancelled 03/10/18 17:27 Basophils # (Manual) Cancelled 03/10/18 17:27 Metamyelocytes # Cancelled 03/10/18 17:27 Myelocytes # Cancelled 03/10/18 17:27 Promyelocytes # Cancelled 03/10/18 17:27 Blast Cells # Cancelled 03/10/18 17:27 WBC Morphology Cancelled 03/10/18 17:27 Hypersegmented Neuts Cancelled 03/10/18 17:27 Hyposegmented Neuts Cancelled 03/10/18 17:27 Hypogranular Neuts Cancelled 03/10/18 17:27 Hypersegmented Polys Cancelled 03/10/18 17:27 Smudge Cells Cancelled 03/10/18 17:27 Toxic Granulation Cancelled 03/10/18 17:27 Toxic Vacuolation Cancelled 03/10/18 17:27 Dohle Bodies Cancelled 03/10/18 17:27 Pelger-Huet Anomaly Cancelled 03/10/18 17:27 Alvin Rods Cancelled 03/10/18 17:27 Platelet Estimate Cancelled 03/10/18 17:27 Clumped Platelets Cancelled 03/10/18 17:27 Plt Clumps, EDTA Cancelled 03/10/18 17:27 Large Platelets Cancelled 03/10/18 17:27 Giant Platelets Cancelled 03/10/18 17:27 Platelet Satelliting Cancelled 03/10/18 17:27 Plt Morphology Comment Cancelled 03/10/18 17:27 RBC Morphology Cancelled 03/10/18 17:27 Dimorphic RBCs Cancelled 03/10/18 17:27 Polychromasia Cancelled 03/10/18 17:27 Hypochromasia Cancelled 03/10/18 17:27 Poikilocytosis Cancelled 03/10/18 17:27 Basophilic Stippling Cancelled 03/10/18 17:27 Anisocytosis Cancelled 03/10/18 17:27 Microcytosis Cancelled 03/10/18 17:27 Macrocytosis Cancelled 03/10/18 17:27 Spherocytes Cancelled 03/10/18 17:27 Pappenheimer Bodies Cancelled 03/10/18 17:27 Sickle Cells Cancelled 03/10/18 17:27 Target Cells Cancelled 03/10/18 17:27 Tear Drop Cells Cancelled 03/10/18 17:27 Ovalocytes Cancelled 03/10/18 17:27 Stomatocytes Cancelled 03/10/18 17:27 Helmet Cells Cancelled 03/10/18 17:27 [place] Bodies Cancelled 03/10/18 17:27 [place] Rings Cancelled 03/10/18 17:27 [place] Cells Cancelled 03/10/18 17:27 Bite Cells Cancelled 03/10/18 17:27 Crenated Cell Cancelled 03/10/18 17:27 Elliptocytes Cancelled 03/10/18 17:27 Acanthocytes (Spur) Cancelled 03/10/18 17:27 Rouleaux Cancelled 03/10/18 17:27 Hemoglobin C Crystals Cancelled 03/10/18 17:27 Schistocytes Cancelled 03/10/18 17:27 Malaria parasites Cancelled 03/10/18 17:27 Darrius Bodies Cancelled 03/10/18 17:27 Hem Pathologist Commnt Cancelled 03/10/18 17:27 Sodium 135 mmol/L (137-145) L 03/16/18 05:43 Potassium 3.7 mmol/L (3.6-5.0) 03/16/18 05:43 Chloride 99.9 mmol/L (98-107) 03/16/18 05:43 Carbon Dioxide 24 mmol/L (22-30) 03/16/18 05:43 Anion Gap 15 mmol/L 03/16/18 05:43 BUN 2 mg/dL (9-20) L 03/16/18 05:43 Creatinine 0.6 mg/dL (0.8-1.5) L 03/16/18 05:43 Estimated GFR > 60 ml/min 03/16/18 05:43 BUN/Creatinine Ratio 3 % 03/16/18 05:43 Glucose 105 mg/dL (75-100) H 03/16/18 05:43 POC Glucose 115 (70-105) H 03/26/18 23:08 Calcium 9.0 mg/dL (8.4-10.2) 03/16/18 05:43 Magnesium 2.20 mg/dL (1.7-2.3) 03/10/18 17:24 Total Bilirubin 1.20 mg/dL (0.1-1.2) 03/10/18 17:27 AST 50 units/L (5-40) H 03/10/18 17:27 ALT 63 units/L (7-56) H 03/10/18 17:27 Alkaline Phosphatase 67 units/L (35-129) 03/10/18 17:27 Ammonia 42.0 umol/L (25-60) 03/16/18 15:17 Total Creatine Kinase 148 units/L (55-170) 03/10/18 17:44 CK-MB (CK-2) 1.6 ng/mL (0.0-4.0) 03/10/18 17:44 CK-MB (CK-2) Rel Index 1.0 (0-4) 03/10/18 17:44 Troponin T < 0.010 ng/mL (0.00-0.029) 03/10/18 17:43 Total Protein 7.2 g/dL (6.3-8.2) 03/10/18 17:27 Albumin 3.6 g/dL (3.9-5) L 03/10/18 17:27 Albumin/Globulin Ratio 1.0 % 03/10/18 17:27 Vitamin B12 870.0 pg/mL (211-911) 03/16/18 15:13 Folate 6.55 ng/mL (7.3-26.0) L 03/16/18 15:15 TSH 2.910 mlU/mL (0.270-4.200) 03/16/18 15:16 Free T4 0.92 ng/dL (0.76-1.46) 03/10/18 17:27 Urine Color [place] (Yellow) 03/10/18 17:59 Urine Turbidity Cloudy (Clear) 03/10/18 17:59 Urine pH 7.0 (5.0-7.0) 03/10/18 17:59 Ur Specific [place] 1.021 (1.003-1.030) 03/10/18 17:59 Urine Protein 30 mg/dl mg/dL (Negative) 03/10/18 17:59 Urine Glucose (UA) Neg mg/dL (Negative) 03/10/18 17:59 Urine Ketones Neg mg/dL (Negative) 03/10/18 17:59 Urine Blood Neg (Negative) 03/10/18 17:59 Urine Nitrite Neg (Negative) 03/10/18 17:59 Urine Bilirubin Neg (Negative) 03/10/18 17:59 Urine Urobilinogen 4.0 mg/dL (<2.0) 03/10/18 17:59 Ur Leukocyte Esterase Lg (Negative) 03/10/18 17:59 Urine WBC (Auto) 92.0 /HPF (0.0-6.0) H 03/10/18 17:59 Urine RBC (Auto) 6.0 /HPF (0.0-6.0) 03/10/18 17:59 U Epithel Cells (Auto) < 1.0 /HPF (0-13.0) 03/10/18 17:59 Urine Bacteria (Auto) 3+ /HPF (Negative) 03/10/18 17:59 Ur Transition Epith Cell 2 /HPF 03/10/18 17:59 Urine Mucus 1+ /HPF 03/10/18 17:59 Salicylates < 0.3 mg/dL (2.8-20.0) L 03/10/18 17:27 Urine Opiates Screen Presumptive negative 03/10/18 17:59 Urine Methadone Screen Presumptive negative 03/10/18 17:59 Acetaminophen < 5.0 ug/mL (10.0-30.0) L 03/10/18 17:27 Ur Barbiturates Screen Presumptive negative 03/10/18 17:59 Ur Phencyclidine Scrn Presumptive negative 03/10/18 17:59 Ur Amphetamines Screen Presumptive negative 03/10/18 17:59 U Benzodiazepines Scrn Presumptive negative 03/10/18 17:59 Urine Cocaine Screen Presumptive negative 03/10/18 17:59 U Marijuana (THC) Screen Presumptive negative 03/10/18 17:59 Drugs of Abuse Note Disclamer 03/10/18 17:59 Plasma/Serum Alcohol < 0.01 % (0-0.07) 03/10/18 17:27
[2018-04-06] MEDS: HEPARIN SUB-Q SCH ×3 (08:52→22:01)
[2018-04-07] MEDS: HEPARIN SUB-Q SCH ×2 (10:04→21:25)
[2018-04-07] MEDS: ATIVAN IM PRN (11:08)
--- NOTE | 2018-04-07 14:05 | Progress Note ---
Assessment and Plan Assessment and plan: 57-year-old -[place] male came from mental health facility for altered mental status Catatonia, Psychiatry r/o catatonia, said the side effect of his pysch medications - mental health consulted, and signed off - Patient is not catatonic Metabolic encephalopathy - Supportive care - EEG showed moderate diffuse encephalopathy - CT normal finding, MRI showed encephalopathy - Patient markedly improved UTI - Treated with IV antibiotics and resolved Failure to eat/malnutrition - patient is on pured diet Suspected femoral fracture -Evaluated by orthopedics, reviewed his imaging and showed no fracture DVT prophylaxis Disposition - Patient is unfunded, but patient need SNF - Patient is stable enough to discharge to SNF. History Interval history: Patient was seen and evaluated this morning, no nursing issues overnight. Patient said he is feeling cheri. Patient had physical therapy and he walked with assistance by PT. His mentation markedly improved. Hospitalist Physical - Physical exam Narrative exam: Not in cardiopulmonary distress. The patient appeared well nourished and normally developed. Vital signs as documented. Head exam is unremarkable. No scleral icterus . Neck is without jugular venous distension, thyromegaly, or carotid bruits. Lungs are clear to auscultation. Cardiac exam reveals regular rate and Rhythm. First and second heart sounds normal. No murmurs, rubs or gallops. Abdominal exam reveals normal bowel sounds, no masses, no organomegaly and no aortic enlargement. Extremities are nonedematous and both femoral and pedal pulses are normal. 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 - Constitutional Vitals: Temp Pulse Resp BP Pulse Ox 97.9 F 68 16 105/58 98 04/06/18 05:25 04/06/18 05:25 04/06/18 05:25 04/06/18 05:25 04/06/18 22:00 General appearance: Present: no acute distress, well-nourished, other Results - Labs CBC & Chem 7: 03/16/18 05:43 03/16/18 05:43 Labs: Laboratory Last Values WBC 5.9 K/mm3 (4.5-11.0) 03/16/18 05:43 RBC 4.40 M/mm3 (3.65-5.03) 03/16/18 05:43 Hgb 12.4 gm/dl (11.8-15.2) 03/16/18 05:43 Hct 35.1 % (35.5-45.6) L 03/16/18 05:43 MCV 80 fl (84-94) L 03/16/18 05:43 MCH 28 pg (28-32) 03/16/18 05:43 MCHC 35 % (32-34) H 03/16/18 05:43 RDW 14.5 % (13.2-15.2) 03/16/18 05:43 Plt Count 197 K/mm3 (140-440) 03/16/18 05:43 Lymph % (Auto) 15.1 % (13.4-35.0) 03/16/18 05:43 [place] % (Auto) 8.1 % (0.0-7.3) H 03/16/18 05:43 Eos % (Auto) 2.2 % (0.0-4.3) 03/16/18 05:43 Baso % (Auto) 0.4 % (0.0-1.8) 03/16/18 05:43 Lymph # 0.9 K/mm3 (1.2-5.4) L 03/16/18 05:43 [place] # 0.5 K/mm3 (0.0-0.8) 03/16/18 05:43 Eos # 0.1 K/mm3 (0.0-0.4) 03/16/18 05:43 Baso # 0.0 K/mm3 (0.0-0.1) 03/16/18 05:43 Total Counted Cancelled 03/10/18 17:27 Seg Neutrophils % 74.2 % (40.0-70.0) H 03/16/18 05:43 Seg Neuts % (Manual) Cancelled 03/10/18 17:27 Band Neutrophils % Cancelled 03/10/18 17:27 Lymphocytes % (Manual) Cancelled 03/10/18 17:27 Reactive Lymphs % (Man) Cancelled 03/10/18 17:27 Monocytes % (Manual) Cancelled 03/10/18 17:27 Eosinophils % (Manual) Cancelled 03/10/18 17:27 Basophils % (Manual) Cancelled 03/10/18 17:27 Metamyelocytes % Cancelled 03/10/18 17:27 Myelocytes % Cancelled 03/10/18 17:27 Promyelocytes % Cancelled 03/10/18 17:27 Blast Cells % Cancelled 03/10/18 17:27 Nucleated RBC % Cancelled 03/10/18 17:27 Seg Neutrophils # 4.4 K/mm3 (1.8-7.7) 03/16/18 05:43 Seg Neutrophils # Man Cancelled 03/10/18 17:27 Band Neutrophils # Cancelled 03/10/18 17:27 Lymphocytes # (Manual) Cancelled 03/10/18 17:27 Abs React Lymphs (Man) Cancelled 03/10/18 17:27 Monocytes # (Manual) Cancelled 03/10/18 17:27 Eosinophils # (Manual) Cancelled 03/10/18 17:27 Basophils # (Manual) Cancelled 03/10/18 17:27 Metamyelocytes # Cancelled 03/10/18 17:27 Myelocytes # Cancelled 03/10/18 17:27 Promyelocytes # Cancelled 03/10/18 17:27 Blast Cells # Cancelled 03/10/18 17:27 WBC Morphology Cancelled 03/10/18 17:27 Hypersegmented Neuts Cancelled 03/10/18 17:27 Hyposegmented Neuts Cancelled 03/10/18 17:27 Hypogranular Neuts Cancelled 03/10/18 17:27 Hypersegmented Polys Cancelled 03/10/18 17:27 Smudge Cells Cancelled 03/10/18 17:27 Toxic Granulation Cancelled 03/10/18 17:27 Toxic Vacuolation Cancelled 03/10/18 17:27 Dohle Bodies Cancelled 03/10/18 17:27 Pelger-Huet Anomaly Cancelled 03/10/18 17:27 Alvin Rods Cancelled 03/10/18 17:27 Platelet Estimate Cancelled 03/10/18 17:27 Clumped Platelets Cancelled 03/10/18 17:27 Plt Clumps, EDTA Cancelled 03/10/18 17:27 Large Platelets Cancelled 03/10/18 17:27 Giant Platelets Cancelled 03/10/18 17:27 Platelet Satelliting Cancelled 03/10/18 17:27 Plt Morphology Comment Cancelled 03/10/18 17:27 RBC Morphology Cancelled 03/10/18 17:27 Dimorphic RBCs Cancelled 03/10/18 17:27 Polychromasia Cancelled 03/10/18 17:27 Hypochromasia Cancelled 03/10/18 17:27 Poikilocytosis Cancelled 03/10/18 17:27 Basophilic Stippling Cancelled 03/10/18 17:27 Anisocytosis Cancelled 03/10/18 17:27 Microcytosis Cancelled 03/10/18 17:27 Macrocytosis Cancelled 03/10/18 17:27 Spherocytes Cancelled 03/10/18 17:27 Pappenheimer Bodies Cancelled 03/10/18 17:27 Sickle Cells Cancelled 03/10/18 17:27 Target Cells Cancelled 03/10/18 17:27 Tear Drop Cells Cancelled 03/10/18 17:27 Ovalocytes Cancelled 03/10/18 17:27 Stomatocytes Cancelled 03/10/18 17:27 Helmet Cells Cancelled 03/10/18 17:27 [place] Bodies Cancelled 03/10/18 17:27 [place] Rings Cancelled 03/10/18 17:27 [place] Cells Cancelled 03/10/18 17:27 Bite Cells Cancelled 03/10/18 17:27 Crenated Cell Cancelled 03/10/18 17:27 Elliptocytes Cancelled 03/10/18 17:27 Acanthocytes (Spur) Cancelled 03/10/18 17:27 Rouleaux Cancelled 03/10/18 17:27 Hemoglobin C Crystals Cancelled 03/10/18 17:27 Schistocytes Cancelled 03/10/18 17:27 Malaria parasites Cancelled 03/10/18 17:27 Darrius Bodies Cancelled 03/10/18 17:27 Hem Pathologist Commnt Cancelled 03/10/18 17:27 Sodium 135 mmol/L (137-145) L 03/16/18 05:43 Potassium 3.7 mmol/L (3.6-5.0) 03/16/18 05:43 Chloride 99.9 mmol/L (98-107) 03/16/18 05:43 Carbon Dioxide 24 mmol/L (22-30) 03/16/18 05:43 Anion Gap 15 mmol/L 03/16/18 05:43 BUN 2 mg/dL (9-20) L 03/16/18 05:43 Creatinine 0.6 mg/dL (0.8-1.5) L 03/16/18 05:43 Estimated GFR > 60 ml/min 03/16/18 05:43 BUN/Creatinine Ratio 3 % 03/16/18 05:43 Glucose 105 mg/dL (75-100) H 03/16/18 05:43 POC Glucose 115 (70-105) H 03/26/18 23:08 Calcium 9.0 mg/dL (8.4-10.2) 03/16/18 05:43 Magnesium 2.20 mg/dL (1.7-2.3) 03/10/18 17:24 Total Bilirubin 1.20 mg/dL (0.1-1.2) 03/10/18 17:27 AST 50 units/L (5-40) H 03/10/18 17:27 ALT 63 units/L (7-56) H 03/10/18 17:27 Alkaline Phosphatase 67 units/L (35-129) 03/10/18 17:27 Ammonia 42.0 umol/L (25-60) 03/16/18 15:17 Total Creatine Kinase 148 units/L (55-170) 03/10/18 17:44 CK-MB (CK-2) 1.6 ng/mL (0.0-4.0) 03/10/18 17:44 CK-MB (CK-2) Rel Index 1.0 (0-4) 03/10/18 17:44 Troponin T < 0.010 ng/mL (0.00-0.029) 03/10/18 17:43 Total Protein 7.2 g/dL (6.3-8.2) 03/10/18 17:27 Albumin 3.6 g/dL (3.9-5) L 03/10/18 17:27 Albumin/Globulin Ratio 1.0 % 03/10/18 17:27 Vitamin B12 870.0 pg/mL (211-911) 03/16/18 15:13 Folate 6.55 ng/mL (7.3-26.0) L 03/16/18 15:15 TSH 2.910 mlU/mL (0.270-4.200) 03/16/18 15:16 Free T4 0.92 ng/dL (0.76-1.46) 03/10/18 17:27 Urine Color [place] (Yellow) 08/19/18 17:59 Urine Turbidity Cloudy (Clear) 03/10/18 17:59 Urine pH 7.0 (5.0-7.0) 03/10/18 17:59 Ur Specific [place] 1.021 (1.003-1.030) 03/10/18 17:59 Urine Protein 30 mg/dl mg/dL (Negative) 03/10/18 17:59 Urine Glucose (UA) Neg mg/dL (Negative) 03/10/18 17:59 Urine Ketones Neg mg/dL (Negative) 03/10/18 17:59 Urine Blood Neg (Negative) 03/10/18 17:59 Urine Nitrite Neg (Negative) 03/10/18 17:59 Urine Bilirubin Neg (Negative) 03/10/18 17:59 Urine Urobilinogen 4.0 mg/dL (<2.0) 03/10/18 17:59 Ur Leukocyte Esterase Lg (Negative) 03/10/18 17:59 Urine WBC (Auto) 92.0 /HPF (0.0-6.0) H 03/10/18 17:59 Urine RBC (Auto) 6.0 /HPF (0.0-6.0) 03/10/18 17:59 U Epithel Cells (Auto) < 1.0 /HPF (0-13.0) 03/10/18 17:59 Urine Bacteria (Auto) 3+ /HPF (Negative) 03/10/18 17:59 Ur Transition Epith Cell 2 /HPF 03/10/18 17:59 Urine Mucus 1+ /HPF 03/10/18 17:59 Salicylates < 0.3 mg/dL (2.8-20.0) L 03/10/18 17:27 Urine Opiates Screen Presumptive negative 03/10/18 17:59 Urine Methadone Screen Presumptive negative 03/10/18 17:59 Acetaminophen < 5.0 ug/mL (10.0-30.0) L 03/10/18 17:27 Ur Barbiturates Screen Presumptive negative 03/10/18 17:59 Ur Phencyclidine Scrn Presumptive negative 03/10/18 17:59 Ur Amphetamines Screen Presumptive negative 03/10/18 17:59 U Benzodiazepines Scrn Presumptive negative 03/10/18 17:59 Urine Cocaine Screen Presumptive negative 03/10/18 17:59 U Marijuana (THC) Screen Presumptive negative 03/10/18 17:59 Drugs of Abuse Note Disclamer 03/10/18 17:59 Plasma/Serum Alcohol < 0.01 % (0-0.07) 03/10/18 17:27
[2018-04-08] MEDS: HEPARIN SUB-Q SCH ×2 (09:46→21:57)
[2018-04-08] MEDS: ATIVAN IM PRN ×2 (10:05→21:52)
--- NOTE | 2018-04-08 14:14 | Progress Note ---
Assessment and Plan Assessment and plan: 57-year-old -Omani male came from mental health facility for altered mental status Catatonia, Psychiatry r/o catatonia, said the side effect of his pysch medications - mental health consulted, and signed off - Patient is not catatonic Metabolic encephalopathy - Supportive care - EEG showed moderate diffuse encephalopathy - CT normal finding, MRI showed encephalopathy - Patient markedly improved UTI - Treated with IV antibiotics and resolved Failure to eat/malnutrition - patient is on pured diet Suspected femoral fracture -Evaluated by orthopedics, reviewed his imaging and showed no fracture DVT prophylaxis Disposition - Patient is unfunded, but patient need SNF - Waiting if his sister able to take him home. History Interval history: Patient was seen and evaluated this morning, no nursing issues overnight. Patient starts to talk. patient is on restraints because he is a fall risk. Hospitalist Physical - Physical exam Narrative exam: Not in cardiopulmonary distress. The patient appeared well nourished and normally developed. Vital signs as documented. Head exam is unremarkable. No scleral icterus . Neck is without jugular venous distension, thyromegaly, or carotid bruits. Lungs are clear to auscultation. Cardiac exam reveals regular rate and Rhythm. First and second heart sounds normal. No murmurs, rubs or gallops. Abdominal exam reveals normal bowel sounds, no masses, no organomegaly and no aortic enlargement. Extremities are nonedematous and both femoral and pedal pulses are normal. 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 - Constitutional Vitals: Temp Pulse Resp BP Pulse Ox 98.3 F 100 H 20 119/81 96 04/08/18 11:31 04/08/18 11:31 04/08/18 11:31 04/08/18 11:31 04/08/18 11:31 General appearance: Present: no acute distress, well-nourished, other Results - Labs CBC & Chem 7: 03/16/18 05:43 03/16/18 05:43 Labs: Laboratory Last Values WBC 5.9 K/mm3 (4.5-11.0) 03/16/18 05:43 RBC 4.40 M/mm3 (3.65-5.03) 03/16/18 05:43 Hgb 12.4 gm/dl (11.8-15.2) 03/16/18 05:43 Hct 35.1 % (35.5-45.6) L 03/16/18 05:43 MCV 80 fl (84-94) L 03/16/18 05:43 MCH 28 pg (28-32) 03/16/18 05:43 MCHC 35 % (32-34) H 03/16/18 05:43 RDW 14.5 % (13.2-15.2) 03/16/18 05:43 Plt Count 197 K/mm3 (140-440) 03/16/18 05:43 Lymph % (Auto) 15.1 % (13.4-35.0) 03/16/18 05:43 [place] % (Auto) 8.1 % (0.0-7.3) H 03/16/18 05:43 Eos % (Auto) 2.2 % (0.0-4.3) 03/16/18 05:43 Baso % (Auto) 0.4 % (0.0-1.8) 03/16/18 05:43 Lymph # 0.9 K/mm3 (1.2-5.4) L 03/16/18 05:43 [place] # 0.5 K/mm3 (0.0-0.8) 03/16/18 05:43 Eos # 0.1 K/mm3 (0.0-0.4) 03/16/18 05:43 Baso # 0.0 K/mm3 (0.0-0.1) 03/16/18 05:43 Total Counted Cancelled 03/10/18 17:27 Seg Neutrophils % 74.2 % (40.0-70.0) H 03/16/18 05:43 Seg Neuts % (Manual) Cancelled 03/10/18 17:27 Band Neutrophils % Cancelled 03/10/18 17:27 Lymphocytes % (Manual) Cancelled 03/10/18 17:27 Reactive Lymphs % (Man) Cancelled 03/10/18 17:27 Monocytes % (Manual) Cancelled 03/10/18 17:27 Eosinophils % (Manual) Cancelled 03/10/18 17:27 Basophils % (Manual) Cancelled 03/10/18 17:27 Metamyelocytes % Cancelled 03/10/18 17:27 Myelocytes % Cancelled 03/10/18 17:27 Promyelocytes % Cancelled 03/10/18 17:27 Blast Cells % Cancelled 03/10/18 17:27 Nucleated RBC % Cancelled 03/10/18 17:27 Seg Neutrophils # 4.4 K/mm3 (1.8-7.7) 03/16/18 05:43 Seg Neutrophils # Man Cancelled 03/10/18 17:27 Band Neutrophils # Cancelled 03/10/18 17:27 Lymphocytes # (Manual) Cancelled 03/10/18 17:27 Abs React Lymphs (Man) Cancelled 03/10/18 17:27 Monocytes # (Manual) Cancelled 03/10/18 17:27 Eosinophils # (Manual) Cancelled 03/10/18 17:27 Basophils # (Manual) Cancelled 03/10/18 17:27 Metamyelocytes # Cancelled 03/10/18 17:27 Myelocytes # Cancelled 03/10/18 17:27 Promyelocytes # Cancelled 03/10/18 17:27 Blast Cells # Cancelled 03/10/18 17:27 WBC Morphology Cancelled 03/10/18 17:27 Hypersegmented Neuts Cancelled 03/10/18 17:27 Hyposegmented Neuts Cancelled 03/10/18 17:27 Hypogranular Neuts Cancelled 03/10/18 17:27 Hypersegmented Polys Cancelled 03/10/18 17:27 Smudge Cells Cancelled 03/10/18 17:27 Toxic Granulation Cancelled 03/10/18 17:27 Toxic Vacuolation Cancelled 03/10/18 17:27 Dohle Bodies Cancelled 03/10/18 17:27 Pelger-Huet Anomaly Cancelled 03/10/18 17:27 Alvin Rods Cancelled 03/10/18 17:27 Platelet Estimate Cancelled 03/10/18 17:27 Clumped Platelets Cancelled 03/10/18 17:27 Plt Clumps, EDTA Cancelled 03/10/18 17:27 Large Platelets Cancelled 03/10/18 17:27 Giant Platelets Cancelled 03/10/18 17:27 Platelet Satelliting Cancelled 03/10/18 17:27 Plt Morphology Comment Cancelled 03/10/18 17:27 RBC Morphology Cancelled 03/10/18 17:27 Dimorphic RBCs Cancelled 03/10/18 17:27 Polychromasia Cancelled 03/10/18 17:27 Hypochromasia Cancelled 03/10/18 17:27 Poikilocytosis Cancelled 03/10/18 17:27 Basophilic Stippling Cancelled 03/10/18 17:27 Anisocytosis Cancelled 03/10/18 17:27 Microcytosis Cancelled 03/10/18 17:27 Macrocytosis Cancelled 03/10/18 17:27 Spherocytes Cancelled 03/10/18 17:27 Pappenheimer Bodies Cancelled 03/10/18 17:27 Sickle Cells Cancelled 03/10/18 17:27 Target Cells Cancelled 03/10/18 17:27 Tear Drop Cells Cancelled 03/10/18 17:27 Ovalocytes Cancelled 03/10/18 17:27 Stomatocytes Cancelled 03/10/18 17:27 Helmet Cells Cancelled 03/10/18 17:27 Hernandez-[place] Bodies Cancelled 03/10/18 17:27 [place] Rings Cancelled 03/10/18 17:27 Alcon Cells Cancelled 03/10/18 17:27 Bite Cells Cancelled 03/10/18 17:27 Crenated Cell Cancelled 03/10/18 17:27 Elliptocytes Cancelled 03/10/18 17:27 Acanthocytes (Spur) Cancelled 03/10/18 17:27 Rouleaux Cancelled 03/10/18 17:27 Hemoglobin C Crystals Cancelled 03/10/18 17:27 Schistocytes Cancelled 03/10/18 17:27 Malaria parasites Cancelled 03/10/18 17:27 Darrius Bodies Cancelled 03/10/18 17:27 Hem Pathologist Commnt Cancelled 03/10/18 17:27 Sodium 135 mmol/L (137-145) L 03/16/18 05:43 Potassium 3.7 mmol/L (3.6-5.0) 03/16/18 05:43 Chloride 99.9 mmol/L (98-107) 03/16/18 05:43 Carbon Dioxide 24 mmol/L (22-30) 03/16/18 05:43 Anion Gap 15 mmol/L 03/16/18 05:43 BUN 2 mg/dL (9-20) L 03/16/18 05:43 Creatinine 0.6 mg/dL (0.8-1.5) L 03/16/18 05:43 Estimated GFR > 60 ml/min 03/16/18 05:43 BUN/Creatinine Ratio 3 % 03/16/18 05:43 Glucose 105 mg/dL (75-100) H 03/16/18 05:43 POC Glucose 115 (70-105) H 03/26/18 23:08 Calcium 9.0 mg/dL (8.4-10.2) 03/16/18 05:43 Magnesium 2.20 mg/dL (1.7-2.3) 03/10/18 17:24 Total Bilirubin 1.20 mg/dL (0.1-1.2) 03/10/18 17:27 AST 50 units/L (5-40) H 03/10/18 17:27 ALT 63 units/L (7-56) H 03/10/18 17:27 Alkaline Phosphatase 67 units/L (35-129) 03/10/18 17:27 Ammonia 42.0 umol/L (25-60) 03/16/18 15:17 Total Creatine Kinase 148 units/L (55-170) 03/10/18 17:44 CK-MB (CK-2) 1.6 ng/mL (0.0-4.0) 03/10/18 17:44 CK-MB (CK-2) Rel Index 1.0 (0-4) 03/10/18 17:44 Troponin T < 0.010 ng/mL (0.00-0.029) 03/10/18 17:43 Total Protein 7.2 g/dL (6.3-8.2) 03/10/18 17:27 Albumin 3.6 g/dL (3.9-5) L 03/10/18 17:27 Albumin/Globulin Ratio 1.0 % 03/10/18 17:27 Vitamin B12 870.0 pg/mL (211-911) 03/16/18 15:13 Folate 6.55 ng/mL (7.3-26.0) L 03/16/18 15:15 TSH 2.910 mlU/mL (0.270-4.200) 03/16/18 15:16 Free T4 0.92 ng/dL (0.76-1.46) 03/10/18 17:27 Urine Color [place]ela (Yellow) 03/10/18 17:59 Urine Turbidity Cloudy (Clear) 03/10/18 17:59 Urine pH 7.0 (5.0-7.0) 03/10/18 17:59 Ur Specific [place] 1.021 (1.003-1.030) 03/10/18 17:59 Urine Protein 30 mg/dl mg/dL (Negative) 03/10/18 17:59 Urine Glucose (UA) Neg mg/dL (Negative) 03/10/18 17:59 Urine Ketones Neg mg/dL (Negative) 03/10/18 17:59 Urine Blood Neg (Negative) 03/10/18 17:59 Urine Nitrite Neg (Negative) 03/10/18 17:59 Urine Bilirubin Neg (Negative) 03/10/18 17:59 Urine Urobilinogen 4.0 mg/dL (<2.0) 03/10/18 17:59 Ur Leukocyte Esterase Lg (Negative) 03/10/18 17:59 Urine WBC (Auto) 92.0 /HPF (0.0-6.0) H 03/10/18 17:59 Urine RBC (Auto) 6.0 /HPF (0.0-6.0) 03/10/18 17:59 U Epithel Cells (Auto) < 1.0 /HPF (0-13.0) 03/10/18 17:59 Urine Bacteria (Auto) 3+ /HPF (Negative) 03/10/18 17:59 Ur Transition Epith Cell 2 /HPF 03/10/18 17:59 Urine Mucus 1+ /HPF 03/10/18 17:59 Salicylates < 0.3 mg/dL (2.8-20.0) L 03/10/18 17:27 Urine Opiates Screen Presumptive negative 03/10/18 17:59 Urine Methadone Screen Presumptive negative 03/10/18 17:59 Acetaminophen < 5.0 ug/mL (10.0-30.0) L 03/10/18 17:27 Ur Barbiturates Screen Presumptive negative 03/10/18 17:59 Ur Phencyclidine Scrn Presumptive negative 03/10/18 17:59 Ur Amphetamines Screen Presumptive negative 03/10/18 17:59 U Benzodiazepines Scrn Presumptive negative 03/10/18 17:59 Urine Cocaine Screen Presumptive negative 03/10/18 17:59 U Marijuana (THC) Screen Presumptive negative 03/10/18 17:59 Drugs of Abuse Note Disclamer 03/10/18 17:59 Plasma/Serum Alcohol < 0.01 % (0-0.07) 03/10/18 17:27
[2018-04-09] MEDS: HEPARIN SUB-Q SCH ×2 (10:46→21:50)
--- NOTE | 2018-04-09 11:47 | Progress Note ---
Assessment and Plan Assessment and plan: 57-year-old -Turkmen male came from mental health facility for altered mental status Catatonia, Psychiatry r/o catatonia, said the side effect of his pysch medications - mental health consulted, and signed off - Patient is not catatonic - Restart Medications. Metabolic encephalopathy - Supportive care - EEG showed moderate diffuse encephalopathy - CT normal finding, MRI showed encephalopathy - Patient markedly improved UTI - Treated with IV antibiotics and resolved Failure to eat/malnutrition - patient is on pured diet Suspected femoral fracture -Evaluated by orthopedics, reviewed his imaging and showed no fracture DVT prophylaxis Disposition - Patient is unfunded, but patient need SNF - Waiting if his sister able to take him home. History Interval history: Patient seen and examined, no clinical changes, noticed patient not on his home meds will restart. Hospitalist Physical - Physical exam Narrative exam: Not in cardiopulmonary distress. The patient appeared well nourished and normally developed. Vital signs as documented. Head exam is with marked temporal wasting No scleral icterus . Neck is without jugular venous distension, thyromegaly, or carotid bruits. Lungs are clear to auscultation. Cardiac exam reveals regular rate and Rhythm. First and second heart sounds normal. No murmurs, rubs or gallops. Abdominal exam reveals normal bowel sounds, no masses, no organomegaly and no aortic enlargement. Extremities are nonedematous and both femoral and pedal pulses are normal. 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 - Constitutional Vitals: Temp Pulse Resp BP Pulse Ox 97.7 F 88 20 104/78 97 04/09/18 09:30 04/09/18 09:30 04/09/18 00:00 04/09/18 09:30 04/09/18 09:30 General appearance: Present: no acute distress, well-nourished, other Results - Labs CBC & Chem 7: 03/16/18 05:43 03/16/18 05:43 Labs: Laboratory Last Values WBC 5.9 K/mm3 (4.5-11.0) 03/16/18 05:43 RBC 4.40 M/mm3 (3.65-5.03) 03/16/18 05:43 Hgb 12.4 gm/dl (11.8-15.2) 03/16/18 05:43 Hct 35.1 % (35.5-45.6) L 03/16/18 05:43 MCV 80 fl (84-94) L 03/16/18 05:43 MCH 28 pg (28-32) 03/16/18 05:43 MCHC 35 % (32-34) H 03/16/18 05:43 RDW 14.5 % (13.2-15.2) 03/16/18 05:43 Plt Count 197 K/mm3 (140-440) 03/16/18 05:43 Lymph % (Auto) 15.1 % (13.4-35.0) 03/16/18 05:43 [place] % (Auto) 8.1 % (0.0-7.3) H 03/16/18 05:43 Eos % (Auto) 2.2 % (0.0-4.3) 03/16/18 05:43 Baso % (Auto) 0.4 % (0.0-1.8) 03/16/18 05:43 Lymph # 0.9 K/mm3 (1.2-5.4) L 03/16/18 05:43 [place] # 0.5 K/mm3 (0.0-0.8) 03/16/18 05:43 Eos # 0.1 K/mm3 (0.0-0.4) 03/16/18 05:43 Baso # 0.0 K/mm3 (0.0-0.1) 03/16/18 05:43 Total Counted Cancelled 03/10/18 17:27 Seg Neutrophils % 74.2 % (40.0-70.0) H 03/16/18 05:43 Seg Neuts % (Manual) Cancelled 03/10/18 17:27 Band Neutrophils % Cancelled 03/10/18 17:27 Lymphocytes % (Manual) Cancelled 03/10/18 17:27 Reactive Lymphs % (Man) Cancelled 03/10/18 17:27 Monocytes % (Manual) Cancelled 03/10/18 17:27 Eosinophils % (Manual) Cancelled 03/10/18 17:27 Basophils % (Manual) Cancelled 03/10/18 17:27 Metamyelocytes % Cancelled 03/10/18 17:27 Myelocytes % Cancelled 03/10/18 17:27 Promyelocytes % Cancelled 03/10/18 17:27 Blast Cells % Cancelled 03/10/18 17:27 Nucleated RBC % Cancelled 03/10/18 17:27 Seg Neutrophils # 4.4 K/mm3 (1.8-7.7) 03/16/18 05:43 Seg Neutrophils # Man Cancelled 03/10/18 17:27 Band Neutrophils # Cancelled 03/10/18 17:27 Lymphocytes # (Manual) Cancelled 03/10/18 17:27 Abs React Lymphs (Man) Cancelled 03/10/18 17:27 Monocytes # (Manual) Cancelled 03/10/18 17:27 Eosinophils # (Manual) Cancelled 03/10/18 17:27 Basophils # (Manual) Cancelled 03/10/18 17:27 Metamyelocytes # Cancelled 03/10/18 17:27 Myelocytes # Cancelled 03/10/18 17:27 Promyelocytes # Cancelled 03/10/18 17:27 Blast Cells # Cancelled 03/10/18 17:27 WBC Morphology Cancelled 03/10/18 17:27 Hypersegmented Neuts Cancelled 03/10/18 17:27 Hyposegmented Neuts Cancelled 03/10/18 17:27 Hypogranular Neuts Cancelled 03/10/18 17:27 Hypersegmented Polys Cancelled 03/10/18 17:27 Smudge Cells Cancelled 03/10/18 17:27 Toxic Granulation Cancelled 03/10/18 17:27 Toxic Vacuolation Cancelled 03/10/18 17:27 Dohle Bodies Cancelled 03/10/18 17:27 Pelger-Huet Anomaly Cancelled 03/10/18 17:27 Alvin Rods Cancelled 03/10/18 17:27 Platelet Estimate Cancelled 03/10/18 17:27 Clumped Platelets Cancelled 03/10/18 17:27 Plt Clumps, EDTA Cancelled 03/10/18 17:27 Large Platelets Cancelled 03/10/18 17:27 Giant Platelets Cancelled 03/10/18 17:27 Platelet Satelliting Cancelled 03/10/18 17:27 Plt Morphology Comment Cancelled 03/10/18 17:27 RBC Morphology Cancelled 03/10/18 17:27 Dimorphic RBCs Cancelled 03/10/18 17:27 Polychromasia Cancelled 03/10/18 17:27 Hypochromasia Cancelled 03/10/18 17:27 Poikilocytosis Cancelled 03/10/18 17:27 Basophilic Stippling Cancelled 03/10/18 17:27 Anisocytosis Cancelled 03/10/18 17:27 Microcytosis Cancelled 03/10/18 17:27 Macrocytosis Cancelled 03/10/18 17:27 Spherocytes Cancelled 03/10/18 17:27 Pappenheimer Bodies Cancelled 03/10/18 17:27 Sickle Cells Cancelled 03/10/18 17:27 Target Cells Cancelled 03/10/18 17:27 Tear Drop Cells Cancelled 03/10/18 17:27 Ovalocytes Cancelled 03/10/18 17:27 Stomatocytes Cancelled 03/10/18 17:27 Helmet Cells Cancelled 03/10/18 17:27 Hernandez-[place] Bodies Cancelled 03/10/18 17:27 [place] Rings Cancelled 03/10/18 17:27 Alcon Cells Cancelled 03/10/18 17:27 Bite Cells Cancelled 03/10/18 17:27 Crenated Cell Cancelled 03/10/18 17:27 Elliptocytes Cancelled 03/10/18 17:27 Acanthocytes (Spur) Cancelled 03/10/18 17:27 Rouleaux Cancelled 03/10/18 17:27 Hemoglobin C Crystals Cancelled 03/10/18 17:27 Schistocytes Cancelled 03/10/18 17:27 Malaria parasites Cancelled 03/10/18 17:27 Darrius Bodies Cancelled 03/10/18 17:27 Hem Pathologist Commnt Cancelled 03/10/18 17:27 Sodium 135 mmol/L (137-145) L 03/16/18 05:43 Potassium 3.7 mmol/L (3.6-5.0) 03/16/18 05:43 Chloride 99.9 mmol/L (98-107) 03/16/18 05:43 Carbon Dioxide 24 mmol/L (22-30) 03/16/18 05:43 Anion Gap 15 mmol/L 03/16/18 05:43 BUN 2 mg/dL (9-20) L 03/16/18 05:43 Creatinine 0.6 mg/dL (0.8-1.5) L 03/16/18 05:43 Estimated GFR > 60 ml/min 03/16/18 05:43 BUN/Creatinine Ratio 3 % 03/16/18 05:43 Glucose 105 mg/dL (75-100) H 03/16/18 05:43 POC Glucose 115 (70-105) H 03/26/18 23:08 Calcium 9.0 mg/dL (8.4-10.2) 03/16/18 05:43 Magnesium 2.20 mg/dL (1.7-2.3) 03/10/18 17:24 Total Bilirubin 1.20 mg/dL (0.1-1.2) 03/10/18 17:27 AST 50 units/L (5-40) H 03/10/18 17:27 ALT 63 units/L (7-56) H 03/10/18 17:27 Alkaline Phosphatase 67 units/L (35-129) 03/10/18 17:27 Ammonia 42.0 umol/L (25-60) 03/16/18 15:17 Total Creatine Kinase 148 units/L (55-170) 03/10/18 17:44 CK-MB (CK-2) 1.6 ng/mL (0.0-4.0) 03/10/18 17:44 CK-MB (CK-2) Rel Index 1.0 (0-4) 03/10/18 17:44 Troponin T < 0.010 ng/mL (0.00-0.029) 03/10/18 17:43 Total Protein 7.2 g/dL (6.3-8.2) 03/10/18 17:27 Albumin 3.6 g/dL (3.9-5) L 03/10/18 17:27 Albumin/Globulin Ratio 1.0 % 03/10/18 17:27 Vitamin B12 870.0 pg/mL (211-911) 03/16/18 15:13 Folate 6.55 ng/mL (7.3-26.0) L 03/16/18 15:15 TSH 2.910 mlU/mL (0.270-4.200) 03/16/18 15:16 Free T4 0.92 ng/dL (0.76-1.46) 03/10/18 17:27 Urine Color [place] (Yellow) 03/10/18 17:59 Urine Turbidity Cloudy (Clear) 03/10/18 17:59 Urine pH 7.0 (5.0-7.0) 03/10/18 17:59 Ur Specific [place] 1.021 (1.003-1.030) 03/10/18 17:59 Urine Protein 30 mg/dl mg/dL (Negative) 03/10/18 17:59 Urine Glucose (UA) Neg mg/dL (Negative) 03/10/18 17:59 Urine Ketones Neg mg/dL (Negative) 03/10/18 17:59 Urine Blood Neg (Negative) 03/10/18 17:59 Urine Nitrite Neg (Negative) 03/10/18 17:59 Urine Bilirubin Neg (Negative) 03/10/18 17:59 Urine Urobilinogen 4.0 mg/dL (<2.0) 03/10/18 17:59 Ur Leukocyte Esterase Lg (Negative) 03/10/18 17:59 Urine WBC (Auto) 92.0 /HPF (0.0-6.0) H 03/10/18 17:59 Urine RBC (Auto) 6.0 /HPF (0.0-6.0) 03/10/18 17:59 U Epithel Cells (Auto) < 1.0 /HPF (0-13.0) 03/10/18 17:59 Urine Bacteria (Auto) 3+ /HPF (Negative) 03/10/18 17:59 Ur Transition Epith Cell 2 /HPF 03/10/18 17:59 Urine Mucus 1+ /HPF 03/10/18 17:59 Salicylates < 0.3 mg/dL (2.8-20.0) L 03/10/18 17:27 Urine Opiates Screen Presumptive negative 03/10/18 17:59 Urine Methadone Screen Presumptive negative 03/10/18 17:59 Acetaminophen < 5.0 ug/mL (10.0-30.0) L 03/10/18 17:27 Ur Barbiturates Screen Presumptive negative 03/10/18 17:59 Ur Phencyclidine Scrn Presumptive negative 03/10/18 17:59 Ur Amphetamines Screen Presumptive negative 03/10/18 17:59 U Benzodiazepines Scrn Presumptive negative 03/10/18 17:59 Urine Cocaine Screen Presumptive negative 03/10/18 17:59 U Marijuana (THC) Screen Presumptive negative 03/10/18 17:59 Drugs of Abuse Note Disclamer 03/10/18 17:59 Plasma/Serum Alcohol < 0.01 % (0-0.07) 03/10/18 17:27
--- NOTE | 2018-04-09 11:49 | Discharge Summary ---
Providers - Providers Date of Admission: 03/10/18 23:18 Attending physician: PRABHAKAR DEAN MD 03/10/18 20:48 Consult to Physician [CONS] Urgent Comment: Dr. Jiménez spoke with Dr. Burton Consulting Provider: TRU BURTON Physician Instructions: Reason For Exam: right lessor trochantor avulson fracture 03/11/18 07:15 Consult to Mental Health [CONS] Routine Reason For Exam: catatonic state Place consult to:: mental health Notified:: [facility] Phone number called:: [phone] Was contact made?: Yes If yes, spoke with:: [facility] Time called:: 08:48 03/12/18 09:42 Consult to Physician [CONS] Routine Comment: Consulting Provider: EDUARDO BACA Physician Instructions: Reason For Exam: altered mental status 03/15/18 18:25 Consult to Physician [CONS] Routine Comment: Consulting Provider: TRU BURTON Physician Instructions: Reason For Exam: hip fx 03/16/18 14:53 Consult to Dietitian/Nutrition [CONS] Routine Physician Instructions: Reason For Exam: Reason for Consult: Write/Manage Tube Feeding 03/17/18 13:21 Occupational Therapy Evaluate and Treat [CONS] Routine Comment: Reason For Exam: orthotic for foot drop 03/20/18 19:59 Consult to Ethics Committee [CONS] Routine Reason For Exam: feeding tube in stom[place]. OK to start tube feed. 03/22/18 07:07 Speech Therapy Evaluation and Treat [CONS] Routine Reason For Exam: evaluate swallowing 03/26/18 14:10 Physical Therapy Evaluation and Treat [CONS] Routine Comment: Reason For Exam: gen weakness 03/29/18 10:52 Consult to Dietitian/Nutrition [CONS] Routine Physician Instructions: Reason For Exam: Reason for Consult: Write/Manage Tube Feeding 04/01/18 09:33 Occupational Therapy Evaluate and Treat [CONS] Routine Comment: Reason For Exam: generalized weakness Physical Therapy Evaluation and Treat [CONS] Routine Comment: Reason For Exam: gneralized weakness 04/02/18 17:23 Speech Therapy Evaluation and Treat [CONS] Urgent Reason For Exam: To reassess for swollowing 04/04/18 16:47 Physical Therapy Evaluation and Treat [CONS] Routine Comment: Reason For Exam: generalized weakness Primary care physician: BARREL DRUM CUTTER Hospitalization Reason for admission: ACUTE PYSCHOSIS Condition: Stable Hospital course: 57-year-old -[place] male came from mental health facility for altered mental status Catatonia, Psychiatry r/o catatonia, said the side effect of his pysch medications during hospitalization multiple etiologies and research well unable to provide the reason for patient's state of health it was felt by psychiatry that the antipsychotic medication the patient was on a recent bladder was likely the cause patient was discontinued on all medications on my taking over on 04/09/2018 I did restart some of the patient's home medication and reconsult as psych S patient continued to be restrained and was barely responsive on my very first day. The patient improved 2 days later and on the third day was able to speak clearly to the nursing staff actually asking the MRSA staph out of the date. On the day of discharge the patient's family member resented uncalled another family member on the phone who reported that the patient has been mismanaged by medications in the past and does not want the patient on any antipsychotic except trazodone if needed. I did advise but the patient has been on restrained to which they said that the patient every weekend when they come by that the patient is able to ambulate with minimal assistance and does not need to be on restraints but has had a change of condition since medications were started. They also reported that they would not be able to take the patient home due to a in the family. I was notified by nurses case management of the patient can go to a personal usp to have accepted the patient I have asked if the nursing of the usp has seen the patient recently and was told to the affirmative yes patient was discharged to the care of home with recommendation to continue physical therapy and ultimately get back to baseline. Patient was discharged on lactulose as someone level was mildly elevated all the medications were discontinued. The EKG at that time was moderately diffused CT and MRI were unremarkable. Patient was treated for UTI. Also failure to eat severe malnutrition. Initial Concern of Fracture Which Was Reviewed by Orthopedic Surgeon and stated no fracture was noted Metabolic encephalopathy UTI Failure to eat Severe protein calorie malnutrition Failure to thrive Disposition: TO HOME OR SELFCARE Time spent for discharge: 35 mins Core Measure Documentation - Palliative Care Palliative Care/ Comfort Measures: Not Applicable - Core Measures Any of the following diagnoses?: none - VTE Discharge Requirements Deep Vein Thrombosis/Pulmonary Embolism Present on Admission: No Exam - Physical Exam Narrative exam: Not in cardiopulmonary distress. The patient appeared Markedly chronically ill AND EMACIATED Vital signs as documented. Head exam is with marked temporal wasting No scleral icterus . Neck is without jugular venous distension, thyromegaly, or carotid bruits. Lungs are clear to auscultation. Cardiac exam reveals regular rate and Rhythm. First and second heart sounds normal. No murmurs, rubs or gallops. Abdominal exam reveals normal bowel sounds, no masses, no organomegaly and no aortic enlargement. Extremities are nonedematous and both femoral and pedal pulses are normal. 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 - Constitutional Vitals: Temp Pulse Resp BP Pulse Ox 97.7 F 88 20 104/78 97 04/09/18 09:30 04/09/18 09:30 04/09/18 00:00 04/09/18 09:30 04/09/18 09:30 Plan Activity: advance as tolerated, fall precautions Diet: advance as tolerated Special Instructions: record daily BP diary Additional Instructions: outpatient psych follow up Follow up with: PRIMARY MD BARBARA [Primary Care Provider] - 3-5 Days JONES ROBERTS MD [Staff Physician] - 7 Days Prescriptions: Lactulose [Cephulac] 20 gm PO Q8H #30 [email or web address]
[2018-04-09] MEDS ORDERED: PROZAC 40 MG PO SCH (12:00)
[2018-04-09] MEDS ORDERED: ABILIFY 5 MG IM SCH (12:00)
[2018-04-09] MEDS: ABILIFY PO SCH (12:49)
[2018-04-09] MEDS: PROzac PO SCH (12:50)
[2018-04-09] MEDS: REMERON SOLUTAB PO SCH (21:50)
[2018-04-09] MEDS: ATIVAN IM PRN (21:54)
[2018-04-10] MEDS: HEPARIN SUB-Q SCH ×2 (11:05→21:15)
[2018-04-10] MEDS: PROzac PO SCH (11:05)
[2018-04-10] MEDS: ABILIFY PO SCH (11:05)
--- NOTE | 2018-04-10 18:05 | Progress Note ---
Assessment and Plan Assessment and plan: 57-year-old -[place] male came from mental health facility for altered mental status Catatonia, Psychiatry r/o catatonia, said the side effect of his pysch medications - mental health consulted, and signed off - Patient is not catatonic - Restart Medication - Reconsult PSYCH Metabolic encephalopathy - Supportive care - EEG showed moderate diffuse encephalopathy - CT normal finding, MRI showed encephalopathy - Patient markedly improved UTI - Treated with IV antibiotics and resolved - Cultures grew citrobacter , patietn completed abx Failure to eat/malnutrition - patient is on pured diet Suspected femoral fracture -Evaluated by orthopedics, reviewed his imaging and showed no fracture DVT prophylaxis Disposition - Patient is unfunded, but patient need SNF - Waiting if his sister able to take him home. History Interval history: Patient seen and examined, no clinical changes, still with intermittent agitation requiring safety restriants Hospitalist Physical - Physical exam Narrative exam: Not in cardiopulmonary distress. The patient appeared well nourished and normally developed. Vital signs as documented. Head exam is with marked temporal wasting No scleral icterus . Neck is without jugular venous distension, thyromegaly, or carotid bruits. Lungs are clear to auscultation. Cardiac exam reveals regular rate and Rhythm. First and second heart sounds normal. No murmurs, rubs or gallops. Abdominal exam reveals normal bowel sounds, no masses, no organomegaly and no aortic enlargement. Extremities are nonedematous and both femoral and pedal pulses are normal. 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 - Constitutional Vitals: Temp Pulse Resp BP Pulse Ox 98.2 F 99 H 18 110/77 99 04/10/18 11:22 04/10/18 11:22 04/10/18 11:22 04/10/18 11:22 04/10/18 11:22 General appearance: Present: no acute distress, well-nourished, other Results - Labs CBC & Chem 7: 03/16/18 05:43 03/16/18 05:43 Labs: Laboratory Last Values WBC 5.9 K/mm3 (4.5-11.0) 03/16/18 05:43 RBC 4.40 M/mm3 (3.65-5.03) 03/16/18 05:43 Hgb 12.4 gm/dl (11.8-15.2) 03/16/18 05:43 Hct 35.1 % (35.5-45.6) L 03/16/18 05:43 MCV 80 fl (84-94) L 03/16/18 05:43 MCH 28 pg (28-32) 03/16/18 05:43 MCHC 35 % (32-34) H 03/16/18 05:43 RDW 14.5 % (13.2-15.2) 03/16/18 05:43 Plt Count 197 K/mm3 (140-440) 03/16/18 05:43 Lymph % (Auto) 15.1 % (13.4-35.0) 03/16/18 05:43 [place] % (Auto) 8.1 % (0.0-7.3) H 03/16/18 05:43 Eos % (Auto) 2.2 % (0.0-4.3) 03/16/18 05:43 Baso % (Auto) 0.4 % (0.0-1.8) 03/16/18 05:43 Lymph # 0.9 K/mm3 (1.2-5.4) L 03/16/18 05:43 [place] # 0.5 K/mm3 (0.0-0.8) 03/16/18 05:43 Eos # 0.1 K/mm3 (0.0-0.4) 03/16/18 05:43 Baso # 0.0 K/mm3 (0.0-0.1) 03/16/18 05:43 Total Counted Cancelled 03/10/18 17:27 Seg Neutrophils % 74.2 % (40.0-70.0) H 03/16/18 05:43 Seg Neuts % (Manual) Cancelled 03/10/18 17:27 Band Neutrophils % Cancelled 03/10/18 17:27 Lymphocytes % (Manual) Cancelled 03/10/18 17:27 Reactive Lymphs % (Man) Cancelled 03/10/18 17:27 Monocytes % (Manual) Cancelled 03/10/18 17:27 Eosinophils % (Manual) Cancelled 03/10/18 17:27 Basophils % (Manual) Cancelled 03/10/18 17:27 Metamyelocytes % Cancelled 03/10/18 17:27 Myelocytes % Cancelled 03/10/18 17:27 Promyelocytes % Cancelled 03/10/18 17:27 Blast Cells % Cancelled 03/10/18 17:27 Nucleated RBC % Cancelled 03/10/18 17:27 Seg Neutrophils # 4.4 K/mm3 (1.8-7.7) 03/16/18 05:43 Seg Neutrophils # Man Cancelled 03/10/18 17:27 Band Neutrophils # Cancelled 03/10/18 17:27 Lymphocytes # (Manual) Cancelled 03/10/18 17:27 Abs React Lymphs (Man) Cancelled 03/10/18 17:27 Monocytes # (Manual) Cancelled 03/10/18 17:27 Eosinophils # (Manual) Cancelled 03/10/18 17:27 Basophils # (Manual) Cancelled 03/10/18 17:27 Metamyelocytes # Cancelled 03/10/18 17:27 Myelocytes # Cancelled 03/10/18 17:27 Promyelocytes # Cancelled 03/10/18 17:27 Blast Cells # Cancelled 03/10/18 17:27 WBC Morphology Cancelled 03/10/18 17:27 Hypersegmented Neuts Cancelled 03/10/18 17:27 Hyposegmented Neuts Cancelled 03/10/18 17:27 Hypogranular Neuts Cancelled 03/10/18 17:27 Hypersegmented Polys Cancelled 03/10/18 17:27 Smudge Cells Cancelled 03/10/18 17:27 Toxic Granulation Cancelled 03/10/18 17:27 Toxic Vacuolation Cancelled 03/10/18 17:27 Dohle Bodies Cancelled 03/10/18 17:27 Pelger-Huet Anomaly Cancelled 03/10/18 17:27 Alvin Rods Cancelled 03/10/18 17:27 Platelet Estimate Cancelled 03/10/18 17:27 Clumped Platelets Cancelled 03/10/18 17:27 Plt Clumps, EDTA Cancelled 03/10/18 17:27 Large Platelets Cancelled 03/10/18 17:27 Giant Platelets Cancelled 03/10/18 17:27 Platelet Satelliting Cancelled 03/10/18 17:27 Plt Morphology Comment Cancelled 03/10/18 17:27 RBC Morphology Cancelled 03/10/18 17:27 Dimorphic RBCs Cancelled 03/10/18 17:27 Polychromasia Cancelled 03/10/18 17:27 Hypochromasia Cancelled 03/10/18 17:27 Poikilocytosis Cancelled 03/10/18 17:27 Basophilic Stippling Cancelled 03/10/18 17:27 Anisocytosis Cancelled 03/10/18 17:27 Microcytosis Cancelled 03/10/18 17:27 Macrocytosis Cancelled 03/10/18 17:27 Spherocytes Cancelled 03/10/18 17:27 Pappenheimer Bodies Cancelled 03/10/18 17:27 Sickle Cells Cancelled 03/10/18 17:27 Target Cells Cancelled 03/10/18 17:27 Tear Drop Cells Cancelled 03/10/18 17:27 Ovalocytes Cancelled 03/10/18 17:27 Stomatocytes Cancelled 03/10/18 17:27 Helmet Cells Cancelled 03/10/18 17:27 [place] Bodies Cancelled 03/10/18 17:27 [place] Rings Cancelled 03/10/18 17:27 [place] Cells Cancelled 03/10/18 17:27 Bite Cells Cancelled 03/10/18 17:27 Crenated Cell Cancelled 03/10/18 17:27 Elliptocytes Cancelled 03/10/18 17:27 Acanthocytes (Spur) Cancelled 03/10/18 17:27 Rouleaux Cancelled 03/10/18 17:27 Hemoglobin C Crystals Cancelled 03/10/18 17:27 Schistocytes Cancelled 03/10/18 17:27 Malaria parasites Cancelled 03/10/18 17:27 Darrius Bodies Cancelled 03/10/18 17:27 Hem Pathologist Commnt Cancelled 03/10/18 17:27 Sodium 135 mmol/L (137-145) L 03/16/18 05:43 Potassium 3.7 mmol/L (3.6-5.0) 03/16/18 05:43 Chloride 99.9 mmol/L (98-107) 03/16/18 05:43 Carbon Dioxide 24 mmol/L (22-30) 03/16/18 05:43 Anion Gap 15 mmol/L 03/16/18 05:43 BUN 2 mg/dL (9-20) L 03/16/18 05:43 Creatinine 0.6 mg/dL (0.8-1.5) L 03/16/18 05:43 Estimated GFR > 60 ml/min 03/16/18 05:43 BUN/Creatinine Ratio 3 % 03/16/18 05:43 Glucose 105 mg/dL (75-100) H 03/16/18 05:43 POC Glucose 115 (70-105) H 03/26/18 23:08 Calcium 9.0 mg/dL (8.4-10.2) 03/16/18 05:43 Magnesium 2.20 mg/dL (1.7-2.3) 03/10/18 17:24 Total Bilirubin 1.20 mg/dL (0.1-1.2) 03/10/18 17:27 AST 50 units/L (5-40) H 03/10/18 17:27 ALT 63 units/L (7-56) H 03/10/18 17:27 Alkaline Phosphatase 67 units/L (35-129) 03/10/18 17:27 Ammonia 42.0 umol/L (25-60) 03/16/18 15:17 Total Creatine Kinase 148 units/L (55-170) 03/10/18 17:44 CK-MB (CK-2) 1.6 ng/mL (0.0-4.0) 03/10/18 17:44 CK-MB (CK-2) Rel Index 1.0 (0-4) 03/10/18 17:44 Troponin T < 0.010 ng/mL (0.00-0.029) 03/10/18 17:43 Total Protein 7.2 g/dL (6.3-8.2) 03/10/18 17:27 Albumin 3.6 g/dL (3.9-5) L 03/10/18 17:27 Albumin/Globulin Ratio 1.0 % 03/10/18 17:27 Vitamin B12 870.0 pg/mL (211-911) 03/16/18 15:13 Folate 6.55 ng/mL (7.3-26.0) L 03/16/18 15:15 TSH 2.910 mlU/mL (0.270-4.200) 03/16/18 15:16 Free T4 0.92 ng/dL (0.76-1.46) 03/10/18 17:27 Urine Color [place] (Yellow) 03/10/18 17:59 Urine Turbidity Cloudy (Clear) 03/10/18 17:59 Urine pH 7.0 (5.0-7.0) 03/10/18 17:59 Ur Specific [place] 1.021 (1.003-1.030) 03/10/18 17:59 Urine Protein 30 mg/dl mg/dL (Negative) 03/10/18 17:59 Urine Glucose (UA) Neg mg/dL (Negative) 03/10/18 17:59 Urine Ketones Neg mg/dL (Negative) 03/10/18 17:59 Urine Blood Neg (Negative) 03/10/18 17:59 Urine Nitrite Neg (Negative) 03/10/18 17:59 Urine Bilirubin Neg (Negative) 03/10/18 17:59 Urine Urobilinogen 4.0 mg/dL (<2.0) 03/10/18 17:59 Ur Leukocyte Esterase Lg (Negative) 03/10/18 17:59 Urine WBC (Auto) 92.0 /HPF (0.0-6.0) H 03/10/18 17:59 Urine RBC (Auto) 6.0 /HPF (0.0-6.0) 03/10/18 17:59 U Epithel Cells (Auto) < 1.0 /HPF (0-13.0) 03/10/18 17:59 Urine Bacteria (Auto) 3+ /HPF (Negative) 03/10/18 17:59 Ur Transition Epith Cell 2 /HPF 03/10/18 17:59 Urine Mucus 1+ /HPF 03/10/18 17:59 Salicylates < 0.3 mg/dL (2.8-20.0) L 03/10/18 17:27 Urine Opiates Screen Presumptive negative 03/10/18 17:59 Urine Methadone Screen Presumptive negative 03/10/18 17:59 Acetaminophen < 5.0 ug/mL (10.0-30.0) L 03/10/18 17:27 Ur Barbiturates Screen Presumptive negative 03/10/18 17:59 Ur Phencyclidine Scrn Presumptive negative 03/10/18 17:59 Ur Amphetamines Screen Presumptive negative 03/10/18 17:59 U Benzodiazepines Scrn Presumptive negative 03/10/18 17:59 Urine Cocaine Screen Presumptive negative 03/10/18 17:59 U Marijuana (THC) Screen Presumptive negative 03/10/18 17:59 Drugs of Abuse Note Disclamer 03/10/18 17:59 Plasma/Serum Alcohol < 0.01 % (0-0.07) 03/10/18 17:27
[2018-04-10] MEDS: REMERON SOLUTAB PO SCH (21:16)
[2018-04-11] MEDS: ABILIFY PO SCH (12:32)
[2018-04-11] MEDS: HEPARIN SUB-Q SCH ×2 (14:35→21:53)
--- NOTE | 2018-04-11 18:54 | Progress Note ---
Assessment and Plan Assessment and plan: 57-year-old -[place] male came from mental health facility for altered mental status Catatonia, Psychiatry r/o catatonia, said the side effect of his pysch medications - mental health consulted, and signed off- BUT RECONSULTED - Patient is not catatonic - Restart Medication - Reconsult PSYCH Metabolic encephalopathy - Supportive care - EEG showed moderate diffuse encephalopathy - CT normal finding, MRI showed encephalopathy - Patient markedly improved UTI - Treated with IV antibiotics and resolved - Cultures grew citrobacter , patialondra completed abx Failure to eat/malnutrition - patient is on pured diet Suspected femoral fracture -Evaluated by orthopedics, reviewed his imaging and showed no fracture DVT prophylaxis Disposition - Patient is unfunded, but patient need SNF - Waiting if his sister able to take him home. History Interval history: Patient seen and examined, now verbalizing although not meaningful, still lethargic. still requiring row belt. Hospitalist Physical - Physical exam Narrative exam: Not in cardiopulmonary distress. The patient appeared well nourished and normally developed. Vital signs as documented. Head exam is with marked temporal wasting No scleral icterus . Neck is without jugular venous distension, thyromegaly, or carotid bruits. Lungs are clear to auscultation. Cardiac exam reveals regular rate and Rhythm. First and second heart sounds normal. No murmurs, rubs or gallops. Abdominal exam reveals normal bowel sounds, no masses, no organomegaly and no aortic enlargement. Extremities are nonedematous and both femoral and pedal pulses are normal. 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 - Constitutional Vitals: Temp Pulse Resp BP Pulse Ox 98.1 F 94 H 18 125/79 99 04/11/18 04:55 04/11/18 04:55 04/11/18 04:55 04/11/18 04:55 04/11/18 04:55 General appearance: Present: no acute distress, well-nourished, other Results - Labs CBC & Chem 7: 03/16/18 05:43 03/16/18 05:43 Labs: Laboratory Last Values WBC 5.9 K/mm3 (4.5-11.0) 03/16/18 05:43 RBC 4.40 M/mm3 (3.65-5.03) 03/16/18 05:43 Hgb 12.4 gm/dl (11.8-15.2) 03/16/18 05:43 Hct 35.1 % (35.5-45.6) L 03/16/18 05:43 MCV 80 fl (84-94) L 03/16/18 05:43 MCH 28 pg (28-32) 03/16/18 05:43 MCHC 35 % (32-34) H 03/16/18 05:43 RDW 14.5 % (13.2-15.2) 03/16/18 05:43 Plt Count 197 K/mm3 (140-440) 03/16/18 05:43 Lymph % (Auto) 15.1 % (13.4-35.0) 03/16/18 05:43 [place] % (Auto) 8.1 % (0.0-7.3) H 03/16/18 05:43 Eos % (Auto) 2.2 % (0.0-4.3) 03/16/18 05:43 Baso % (Auto) 0.4 % (0.0-1.8) 03/16/18 05:43 Lymph # 0.9 K/mm3 (1.2-5.4) L 03/16/18 05:43 [place] # 0.5 K/mm3 (0.0-0.8) 03/16/18 05:43 Eos # 0.1 K/mm3 (0.0-0.4) 03/16/18 05:43 Baso # 0.0 K/mm3 (0.0-0.1) 03/16/18 05:43 Total Counted Cancelled 03/10/18 17:27 Seg Neutrophils % 74.2 % (40.0-70.0) H 03/16/18 05:43 Seg Neuts % (Manual) Cancelled 03/10/18 17:27 Band Neutrophils % Cancelled 03/10/18 17:27 Lymphocytes % (Manual) Cancelled 03/10/18 17:27 Reactive Lymphs % (Man) Cancelled 03/10/18 17:27 Monocytes % (Manual) Cancelled 03/10/18 17:27 Eosinophils % (Manual) Cancelled 03/10/18 17:27 Basophils % (Manual) Cancelled 03/10/18 17:27 Metamyelocytes % Cancelled 03/10/18 17:27 Myelocytes % Cancelled 03/10/18 17:27 Promyelocytes % Cancelled 03/10/18 17:27 Blast Cells % Cancelled 03/10/18 17:27 Nucleated RBC % Cancelled 03/10/18 17:27 Seg Neutrophils # 4.4 K/mm3 (1.8-7.7) 03/16/18 05:43 Seg Neutrophils # Man Cancelled 03/10/18 17:27 Band Neutrophils # Cancelled 03/10/18 17:27 Lymphocytes # (Manual) Cancelled 03/10/18 17:27 Abs React Lymphs (Man) Cancelled 03/10/18 17:27 Monocytes # (Manual) Cancelled 03/10/18 17:27 Eosinophils # (Manual) Cancelled 03/10/18 17:27 Basophils # (Manual) Cancelled 03/10/18 17:27 Metamyelocytes # Cancelled 03/10/18 17:27 Myelocytes # Cancelled 03/10/18 17:27 Promyelocytes # Cancelled 03/10/18 17:27 Blast Cells # Cancelled 03/10/18 17:27 WBC Morphology Cancelled 03/10/18 17:27 Hypersegmented Neuts Cancelled 03/10/18 17:27 Hyposegmented Neuts Cancelled 03/10/18 17:27 Hypogranular Neuts Cancelled 03/10/18 17:27 Hypersegmented Polys Cancelled 03/10/18 17:27 Smudge Cells Cancelled 03/10/18 17:27 Toxic Granulation Cancelled 03/10/18 17:27 Toxic Vacuolation Cancelled 03/10/18 17:27 Dohle Bodies Cancelled 03/10/18 17:27 Pelger-Huet Anomaly Cancelled 03/10/18 17:27 Alvin Rods Cancelled 03/10/18 17:27 Platelet Estimate Cancelled 03/10/18 17:27 Clumped Platelets Cancelled 03/10/18 17:27 Plt Clumps, EDTA Cancelled 03/10/18 17:27 Large Platelets Cancelled 03/10/18 17:27 Giant Platelets Cancelled 03/10/18 17:27 Platelet Satelliting Cancelled 03/10/18 17:27 Plt Morphology Comment Cancelled 03/10/18 17:27 RBC Morphology Cancelled 03/10/18 17:27 Dimorphic RBCs Cancelled 03/10/18 17:27 Polychromasia Cancelled 03/10/18 17:27 Hypochromasia Cancelled 03/10/18 17:27 Poikilocytosis Cancelled 03/10/18 17:27 Basophilic Stippling Cancelled 03/10/18 17:27 Anisocytosis Cancelled 03/10/18 17:27 Microcytosis Cancelled 03/10/18 17:27 Macrocytosis Cancelled 03/10/18 17:27 Spherocytes Cancelled 03/10/18 17:27 Pappenheimer Bodies Cancelled 03/10/18 17:27 Sickle Cells Cancelled 03/10/18 17:27 Target Cells Cancelled 03/10/18 17:27 Tear Drop Cells Cancelled 03/10/18 17:27 Ovalocytes Cancelled 03/10/18 17:27 Stomatocytes Cancelled 03/10/18 17:27 Helmet Cells Cancelled 03/10/18 17:27 [place] Bodies Cancelled 03/10/18 17:27 [place] Rings Cancelled 03/10/18 17:27 [place] Cells Cancelled 03/10/18 17:27 Bite Cells Cancelled 03/10/18 17:27 Crenated Cell Cancelled 03/10/18 17:27 Elliptocytes Cancelled 03/10/18 17:27 Acanthocytes (Spur) Cancelled 03/10/18 17:27 Rouleaux Cancelled 03/10/18 17:27 Hemoglobin C Crystals Cancelled 03/10/18 17:27 Schistocytes Cancelled 03/10/18 17:27 Malaria parasites Cancelled 03/10/18 17:27 Darrius Bodies Cancelled 03/10/18 17:27 Hem Pathologist Commnt Cancelled 03/10/18 17:27 Sodium 135 mmol/L (137-145) L 03/16/18 05:43 Potassium 3.7 mmol/L (3.6-5.0) 03/16/18 05:43 Chloride 99.9 mmol/L (98-107) 03/16/18 05:43 Carbon Dioxide 24 mmol/L (22-30) 03/16/18 05:43 Anion Gap 15 mmol/L 03/16/18 05:43 BUN 2 mg/dL (9-20) L 03/16/18 05:43 Creatinine 0.6 mg/dL (0.8-1.5) L 03/16/18 05:43 Estimated GFR > 60 ml/min 03/16/18 05:43 BUN/Creatinine Ratio 3 % 03/16/18 05:43 Glucose 105 mg/dL (75-100) H 03/16/18 05:43 POC Glucose 115 (70-105) H 03/26/18 23:08 Calcium 9.0 mg/dL (8.4-10.2) 03/16/18 05:43 Magnesium 2.20 mg/dL (1.7-2.3) 03/10/18 17:24 Total Bilirubin 1.20 mg/dL (0.1-1.2) 03/10/18 17:27 AST 50 units/L (5-40) H 03/10/18 17:27 ALT 63 units/L (7-56) H 03/10/18 17:27 Alkaline Phosphatase 67 units/L (35-129) 03/10/18 17:27 Ammonia 42.0 umol/L (25-60) 03/16/18 15:17 Total Creatine Kinase 148 units/L (55-170) 03/10/18 17:44 CK-MB (CK-2) 1.6 ng/mL (0.0-4.0) 03/10/18 17:44 CK-MB (CK-2) Rel Index 1.0 (0-4) 03/10/18 17:44 Troponin T < 0.010 ng/mL (0.00-0.029) 03/10/18 17:43 Total Protein 7.2 g/dL (6.3-8.2) 03/10/18 17:27 Albumin 3.6 g/dL (3.9-5) L 03/10/18 17:27 Albumin/Globulin Ratio 1.0 % 03/10/18 17:27 Vitamin B12 870.0 pg/mL (211-911) 03/16/18 15:13 Folate 6.55 ng/mL (7.3-26.0) L 03/16/18 15:15 TSH 2.910 mlU/mL (0.270-4.200) 03/16/18 15:16 Free T4 0.92 ng/dL (0.76-1.46) 03/10/18 17:27 Urine Color [place] (Yellow) 03/10/18 17:59 Urine Turbidity Cloudy (Clear) 03/10/18 17:59 Urine pH 7.0 (5.0-7.0) 03/10/18 17:59 Ur Specific [place] 1.021 (1.003-1.030) 03/10/18 17:59 Urine Protein 30 mg/dl mg/dL (Negative) 03/10/18 17:59 Urine Glucose (UA) Neg mg/dL (Negative) 03/10/18 17:59 Urine Ketones Neg mg/dL (Negative) 03/10/18 17:59 Urine Blood Neg (Negative) 03/10/18 17:59 Urine Nitrite Neg (Negative) 03/10/18 17:59 Urine Bilirubin Neg (Negative) 03/10/18 17:59 Urine Urobilinogen 4.0 mg/dL (<2.0) 03/10/18 17:59 Ur Leukocyte Esterase Lg (Negative) 03/10/18 17:59 Urine WBC (Auto) 92.0 /HPF (0.0-6.0) H 03/10/18 17:59 Urine RBC (Auto) 6.0 /HPF (0.0-6.0) 03/10/18 17:59 U Epithel Cells (Auto) < 1.0 /HPF (0-13.0) 03/10/18 17:59 Urine Bacteria (Auto) 3+ /HPF (Negative) 03/10/18 17:59 Ur Transition Epith Cell 2 /HPF 03/10/18 17:59 Urine Mucus 1+ /HPF 03/10/18 17:59 Salicylates < 0.3 mg/dL (2.8-20.0) L 03/10/18 17:27 Urine Opiates Screen Presumptive negative 03/10/18 17:59 Urine Methadone Screen Presumptive negative 03/10/18 17:59 Acetaminophen < 5.0 ug/mL (10.0-30.0) L 03/10/18 17:27 Ur Barbiturates Screen Presumptive negative 03/10/18 17:59 Ur Phencyclidine Scrn Presumptive negative 03/10/18 17:59 Ur Amphetamines Screen Presumptive negative 03/10/18 17:59 U Benzodiazepines Scrn Presumptive negative 03/10/18 17:59 Urine Cocaine Screen Presumptive negative 03/10/18 17:59 U Marijuana (THC) Screen Presumptive negative 03/10/18 17:59 Drugs of Abuse Note Disclamer 03/10/18 17:59 Plasma/Serum Alcohol < 0.01 % (0-0.07) 03/10/18 17:27
[2018-04-11] MEDS: REMERON SOLUTAB PO SCH (21:52)
[2018-04-12] MEDS: ABILIFY PO SCH (10:59)
[2018-04-12] MEDS: HEPARIN SUB-Q SCH ×2 (10:59→22:10)
--- NOTE | 2018-04-12 14:58 | Progress Note ---
Subjective - Reason for Consult Consult date: 04/12/18 Reason for consult: Psychiatry Follow-up - Chief Complaint Chief complaint: "The patient mumbles" 57-year-old male who presents to the ER for AMS from [facility]. This is a re-consult for this patient. Today the patient is calm, but mumbles during the assessment. He did follow some commands when asked. Per the staff, the patient has been agitated. No agitation noted during the assessment. Per previous assessments, the patient was nonverbal and could not follow any commands. Also, this patient had an reaction to a long acting antipsychotic medication ([place]). No gestures of SI/Hi's. Mental Status Exam - Vital signs Last Vital Signs Temp 98.2 F 04/12/18 05:03 Pulse 71 04/12/18 05:05 Resp 24 04/12/18 05:03 BP 135/91 04/12/18 05:03 Pulse Ox 96 04/12/18 10:00 - Exam Narrative exam: Unable to complete the MSE because of the patient's condition. Assessment and Plan Impression: R/O Delirium. Today the patient is calm, but mumbles during the assessment. Recommendation/Plan: The patient's home ([facility]) was started by the hospitalist. Start Haldol 2 mg IM Q6hrs PRN for acute agitation. Recommend Delirium precautions below: 1. Frequently reorient patient and involve him/her in their care (simple explanations of procedures, tests, medications). 2. Lights on and shades open during daytime hours. 3. Write date and goals of care in a visible place. 4. Try to avoid unnecessary interruptions to sleep during nighttime hours. 5. Obtain glasses, hearing aids from home if patient uses these at baseline. 6. Avoid medications that may exacerbate delirium (especially narcotics, benzodiazepines, barbiturates, ambien, lunesta, and medications with excessive anticholinergic properties).
[2018-04-12] MEDS ORDERED: HALDOL IM PRN (15:14)
--- NOTE | 2018-04-12 17:34 | Progress Note ---
Assessment and Plan Assessment and plan: 57-year-old -[place]in[place] male came from mental health facility for altered mental status initially thought to be Catatonia, Psychiatry r/o catatonia, said the side effect of his pysch medications - mental health consulted, and signed off- BUT RECONSULTED - Patient is not catatonic - Restart Medication - Reconsult PSYCH- input noted Metabolic encephalopathy - Supportive care - EEG showed moderate diffuse encephalopathy - CT normal finding, MRI showed encephalopathy - Patient markedly improved UTI - Treated with IV antibiotics and resolved - Cultures grew citrobacter , patient completed abx Failure to eat/malnutrition - patient is on pured diet Suspected femoral fracture -Evaluated by orthopedics, reviewed his imaging and showed no fracture DVT prophylaxis Disposition - Patient is unfunded, but patient need SNF - Waiting if his sister able to take him home. History Interval history: Patient seen and examined, now speaking more fluently -per the nurse who is also the charge patient asked her out on a date. Hospitalist Physical - Physical exam Narrative exam: Not in cardiopulmonary distress. The patient appeared well nourished and normally developed. Vital signs as documented. Head exam is with marked temporal wasting No scleral icterus . Neck is without jugular venous distension, thyromegaly, or carotid bruits. Lungs are clear to auscultation. Cardiac exam reveals regular rate and Rhythm. First and second heart sounds normal. No murmurs, rubs or gallops. Abdominal exam reveals normal bowel sounds, no masses, no organomegaly and no aortic enlargement. Extremities are nonedematous and both femoral and pedal pulses are normal. 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 - Constitutional Vitals: Temp Pulse Resp BP Pulse Ox 98.2 F 71 24 135/91 96 04/12/18 05:03 04/12/18 05:05 04/12/18 05:03 04/12/18 05:03 04/12/18 10:00 General appearance: Present: no acute distress, well-nourished, other Results - Labs CBC & Chem 7: 03/16/18 05:43 03/16/18 05:43 Labs: Laboratory Last Values WBC 5.9 K/mm3 (4.5-11.0) 03/16/18 05:43 RBC 4.40 M/mm3 (3.65-5.03) 03/16/18 05:43 Hgb 12.4 gm/dl (11.8-15.2) 03/16/18 05:43 Hct 35.1 % (35.5-45.6) L 03/16/18 05:43 MCV 80 fl (84-94) L 03/16/18 05:43 MCH 28 pg (28-32) 03/16/18 05:43 MCHC 35 % (32-34) H 03/16/18 05:43 RDW 14.5 % (13.2-15.2) 03/16/18 05:43 Plt Count 197 K/mm3 (140-440) 03/16/18 05:43 Lymph % (Auto) 15.1 % (13.4-35.0) 03/16/18 05:43 [place] % (Auto) 8.1 % (0.0-7.3) H 03/16/18 05:43 Eos % (Auto) 2.2 % (0.0-4.3) 03/16/18 05:43 Baso % (Auto) 0.4 % (0.0-1.8) 03/16/18 05:43 Lymph # 0.9 K/mm3 (1.2-5.4) L 03/16/18 05:43 [place] # 0.5 K/mm3 (0.0-0.8) 03/16/18 05:43 Eos # 0.1 K/mm3 (0.0-0.4) 03/16/18 05:43 Baso # 0.0 K/mm3 (0.0-0.1) 03/16/18 05:43 Total Counted Cancelled 03/10/18 17:27 Seg Neutrophils % 74.2 % (40.0-70.0) H 03/16/18 05:43 Seg Neuts % (Manual) Cancelled 03/10/18 17:27 Band Neutrophils % Cancelled 03/10/18 17:27 Lymphocytes % (Manual) Cancelled 03/10/18 17:27 Reactive Lymphs % (Man) Cancelled 03/10/18 17:27 Monocytes % (Manual) Cancelled 03/10/18 17:27 Eosinophils % (Manual) Cancelled 03/10/18 17:27 Basophils % (Manual) Cancelled 03/10/18 17:27 Metamyelocytes % Cancelled 03/10/18 17:27 Myelocytes % Cancelled 03/10/18 17:27 Promyelocytes % Cancelled 03/10/18 17:27 Blast Cells % Cancelled 03/10/18 17:27 Nucleated RBC % Cancelled 03/10/18 17:27 Seg Neutrophils # 4.4 K/mm3 (1.8-7.7) 03/16/18 05:43 Seg Neutrophils # Man Cancelled 03/10/18 17:27 Band Neutrophils # Cancelled 03/10/18 17:27 Lymphocytes # (Manual) Cancelled 03/10/18 17:27 Abs React Lymphs (Man) Cancelled 03/10/18 17:27 Monocytes # (Manual) Cancelled 03/10/18 17:27 Eosinophils # (Manual) Cancelled 03/10/18 17:27 Basophils # (Manual) Cancelled 03/10/18 17:27 Metamyelocytes # Cancelled 03/10/18 17:27 Myelocytes # Cancelled 03/10/18 17:27 Promyelocytes # Cancelled 03/10/18 17:27 Blast Cells # Cancelled 03/10/18 17:27 WBC Morphology Cancelled 03/10/18 17:27 Hypersegmented Neuts Cancelled 03/10/18 17:27 Hyposegmented Neuts Cancelled 03/10/18 17:27 Hypogranular Neuts Cancelled 03/10/18 17:27 Hypersegmented Polys Cancelled 03/10/18 17:27 Smudge Cells Cancelled 03/10/18 17:27 Toxic Granulation Cancelled 03/10/18 17:27 Toxic Vacuolation Cancelled 03/10/18 17:27 Dohle Bodies Cancelled 03/10/18 17:27 Pelger-Huet Anomaly Cancelled 03/10/18 17:27 Alvin Rods Cancelled 03/10/18 17:27 Platelet Estimate Cancelled 03/10/18 17:27 Clumped Platelets Cancelled 03/10/18 17:27 Plt Clumps, EDTA Cancelled 03/10/18 17:27 Large Platelets Cancelled 03/10/18 17:27 Giant Platelets Cancelled 03/10/18 17:27 Platelet Satelliting Cancelled 03/10/18 17:27 Plt Morphology Comment Cancelled 03/10/18 17:27 RBC Morphology Cancelled 03/10/18 17:27 Dimorphic RBCs Cancelled 03/10/18 17:27 Polychromasia Cancelled 03/10/18 17:27 Hypochromasia Cancelled 03/10/18 17:27 Poikilocytosis Cancelled 03/10/18 17:27 Basophilic Stippling Cancelled 03/10/18 17:27 Anisocytosis Cancelled 03/10/18 17:27 Microcytosis Cancelled 03/10/18 17:27 Macrocytosis Cancelled 03/10/18 17:27 Spherocytes Cancelled 03/10/18 17:27 Pappenheimer Bodies Cancelled 03/10/18 17:27 Sickle Cells Cancelled 03/10/18 17:27 Target Cells Cancelled 03/10/18 17:27 Tear Drop Cells Cancelled 03/10/18 17:27 Ovalocytes Cancelled 03/10/18 17:27 Stomatocytes Cancelled 03/10/18 17:27 Helmet Cells Cancelled 03/10/18 17:27 [place] Bodies Cancelled 03/10/18 17:27 [place] Rings Cancelled 03/10/18 17:27 Alcon Cells Cancelled 03/10/18 17:27 Bite Cells Cancelled 03/10/18 17:27 Crenated Cell Cancelled 03/10/18 17:27 Elliptocytes Cancelled 03/10/18 17:27 Acanthocytes (Spur) Cancelled 03/10/18 17:27 Rouleaux Cancelled 03/10/18 17:27 Hemoglobin C Crystals Cancelled 03/10/18 17:27 Schistocytes Cancelled 03/10/18 17:27 Malaria parasites Cancelled 03/10/18 17:27 Darrius Bodies Cancelled 03/10/18 17:27 Hem Pathologist Commnt Cancelled 03/10/18 17:27 Sodium 135 mmol/L (137-145) L 03/16/18 05:43 Potassium 3.7 mmol/L (3.6-5.0) 03/16/18 05:43 Chloride 99.9 mmol/L (98-107) 03/16/18 05:43 Carbon Dioxide 24 mmol/L (22-30) 03/16/18 05:43 Anion Gap 15 mmol/L 03/16/18 05:43 BUN 2 mg/dL (9-20) L 03/16/18 05:43 Creatinine 0.6 mg/dL (0.8-1.5) L 03/16/18 05:43 Estimated GFR > 60 ml/min 03/16/18 05:43 BUN/Creatinine Ratio 3 % 03/16/18 05:43 Glucose 105 mg/dL (75-100) H 03/16/18 05:43 POC Glucose 115 (70-105) H 03/26/18 23:08 Calcium 9.0 mg/dL (8.4-10.2) 03/16/18 05:43 Magnesium 2.20 mg/dL (1.7-2.3) 03/10/18 17:24 Total Bilirubin 1.20 mg/dL (0.1-1.2) 03/10/18 17:27 AST 50 units/L (5-40) H 03/10/18 17:27 ALT 63 units/L (7-56) H 03/10/18 17:27 Alkaline Phosphatase 67 units/L (35-129) 03/10/18 17:27 Ammonia 42.0 umol/L (25-60) 03/16/18 15:17 Total Creatine Kinase 148 units/L (55-170) 03/10/18 17:44 CK-MB (CK-2) 1.6 ng/mL (0.0-4.0) 03/10/18 17:44 CK-MB (CK-2) Rel Index 1.0 (0-4) 03/10/18 17:44 Troponin T < 0.010 ng/mL (0.00-0.029) 03/10/18 17:43 Total Protein 7.2 g/dL (6.3-8.2) 03/10/18 17:27 Albumin 3.6 g/dL (3.9-5) L 03/10/18 17:27 Albumin/Globulin Ratio 1.0 % 03/10/18 17:27 Vitamin B12 870.0 pg/mL (211-911) 03/16/18 15:13 Folate 6.55 ng/mL (7.3-26.0) L 03/16/18 15:15 TSH 2.910 mlU/mL (0.270-4.200) 03/16/18 15:16 Free T4 0.92 ng/dL (0.76-1.46) 03/10/18 17:27 Urine Color [place] (Yellow) 03/10/18 17:59 Urine Turbidity Cloudy (Clear) 03/10/18 17:59 Urine pH 7.0 (5.0-7.0) 03/10/18 17:59 Ur Specific [place] 1.021 (1.003-1.030) 03/10/18 17:59 Urine Protein 30 mg/dl mg/dL (Negative) 03/10/18 17:59 Urine Glucose (UA) Neg mg/dL (Negative) 03/10/18 17:59 Urine Ketones Neg mg/dL (Negative) 03/10/18 17:59 Urine Blood Neg (Negative) 03/10/18 17:59 Urine Nitrite Neg (Negative) 03/10/18 17:59 Urine Bilirubin Neg (Negative) 03/10/18 17:59 Urine Urobilinogen 4.0 mg/dL (<2.0) 03/10/18 17:59 Ur Leukocyte Esterase Lg (Negative) 03/10/18 17:59 Urine WBC (Auto) 92.0 /HPF (0.0-6.0) H 03/10/18 17:59 Urine RBC (Auto) 6.0 /HPF (0.0-6.0) 03/10/18 17:59 U Epithel Cells (Auto) < 1.0 /HPF (0-13.0) 03/10/18 17:59 Urine Bacteria (Auto) 3+ /HPF (Negative) 03/10/18 17:59 Ur Transition Epith Cell 2 /HPF 03/10/18 17:59 Urine Mucus 1+ /HPF 03/10/18 17:59 Salicylates < 0.3 mg/dL (2.8-20.0) L 03/10/18 17:27 Urine Opiates Screen Presumptive negative 03/10/18 17:59 Urine Methadone Screen Presumptive negative 03/10/18 17:59 Acetaminophen < 5.0 ug/mL (10.0-30.0) L 03/10/18 17:27 Ur Barbiturates Screen Presumptive negative 03/10/18 17:59 Ur Phencyclidine Scrn Presumptive negative 03/10/18 17:59 Ur Amphetamines Screen Presumptive negative 03/10/18 17:59 U Benzodiazepines Scrn Presumptive negative 03/10/18 17:59 Urine Cocaine Screen Presumptive negative 03/10/18 17:59 U Marijuana (THC) Screen Presumptive negative 03/10/18 17:59 Drugs of Abuse Note Disclamer 03/10/18 17:59 Plasma/Serum Alcohol < 0.01 % (0-0.07) 03/10/18 17:27
[2018-04-12] MEDS: REMERON SOLUTAB PO SCH (22:11)
[2018-04-12 22:58] LABS: Hematocrit 49.3 % (35.5-45.6); Hemoglobin 16.4 gm/dl (11.8-15.2); Mean Corpuscular HGB Conc 33 % (32-34); Mean Corpuscular Hemoglobin 28 pg (28-32); Mean Corpuscular Volume 83 fl (84-94); Red Blood Count 5.93 M/mm3 (3.65-5.03); Red Cell Distribution Width 15.5 % (13.2-15.2)
[2018-04-12 23:00] LABS: Platelet Count 121 K/mm3 (140-440)
[2018-04-12 23:23] LABS: BUN/Creatinine Ratio 33; Blood Urea Nitrogen 23 mg/dL (9-20); Calcium 10.6 mg/dL (8.4-10.2); Hemolysis Index 54
[2018-04-13] MEDS: HEPARIN SUB-Q SCH ×3 (06:27→19:11)
[2018-04-13] MEDS ORDERED: NACL 0.9% 1000 ML 1,000 ML IV ONE (10:17)
[2018-04-13] MEDS: CEPHULAC PO SCH ×2 (10:31→19:10)
--- NOTE | 2018-04-13 10:56 | Progress Note ---
Assessment and Plan Assessment and plan: 57-year-old -Iranian male came from mental health facility for altered mental status initially thought to be Catatonia, Psychiatry r/o catatonia, said the side effect of his pysch medications - mental health consulted, and signed off- BUT RECONSULTED - Patient is not catatonic - Restart Medication - Reconsult PSYCH- input noted Metabolic encephalopathy - Supportive care - EEG showed moderate diffuse encephalopathy - CT normal finding, MRI showed encephalopathy - Patient markedly improved UTI - Treated with IV antibiotics and resolved - Cultures grew citrobacter , patient completed abx Failure to eat/malnutrition - patient is on pured diet Suspected femoral fracture -Evaluated by orthopedics, reviewed his imaging and showed no fracture DVT prophylaxis Disposition - Patient is unfunded, but patient need SNF - Waiting if his sister able to take him home. spoke to family they believe medications are what is causing his problems, do not want him on any antipyshcotic, they also state he does not have any psychiatric illness and that he was improving and ambulating although with unsteady gait. they have not been able to take him home because they have an emergency and are away in [place] to help a dying family member will discontinue all antipyschotics and sleep aids. start lactulose requested a sitter instead of ristriants speech for [facility] Hospitalist Physical - Constitutional Vitals: Temp Pulse Resp BP Pulse Ox 99.2 F 93 H 18 126/69 94 04/13/18 06:43 04/13/18 06:43 04/13/18 06:43 04/13/18 06:43 04/13/18 06:43 General appearance: Present: no acute distress, well-nourished, other Results - Labs CBC & Chem 7: 04/12/18 22:32 04/12/18 22:32 Labs: Laboratory Last Values WBC 8.4 K/mm3 (4.5-11.0) 04/12/18 22:32 RBC 5.93 M/mm3 (3.65-5.03) H 04/12/18 22:32 Hgb 16.4 gm/dl (11.8-15.2) H 04/12/18 22:32 Hct 49.3 % (35.5-45.6) H 04/12/18 22:32 MCV 83 fl (84-94) L 04/12/18 22:32 MCH 28 pg (28-32) 04/12/18 22:32 MCHC 33 % (32-34) 04/12/18 22:32 RDW 15.5 % (13.2-15.2) H 04/12/18 22:32 Plt Count 121 K/mm3 (140-440) L 04/12/18 22:32 Lymph % (Auto) 15.1 % (13.4-35.0) 03/16/18 05:43 [place] % (Auto) 8.1 % (0.0-7.3) H 03/16/18 05:43 Eos % (Auto) 2.2 % (0.0-4.3) 03/16/18 05:43 Baso % (Auto) 0.4 % (0.0-1.8) 03/16/18 05:43 Lymph # 0.9 K/mm3 (1.2-5.4) L 03/16/18 05:43 [place] # 0.5 K/mm3 (0.0-0.8) 03/16/18 05:43 Eos # 0.1 K/mm3 (0.0-0.4) 03/16/18 05:43 Baso # 0.0 K/mm3 (0.0-0.1) 03/16/18 05:43 Total Counted Cancelled 03/10/18 17:27 Seg Neutrophils % 74.2 % (40.0-70.0) H 03/16/18 05:43 Seg Neuts % (Manual) Cancelled 03/10/18 17:27 Band Neutrophils % Cancelled 03/10/18 17:27 Lymphocytes % (Manual) Cancelled 03/10/18 17:27 Reactive Lymphs % (Man) Cancelled 03/10/18 17:27 Monocytes % (Manual) Cancelled 03/10/18 17:27 Eosinophils % (Manual) Cancelled 03/10/18 17:27 Basophils % (Manual) Cancelled 03/10/18 17:27 Metamyelocytes % Cancelled 03/10/18 17:27 Myelocytes % Cancelled 03/10/18 17:27 Promyelocytes % Cancelled 03/10/18 17:27 Blast Cells % Cancelled 03/10/18 17:27 Nucleated RBC % Cancelled 03/10/18 17:27 Seg Neutrophils # 4.4 K/mm3 (1.8-7.7) 03/16/18 05:43 Seg Neutrophils # Man Cancelled 03/10/18 17:27 Band Neutrophils # Cancelled 03/10/18 17:27 Lymphocytes # (Manual) Cancelled 03/10/18 17:27 Abs React Lymphs (Man) Cancelled 03/10/18 17:27 Monocytes # (Manual) Cancelled 03/10/18 17:27 Eosinophils # (Manual) Cancelled 03/10/18 17:27 Basophils # (Manual) Cancelled 03/10/18 17:27 Metamyelocytes # Cancelled 03/10/18 17:27 Myelocytes # Cancelled 03/10/18 17:27 Promyelocytes # Cancelled 03/10/18 17:27 Blast Cells # Cancelled 03/10/18 17:27 WBC Morphology Cancelled 03/10/18 17:27 Hypersegmented Neuts Cancelled 03/10/18 17:27 Hyposegmented Neuts Cancelled 03/10/18 17:27 Hypogranular Neuts Cancelled 03/10/18 17:27 Hypersegmented Polys Cancelled 03/10/18 17:27 Smudge Cells Cancelled 03/10/18 17:27 Toxic Granulation Cancelled 03/10/18 17:27 Toxic Vacuolation Cancelled 03/10/18 17:27 Dohle Bodies Cancelled 03/10/18 17:27 Pelger-Huet Anomaly Cancelled 03/10/18 17:27 Alvin Rods Cancelled 03/10/18 17:27 Platelet Estimate Cancelled 03/10/18 17:27 Clumped Platelets Cancelled 03/10/18 17:27 Plt Clumps, EDTA Cancelled 03/10/18 17:27 Large Platelets Cancelled 03/10/18 17:27 Giant Platelets Cancelled 03/10/18 17:27 Platelet Satelliting Cancelled 03/10/18 17:27 Plt Morphology Comment Cancelled 03/10/18 17:27 RBC Morphology Cancelled 03/10/18 17:27 Dimorphic RBCs Cancelled 03/10/18 17:27 Polychromasia Cancelled 03/10/18 17:27 Hypochromasia Cancelled 03/10/18 17:27 Poikilocytosis Cancelled 03/10/18 17:27 Basophilic Stippling Cancelled 03/10/18 17:27 Anisocytosis Cancelled 03/10/18 17:27 Microcytosis Cancelled 03/10/18 17:27 Macrocytosis Cancelled 03/10/18 17:27 Spherocytes Cancelled 03/10/18 17:27 Pappenheimer Bodies Cancelled 03/10/18 17:27 Sickle Cells Cancelled 03/10/18 17:27 Target Cells Cancelled 03/10/18 17:27 Tear Drop Cells Cancelled 03/10/18 17:27 Ovalocytes Cancelled 03/10/18 17:27 Stomatocytes Cancelled 03/10/18 17:27 Helmet Cells Cancelled 03/10/18 17:27 Hernandez-[place] Bodies Cancelled 03/10/18 17:27 [place] Rings Cancelled 03/10/18 17:27 Alcon Cells Cancelled 03/10/18 17:27 Bite Cells Cancelled 03/10/18 17:27 Crenated Cell Cancelled 03/10/18 17:27 Elliptocytes Cancelled 03/10/18 17:27 Acanthocytes (Spur) Cancelled 03/10/18 17:27 Rouleaux Cancelled 03/10/18 17:27 Hemoglobin C Crystals Cancelled 03/10/18 17:27 Schistocytes Cancelled 03/10/18 17:27 Malaria parasites Cancelled 03/10/18 17:27 Darrius Bodies Cancelled 03/10/18 17:27 Hem Pathologist Commnt Cancelled 03/10/18 17:27 Sodium 140 mmol/L (137-145) 04/12/18 22:32 Potassium 4.4 mmol/L (3.6-5.0) 04/12/18 22:32 Chloride 98.6 mmol/L (98-107) 04/12/18 22:32 Carbon Dioxide 26 mmol/L (22-30) 04/12/18 22:32 Anion Gap 20 mmol/L 04/12/18 22:32 BUN 23 mg/dL (9-20) H 04/12/18 22:32 Creatinine 0.7 mg/dL (0.8-1.5) L 04/12/18 22:32 Estimated GFR > 60 ml/min 04/12/18 22:32 BUN/Creatinine Ratio 33 % 04/12/18 22:32 Glucose 126 mg/dL (75-100) H 04/12/18 22:32 POC Glucose 115 (70-105) H 03/26/18 23:08 Calcium 10.6 mg/dL (8.4-10.2) H 04/12/18 22:32 Magnesium 2.20 mg/dL (1.7-2.3) 03/10/18 17:24 Total Bilirubin 1.20 mg/dL (0.1-1.2) 03/10/18 17:27 AST 50 units/L (5-40) H 03/10/18 17:27 ALT 63 units/L (7-56) H 03/10/18 17:27 Alkaline Phosphatase 67 units/L (35-129) 03/10/18 17:27 Ammonia 77.0 umol/L (25-60) H 04/12/18 22:32 Total Creatine Kinase 148 units/L (55-170) 03/10/18 17:44 CK-MB (CK-2) 1.6 ng/mL (0.0-4.0) 03/10/18 17:44 CK-MB (CK-2) Rel Index 1.0 (0-4) 03/10/18 17:44 Troponin T < 0.010 ng/mL (0.00-0.029) 03/10/18 17:43 Total Protein 7.2 g/dL (6.3-8.2) 03/10/18 17:27 Albumin 3.6 g/dL (3.9-5) L 03/10/18 17:27 Albumin/Globulin Ratio 1.0 % 03/10/18 17:27 Vitamin B12 870.0 pg/mL (211-911) 03/16/18 15:13 Folate 6.55 ng/mL (7.3-26.0) L 03/16/18 15:15 TSH 2.910 mlU/mL (0.270-4.200) 03/16/18 15:16 Free T4 0.92 ng/dL (0.76-1.46) 03/10/18 17:27 Urine Color [place]ela (Yellow) 03/10/18 17:59 Urine Turbidity Cloudy (Clear) 03/10/18 17:59 Urine pH 7.0 (5.0-7.0) 08/19/18 17:59 Ur Specific [place] 1.021 (1.003-1.030) 03/10/18 17:59 Urine Protein 30 mg/dl mg/dL (Negative) 03/10/18 17:59 Urine Glucose (UA) Neg mg/dL (Negative) 03/10/18 17:59 Urine Ketones Neg mg/dL (Negative) 03/10/18 17:59 Urine Blood Neg (Negative) 03/10/18 17:59 Urine Nitrite Neg (Negative) 03/10/18 17:59 Urine Bilirubin Neg (Negative) 03/10/18 17:59 Urine Urobilinogen 4.0 mg/dL (<2.0) 03/10/18 17:59 Ur Leukocyte Esterase Lg (Negative) 03/10/18 17:59 Urine WBC (Auto) 92.0 /HPF (0.0-6.0) H 03/10/18 17:59 Urine RBC (Auto) 6.0 /HPF (0.0-6.0) 03/10/18 17:59 U Epithel Cells (Auto) < 1.0 /HPF (0-13.0) 03/10/18 17:59 Urine Bacteria (Auto) 3+ /HPF (Negative) 03/10/18 17:59 Ur Transition Epith Cell 2 /HPF 03/10/18 17:59 Urine Mucus 1+ /HPF 03/10/18 17:59 Salicylates < 0.3 mg/dL (2.8-20.0) L 03/10/18 17:27 Urine Opiates Screen Presumptive negative 03/10/18 17:59 Urine Methadone Screen Presumptive negative 03/10/18 17:59 Acetaminophen < 5.0 ug/mL (10.0-30.0) L 03/10/18 17:27 Ur Barbiturates Screen Presumptive negative 03/10/18 17:59 Ur Phencyclidine Scrn Presumptive negative 03/10/18 17:59 Ur Amphetamines Screen Presumptive negative 03/10/18 17:59 U Benzodiazepines Scrn Presumptive negative 03/10/18 17:59 Urine Cocaine Screen Presumptive negative 03/10/18 17:59 U Marijuana (THC) Screen Presumptive negative 03/10/18 17:59 Drugs of Abuse Note Disclamer 03/10/18 17:59 Plasma/Serum Alcohol < 0.01 % (0-0.07) 03/10/18 17:27
[2018-04-13] MEDS ORDERED: D5NS 1,000 ML IV SCH (11:00)
--- NOTE | 2018-04-13 18:00 | Progress Note ---
Subjective - Reason for Consult Reason for consult: psych consult - Chief Complaint Chief complaint: "The patient mumbles" 57-year-old male who presents to the ER for AMS from [facility] [place]. This is a re-consult for this patient. Today the patient is calm, but mumbles during the assessment. He did follow some commands when asked. Per the staff, the patient has been agitated. No agitation noted during the assessment. Per previous assessments, the patient was nonverbal and could not follow any commands. Also, this patient had an reaction to a long acting antipsychotic medication ([place]). No gestures of SI/Hi's. Mental Status Exam - Vital signs Last Vital Signs Temp 97.5 F L 04/13/18 11:44 Pulse 102 H 04/13/18 11:44 Resp 19 04/13/18 11:44 BP 116/83 04/13/18 11:44 Pulse Ox 96 04/13/18 11:44 Assessment and Plan Assessment and Plan Impression: Delirium NOS; psychosis nos history Recommendation/Plan: At this time the main issue is his delirium and not his history of psychosis. Patient's presentation is in line with his long hospitalization. Once his confusion/cognition improves we can reevaluate his need of an antipsychotic. His family was present during the interview and they insisted that any psychotropics right now tend to worsen his presentation. They would like for him to go to a rehab facility to strengthen his physical condition. Given the lack of active psychosis, we do not rec any further psychiatric meds be utilized on a standing basis. Minimize meds that cause further confusion and focus on reorientation with focus on his ADL's, sleep, and eating. We don't rec use of antipsychotics and also to minimize sedatives for PRN purposes. We will sign off on this case at this time.
[2018-04-13 18:39] VITALS: BP 99/71
== END 2018-04-13 22:47 | disposition home or self-care (01) | DRG 689 ==
LOC: ED 16:39 → EEVIPCON 23:18 → 3A 23:18
PROVIDERS: ADMIT Internal Medicine; ATTEND Internal Medicine
PROC: 4A00X4Z Measurement of Central Nervous Electrical Activity, External Approach (ICD-10-PCS; principal; 2018-03-14)
DX: N39.0 Urinary tract infection, site not specified (principal); G93.41 Metabolic encephalopathy; E43 Unspecified severe protein-calorie malnutrition; Z68.1 Body mass index [BMI] 19.9 or less, adult; R62.7 Adult failure to thrive; F20.9 Schizophrenia, unspecified; F31.9 Bipolar disorder, unspecified; F41.9 Anxiety disorder, unspecified; D69.6 Thrombocytopenia, unspecified; E86.0 Dehydration
CPT/HCPCS: 36415; 70450; 70551; 71045; 72170; 74018; 80048; 80053; 80307; 80320; 81001; 82140; 82550; 82553; 82607; 82747; 82962; 83735; 84439; 84443; 84484; 85025; 85027; 87040; 87076; 87086; 87186; 93005; 93010; 95819; G0480; J0696; J1644; J2060; J7030; J7042

== ENCOUNTER 2018-04-14 08:51 | Inpatient (IN) | payer SELFPAY ==
--- NOTE | 2018-04-14 09:47 | Emergency Department Report ---
ED General Adult HPI - General Stated complaint: BEHAVIOR Time Seen by Provider: 04/14/18 09:02 - History of Present Illness Initial comments: Mr. 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 Patient was discharged yesterday by Dr. Torrez to a personal care but unfortunately patient was sent back today because [facility]. Patient is calm in no acute distress and not communicating. So history is limited because of patient mental status. Most of the history is from previous record and from Dr. Torrez. - Related Data Previous Rx's Medication Instructions Recorded Last Taken Type Lactulose [Cephulac] 20 gm PO Q8H #30 oral.liqd 04/13/18 Unknown Rx Allergies Allergy/AdvReac Type Severity Reaction Status Date / Time No Known Allergies Allergy Unverified 03/10/18 17:07 ED Review of Systems ROS: Stated complaint: BEHAVIOR Other details as noted in HPI Comment: Unobtainable due to pts medical conditions ED Past Medical Hx - Past Medical History Hx Psychiatric Treatment: Yes (schizophrenia, depression, anxiety) - Social History Smoking Status: Never Smoker Substance Use Type: None - Medications Home Medications: Home Medications Medication Instructions Recorded Confirmed Last Taken Type Lactulose [Cephulac] 20 gm PO Q8H #30 oral.liqd 04/13/18 Unknown Rx ED Physical Exam - General Limitations: Altered Mental Status General appearance: alert, in no apparent distress - Head Head exam: Present: atraumatic, normocephalic, normal inspection - ENT ENT exam: Present: normal exam, normal orophraynx, mucous membranes moist - Neck Neck exam: Present: normal inspection, full ROM. Absent: tenderness, meningismus, lymphadenopathy, thyromegaly - Respiratory Respiratory exam: Present: normal lung sounds bilaterally - Cardiovascular Cardiovascular Exam: Present: regular rate, normal rhythm, normal heart sounds - GI/Abdominal GI/Abdominal exam: Present: soft, normal bowel sounds. Absent: distended, tenderness, guarding, rebound, rigid, organomegaly, mass, bruit, pulsatile mass - Extremities Exam Extremities exam: Present: normal inspection, full ROM, normal capillary refill. Absent: pedal edema, calf tenderness - Back Exam Back exam: Present: normal inspection, full ROM - Neurological Exam Neurological exam: Present: alert, altered - Skin Skin exam: Present: warm, intact ED Medical Decision Making - Medical Decision Making I discussed the patient with Dr. Torrez, he advised to admit to the third floor under his name Critical care attestation.: If time is entered above; I have spent that time in minutes in the direct care of this critically ill patient, excluding procedure time. ED Disposition Clinical Impression: Altered mental status, Schizophrenia, Combative behavior Disposition: DC-[id number] OP ADMIT IP TO THIS HOSP Is pt being admited?: Yes Condition: Stable Referrals: PRIMARY CARE, [Primary Care Provider] - 3-5 Days
[2018-04-14 10:16] LABS: Basophils % (Auto) 0.5 % (0.0-1.8); Hematocrit 44.1 % (35.5-45.6); Hemoglobin 14.7 gm/dl (11.8-15.2); Lymphocytes # (Auto) 0.9 K/mm3 (1.2-5.4); Lymphocytes % (Auto) 10.1 % (13.4-35.0); Mean Corpuscular HGB Conc 33 % (32-34); Mean Corpuscular Hemoglobin 28 pg (28-32); Mean Corpuscular Volume 82 fl (84-94); Monocytes # (Auto) 0.5 K/mm3 (0.0-0.8); Monocytes % (Auto) 5.9 % (0.0-7.3); Platelet Count 182 K/mm3 (140-440); Red Blood Count 5.35 M/mm3 (3.65-5.03)
[2018-04-14 10:28] LABS: Alanine Aminotransferase 34 units/L (7-56); Albumin 4.3 g/dL (3.9-5); BUN/Creatinine Ratio 25; Blood Urea Nitrogen 20 mg/dL (9-20); Calcium 10.3 mg/dL (8.4-10.2); Hemolysis Index 3
[2018-04-14] MEDS ORDERED: ZOFRAN IV PRN (10:51)
[2018-04-14] MEDS ORDERED: SODIUM CHLORIDE FLUSH SYRINGE 10 ML IV PRN (10:51)
[2018-04-14] MEDS ORDERED: TYLENOL PO PRN (10:51)
--- NOTE | 2018-04-14 10:54 | History and Physical Report ---
History of Present Illness Date of examination: 04/14/18 Date of admission: 04/14/18 Chief complaint: Altered mental status, combative, encephalopathic, acute psychosis History of present illness: Patient is a 57-year-old male who presents to the ER would report of acute encephalopathy, psychosis, and as detailed below was recently discharged to personal skilled nursing and now presented from home less than 24 hours after discharge the patient has stated that the medicine facility reported that patient was "dumped off to them". Information from recent discharge is as below. She does not be a combative at this time resting comfortably although still incoherent speech. 57-year-old -[place] male came from mental health facility for altered mental status Catatonia, Psychiatry r/o catatonia, said the side effect of his pysch medications during hospitalization multiple etiologies and research well unable to provide the reason for patient's state of health it was felt by psychiatry that the antipsychotic medication the patient was on a recent bladder was likely the cause patient was discontinued on all medications on my taking over on 04/09/2018 I did restart some of the patient's home medication and reconsult as psych S patient continued to be restrained and was barely responsive on my very first day. The patient improved 2 days later and on the third day was able to speak clearly to the nursing staff actually asking the MRSA staph out of the date. On the day of discharge the patient's family member resented uncalled another family member on the phone who reported that the patient has been mismanaged by medications in the past and does not want the patient on any antipsychotic except trazodone if needed. I did advise but the patient has been on restrained to which they said that the patient every weekend when they come by that the patient is able to ambulate with minimal assistance and does not need to be on restraints but has had a change of condition since medications were started. They also reported that they would not be able to take the patient home due to a in the family. I was notified by nurses case management of the patient can go to a personal skilled nursing to have accepted the patient I have asked if the nursing of the skilled nursing has seen the patient recently and was told to the affirmative yes patient was discharged to the care of home with recommendation to continue physical therapy and ultimately get back to baseline. Patient was discharged on lactulose as someone level was mildly elevated all the medications were discontinued. The EKG at that time was moderately diffused CT and MRI were unremarkable. Patient was treated for UTI. Also failure to eat severe malnutrition. Initial Concern of Fracture Which Was Reviewed by Orthopedic Surgeon and stated no fracture was noted Past History Past Medical History: other (highly contrasted past medical history per family but per documentation schizophrenia, psychosis, delirium,) Past Surgical History: No surgical history Social history: no significant social history Family history: no significant family history Medications and Allergies Allergies Allergy/AdvReac Type Severity Reaction Status Date / Time No Known Allergies Allergy Unverified 03/10/18 17:07 Home Medications Medication Instructions Recorded Confirmed Last Taken Type Lactulose [Cephulac] 20 gm PO Q8H #30 oral.liqd 04/13/18 Unknown Rx Active Meds: Active Medications Acetaminophen (Tylenol) 650 mg PO Q4H PRN PRN Reason: Pain MILD(1-3)/Fever >100.5/WRIGHT Dextrose/Sodium Chloride (D5ns) 1,000 mls @ 125 mls/hr IV DIRECT ERIC Ondansetron HCl (Zofran) 4 mg IV Q8H PRN PRN Reason: Nausea And Vomiting Sodium Chloride (Sodium Chloride Flush Syringe 10 Ml) 10 ml IV BID ERIC Sodium Chloride (Sodium Chloride Flush Syringe 10 Ml) 10 ml IV PRN PRN PRN Reason: LINE FLUSH Review of Systems ROS unobtainable: due to mental status Exam - Physical Exam Narrative exam: VITAL SIGNS: Reviewed. GENERAL: The patient appeared chronically ill appearing appears zone out incoherent speech emaciated vital signs as documented. HEAD: No signs of head trauma. Marked temporal wasting noted EYES: Pupils are equal. Extraocular motions intact. EARS: Hearing grossly intact. MOUTH: Oropharynx is normal. NECK: No adenopathy, no JVD. CHEST: Chest with clear breath sounds bilaterally. No wheezes, rales, or rhonchi. CARDIAC: Regular rate and rhythm. S1 and S2, without murmurs, gallops, or rubs. VASCULAR: No Edema. Peripheral pulses normal and equal in all extremities. ABDOMEN: Soft, without detectable tenderness. No sign of distention. No rebound or guarding, and no masses palpated. Bowel Sounds normal. MUSCULOSKELETAL: Good range of motion of all major joints. Extremities without clubbing, cyanosis or edema. NEUROLOGIC EXAM: Awake but not oriented No focal sensory or strength deficits. Speech slow incoherent for the commands . PSYCHIATRIC: Unable to assess SKIN: Per nursing documentation - Constitutional Vitals: Temp Pulse Resp BP Pulse Ox 98.5 F 95 H 10 L 108/74 100 04/14/18 10:31 04/14/18 10:31 04/14/18 10:31 04/14/18 10:31 04/14/18 10:31 Results - Labs CBC & Chem 7: 04/14/18 09:56 04/14/18 09:56 Labs: Laboratory Last Values WBC 8.5 K/mm3 (4.5-11.0) 04/14/18 09:56 RBC 5.35 M/mm3 (3.65-5.03) H 04/14/18 09:56 Hgb 14.7 gm/dl (11.8-15.2) 04/14/18 09:56 Hct 44.1 % (35.5-45.6) 04/14/18 09:56 MCV 82 fl (84-94) L 04/14/18 09:56 MCH 28 pg (28-32) 04/14/18 09:56 MCHC 33 % (32-34) 04/14/18 09:56 RDW 15.0 % (13.2-15.2) 04/14/18 09:56 Plt Count 182 K/mm3 (140-440) 04/14/18 09:56 Lymph % (Auto) 10.1 % (13.4-35.0) L 04/14/18 09:56 Mcdonough % (Auto) 5.9 % (0.0-7.3) 04/14/18 09:56 Eos % (Auto) 0.0 % (0.0-4.3) 04/14/18 09:56 Baso % (Auto) 0.5 % (0.0-1.8) 04/14/18 09:56 Lymph # 0.9 K/mm3 (1.2-5.4) L 04/14/18 09:56 Mcdonough # 0.5 K/mm3 (0.0-0.8) 04/14/18 09:56 Eos # 0.0 K/mm3 (0.0-0.4) 04/14/18 09:56 Baso # 0.0 K/mm3 (0.0-0.1) 04/14/18 09:56 Seg Neutrophils % 83.5 % (40.0-70.0) H 04/14/18 09:56 Seg Neutrophils # 7.1 K/mm3 (1.8-7.7) 04/14/18 09:56 Sodium 142 mmol/L (137-145) 04/14/18 09:56 Potassium 4.3 mmol/L (3.6-5.0) 04/14/18 09:56 Chloride 102.7 mmol/L (98-107) 04/14/18 09:56 Carbon Dioxide 30 mmol/L (22-30) 04/14/18 09:56 Anion Gap 14 mmol/L 04/14/18 09:56 BUN 20 mg/dL (9-20) 04/14/18 09:56 Creatinine 0.8 mg/dL (0.8-1.5) 04/14/18 09:56 Estimated GFR > 60 ml/min 04/14/18 09:56 BUN/Creatinine Ratio 25 % 04/14/18 09:56 Glucose 108 mg/dL (75-100) H 04/14/18 09:56 Calcium 10.3 mg/dL (8.4-10.2) H 04/14/18 09:56 Total Bilirubin 1.30 mg/dL (0.1-1.2) H 04/14/18 09:56 AST 24 units/L (5-40) 04/14/18 09:56 ALT 34 units/L (7-56) 04/14/18 09:56 Alkaline Phosphatase 57 units/L (35-129) 04/14/18 09:56 Ammonia 19.0 umol/L (25-60) L 04/14/18 09:56 Total Protein 7.9 g/dL (6.3-8.2) 04/14/18 09:56 Albumin 4.3 g/dL (3.9-5) 04/14/18 09:56 Albumin/Globulin Ratio 1.2 % 04/14/18 09:56 Plasma/Serum Alcohol < 0.01 % (0-0.07) 04/14/18 09:56 Assessment and Plan Assessment and plan: mauricio is a 57-year-old male who presents to the ER would report of acute encephalopathy, psychosis, and as detailed below was recently discharged to personal skilled nursing and now presented from home less than 24 hours after discharge the patient has stated that the medicine facility reported that patient was "dumped off to them". Information from recent discharge is as below. She does not be a combative at this time resting comfortably although still incoherent speech. 57-year-old -[place] male came from mental health facility for altered mental status Catatonia, Psychiatry r/o catatonia, said the side effect of his pysch medications during hospitalization multiple etiologies and research well unable to provide the reason for patient's state of health it was felt by psychiatry that the antipsychotic medication the patient was on a recent bladder was likely the cause patient was discontinued on all medications on my taking over on 04/09/2018 I did restart some of the patient's home medication and reconsult as psych S patient continued to be restrained and was barely responsive on my very first day. The patient improved 2 days later and on the third day was able to speak clearly to the nursing staff actually asking the MRSA staph out of the date. On the day of discharge the patient's family member resented uncalled another family member on the phone who reported that the patient has been mismanaged by medications in the past and does not want the patient on any antipsychotic except trazodone if needed. I did advise but the patient has been on restrained to which they said that the patient every weekend when they come by that the patient is able to ambulate with minimal assistance and does not need to be on restraints but has had a change of condition since medications were started. They also reported that they would not be able to take the patient home due to a in the family. I was notified by nurses case management of the patient can go to a personal skilled nursing to have accepted the patient I have asked if the nursing of the skilled nursing has seen the patient recently and was told to the affirmative yes patient was discharged to the care of home with recommendation to continue physical therapy and ultimately get back to baseline. Patient was discharged on lactulose as someone level was mildly elevated all the medications were discontinued. The EKG at that time was moderately diffused CT and MRI were unremarkable. Patient was treated for UTI. Also failure to eat severe malnutrition. Initial Concern of Fracture Which Was Reviewed by Orthopedic Surgeon and stated no fracture was noted Acute psychosis with encephalopathy Delirious state Severe protein calorie malnutrition Failure to thrive Plan We'll admit patient to MedSurg unit We'll obtain psych consultation Aspiration and Fall precautions Avoid all antipsychotics Assist with meals Case management consultation for appropriate disposition and placement DVT and GI prophylaxis Advance Directives: No (unknown to me at this time no family present) Plan of care discussed with patient/family: Yes
[2018-04-14] MEDS ORDERED: D5NS 1,000 ML IV ONE (12:55)
[2018-04-14] MEDS: D5NS 1,000 ML IV SCH ×2 (13:09→23:22)
[2018-04-14] MEDS: SODIUM CHLORIDE FLUSH SYRINGE 10 ML IV SCH (23:22)
[2018-04-15] MEDS: SODIUM CHLORIDE FLUSH SYRINGE 10 ML IV SCH ×2 (09:18→22:58)
--- NOTE | 2018-04-15 12:57 | Consultation ---
History of Present Illness - Reason for Consult Consult date: 04/15/18 Reason for consult: Mental Health Evaluation Requesting physician: PRABHAKAR DEAN - Chief Complaint Chief complaint: "AMS" - History of Present Psychiatric Illness 57 years old male with history of mental health presents back to the hospital after being discharged less than 24 hours. This patient is known to me. Today the patient is calm, but confused during the assessment. His speech is incoherent. No gestures of SI/HI's. Medications and Allergies Allergies Allergy/AdvReac Type Severity Reaction Status Date / Time No Known Allergies Allergy Unverified 03/10/18 17:07 Home Medications Medication Instructions Recorded Confirmed Last Taken Type Lactulose [Cephulac] 20 gm PO Q8H #30 oral.liqd 04/13/18 04/14/18 04/13/18 Rx Active Meds: Active Medications Acetaminophen (Tylenol) 650 mg PO Q4H PRN PRN Reason: Pain MILD(1-3)/Fever >100.5/WRIGHT Dextrose/Sodium Chloride (D5ns) 1,000 mls @ 125 mls/hr IV DIRECT ERIC Last Admin: 04/14/18 23:22 Dose: 125 mls/hr Ondansetron HCl (Zofran) 4 mg IV Q8H PRN PRN Reason: Nausea And Vomiting Sodium Chloride (Sodium Chloride Flush Syringe 10 Ml) 10 ml IV BID [facility] Last Admin: 04/15/18 09:18 Dose: 10 ml Sodium Chloride (Sodium Chloride Flush Syringe 10 Ml) 10 ml IV PRN PRN PRN Reason: LINE FLUSH Past psychiatric history - Past Medical History Past Medical History: other (Unable to obatin) Past Surgical History: Other (Unable to obtain) - past Psychiatric treatment and history psychiatric treatment history: [facility] outpatient prior to his original admission 02/2019. Could not obtain a fam psy hx. Mental Status Exam - Vital signs Last Vital Signs Temp 98.3 F 04/14/18 13:57 Pulse 103 H 04/14/18 13:57 Resp 18 04/14/18 13:57 BP 95/72 04/14/18 13:57 Pulse Ox 100 04/14/18 13:57 - Exam Narrative exam: Unable to complete the MSE because of the patient's condition. Results Result Diagrams: 04/14/18 09:56 09/23/18 09:56 All other labs normal. Assessment and Plan Assessment and plan: Impression: Delirium. Today the patient is calm, but confused during the assessment. Recommendation/Plan: At this time the main issue is the patient's delirium and not his history of psychosis. The patient's presentation is in line with his long hospitalization. Once his confusion improves the psy team can reevaluate the need for an antipsychotic. Spoke with Case Mgmt to provide the patient's family with local rehab facilities in their local area because they would like him to improve his strength per the record. Minimize medications that can cause confusion. We don't recommend any antipsychotics at this time and limit sedatives for PRN purposes. Psychiatry sign off. Recommend delirium precautions below: 1. Frequently reorient patient and involve him/her in their care (simple explanations of procedures, tests, medications). 2. Lights on and shades open during daytime hours. 3. Write date and goals of care in a visible place. 4. Try to avoid unnecessary interruptions to sleep during nighttime hours. 5. Obtain glasses, hearing aids from home if patient uses these at baseline. 6. Avoid medications that may exacerbate delirium (especially narcotics, benzodiazepines, barbiturates, ambien, lunesta, and medications with excessive anticholinergic properties).
--- NOTE | 2018-04-15 13:21 | Progress Note ---
Assessment and Plan Assessment and plan: mauricio is a 57-year-old male who presents to the ER would report of acute encephalopathy, psychosis, and as detailed below was recently discharged to personal senior care and now presented from home less than 24 hours after discharge the patient has stated that the medicine facility reported that patient was "dumped off to them". Information from recent discharge is as below. She does not be a combative at this time resting comfortably although still incoherent speech. 57-year-old -[place] male came from mental health facility for altered mental status Catatonia, Psychiatry r/o catatonia, said the side effect of his pysch medications during hospitalization multiple etiologies and research well unable to provide the reason for patient's state of health it was felt by psychiatry that the antipsychotic medication the patient was on a recent bladder was likely the cause patient was discontinued on all medications on my taking over on 04/09/2018 I did restart some of the patient's home medication and reconsult as psych S patient continued to be restrained and was barely responsive on my very first day. The patient improved 2 days later and on the third day was able to speak clearly to the nursing staff actually asking the MRSA staph out of the date. On the day of discharge the patient's family member resented uncalled another family member on the phone who reported that the patient has been mismanaged by medications in the past and does not want the patient on any antipsychotic except trazodone if needed. I did advise but the patient has been on restrained to which they said that the patient every weekend when they come by that the patient is able to ambulate with minimal assistance and does not need to be on restraints but has had a change of condition since medications were started. They also reported that they would not be able to take the patient home due to a in the family. I was notified by nurses case management of the patient can go to a personal senior care to have accepted the patient I have asked if the nursing of the senior care has seen the patient recently and was told to the affirmative yes patient was discharged to the care of home with recommendation to continue physical therapy and ultimately get back to baseline. Patient was discharged on lactulose as someone level was mildly elevated all the medications were discontinued. The EKG at that time was moderately diffused CT and MRI were unremarkable. Patient was treated for UTI. Also failure to eat severe malnutrition. Initial Concern of Fracture Which Was Reviewed by Orthopedic Surgeon and stated no fracture was noted Acute psychosis with encephalopathy Delirious state Severe protein calorie malnutrition Failure to thrive Fall due to severe debility Plan Continue supportive care Discussed with psychiatry team no antipsychotic for this patient Condition is a patient with discharged to facility with appropriate rehabilitation all home with home health Aspiration and Fall precautions PT OT evaluation and treat Speech she followed to the patient today and he can tolerate regular diet will change diet to regular. Avoid all antipsychotics Assist with meals Case management consultation for appropriate disposition and placement DVT and GI prophylaxis If patient continues to improve in the next 2-3 days Be discharged either to a halfway alto personal senior care. She is no longer requiring any sedatives or restraints. History Interval history: Patient seen and examined this morning continues to improve and mental clarity. Although still confused and not following commands as he is significantly lethargic but continues to attempt to get out of bed and has had a fall today hands and restraints. He is at least able to recall it has a girlfriend but was asking the staff his girlfriend's last name. Family were able to get ahold of the systolic was currently [place] and she wants the patient to receive antipsychotic medication and was deemed appropriate. Hospitalist Physical - Physical exam Narrative exam: VITAL SIGNS: Reviewed. GENERAL: The patient appeared chronically ill appearing appears zone out incoherent speech emaciated vital signs as documented. HEAD: No signs of head trauma. Marked temporal wasting noted EYES: Pupils are equal. Extraocular motions intact. EARS: Hearing grossly intact. MOUTH: Oropharynx is normal. NECK: No adenopathy, no JVD. CHEST: Chest with clear breath sounds bilaterally. No wheezes, rales, or rhonchi. CARDIAC: Regular rate and rhythm. S1 and S2, without murmurs, gallops, or rubs. VASCULAR: No Edema. Peripheral pulses normal and equal in all extremities. ABDOMEN: Soft, without detectable tenderness. No sign of distention. No rebound or guarding, and no masses palpated. Bowel Sounds normal. MUSCULOSKELETAL: Good range of motion of all major joints. Extremities without clubbing, cyanosis or edema. NEUROLOGIC EXAM: Awake and alert and oriented to person No focal sensory or strength deficits. Speech slow incoherent for the commands . PSYCHIATRIC: Unable to assess SKIN: Per nursing documentation - Constitutional Vitals: Temp Pulse Resp BP Pulse Ox 98.3 F 103 H 18 95/72 100 04/14/18 13:57 04/14/18 13:57 04/14/18 13:57 04/14/18 13:57 04/14/18 13:57 Results - Labs CBC & Chem 7: 04/14/18 09:56 04/14/18 09:56 Labs: Laboratory Last Values WBC 8.5 K/mm3 (4.5-11.0) 04/14/18 09:56 RBC 5.35 M/mm3 (3.65-5.03) H 04/14/18 09:56 Hgb 14.7 gm/dl (11.8-15.2) 04/14/18 09:56 Hct 44.1 % (35.5-45.6) 04/14/18 09:56 MCV 82 fl (84-94) L 04/14/18 09:56 MCH 28 pg (28-32) 04/14/18 09:56 MCHC 33 % (32-34) 04/14/18 09:56 RDW 15.0 % (13.2-15.2) 04/14/18 09:56 Plt Count 182 K/mm3 (140-440) 04/14/18 09:56 Lymph % (Auto) 10.1 % (13.4-35.0) L 04/14/18 09:56 Taliaferro % (Auto) 5.9 % (0.0-7.3) 04/14/18 09:56 Eos % (Auto) 0.0 % (0.0-4.3) 04/14/18 09:56 Baso % (Auto) 0.5 % (0.0-1.8) 04/14/18 09:56 Lymph # 0.9 K/mm3 (1.2-5.4) L 04/14/18 09:56 Taliaferro # 0.5 K/mm3 (0.0-0.8) 04/14/18 09:56 Eos # 0.0 K/mm3 (0.0-0.4) 04/14/18 09:56 Baso # 0.0 K/mm3 (0.0-0.1) 04/14/18 09:56 Seg Neutrophils % 83.5 % (40.0-70.0) H 04/14/18 09:56 Seg Neutrophils # 7.1 K/mm3 (1.8-7.7) 04/14/18 09:56 Sodium 142 mmol/L (137-145) 04/14/18 09:56 Potassium 4.3 mmol/L (3.6-5.0) 04/14/18 09:56 Chloride 102.7 mmol/L (98-107) 04/14/18 09:56 Carbon Dioxide 30 mmol/L (22-30) 04/14/18 09:56 Anion Gap 14 mmol/L 04/14/18 09:56 BUN 20 mg/dL (9-20) 04/14/18 09:56 Creatinine 0.8 mg/dL (0.8-1.5) 04/14/18 09:56 Estimated GFR > 60 ml/min 04/14/18 09:56 BUN/Creatinine Ratio 25 % 04/14/18 09:56 Glucose 108 mg/dL (75-100) H 04/14/18 09:56 Calcium 10.3 mg/dL (8.4-10.2) H 04/14/18 09:56 Total Bilirubin 1.30 mg/dL (0.1-1.2) H 04/14/18 09:56 AST 24 units/L (5-40) 04/14/18 09:56 ALT 34 units/L (7-56) 04/14/18 09:56 Alkaline Phosphatase 57 units/L (35-129) 04/14/18 09:56 Ammonia 19.0 umol/L (25-60) L 04/14/18 09:56 Total Protein 7.9 g/dL (6.3-8.2) 04/14/18 09:56 Albumin 4.3 g/dL (3.9-5) 04/14/18 09:56 Albumin/Globulin Ratio 1.2 % 04/14/18 09:56 TSH 3.550 mlU/mL (0.270-4.200) 04/14/18 11:19 Plasma/Serum Alcohol < 0.01 % (0-0.07) 04/14/18 09:56
[2018-04-15 13:54] LABS: Bilirubin,Urine NEG (Negative); Blood,Urine NEG (Negative); Color,Urine Yellow (Yellow); Mucus,Urine FEW /HPF; Protein,Urine <15 mg/dL mg/dL (Negative)
[2018-04-15 14:07] LABS: Amphetamine Screen,Urine PRESUMPTIVE NEGATIVE; Benzodiazepines Screen,Urine PRESUMPTIVE NEGATIVE; Cannabinoid Screen,Urine PRESUMPTIVE NEGATIVE; Cocaine Screen,Urine PRESUMPTIVE NEGATIVE; Methadone Screen,Urine PRESUMPTIVE NEGATIVE; Opiate Screen,Urine PRESUMPTIVE NEGATIVE
[2018-04-15] MEDS: D5NS 1,000 ML IV SCH (22:57)
[2018-04-16] MEDS: D5NS 1,000 ML IV SCH (06:20)
[2018-04-16 08:37] LABS: Basophils % (Auto) 0.4 % (0.0-1.8); Eosinophils % (Auto) 0.8 % (0.0-4.3); Hematocrit 37.1 % (35.5-45.6); Hemoglobin 12.7 gm/dl (11.8-15.2); Lymphocytes # (Auto) 0.9 K/mm3 (1.2-5.4); Lymphocytes % (Auto) 20.2 % (13.4-35.0); Mean Corpuscular HGB Conc 34 % (32-34); Mean Corpuscular Hemoglobin 28 pg (28-32); Mean Corpuscular Volume 82 fl (84-94); Monocytes # (Auto) 0.4 K/mm3 (0.0-0.8); Monocytes % (Auto) 8.6 % (0.0-7.3); Platelet Count 148 K/mm3 (140-440); Red Blood Count 4.54 M/mm3 (3.65-5.03); Red Cell Distribution Width 14.9 % (13.2-15.2)
[2018-04-16 08:59] LABS: BUN/Creatinine Ratio 16; Blood Urea Nitrogen 8 mg/dL (9-20); Calcium 9.2 mg/dL (8.4-10.2); Hemolysis Index 15
[2018-04-16] MEDS: SODIUM CHLORIDE FLUSH SYRINGE 10 ML IV SCH ×2 (10:36→22:42)
--- NOTE | 2018-04-16 14:51 | Progress Note ---
Assessment and Plan Assessment and plan: 57-year-old -[place] male with past medical history significant for schizophrenia was recently discharged from our hospital after treated for altered mental status, generalized muscular stiffness secondary to antipsychotic side effects. Patient was discharged to personal home care and came back to ED with acute worsening of his mental status and confusion. Altered mental status Delirium Schizophrenia -Psych consulted and recommended no antipsychotics -Supportive care -Patient is on restraints DVT prophylaxis - On Lovenox Disposition - Back to personal home care. History Interval history: Patient was seen and evaluated this morning, patient was alert and communicative. Hospitalist Physical - Physical exam Narrative exam: Not in cardiopulmonary distress. The patient is emaciated. Vital signs as documented. Head exam is unremarkable. No scleral icterus . Neck is without jugular venous distension, thyromegaly, or carotid bruits. Lungs are clear to auscultation. Cardiac exam reveals regular rate and Rhythm. First and second heart sounds normal. No murmurs, rubs or gallops. Abdominal exam reveals normal bowel sounds, no masses, no organomegaly and no aortic enlargement. Extremities are nonedematous and both femoral and pedal pulses are normal. 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 No focal weakness. - Constitutional Vitals: Temp Pulse Resp BP Pulse Ox 97.0 F L 80 18 110/76 99 04/15/18 17:40 04/15/18 17:40 04/15/18 17:40 04/15/18 17:39 04/15/18 17:40 Results - Labs CBC & Chem 7: 04/16/18 08:19 04/16/18 08:19 Labs: Laboratory Last Values WBC 4.5 K/mm3 (4.5-11.0) 04/16/18 08:19 RBC 4.54 M/mm3 (3.65-5.03) 04/16/18 08:19 Hgb 12.7 gm/dl (11.8-15.2) 04/16/18 08:19 Hct 37.1 % (35.5-45.6) D 04/16/18 08:19 MCV 82 fl (84-94) L 04/16/18 08:19 MCH 28 pg (28-32) 04/16/18 08:19 MCHC 34 % (32-34) 04/16/18 08:19 RDW 14.9 % (13.2-15.2) 04/16/18 08:19 Plt Count 148 K/mm3 (140-440) 04/16/18 08:19 Lymph % (Auto) 20.2 % (13.4-35.0) 04/16/18 08:19 [place] % (Auto) 8.6 % (0.0-7.3) H 04/16/18 08:19 Eos % (Auto) 0.8 % (0.0-4.3) 04/16/18 08:19 Baso % (Auto) 0.4 % (0.0-1.8) 04/16/18 08:19 Lymph # 0.9 K/mm3 (1.2-5.4) L 04/16/18 08:19 [place] # 0.4 K/mm3 (0.0-0.8) 04/16/18 08:19 Eos # 0.0 K/mm3 (0.0-0.4) 04/16/18 08:19 Baso # 0.0 K/mm3 (0.0-0.1) 04/16/18 08:19 Seg Neutrophils % 70.0 % (40.0-70.0) 04/16/18 08:19 Seg Neutrophils # 3.2 K/mm3 (1.8-7.7) 04/16/18 08:19 Sodium 142 mmol/L (137-145) 04/16/18 08:19 Potassium 3.7 mmol/L (3.6-5.0) 04/16/18 08:19 Chloride 107.0 mmol/L (98-107) 04/16/18 08:19 Carbon Dioxide 25 mmol/L (22-30) 04/16/18 08:19 Anion Gap 14 mmol/L 04/16/18 08:19 BUN 8 mg/dL (9-20) L 04/16/18 08:19 Creatinine 0.5 mg/dL (0.8-1.5) L 04/16/18 08:19 Estimated GFR > 60 ml/min 04/16/18 08:19 BUN/Creatinine Ratio 16 % 04/16/18 08:19 Glucose 107 mg/dL (75-100) H 04/16/18 08:19 Calcium 9.2 mg/dL (8.4-10.2) 04/16/18 08:19 Total Bilirubin 1.30 mg/dL (0.1-1.2) H 04/14/18 09:56 AST 24 units/L (5-40) 04/14/18 09:56 ALT 34 units/L (7-56) 04/14/18 09:56 Alkaline Phosphatase 57 units/L (35-129) 04/14/18 09:56 Ammonia 19.0 umol/L (25-60) L 04/14/18 09:56 Total Protein 7.9 g/dL (6.3-8.2) 04/14/18 09:56 Albumin 4.3 g/dL (3.9-5) 04/14/18 09:56 Albumin/Globulin Ratio 1.2 % 04/14/18 09:56 TSH 3.550 mlU/mL (0.270-4.200) 04/14/18 11:19 Urine Color Yellow (Yellow) 04/15/18 12:47 Urine Turbidity Cloudy (Clear) 04/15/18 12:47 Urine pH 7.0 (5.0-7.0) 04/15/18 12:47 Ur Specific [place] 1.016 (1.003-1.030) 04/15/18 12:47 Urine Protein <15 mg/dl mg/dL (Negative) 04/15/18 12:47 Urine Glucose (UA) Neg mg/dL (Negative) 04/15/18 12:47 Urine Ketones Neg mg/dL (Negative) 04/15/18 12:47 Urine Blood Neg (Negative) 04/15/18 12:47 Urine Nitrite Pos (Negative) 04/15/18 12:47 Urine Bilirubin Neg (Negative) 04/15/18 12:47 Urine Urobilinogen 4.0 mg/dL (<2.0) 04/15/18 12:47 Ur Leukocyte Esterase Lg (Negative) 04/15/18 12:47 Urine WBC (Auto) 129.0 /HPF (0.0-6.0) H 04/15/18 12:47 Urine RBC (Auto) 8.0 /HPF (0.0-6.0) 04/15/18 12:47 U Epithel Cells (Auto) 1.0 /HPF (0-13.0) 04/15/18 12:47 Urine WBC Clumps Few /HPF 04/15/18 12:47 Urine Mucus Few /HPF 04/15/18 12:47 Urine Opiates Screen Presumptive negative 04/15/18 12:47 Urine Methadone Screen Presumptive negative 04/15/18 12:47 Ur Barbiturates Screen Presumptive negative 04/15/18 12:47 Ur Phencyclidine Scrn Presumptive negative 04/15/18 12:47 Ur Amphetamines Screen Presumptive negative 04/15/18 12:47 U Benzodiazepines Scrn Presumptive negative 04/15/18 12:47 Urine Cocaine Screen Presumptive negative 04/15/18 12:47 U Marijuana (THC) Screen Presumptive negative 04/15/18 12:47 Drugs of Abuse Note Disclamer 04/15/18 12:47 Plasma/Serum Alcohol < 0.01 % (0-0.07) 04/14/18 09:56
[2018-04-16] MEDS ORDERED: LOVENOX SUB-Q SCH (22:00)
[2018-04-17] MEDS: D5NS 1,000 ML IV SCH (04:30)
[2018-04-17] MEDS: SODIUM CHLORIDE FLUSH SYRINGE 10 ML IV SCH (10:04)
--- NOTE | 2018-04-17 13:01 | Discharge Summary ---
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 Patient was discharged to personal home care and came back to ED with acute worsening of his mental status and confusion. Altered mental status getting better with supportive care Delirium, getting better with supportive care Schizophrenia; Psych consulted and recommended no antipsychotics Patient showed improvement and discharged to personal home care. Nothing much can be done in the hospital different from the personal home care. Disposition: DC-01 TO HOME OR SELFCARE Time spent for discharge: 32 minutes - Discharge Diagnoses (1) Altered mental status Status: Acute (2) Combative behavior Status: Acute (3) Schizophrenia Status: Acute (4) Catatonic state Status: Acute (5) Dehydration Status: Acute (6) Malnutrition Status: Acute Core Measure Documentation - Palliative Care Palliative Care/ Comfort Measures: Not Applicable - Core Measures Any of the following diagnoses?: none Exam - Physical Exam Narrative exam: Not in cardiopulmonary distress. The patient is emaciated. Vital signs as documented. Head exam is unremarkable. No scleral icterus . Neck is without jugular venous distension, thyromegaly, or carotid bruits. Lungs are clear to auscultation. Cardiac exam reveals regular rate and Rhythm. First and second heart sounds normal. No murmurs, rubs or gallops. Abdominal exam reveals normal bowel sounds, no masses, no organomegaly and no aortic enlargement. Extremities are nonedematous and both femoral and pedal pulses are normal. 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 No focal weakness. - Constitutional Vitals: Temp Pulse Resp BP Pulse Ox 97.7 F 65 12 119/81 97 04/17/18 00:37 04/17/18 00:37 04/17/18 00:37 04/17/18 00:37 04/17/18 00:37 Plan Activity: advance as tolerated Weight Bearing Status: Weight Bear as Tolerated Diet: advance as tolerated Follow up with: PRIMARY CARE, [Primary Care Provider] - 3-5 Days Prescriptions: traZODone [Desyrel] 50 mg PO QHS PRN #30 tab PRN Reason: Insomnia
[2018-04-17 13:52] VITALS: BP 111/75
== END 2018-04-17 17:19 | disposition home or self-care (01) | DRG 70 ==
LOC: ED 08:51 → 3A 12:23
PROVIDERS: ADMIT Internal Medicine; ATTEND Internal Medicine
DX: G93.40 Encephalopathy, unspecified (principal); E43 Unspecified severe protein-calorie malnutrition; Z68.1 Body mass index [BMI] 19.9 or less, adult; F20.2 Catatonic schizophrenia; R62.7 Adult failure to thrive; F32.9 Major depressive disorder, single episode, unspecified; E86.0 Dehydration; F41.9 Anxiety disorder, unspecified; W18.39XA Other fall on same level, initial encounter; Y93.89 Activity, other specified; Y92.098 Other place in other non-institutional residence as the place of occurrence of the external cause; Y99.8 Other external cause status
CPT/HCPCS: 36415; 80048; 80053; 80307; 80320; 81001; 82140; 82962; 84207; 84425; 84443; 85025; 87116; G0480; J1650; J7042